=== PATIENT | male | born 1955 | race Caucasian/White ===

== ENCOUNTER 2016-11-11 14:08 | Emergency (ER) | payer MEDICARE ==
[2016-11-11] MEDS ORDERED: SODIUM CHLORIDE 0.9% 1,000 ML IV STA (14:15)
--- NOTE | 2016-11-11 14:36 | ED ---
General Adult HPI - General Chief complaint: Syncope Stated complaint: Syncope Time Seen by Provider: 11/11/16 14:10 Source: patient, RN notes reviewed Mode of arrival: EMS Limitations: no limitations - History of Present Illness Initial comments: Patient is a pleasant 61-year-old male presenting to the emergency department following a syncopal episode. Patient states he was at the [employer] he felt dizzy and fell down. No injury. Patient states he almost passed out. Patient has similar episode happened yesterday. Patient states he did not fully lose consciousness. No chest pain or shortness of breath. No abdominal pain. Patient does have a headache however states that is very mild. Patient does drink alcohol almost daily. - Related Data Home Medications Medication Instructions Recorded Confirmed Atenolol [Tenormin] 25 mg PO BID 06/29/15 08/02/15 Cholecalciferol [Vitamin D3] 1,000 unit PO DAILY 06/29/15 11/11/16 Cyclobenzaprine [Flexeril] 10 mg PO TID 06/29/15 08/02/15 FLUoxetine HCL [PROzac] 60 mg PO QAM 06/29/15 11/11/16 Gabapentin [Neurontin] 600 mg PO TID 06/29/15 08/02/15 Lisinopril [Zestril] 20 mg PO BID 06/29/15 08/02/15 Multivitamin [Men's Multi-Vitamin] 1 tab PO DAILY 06/29/15 11/11/16 Previous Rx's Medication Instructions Recorded HYDROcodone/APAP 5-325MG [[place] 1 tab PO Q6HR PRN #20 tab 07/22/15 5-325] Ondansetron HCl [Zofran] 4 mg PO Q8HR #30 tab 07/22/15 Pantoprazole [Protonix] 40 mg PO AC-BRKFST #30 tablet.dr 08/03/15 Tamsulosin [Flomax] 0.4 mg PO PC-SUPPER #30 cap.er.24h 08/03/15 Tiotropium 18 Mcg/Puff [Spiriva] 1 puff INHALATION RT-DAILY #1 08/03/15 inhaler Allergies Allergy/AdvReac Type Severity Reaction Status Date / Time No Known Allergies Allergy Verified 11/11/16 14:33 Review of Systems ROS Statement: Those systems with pertinent positive or pertinent negative responses have been documented in the HPI. ROS Other: All systems not noted in ROS Statement are negative. Constitutional: Denies: fever Eyes: Denies: eye pain ENT: Denies: ear pain Respiratory: Denies: cough Cardiovascular: Denies: chest pain Endocrine: Denies: fatigue Gastrointestinal: Denies: abdominal pain Genitourinary: Denies: dysuria Musculoskeletal: Denies: back pain Skin: Denies: rash Neurological: Reports: headache. Denies: weakness, confusion Past Medical History Past Medical History: Asthma, Chest Pain / Angina, Hyperlipidemia, Hypertension , Osteoarthritis (OA) Additional Past Medical History / Comment(s): DIVERTICULITIS."ulcer" neuropathy .chronic back pain,ddd alcoholism- had seizure when coming off alcohol. scoliosis,hemorrhoids , "i have some blocked arteries" History of Any Multi-Drug Resistant Organisms: None Reported Past Surgical History: Heart Catheterization, Orthopedic Surgery, Tonsillectomy Additional Past Surgical History / Comment(s): left shoulder ROTATOR CUFF.egd/ colonoscopy Past Anesthesia/Blood Transfusion Reactions: No Reported Reaction Past Psychological History: Anxiety, Depression Smoking Status: Current every day smoker Past Alcohol Use History: Daily Past Drug Use History: None Reported - Past Family History Mother Family Medical History: Coronary Artery Disease (CAD) Additional Family Medical History / Comment(s): CARDIAC STENTS Father Family Medical History: Cancer Additional Family Medical History / Comment(s): UNSURE WHAT KIND OF CANCER General Exam Limitations: no limitations General appearance: alert, in no apparent distress Head exam: Present: atraumatic, normocephalic Eye exam: Present: normal appearance, PERRL, EOMI, nystagmus ENT exam: Present: normal oropharynx Neck exam: Present: normal inspection. Absent: tenderness Respiratory exam: Present: normal lung sounds bilaterally Cardiovascular Exam: Present: regular rate, normal rhythm GI/Abdominal exam: Present: soft. Absent: distended, tenderness Extremities exam: Present: normal inspection Neurological exam: Present: alert, oriented X3, CN II-XII intact. Absent: motor sensory deficit Expanded Speech: Present: fluid speech Cranial nerves: EOM's Intact: Normal, Facial Sensation: Normal Sensory exam: Upper Extremity Light Touch: Normal, Lower Extremity Light Touch: Normal Motor strength exam: RUE: 5, LUE: 5, RLE: 5, LLE: 5 Eye Response: (4) open spontaneously Motor Response: (6) obeys commands Verbal Response: (5) oriented Psychiatric exam: Present: normal affect, normal mood Skin exam: Present: abrasion (Extremities) Course Vital Signs 11/11/16 11/11/16 11/11/16 14:15 14:45 15:44 Temperature 98.6 F Pulse Rate 81 75 71 Respiratory 20 20 20 Rate Blood Pressure 98/55 150/74 141/74 O2 Sat by Pulse 97 100 99 Oximetry EKG Findings - EKG Comments: EKG Findings:: Normal sinus rhythm 79. LA 146. QRS 92. QT 382. QTC 438. Normal axis. Normal QRS. Normal ST-T. Medical Decision Making - Medical Decision Making Patient reexamined and resting comfortably in bed. Patient is symptom-free. Patient updated on results. Patient requests discharge home. Patient was offered admission however refuses. Patient is agreeable to follow-up with his doctor tomorrow. Patient is alert and oriented 3 and does demonstrate steady gait. - Lab Data Result diagrams: 11/11/16 14:20 11/11/16 14:20 Lab Results 11/11/16 11/11/16 11/11/16 Range/Units 14:20 14:20 14:20 WBC 5.6 (3.8-10.6) k/uL RBC 3.39 L (4.30-5.90) m/uL Hgb 11.7 L (13.0-17.5) gm/dL Hct 35.1 L (39.0-53.0) % MCV 103.3 H (80.0-100.0) fL MCH 34.4 (25.0-35.0) pg MCHC 33.3 (31.0-37.0) g/dL RDW 13.2 (11.5-15.5) % Plt Count 356 (150-450) k/uL Neutrophils % 57 % Lymphocytes % 31 % Monocytes % 7 % Eosinophils % 2 % Basophils % 1 % Neutrophils # 3.2 (1.3-7.7) k/uL Lymphocytes # 1.7 (1.0-4.8) k/uL Monocytes # 0.4 (0-1.0) k/uL Eosinophils # 0.1 (0-0.7) k/uL Basophils # 0.0 (0-0.2) k/uL Macrocytosis Slight PT (9.0-12.0) sec INR (<1.2) APTT (22.0-30.0) sec D-Dimer (<0.60) mg/L FEU Sodium 141 (137-145) mmol/L Potassium 4.4 (3.5-5.1) mmol/L Chloride 110 H (98-107) mmol/L Carbon Dioxide 18 L (22-30) mmol/L Anion Gap 13 mmol/L BUN 9 (9-20) mg/dL Creatinine 0.80 (0.66-1.25) mg/dL Est GFR (MDRD) Af Amer >60 (>60 ml/min/1.73 sqM) Est GFR (MDRD) Non-Af >60 (>60 ml/min/1.73 sqM) Glucose 78 (74-99) mg/dL Calcium 8.5 (8.4-10.2) mg/dL Magnesium 1.6 (1.6-2.3) mg/dL Total Bilirubin 0.3 (0.2-1.3) mg/dL AST 32 (17-59) U/L ALT 31 (21-72) U/L Alkaline Phosphatase 107 (38-126) U/L Total Creatine Kinase 155 (55-170) U/L CK-MB (CK-2) 2.2 (0.0-2.4) ng/mL CK-MB (CK-2) Rel Index 1.4 Troponin I <0.012 (0.000-0.034) ng/mL Total Protein 5.6 L (6.3-8.2) g/dL Albumin 3.1 L (3.5-5.0) g/dL Urine Color Urine Appearance (Clear) Urine pH (5.0-8.0) Ur Specific [place] (1.001-1.035) Urine Protein (Negative) Urine Glucose (UA) (Negative) Urine Ketones (Negative) Urine Blood (Negative) Urine Nitrite (Negative) Urine Bilirubin (Negative) Urine Urobilinogen (<2.0) mg/dL Ur Leukocyte Esterase (Negative) Serum Alcohol 209 mg/dL 11/11/16 11/11/16 11/11/16 Range/Units 14:20 14:20 15:40 WBC (3.8-10.6) k/uL RBC (4.30-5.90) m/uL Hgb (13.0-17.5) gm/dL Hct (39.0-53.0) % MCV (80.0-100.0) fL MCH (25.0-35.0) pg MCHC (31.0-37.0) g/dL RDW (11.5-15.5) % Plt Count (150-450) k/uL Neutrophils % % Lymphocytes % % Monocytes % % Eosinophils % % Basophils % % Neutrophils # (1.3-7.7) k/uL Lymphocytes # (1.0-4.8) k/uL Monocytes # (0-1.0) k/uL Eosinophils # (0-0.7) k/uL Basophils # (0-0.2) k/uL Macrocytosis PT 11.0 (9.0-12.0) sec INR 1.1 (<1.2) APTT 24.3 (22.0-30.0) sec D-Dimer 0.80 H (<0.60) mg/L FEU Sodium (137-145) mmol/L Potassium (3.5-5.1) mmol/L Chloride (98-107) mmol/L Carbon Dioxide (22-30) mmol/L Anion Gap mmol/L BUN (9-20) mg/dL Creatinine (0.66-1.25) mg/dL Est GFR (MDRD) Af Amer (>60 ml/min/1.73 sqM) Est GFR (MDRD) Non-Af (>60 ml/min/1.73 sqM) Glucose (74-99) mg/dL Calcium (8.4-10.2) mg/dL Magnesium (1.6-2.3) mg/dL Total Bilirubin (0.2-1.3) mg/dL AST (17-59) U/L ALT (21-72) U/L Alkaline Phosphatase (38-126) U/L Total Creatine Kinase (55-170) U/L CK-MB (CK-2) (0.0-2.4) ng/mL CK-MB (CK-2) Rel Index Troponin I (0.000-0.034) ng/mL Total Protein (6.3-8.2) g/dL Albumin (3.5-5.0) g/dL Urine Color Colorless Urine Appearance Clear (Clear) Urine pH 5.0 (5.0-8.0) Ur Specific [place] 1.002 (1.001-1.035) Urine Protein Negative (Negative) Urine Glucose (UA) Negative (Negative) Urine Ketones Negative (Negative) Urine Blood Negative (Negative) Urine Nitrite Negative (Negative) Urine Bilirubin Negative (Negative) Urine Urobilinogen <2.0 (<2.0) mg/dL Ur Leukocyte Esterase Negative (Negative) Serum Alcohol mg/dL - Radiology Data Radiology results: report reviewed (CT angiogram of the chest shows no evidence of pulmonary embolism. Computed tomography scan of the brain shows no acute process.), image reviewed (Two-view chest x-ray shows no acute process.) Disposition Clinical Impression: Near syncope, Alcohol abuse Disposition: HOME SELF-CARE Condition: Stable Instructions: Near Syncope (ED) Additional Instructions: Discontinue alcohol. Please follow-up with your doctor tomorrow as agreed upon. Return for passing out, headache, weakness or confusion, chest pain or difficulty breathing, worsening symptoms or other concerns. Referrals: Jaylon Ledbetter DO [Primary Care Provider] - 1-2 days Time of Disposition: 16:15
[2016-11-11 14:40] LABS: Basophils % (A) 1 %; CH 34.4; CHCM 33.6; Eosinophils # (A) 0.1 k/uL (0-0.7); Eosinophils % (A) 2 %; HCT 35.1 % (39.0-53.0); HDW 2.56; HGB 11.7 gm/dL (13.0-17.5); Luc # (Auto) 0.16; Luc % (Auto) 3; Lymphocytes # (A) 1.7 k/uL (1.0-4.8); Lymphocytes % (A) 31 %; MCH 34.4 pg (25.0-35.0); MCHC 33.3 g/dL (31.0-37.0); MCV 103.3 fL (80.0-100.0); Macrocytosis Slight; Mean Platelet Volume 6.7; Monocytes # (A) 0.4 k/uL (0-1.0); Monocytes % (A) 7 %; Neutrophils # (A) 3.2 k/uL (1.3-7.7); Neutrophils % (A) 57 %; RBC 3.39 m/uL (4.30-5.90); RDW 13.2 % (11.5-15.5); WBC 5.6 k/uL (3.8-10.6); WBC (Perox) 5.65
--- NOTE | 2016-11-11 14:40 | XR ---
EXAMINATION TYPE: XR chest 2V DATE OF EXAM: 11/11/2016 COMPARISON: 08/02/2015 HISTORY: Syncope TECHNIQUE: Frontal and lateral views of the chest are obtained. FINDINGS: Heart and mediastinum are normal. Lungs are clear. Diaphragm is normal. There are chest le ads. Bony thorax is intact. IMPRESSION: Normal chest. No change.
[2016-11-11 14:49] LABS: INR 1.1 (<1.2); Partial Thromboplastin Time 24.3 sec (22.0-30.0)
[2016-11-11 14:52] LABS: ALT 31 U/L (21-72); AST 32 U/L (17-59); Alkaline Phosphatase 107 U/L (38-126); Anion Gap 13 mmol/L; Blood Urea Nitrogen 9 mg/dL (9-20); Calcium 8.5 mg/dL (8.4-10.2); Carbon Dioxide 18 mmol/L (22-30); Chloride 110 mmol/L (98-107); Glucose 78 mg/dL (74-99); Magnesium 1.6 mg/dL (1.6-2.3); Non-African American GFR(MDRD) >60 (>60 ml/min/1.73 sqM); Potassium 4.4 mmol/L (3.5-5.1); Sodium 141 mmol/L (137-145); Total Bilirubin 0.3 mg/dL (0.2-1.3); Total Protein 5.6 g/dL (6.3-8.2)
[2016-11-11 14:56] LABS: Alcohol 209 mg/dL
--- NOTE | 2016-11-11 14:57 | CT ---
EXAMINATION TYPE: CT brain wo con DATE OF EXAM: 11/11/2016 COMPARISON: NONE HISTORY: Syncope and Headache CT DLP: 1121 mGycm Automated exposure control for dose reduction was used. FINDINGS: There is some cerebral cortical atrophy. There is no mass effect nor midline shift. There is no sign of intracranial hemorrhage. The calvarium is intact. There is a small mucous retention cyst in the ri ght maxillary sinus. IMPRESSION: NEGATIVE CT SCAN OF THE BRAIN. MILD ATROPHY.
[2016-11-11 15:09] LABS: Creatine Kinase 155 U/L (55-170)
[2016-11-11] MEDS ORDERED: RX INFO: IV CONTRAST WAS GIVEN 1 EACH MISC MISCELLANE PRN (15:20)
[2016-11-11 15:23] LABS: Creatine Kinase MB 2.2 ng/mL (0.0-2.4); Troponin I <0.012 ng/mL (0.000-0.034)
[2016-11-11 15:54] LABS: Appearance,Urine Clear (Clear); Bilirubin,Urine Negative (Negative); Glucose,Urine (UA) Negative (Negative); Ketones,Urine Negative (Negative); Leukocyte Esterase,Urine Negative (Negative); Nitrite,Urine Negative (Negative); Protein,Urine Negative (Negative); Specific Gravity,Urine 1.002 (1.001-1.035); UA Billing (MACRO vs. MICRO) CHEM; Urobilinogen,Urine <2.0 mg/dL (<2.0)
--- NOTE | 2016-11-11 15:56 | CT ---
EXAMINATION TYPE: CT angio chest DATE OF EXAM: 11/11/2016 3:41 PM COMPARISON: 08/02/2015 HISTORY: Dizziness CT DLP: mGycm Automated exposure control for dose reduction was used. CONTRAST: Multiple axial sections were obtained from the thoracic inlet to the diaphragm with intravenous contr ast. The contrast was Omnipaque 80 mL. There are 3-D post processed images. FINDINGS: There is mild upper lobe pulmonary emphysema. There is no pleural effusion. There is mild interstitia l density at the posterior lung bases. There is no sign of a pulmonary mass. Thoracic aorta is intact . There is mild atherosclerotic calcification in the thoracic aorta. There is no evidence of aneurysm or dissection. Heart size is normal. There is no pericardial effusion. I see no filling defects in the pulmonary arteries. There are no hilar masses. There is no mediastina l adenopathy. The bony thorax is intact. IMPRESSION: NO EVIDENCE OF PULMONARY EMBOLISM. MILD EMPHYSEMA. FIBROTIC CHANGES AT THE LUNG BASES. THERE IS OVERA LL NO ADVERSE CHANGE COMPARED TO OLD EXAM. THERE IS NOTED A STABLE SMALL LIPOMA OF THE RIGHT DIAPHRAG M. There are stable tiny nodules in both lungs compared to old exams.
[2016-11-11 16:25] VITALS: BP 127/72; PULSE 74; RESP 19; TEMP 98
== END 2016-11-11 16:29 | disposition home or self-care (01) ==
LOC: EC 14:08
DX: R55 Syncope and collapse (principal); F10.10 Alcohol abuse, uncomplicated; R51 Headache; G62.9 Polyneuropathy, unspecified; I10 Essential (primary) hypertension; F32.9 Major depressive disorder, single episode, unspecified; F17.200 Nicotine dependence, unspecified, uncomplicated; Z79.899 Other long term (current) drug therapy
CPT/HCPCS: 36415; 93005; 85379; 80053; 82550; 82553; 83735; 84484; 85025; 85610; 85730; 81003; 80320; 71020; 70450; 71275; 99285; 96360; 96361; Q9967

== ENCOUNTER → 2017-01-28 | Outpatient (CLI) | payer MEDICARE ==
--- NOTE | 2017-01-28 14:52 | CT ---
EXAMINATION TYPE: CT chest w con DATE OF EXAM: 01/28/2017 COMPARISON: CTA chest November 11, 2016 and older studies. HISTORY: Pulmonary nodule, left lung CT DLP: 447 mGycm. Automated Exposure Control for Dose Reduction was Utilized. TECHNIQUE: CT scan of the thorax is performed following with IV Contrast, patient injected with 100 ml mL of Omnipaque 300. FINDINGS: LUNGS: Mild to moderate underlying emphysematous change is redemonstrated. There is persistent patchy bibasilar atelectasis and/or scarring. No suspicious greater than 5 mm parenchymal nodules or masses are identified. There is stable 3 mm nodule medial left upper lobe on axial image 31. Smaller nodule s on prior study are less well seen. Small fat-containing Bochdalek type hernia posteriorly right cary g is redemonstrated. No pleural effusion or pneumothorax is seen bilaterally. Tracheobronchial tree i s patent. MEDIASTINUM: There are no greater than 1 cm hilar or mediastinal lymph nodes. No cardiomegaly or p ericardial effusion is seen. There is dense three-vessel coronary artery calcification. There is mil d to moderate mixed plaque in the descending aorta. OTHER: There is small degree of bilateral gynecomastia. Multilevel spurring and spine is redemonstrat ed. IMPRESSION: Stable under 5 mm nodularity presumed benign. No new suspicious nodularity or adenopathy identified.
== END | disposition home or self-care (01) ==
LOC: RADCTMAIN 12:51
PROVIDERS: ATTEND Internal Medicine Critical Care Medicine
DX: R91.8 Other nonspecific abnormal finding of lung field (principal)
CPT/HCPCS: 71260; Q9967

== ENCOUNTER 2017-11-06 18:52 | Inpatient (IN) | payer OTHER, MEDICARE ==
[2017-11-06] MEDS ORDERED: SODIUM CHLORIDE 0.9% 1,000 ML IV ONE ×2 (19:21)
--- NOTE | 2017-11-06 19:27 | ED ---
General Adult HPI - General Chief complaint: Altered Mental Status Stated complaint: Confusion Time Seen by Provider: 11/06/17 18:57 Source: EMS, RN notes reviewed, old records reviewed Mode of arrival: EMS - History of Present Illness Initial comments: This is a 62-year-old male the ER for evaluation. Patient does say for evaluation regards to altered mental state. Patient's brought in by family member cc patient was acting appropriately. Patient was acting fine normal 2 days ago. The symptoms all started overnight into today. Patient's sister states she talked the patient a fall earlier this hospital they came ROM over the house patient was not acting appropriately. They called EMS and brought patient to ER. Patient himself is not complaining of anything specific maybe some cough, and some pain to some wounds on his leg - Related Data Home Medications Medication Instructions Recorded Confirmed Atenolol [Tenormin] 25 mg PO BID 06/29/15 11/06/17 Cyclobenzaprine [Flexeril] 10 mg PO TID 06/29/15 11/06/17 FLUoxetine HCL [PROzac] 60 mg PO QAM 06/29/15 11/06/17 Gabapentin [Neurontin] 900 mg PO TID 06/29/15 11/06/17 Lisinopril [Zestril] 20 mg PO BID 06/29/15 11/06/17 Multivitamin [Men's Multi-Vitamin] 1 tab PO DAILY 06/29/15 11/06/17 Acetaminophen [Tylenol Extra 500 mg PO TID 11/06/17 11/06/17 Strength] Aspirin EC [Ecotrin Low Dose] 81 mg PO DAILY 11/06/17 11/06/17 Atorvastatin [Lipitor] 80 mg PO HS 11/06/17 11/06/17 Cholecalciferol [Vitamin D3] 1,000 unit PO DAILY 11/06/17 11/06/17 Clopidogrel Bisulfate [Plavix] 75 mg PO DAILY 11/06/17 11/06/17 Ferrous Sulfate [Feosol] 325 mg PO BID 11/06/17 11/06/17 Omeprazole 20 mg PO BID 11/06/17 11/06/17 guaiFENesin SYRUP 100MG/5ML 100 mg PO QID 11/06/17 11/06/17 [Robitussin] Allergies Allergy/AdvReac Type Severity Reaction Status Date / Time No Known Allergies Allergy Verified 11/06/17 19:11 Review of Systems ROS Statement: Those systems with pertinent positive or pertinent negative responses have been documented in the HPI. ROS Other: All systems not noted in ROS Statement are negative. Past Medical History Past Medical History: Asthma, Chest Pain / Angina, Hyperlipidemia, Hypertension , Osteoarthritis (OA) Additional Past Medical History / Comment(s): DIVERTICULITIS."ulcer" neuropathy .chronic back pain,ddd alcoholism- had seizure when coming off alcohol. scoliosis,hemorrhoids , "i have some blocked arteries" History of Any Multi-Drug Resistant Organisms: None Reported Past Surgical History: Heart Catheterization, Orthopedic Surgery, Tonsillectomy Additional Past Surgical History / Comment(s): left shoulder ROTATOR CUFF.egd/ colonoscopy Past Anesthesia/Blood Transfusion Reactions: No Reported Reaction Past Psychological History: Anxiety, Depression Smoking Status: Current every day smoker Past Alcohol Use History: Daily Past Drug Use History: None Reported - Past Family History Mother Family Medical History: Coronary Artery Disease (CAD) Additional Family Medical History / Comment(s): CARDIAC STENTS Father Family Medical History: Cancer Additional Family Medical History / Comment(s): UNSURE WHAT KIND OF CANCER General Exam - General Exam Comments Initial Comments: Nonhealing wounds erythematous to both anterior shins Limitations: altered mental status General appearance: alert, in no apparent distress Head exam: Present: atraumatic, normocephalic, normal inspection Eye exam: Present: normal appearance, PERRL, EOMI. Absent: scleral icterus, conjunctival injection, periorbital swelling ENT exam: Present: normal exam, mucous membranes moist Neck exam: Present: normal inspection. Absent: tenderness, meningismus, lymphadenopathy Respiratory exam: Present: normal lung sounds bilaterally. Absent: respiratory distress, wheezes, rales, rhonchi, stridor Cardiovascular Exam: Present: normal rhythm, tachycardia, normal heart sounds. Absent: systolic murmur, diastolic murmur, rubs, gallop, clicks GI/Abdominal exam: Present: soft, normal bowel sounds. Absent: distended, tenderness, guarding, rebound, rigid Extremities exam: Present: normal inspection, full ROM, normal capillary refill. Absent: tenderness, pedal edema, joint swelling, calf tenderness Back exam: Present: normal inspection Neurological exam: Present: alert, oriented X3, CN II-XII intact Psychiatric exam: Present: normal affect, normal mood Skin exam: Present: warm, dry, intact, normal color. Absent: rash Course Vital Signs 11/06/17 11/06/17 11/06/17 18:57 20:46 21:08 Temperature 96.0 F L Pulse Rate 113 H 90 93 Respiratory 20 Rate Blood Pressure 178/93 O2 Sat by Pulse 98 Oximetry - Reevaluation(s) Reevaluation #1: 11/06/17 21:14 Medical records reviewed Reevaluation #2: 11/06/17 21:52 No significant improvement in symptoms EKG Findings - EKG Comments: EKG Findings:: EKG shows sinus tachycardia rate of 109, MS 1:30, QRS 90, QTc 492 Medical Decision Making - Medical Decision Making 52 male the ER with altered mental status, unkempt appearance, nonhealing leg wounds and ulcers, erythematous wounds to lower shins. Elevated white count, will place patient on antibiotics and admitted evaluated for further treatment - Lab Data Result diagrams: 11/06/17 19:25 11/06/17 19:25 Lab Results 11/06/17 11/06/17 11/06/17 Range/Units 19:25 19:25 19:25 WBC 15.1 H (3.8-10.6) k/uL RBC 3.45 L (4.30-5.90) m/uL Hgb 11.5 L (13.0-17.5) gm/dL Hct 34.4 L (39.0-53.0) % MCV 99.7 (80.0-100.0) fL MCH 33.4 (25.0-35.0) pg MCHC 33.5 (31.0-37.0) g/dL RDW 13.3 (11.5-15.5) % Plt Count 443 (150-450) k/uL Neutrophils % 91 % Lymphocytes % 4 % Monocytes % 3 % Eosinophils % 0 % Basophils % 0 % Neutrophils # 13.8 H (1.3-7.7) k/uL Lymphocytes # 0.7 L (1.0-4.8) k/uL Monocytes # 0.5 (0-1.0) k/uL Eosinophils # 0.1 (0-0.7) k/uL Basophils # 0.0 (0-0.2) k/uL PT (9.0-12.0) sec INR (<1.2) APTT (22.0-30.0) sec Sodium 136 L (137-145) mmol/L Potassium 3.7 (3.5-5.1) mmol/L Chloride 108 H (98-107) mmol/L Carbon Dioxide 21 L (22-30) mmol/L Anion Gap 7 mmol/L BUN 9 (9-20) mg/dL Creatinine 0.93 (0.66-1.25) mg/dL Est GFR (CKD-EPI)AfAm >90 (>60 ml/min/1.73 sqM) Est GFR (CKD-EPI)NonAf 87 (>60 ml/min/1.73 sqM) Glucose 117 H (74-99) mg/dL Calcium 9.1 (8.4-10.2) mg/dL Total Bilirubin 0.7 (0.2-1.3) mg/dL AST 38 (17-59) U/L ALT 29 (21-72) U/L Alkaline Phosphatase 102 (38-126) U/L Ammonia (<30) umol/L Total Creatine Kinase 219 H (55-170) U/L CK-MB (CK-2) 3.0 H* (0.0-2.4) ng/mL CK-MB (CK-2) Rel Index 1.4 Troponin I 0.016 (0.000-0.034) ng/mL Total Protein 6.7 (6.3-8.2) g/dL Albumin 4.2 (3.5-5.0) g/dL 11/06/17 11/06/17 Range/Units 19:25 19:50 WBC (3.8-10.6) k/uL RBC (4.30-5.90) m/uL Hgb (13.0-17.5) gm/dL Hct (39.0-53.0) % MCV (80.0-100.0) fL MCH (25.0-35.0) pg MCHC (31.0-37.0) g/dL RDW (11.5-15.5) % Plt Count (150-450) k/uL Neutrophils % % Lymphocytes % % Monocytes % % Eosinophils % % Basophils % % Neutrophils # (1.3-7.7) k/uL Lymphocytes # (1.0-4.8) k/uL Monocytes # (0-1.0) k/uL Eosinophils # (0-0.7) k/uL Basophils # (0-0.2) k/uL PT 10.0 (9.0-12.0) sec INR 1.0 (<1.2) APTT 22.7 (22.0-30.0) sec Sodium (137-145) mmol/L Potassium (3.5-5.1) mmol/L Chloride (98-107) mmol/L Carbon Dioxide (22-30) mmol/L Anion Gap mmol/L BUN (9-20) mg/dL Creatinine (0.66-1.25) mg/dL Est GFR (CKD-EPI)AfAm (>60 ml/min/1.73 sqM) Est GFR (CKD-EPI)NonAf (>60 ml/min/1.73 sqM) Glucose (74-99) mg/dL Calcium (8.4-10.2) mg/dL Total Bilirubin (0.2-1.3) mg/dL AST (17-59) U/L ALT (21-72) U/L Alkaline Phosphatase (38-126) U/L Ammonia 14 (<30) umol/L Total Creatine Kinase (55-170) U/L CK-MB (CK-2) (0.0-2.4) ng/mL CK-MB (CK-2) Rel Index Troponin I (0.000-0.034) ng/mL Total Protein (6.3-8.2) g/dL Albumin (3.5-5.0) g/dL - Radiology Data Radiology results: report reviewed (Chest x-rays negative for acute disease, CT brain negative for acute disease), image reviewed Disposition Clinical Impression: Altered mental status, Urinary retention with incomplete bladder emptying, Delirium due to general medical condition, Nonhealing nonsurgical wound Disposition: ADMITTED IP TO THIS HOSP Condition: Fair Is patient prescribed a controlled substance at d/c from ED?: No Referrals: [facility],Clinic [Primary Care Provider] - 1-2 days
[2017-11-06] MEDS ORDERED: PANTOPRAZOLE 40 MG/10 ML VIAL IVP STA (19:39)
[2017-11-06] MEDS ORDERED: LORazepam 2 MG/ML INJ IV STA (19:39)
[2017-11-06] MEDS ORDERED: ONDANSETRON 4 MG/2 ML VIAL IVP STA (19:39)
[2017-11-06] MEDS ORDERED: LABETALOL 5 MG/ML VIAL MDV IVP STA (19:39)
[2017-11-06] MEDS ORDERED: IPRATROPIUM-ALBUTEROL 3 ML NEB INHALATION STA (19:39)
[2017-11-06] MEDS ORDERED: cefTRIAXone IN SWFI 2,000 MG/20 ML SYRINGE IVP STA (19:41)
[2017-11-06 19:54] LABS: Basophils % (A) 0 %; Eosinophils # (A) 0.1 k/uL (0-0.7); Eosinophils % (A) 0 %; HCT 34.4 % (39.0-53.0); HGB 11.5 gm/dL (13.0-17.5); Lymphocytes # (A) 0.7 k/uL (1.0-4.8); Lymphocytes % (A) 4 %; MCH 33.4 pg (25.0-35.0); MCHC 33.5 g/dL (31.0-37.0); MCV 99.7 fL (80.0-100.0); Mean Platelet Volume 6.3; Monocytes # (A) 0.5 k/uL (0-1.0); Monocytes % (A) 3 %; Neutrophils # (A) 13.8 k/uL (1.3-7.7); Neutrophils % (A) 91 %; Platelet Count 443 k/uL (150-450); RBC 3.45 m/uL (4.30-5.90); RDW 13.3 % (11.5-15.5); WBC 15.1 k/uL (3.8-10.6)
[2017-11-06 19:56] LABS: Partial Thromboplastin Time 22.7 sec (22.0-30.0)
[2017-11-06 20:01] LABS: ALT 29 U/L (21-72); AST 38 U/L (17-59); Albumin 4.2 g/dL (3.5-5.0); Alkaline Phosphatase 102 U/L (38-126); Anion Gap 7 mmol/L; Blood Urea Nitrogen 9 mg/dL (9-20); Calcium 9.1 mg/dL (8.4-10.2); Carbon Dioxide 21 mmol/L (22-30); Chloride 108 mmol/L (98-107); Glucose 117 mg/dL (74-99); Potassium 3.7 mmol/L (3.5-5.1); Sodium 136 mmol/L (137-145); Total Bilirubin 0.7 mg/dL (0.2-1.3); Total Protein 6.7 g/dL (6.3-8.2)
[2017-11-06 20:13] LABS: Troponin I 0.016 ng/mL (0.000-0.034)
--- NOTE | 2017-11-06 21:45 | CT ---
EXAMINATION: CT brain wo con DATE AND TIME: 11/06/2017 9:36 PM ORDERING PROVIDER: Jian Pearl DO CLINICAL INDICATION: altered mental status TECHNIQUE: Standard departmental protocol. DLP 1138 mGy-cm. COMPARISON: 11/11/2016 DESCRIPTION: The calvarium is intact. There is no intracranial hemorrhage. There is no mass or mass e ffect. There is no definite new attenuation defect. Remainder of the intra-axial and extra-axial comp artment examination is unremarkable. The paranasal sinuses are clear, with the exception of a 1 cm mu cous retention cyst at the base of the right maxillary sinus. The middle ear cavities and mastoid sin us air cells are clear. The orbits are intact. IMPRESSION: NO ACUTE PROCESS.
--- NOTE | 2017-11-06 21:48 | XR ---
EXAMINATION: XR chest 2V DATE AND TIME: 11/06/2017 9:21 PM ORDERING PROVIDER: Jian Pearl DO CLINICAL INDICATION: altered mental status TECHNIQUE: PA and lateral COMPARISON: 11/11/2016 DESCRIPTION: The lungs are clear. The pleural spaces are negative. The cardiac silhouette is not enlarged. The mediastinal and pleural silhouettes are unremarkable. The skeletal structures are intact without focal findings. The soft tissues are unremarkable. IMPRESSION: NO ACUTE PROCESS.
[2017-11-06] MEDS ORDERED: VANCOMYCIN IV PER PHARMACY 1 EACH MISC MISCELLANE PRN (21:50)
[2017-11-06 22:05] LABS: Appearance,Urine Clear (Clear); Bilirubin,Urine Negative (Negative); Blood,Urine Negative (Negative); Color,Urine Yellow; Glucose,Urine (UA) Negative (Negative); Ketones,Urine Negative (Negative); Leukocyte Esterase,Urine Negative (Negative); Nitrite,Urine Negative (Negative); PH, Urine 5.5 (5.0-8.0); Protein,Urine Trace (Negative); Specific Gravity,Urine 1.012 (1.001-1.035); Urobilinogen,Urine <2.0 mg/dL (<2.0)
[2017-11-06 22:18] LABS: Amphetamine Screen,Urine Not Detected (NotDetected); Barbiturate Screen,Urine Not Detected (NotDetected); Benzodiazepines Screen,Urine Detected (NotDetected); Cocaine Screen,Urine Not Detected (NotDetected); Methadone Screen, Urine Not Detected (NotDetected); Opiate Screen,Urine Not Detected (NotDetected); Oxycodone Screen, Urine Not Detected (NotDetected); Phencyclidine Screen,Urine Not Detected (NotDetected); Tricyclic Antidepressant,Urine Detected (NotDetected); Urn Cannabinoid Scrn Not Detected (NotDetected)
[2017-11-06] MEDS ORDERED: VANCOMYCIN 1,250 MG in SODIUM CHLORIDE 0.9% 250 ML IVPB ONE (22:30)
[2017-11-07] MEDS ORDERED: traMADol 50 MG TAB PO PRN (00:30)
[2017-11-07] MEDS: ATENOLOL 25 MG TAB PO SCH ×3 (03:53→21:02)
[2017-11-07] MEDS: LISINOPRIL 20 MG TAB PO SCH ×3 (03:53→21:02)
[2017-11-07] MEDS: NICOTINE 14MG/24HR PATCH TRANSDERM SCH (07:59)
[2017-11-07] MEDS: ENOXAPARIN 40 MG/0.4 ML SYRINGE SQ SCH (07:59)
[2017-11-07] MEDS ORDERED: VANCOMYCIN 1,250 MG in SODIUM CHLORIDE 0.9% 250 ML IVPB SCH (10:00)
[2017-11-07 12:04] VITALS: BMI 22.9
--- NOTE | 2017-11-07 14:29 | P.CRDCN ---
History of Present Illness History of present illness: Mr. Baird is a pleasant 62-year-old male past medical history significant for coronary artery disease status post angioplasty of the proximal to mid LAD September 2015 at the [facility] in [place], hypertension, dyslipidemia, COPD, chronic nicotine dependence and history of radius heavy alcohol abuse. We have been asked to see him in consultation for symptoms of chest discomfort. He states for the previous 2 days he has felt vague chest heaviness that varies from the upper abdomen to the right and to the left precordial region. He denies radiation of the pain to the arms, back, neck or jaw. He describes mild shortness of breath and nausea at times as well. The pain is brief when it does come and seems to be associated with exertion and improved with rest. However he cannot give me a specific example of when the pain comes what he is actually doing. Per review of ED notes it appears he was brought to the hospital by his sister for altered mental status. He was noted to be roaming around his home disoriented. CT of the brain was obtained and is negative for acute intracranial process. Blood pressure on admission 178/93 was given one dose of IV labetalol and IV Ativan. He is also been started on vancomycin for left lower extremity nonhealing wounds. EKG on arrival reveals sinus tachycardia heart rate [address] or T wave abnormalities noted. Chest x-ray is negative for an acute cardiopulmonary process. Laboratory data reviewed, WBC 15.1, hemoglobin 11.5, platelets 443, sodium 136, potassium 3.7, creatinine 0.93,, and 14, cardiac enzymes negative 1. Current cardiac medications include aspirin 81 mg daily, Plavix 75 mg daily, atorvastatin 80 mg daily, lisinopril 20 mg twice a day and atenolol 25 mg twice a day. Most recent echocardiogram performed in 2016 reveals preserved left ventricular systolic function with ejection fraction 55-60%. Review of Systems At the time of my exam: CONSTITUTIONAL: Denies fever. Denies chills. EYES: Denies blurred vision. Denies vision changes. Denies eye pain. EARS, NOSE, MOUTH & THROAT: Denies headache. Denies sore throat. Denies ear pain. CARDIOVASCULAR: Denies chest pain. Denies shortness of breath. Denies orthopnea. Denies PND. Denies palpitations. RESPIRATORY: Denies cough. GASTROINTESTINAL: Denies abdominal pain. Denies diarrhea. Denies constipation. Complains of nausea nausea. Denies vomiting. MUSCULOSKELETAL: Complains of left lower extremity discomfort. INTEGUMENTARY: Denies pruitis. Denies rash. NEUROLOGIC: Denies numbness. Denies tingling. Denies weakness. PSYCHIATRIC: Denies anxiety. Denies depression. ENDOCRINE: Denies fatigue. Denies weight change. Denies polydipsia. Denies polyurina. GENITOURINARY: Denies burning, hematuria or urgency with micturation. HEMATOLOGIC: Denies history of anemia. Denies bleeding. Past Medical History Past Medical History: Asthma, Chest Pain / Angina, COPD, Hyperlipidemia, Hypertension, Osteoarthritis (OA) Additional Past Medical History / Comment(s): Diverticulitis, stomach ulcer, neuropathy, chronic back pain, DDD, alcoholism - had seizure when withdrawing from alcohol, scoliosis, hemorrhoids, blocked arteries. 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 Smoking Status: Current every day smoker Past Alcohol Use History: Daily Additional Past Alcohol Use History / Comment(s): Past heavy ETOH abuse, states he is a recovering alcoholic. Patient states he smokes 3/4 packs per day. Past Drug Use History: None Reported - Past Family History Mother Family Medical History: Coronary Artery Disease (CAD) Additional Family Medical History / Comment(s): Cardiac stent Father Family Medical History: Cancer Additional Family Medical History / Comment(s): Unsure what kind of cancer. Medications and Allergies Home Medications Medication Instructions Recorded Confirmed Type Atenolol [Tenormin] 25 mg PO BID 06/29/15 11/06/17 History Cyclobenzaprine [Flexeril] 10 mg PO TID 06/29/15 11/06/17 History FLUoxetine HCL [PROzac] 60 mg PO QAM 06/29/15 11/06/17 History Gabapentin [Neurontin] 900 mg PO TID 06/29/15 11/06/17 History Lisinopril [Zestril] 20 mg PO BID 06/29/15 11/06/17 History Multivitamin [Men's Multi-Vitamin] 1 tab PO DAILY 06/29/15 11/06/17 History Acetaminophen [Tylenol Extra 500 mg PO TID 11/06/17 11/06/17 History Strength] Aspirin EC [Ecotrin Low Dose] 81 mg PO DAILY 11/06/17 11/06/17 History Atorvastatin [Lipitor] 80 mg PO HS 11/06/17 11/06/17 History Cholecalciferol [Vitamin D3] 1,000 unit PO DAILY 11/06/17 11/06/17 History Clopidogrel Bisulfate [Plavix] 75 mg PO DAILY 11/06/17 11/06/17 History Ferrous Sulfate [Feosol] 325 mg PO BID 11/06/17 11/06/17 History Omeprazole 20 mg PO BID 11/06/17 11/06/17 History guaiFENesin SYRUP 100MG/5ML 100 mg PO QID 11/06/17 11/06/17 History [Robitussin] Allergies Allergy/AdvReac Type Severity Reaction Status Date / Time No Known Allergies Allergy Verified 11/06/17 23:07 Physical Exam Vitals: Vital Signs Temp Pulse Pulse Resp BP BP BP 11/07/17 07:00 97.1 F L 78 18 141/73 11/07/17 03:08 98 153/82 11/06/17 23:10 98.7 F 102 H 16 166/84 11/06/17 22:48 98.1 F 96 17 161/76 11/06/17 21:08 93 11/06/17 20:46 90 11/06/17 18:57 96.0 F L 113 H 20 178/93 Pulse Ox 11/07/17 07:00 95 11/07/17 03:08 11/06/17 23:10 93 L 11/06/17 22:48 95 11/06/17 21:08 11/06/17 20:46 11/06/17 18:57 98 Intake and Output 11/06/17 11/07/17 11/07/17 22:59 06:59 14:59 Intake Total 1200 240 Balance 1200 240 Intake: Amount of Fluid Infused ( 1200 ml) Oral 240 Other: Voiding Method Urinal Urinal # Voids 2 Weight 68.039 kg 66.5 kg 66.5 kg Blood pressure 141/73 heart rate 78 afebrile maintaining oxygen saturation on room air GENERAL: This is a 62-year-old occasion male in no apparent distress at the time of my examination. HEENT: Head is atraumatic, normocephalic. Pupils are equal, round. Sclerae anicteric. Conjunctivae are clear. Mucous membranes of the mouth are moist. Neck is supple. There is no jugular venous distention. No carotid bruit is heard. LUNGS: Clear to auscultation no wheezes, rales or rhonchi. No chest wall tenderness is noted on palpation or with deep breathing. HEART: Regular rate and rhythm without murmurs, rubs or gallops. S1 and S2 heard. ABDOMEN: Soft, nontender. Bowel sounds are heard. No organomegaly noted. EXTREMITIES: No evidence of peripheral edema and no calf tenderness noted. VASCULAR: Radial and dorsalis pedis pulses palpated, no evidence of clubbing. NEUROLOGIC: Patient is awake, alert and oriented x3. Results 11/06/17 19:25 11/06/17 19:25 Cardiac Enzymes 11/06/17 11/06/17 Range/Units 19:25 19:25 AST 38 (17-59) U/L CK-MB (CK-2) 3.0 H* (0.0-2.4) ng/mL Troponin I 0.016 (0.000-0.034) ng/mL Coagulation 11/06/17 Range/Units 19:25 PT 10.0 (9.0-12.0) sec APTT 22.7 (22.0-30.0) sec CBC 11/06/17 Range/Units 19:25 WBC 15.1 H (3.8-10.6) k/uL RBC 3.45 L (4.30-5.90) m/uL Hgb 11.5 L (13.0-17.5) gm/dL Hct 34.4 L (39.0-53.0) % Plt Count 443 (150-450) k/uL Comprehensive Metabolic Panel 11/06/17 Range/Units 19:25 Sodium 136 L (137-145) mmol/L Potassium 3.7 (3.5-5.1) mmol/L Chloride 108 H (98-107) mmol/L Carbon Dioxide 21 L (22-30) mmol/L BUN 9 (9-20) mg/dL Creatinine 0.93 (0.66-1.25) mg/dL Glucose 117 H (74-99) mg/dL Calcium 9.1 (8.4-10.2) mg/dL AST 38 (17-59) U/L ALT 29 (21-72) U/L Alkaline Phosphatase 102 (38-126) U/L Total Protein 6.7 (6.3-8.2) g/dL Albumin 4.2 (3.5-5.0) g/dL Current Medications Generic Name Dose Route Start Last Admin Trade Name Freq PRN Reason Stop Dose Admin Acetaminophen 500 mg 11/07/17 16:00 Tylenol Tab PO TID [facility] Albuterol/Ipratropium 3 ml 11/07/17 13:29 Duoneb 0.5 Mg-3 Mg/3 Ml Soln INHALATION RT-QID PRN Shortness Of Breath Or Wheezing Atenolol 25 mg 11/07/17 00:30 11/07/17 07:59 Tenormin PO 25 mg BID [facility] Administration Atorvastatin Calcium 80 mg 11/07/17 21:00 Lipitor PO HS [facility] Cholecalciferol 1,000 unit 11/08/17 12:00 Vitamin D3 PO DAILY@1200 [facility] Enoxaparin Sodium 40 mg 11/07/17 09:00 11/07/17 07:59 Lovenox SQ 40 mg DAILY [facility] Administration Fluoxetine HCl 60 mg 11/08/17 09:00 Prozac PO QAM [facility] Lisinopril 20 mg 11/07/17 00:30 11/07/17 07:59 Zestril PO 20 mg BID [facility] Administration Miscellaneous Information 0 each 11/08/17 09:00 Vancomycin Trough Due MISCELLANE 11/08/17 09:01 DIRECTED ONE Nicotine 1 patch 11/07/17 09:00 11/07/17 07:59 Habitrol 14mg/24hr Patch TRANSDERM 1 patch DAILY [facility] Administration Non-Formulary Medication 81 mg 11/08/17 09:00 Aspirin Ec PO DAILY [facility] Pantoprazole Sodium 20 mg 11/08/17 07:30 Protonix PO AC-BRKFST DONALD Tramadol HCl 50 mg 11/07/17 00:30 11/07/17 03:57 Ultram PO 50 mg Q6H PRN Administration Mild to Moderate Pain Intake and Output 11/06/17 11/07/17 11/07/17 22:59 06:59 14:59 Intake Total 1200 240 Balance 1200 240 Intake: Amount of Fluid Infused ( 1200 ml) Oral 240 Other: Voiding Method Urinal Urinal # Voids 2 Weight 68.039 kg 66.5 kg 66.5 kg Patient Weight 11/08/17 06:59 Weight 66.5 kg 11/06/17 19:25 11/06/17 19:25 Assessment and Plan Assessment: ASSESSMENT Chest pain, atypical. Altered mental status History of known coronary artery disease status post angioplasty of the LAD 2015 Hypertension, uncontrolled Dyslipidemia Chronic nicotine dependence PLAN Obtain 2-D echocardiogram and Doppler study to assess cardiac structure and function. Continue to obtain serial cardiac enzymes to rule out an acute ischemic event. Obtain bilateral carotid duplex. Resume aspirin 81 mg daily, atorvastatin 80 mg daily, lisinopril 20 mg BID and atenolol 25 mg BID. Will consider adding amlodipine if blood pressure remains elevated. Ongoing medical management of altered mental status. Smoking cessation discussed and recommended. Further recommendations to follow based on clinical course. Thank you kindly for this consultation. The above impression and plan of care have been discussed and directed by the signing physician. Gay Mcnair, nurse practitioner, acting as scribe for signing physician.
--- NOTE | 2017-11-07 16:11 | US ---
EXAMINATION TYPE: US carotid duplex BILAT DATE OF EXAM: 11/07/2017 COMPARISON: NONE CLINICAL HISTORY: ams. Altered mental status EXAM MEASUREMENTS: RIGHT: Peak Systolic Velocity (PSV) cm/sec ----- Right CCA: 61.6 ----- Right ICA: 72.1 ----- Right ECA: 136.8 ICA/CCA ratio: 1.2 RIGHT: End Diastole cm/sec ----- Right CCA: 15.4 ----- Right ICA: 24.1 ----- Right ECA: 12.3 LEFT: Peak Systolic Velocity (PSV) cm/sec ----- Left CCA: 68.6 ----- Left ICA: 88.7 ----- Left ECA: 108.3 ICA/CCA ratio: 1.3 LEFT: End Diastole cm/sec ----- Left CCA: 17.1 ----- Left ICA: 23.2 ----- Left ECA: 12.4 VERTEBRALS (direction of flow): Right Vertebral: Antegrade Left Vertebral: Antegrade Rhythm: Normal No significant stenosis seen Atheromatous plaquing is present within the right common carotid artery and right carotid bulb withou t stenosis. Doppler waveforms remain normal. Some mild intimal thickening is within the left common c arotid artery. Plaque is present within the carotid bulb. No abnormal velocity changes are evident. IMPRESSION: 1. No suspicious changes to suggest stenosis. Some mild plaquing is present within the common carotid arteries and carotid bulbs. Criteria for Assigning % of Stenosis / Diameter reduction (Estimation based on the indirect measurements of the internal carotid artery velocities (ICA PSV). 1. Normal (no stenosis)=ICA PSV < 125 cm/s: ratio < 2.0: ICA EDV<40 cm/s. 2. Less than 50% stenosis=ICA PSV < 125 cm/s: ratio < 2.0: ICA EDV<40 cm/s. 3. 50 to 69% stenosis=ICA PSV of 125 to 230 cm/s: ration 2.0 ? 4.0: ICA EDV 40-100 cm/s. 4. Greater than 70% stenosis to near occlusion= ICA PSV > 230 cm/s: ratio > 4.0: ICA EDV > 100 cm/s. 5. Near occlusion= ICA PSV velocities may be low or undetectable: variable ratio and ICA EDV. 6. Total occlusion=unable to detect flow.
--- NOTE | 2017-11-07 16:22 | P.HPIM ---
History of Present Illness 62-year-old and melena with the family history of Alzheimer's dementia, does have some chronic memory difficulties although alert oriented 3 was brought in via ambulance as the family members were concerned that he is quite a bit confused. Patient always forgets about his medications sometimes he takes too many of those sometimes doesn't take any medications. Patient doesn't have any fever chills or 60 within normal limits uA essentially within normal limits but patient was admitted with the diagnosis of urinary tract infection, was started on antibiotics broad-spectrum which is now discontinued. Patient was complaining of chest pain at that time patient has a chronic catheterization and stents that were placed in 2016 patient chest pain is noncardiac EKG did not show any acute ST-T wave changes troponin is negative and repeat another set of troponin family is requesting cardiology evaluation because of which I'm consulted cardiology. Patient denied any dysuria cough runny nose patient is able to provide me good history patient does have some aberrations in the left leg because of his falls apparently because of generalized weakness area patient is able to provide me good history. Patient is presently alert oriented 3 and baseline. Review of Systems REVIEW OF SYSTEMS: CONSTITUTIONAL: No fever, no malaise, no fatigue. HEENT: No recent visual problems or hearing problems. Denied any sore throat. CARDIOVASCULAR: No chest pain, orthopnea, PND, no palpitations, no syncope. PULMONARY: No shortness of breath, no cough, no hemoptysis. GASTROINTESTINAL: No diarrhea, no nausea, no vomiting, no abdominal pain. Normoactive bowel sounds. NEUROLOGICAL: No headaches, no weakness, no numbness. HEMATOLOGICAL: Denies any bleeding or petechiae. GENITOURINARY: Denies any burning micturition, frequency, or urgency. MUSCULOSKELETAL/RHEUMATOLOGICAL: Denies any joint pain, swelling, or any muscle pain. ENDOCRINE: Denies any polyuria or polydipsia. The rest of the 14-point review of systems is negative. Past Medical History Past Medical History: Asthma, Chest Pain / Angina, COPD, Hyperlipidemia, Hypertension, Osteoarthritis (OA) Additional Past Medical History / Comment(s): Diverticulitis, stomach ulcer, neuropathy, chronic back pain, DDD, alcoholism - had seizure when withdrawing from alcohol, scoliosis, hemorrhoids, blocked arteries. 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 Smoking Status: Current every day smoker Past Alcohol Use History: Daily Additional Past Alcohol Use History / Comment(s): Past heavy ETOH abuse, states he is a recovering alcoholic. Patient states he smokes 3/4 packs per day. Past Drug Use History: None Reported - Past Family History Mother Family Medical History: Coronary Artery Disease (CAD) Additional Family Medical History / Comment(s): Cardiac stent Father Family Medical History: Cancer Additional Family Medical History / Comment(s): Unsure what kind of cancer. Medications and Allergies Home Medications Medication Instructions Recorded Confirmed Type Atenolol [Tenormin] 25 mg PO BID 06/29/15 11/06/17 History Cyclobenzaprine [Flexeril] 10 mg PO TID 06/29/15 11/06/17 History FLUoxetine HCL [PROzac] 60 mg PO QAM 06/29/15 11/06/17 History Gabapentin [Neurontin] 900 mg PO TID 06/29/15 11/06/17 History Lisinopril [Zestril] 20 mg PO BID 06/29/15 11/06/17 History Multivitamin [Men's Multi-Vitamin] 1 tab PO DAILY 06/29/15 11/06/17 History Acetaminophen [Tylenol Extra 500 mg PO TID 11/06/17 11/06/17 History Strength] Aspirin EC [Ecotrin Low Dose] 81 mg PO DAILY 11/06/17 11/06/17 History Atorvastatin [Lipitor] 80 mg PO HS 11/06/17 11/06/17 History Cholecalciferol [Vitamin D3] 1,000 unit PO DAILY 11/06/17 11/06/17 History Clopidogrel Bisulfate [Plavix] 75 mg PO DAILY 11/06/17 11/06/17 History Ferrous Sulfate [Feosol] 325 mg PO BID 11/06/17 11/06/17 History Omeprazole 20 mg PO BID 11/06/17 11/06/17 History guaiFENesin SYRUP 100MG/5ML 100 mg PO QID 11/06/17 11/06/17 History [Robitussin] Allergies Allergy/AdvReac Type Severity Reaction Status Date / Time No Known Allergies Allergy Verified 11/06/17 23:07 Physical Exam Vitals: Vital Signs Temp Pulse Pulse Resp BP BP BP 11/07/17 15:24 18 11/07/17 15:00 97.1 F L 84 18 141/75 11/07/17 07:00 97.1 F L 78 18 141/73 11/07/17 03:08 98 153/82 11/06/17 23:10 98.7 F 102 H 16 166/84 11/06/17 22:48 98.1 F 96 17 161/76 11/06/17 21:08 93 11/06/17 20:46 90 11/06/17 18:57 96.0 F L 113 H 20 178/93 Pulse Ox 11/07/17 15:24 11/07/17 15:00 97 11/07/17 07:00 95 11/07/17 03:08 11/06/17 23:10 93 L 11/06/17 22:48 95 11/06/17 21:08 11/06/17 20:46 11/06/17 18:57 98 Intake and Output 11/07/17 11/07/17 11/07/17 06:59 14:59 22:59 Intake Total 1200 840 Balance 1200 840 Intake: Amount of Fluid Infused ( 1200 ml) Oral 840 Other: Voiding Method Urinal Urinal # Voids 2 2 # Bowel Movements 1 Weight 66.5 kg 66.5 kg PHYSICAL EXAMINATION: GENERAL: The patient is alert and oriented x3, not in any acute distress. Well developed, well nourished. HEENT: Pupils are round and equally reacting to light. EOMI. No scleral icterus. No conjunctival pallor. Normocephalic, atraumatic. No pharyngeal erythema. No thyromegaly. CARDIOVASCULAR: S1 and S2 present. No murmurs, rubs, or gallops. PULMONARY: Chest is clear to auscultation, no wheezing or crackles. ABDOMEN: Soft, nontender, nondistended, normoactive bowel sounds. No palpable organomegaly. MUSCULOSKELETAL: No joint swelling or deformity. EXTREMITIES: No cyanosis, clubbing, or pedal edema. NEUROLOGICAL: Gross neurological examination did not reveal any focal deficits. SKIN: No rashes. Results CBC & Chem 7: 11/06/17 19:25 11/06/17 19:25 Labs: Abnormal Lab Results - Last 24 Hours (Table) 11/06/17 11/06/17 11/06/17 Range/Units 19:25 19:25 19:25 WBC 15.1 H (3.8-10.6) k/uL RBC 3.45 L (4.30-5.90) m/uL Hgb 11.5 L (13.0-17.5) gm/dL Hct 34.4 L (39.0-53.0) % Neutrophils # 13.8 H (1.3-7.7) k/uL Lymphocytes # 0.7 L (1.0-4.8) k/uL Sodium 136 L (137-145) mmol/L Chloride 108 H (98-107) mmol/L Carbon Dioxide 21 L (22-30) mmol/L Glucose 117 H (74-99) mg/dL Total Creatine Kinase 219 H (55-170) U/L CK-MB (CK-2) 3.0 H* (0.0-2.4) ng/mL Urine Protein (Negative) U Tricyclic Antidepress (NotDetected) U Benzodiazepines Scrn (NotDetected) 11/06/17 Range/Units 21:57 WBC (3.8-10.6) k/uL RBC (4.30-5.90) m/uL Hgb (13.0-17.5) gm/dL Hct (39.0-53.0) % Neutrophils # (1.3-7.7) k/uL Lymphocytes # (1.0-4.8) k/uL Sodium (137-145) mmol/L Chloride (98-107) mmol/L Carbon Dioxide (22-30) mmol/L Glucose (74-99) mg/dL Total Creatine Kinase (55-170) U/L CK-MB (CK-2) (0.0-2.4) ng/mL Urine Protein Trace H (Negative) U Tricyclic Antidepress Detected H (NotDetected) U Benzodiazepines Scrn Detected H (NotDetected) Microbiology - Last 24 Hours (Table) 11/06/17 21:57 Urine Culture - Preliminary Urine,Catheterized Thrombosis Risk Factor Assmnt - Choose All That Apply Any of the Below Risk Factors Present?: Yes Each Factor Represents 1 point: Abnormal pulmonary function (COPD) Other Risk Factors: No Each Risk Factor Represents 2 Points: Age 61-74 years Other congenital or acquired thrombophilia - If yes, enter type in comment: No Thrombosis Risk Factor Assessment Total Risk Factor Score: 3 Thrombosis Risk Factor Assessment Level: Moderate Risk Assessment and Plan Plan: -Altered mental status: I believe patient has toxic encephalopathy from taking too much of his benzodiazepines. Benzodiazepines were discontinued Neurontin will be held as well. Patient has memory difficulties may have early stages of as and was dementia will obtain Mini-Mental Status exam. I do not believe patient has sepsis that is contributing to his confusion. Patient is at baseline now and antibiotics were discontinued. PT and OT consultation. -Chest pain: Atypical resolved, we'll consult cardiology as per family's request. -Hypertension -Hyperlipidemia -Coronary artery disease -Anxiety /depression -COPD without any acute exacerbation -Nicotine abuse: Counseling was provided. -Falls: Secondary to generalized weakness and memory difficulties. Patient will be resumed on appropriate home medications patient will need placement in at least an assisted living will also do Mini-Mental status exam.
[2017-11-07] MEDS: ACETAMINOPHEN TAB 500 MG TAB PO SCH ×2 (16:31→21:07)
[2017-11-07] MEDS ORDERED: cefTRIAXone IN SWFI 1,000 MG/10 ML SYRINGE IVP SCH (20:00)
[2017-11-07] MEDS: ATORVASTATIN 80 MG TAB PO SCH (21:08)
[2017-11-08] MEDS: ATENOLOL 25 MG TAB PO SCH ×2 (08:19→21:12)
[2017-11-08] MEDS: CHOLECALCIFEROL 1,000 UNIT TAB PO SCH (08:19)
[2017-11-08] MEDS: ASPIRIN 81 MG PO SCH (08:19)
[2017-11-08] MEDS: ACETAMINOPHEN TAB 500 MG TAB PO SCH ×3 (08:19→21:14)
[2017-11-08] MEDS: FLUoxetine HCL 20 MG CAP PO SCH (08:19)
[2017-11-08] MEDS: NICOTINE 14MG/24HR PATCH TRANSDERM SCH (08:19)
[2017-11-08] MEDS: PANTOPRAZOLE 40 MG TABLET PO SCH (08:19)
[2017-11-08] MEDS: LISINOPRIL 20 MG TAB PO SCH ×2 (08:19→21:12)
[2017-11-08] MEDS: ENOXAPARIN 40 MG/0.4 ML SYRINGE SQ SCH (08:20)
[2017-11-08] MEDS: IPRATROPIUM-ALBUTEROL 3 ML NEB INHALATION PRN ×2 (08:27→20:13)
--- NOTE | 2017-11-08 08:42 | ECHOF ---
Referral Reason:cp MEASUREMENTS -------- HEIGHT: 170.2 cm WEIGHT: 66.2 kg BP: 141/73 RVIDd: 2.8 cm (< 3.3) IVSd: 1.1 cm (0.6 - 1.1) LVIDd: 4.8 cm (3.9 - 5.3) LVPWd: 1.3 cm (0.6 - 1.1) IVSs: 1.4 cm LVIDs: 4.1 cm LVPWs: 1.5 cm LA Diam: 3.7 cm (2.7 - 3.8) LAESV Index (A-L): 37.84 ml/m Ao Diam: 3.3 cm (2.0 - 3.7) AV Cusp: 1.9 cm (1.5 - 2.6) LA Diam: 4.4 cm (2.7 - 3.8) MV EXCURSION: 20.477 mm (> 18.000) MV EF SLOPE: 100 mm/s (70 - 150) EPSS: 0.6 cm MV E Toby: 0.68 m/s MV DecT: 197 ms MV A Toby: 0.74 m/s MV E/A Ratio: 0.91 RAP: 5.00 mmHg RVSP: 31.34 mmHg FINDINGS -------- Sinus rhythm. This was a technically good study. LV size, wall thickness and systolic function are normal, with an EF greater than 55%. The left tang tricular size is normal. The right ventricle is normal in size. The left atrial size is normal. The right atrial size is normal. There is mild aortic valve sclerosis. There is no evidence of aortic regurgitation. Mild mitral annular calcification present. Mild mitral regurgitation is present. Mild tricuspid regurgitation present. There is no evidence of pulmonary hypertension. The right v entricular systolic pressure, as measured by Doppler, is 31.34mmHg. There is no pulmonic regurgitation present. The aortic root size is normal. There is no pericardial effusion. CONCLUSIONS -------- 1. LV size, wall thickness and systolic function are normal, with an EF greater than 55%. 2. The left ventricular size is normal. 3. The right ventricle is normal in size. 4. The left atrial size is normal. 5. The right atrial size is normal. 6. There is mild aortic valve sclerosis. 7. Mild mitral annular calcification present. 8. Mild mitral regurgitation is present. 9. Mild tricuspid regurgitation present. 10. There is no evidence of pulmonary hypertension. 11. The right ventricular systolic pressure, as measured by Doppler, is 31.34mmHg. 12. There is no pulmonic regurgitation present. 13. The aortic root size is normal. 14. There is no pericardial effusion. L[employer] AND WIRE P[employer]ER: Juliana Stephenson RDCS
[2017-11-08] MEDS ORDERED: CLOPIDOGREL 75 MG TAB PO SCH (09:00)
[2017-11-08] MEDS ORDERED: VANCOMYCIN TROUGH DUE 1 EACH MISC MISCELLANE ONE (09:00)
--- NOTE | 2017-11-08 12:04 | P.PN ---
Subjective Mr. Baird is seen and examined resting comfortably in bed in no acute distress. He complains of episode of tightness in his chest this morning that was relieved by using inhaler. Echocardiogram obtained yesterday reveals preserved left ventricular systolic function with ejection fraction 55%, mild MR and mild TR noted. Cardiac enzymes negative 3. Blood pressure 150/82 heart rate 76 afebrile maintaining oxygen saturation on room air. Objective - Vital Signs Vital signs: Vital Signs Temp 97.4 F L 11/08/17 07:00 Pulse 83 11/08/17 08:38 Resp 20 11/08/17 07:00 BP 150/82 11/08/17 07:00 Pulse Ox 97 11/08/17 08:25 Intake & Output 11/07/17 11/08/17 11/08/17 18:59 06:59 18:59 Intake Total 840 Output Total 1100 Balance 840 -1100 Weight 66.5 kg Intake: Oral 840 Output: Urine 1100 Other: Voiding Method Urinal Urinal Urinal # Voids 2 2 # Bowel Movements 1 - Exam GENERAL: Well-appearing, well-nourished and in no acute distress. NECK: Supple without JVD or thyromegaly. LUNGS: Breath sounds clear to auscultation bilaterally. Respiration equal and unlabored. No wheezes, rales or rhonchi. HEART: Regular rate and rhythm without murmurs, rubs or gallops. S1 and S2 heard. EXTREMITIES: Normal range of motion, no edema. No clubbing or cyanosis. Peripheral pulses intact. - Labs CBC & Chem 7: 11/06/17 19:25 11/06/17 19:25 Labs: Microbiology - Last 24 Hours (Table) 11/06/17 21:57 Urine Culture - Final Urine,Catheterized Assessment and Plan Assessment: ASSESSMENT Chest pain, atypical. Altered mental status, believed to be toxic encephalopathy secondary to benzodiazepines. History of known coronary artery disease status post angioplasty of the LAD 2016 Hypertension, uncontrolled Dyslipidemia COPD Chronic nicotine dependence PLAN An acute coronary event has been ruled out with no EKG evidence of ischemia and negative cardiac enzymes. Ongoing medical management of altered mental status. Follow-up with his primary tab cutter upon discharge. We will continue to follow as needed. Please feel free to call with further questions or concerns. The above impression and plan of care have been discussed and directed by the signing physician. Gay Mcnair, nurse practitioner, acting as scribe for signing physician.
--- NOTE | 2017-11-08 14:13 | P.DS ---
Providers Date of admission: 11/06/17 21:51 Attending physician: Edwin Arango Consults: 11/07/17 13:29 Consult Physician Routine Consulting Provider: Lul Jackson Consult Reason/Comments: Chest pain Do you want consulting provider notified?: Yes Primary care physician: [facility] Course: 62-year-old and melena with the family history of Alzheimer's dementia, does have some chronic memory difficulties although alert oriented 3 was brought in via ambulance as the family members were concerned that he is quite a bit confused. Patient always forgets about his medications sometimes he takes too many of those sometimes doesn't take any medications. Patient doesn't have any fever chills or 60 within normal limits uA essentially within normal limits but patient was admitted with the diagnosis of urinary tract infection, was started on antibiotics broad-spectrum which is now discontinued. Patient was complaining of chest pain at that time patient has a chronic catheterization and stents that were placed in 2016 patient chest pain is noncardiac EKG did not show any acute ST-T wave changes troponin is negative and repeat another set of troponin family is requesting cardiology evaluation because of which I'm consulted cardiology. Patient denied any dysuria cough runny nose patient is able to provide me good history patient does have some aberrations in the left leg because of his falls apparently because of generalized weakness area patient is able to provide me good history. Patient is presently alert oriented 3 and baseline. 11/08/2017 Patient is clinically doing well. Patient was evaluated by physical therapy patient will be discharged to a alf. Patient doesn't have any requirements for subacute intimidation placement patient was evaluated cardiology no further recommendations from them. PHYSICAL EXAMINATION: GENERAL: The patient is alert and oriented x3, not in any acute distress. Well developed, well nourished. HEENT: Pupils are round and equally reacting to light. EOMI. No scleral icterus. No conjunctival pallor. Normocephalic, atraumatic. No pharyngeal erythema. No thyromegaly. CARDIOVASCULAR: S1 and S2 present. No murmurs, rubs, or gallops. PULMONARY: Chest is clear to auscultation, no wheezing or crackles. ABDOMEN: Soft, nontender, nondistended, normoactive bowel sounds. No palpable organomegaly. MUSCULOSKELETAL: No joint swelling or deformity. EXTREMITIES: No cyanosis, clubbing, or pedal edema. NEUROLOGICAL: Gross neurological examination did not reveal any focal deficits. SKIN: No rashes. Assessment and Plan Plan: -Altered mental status: I believe patient has toxic encephalopathy from taking too much of his benzodiazepines. Benzodiazepines were discontinued no signs or symptoms of sepsis. -Chest pain: Atypical resolved, we'll consult cardiology as per family's request. -Hypertension -Hyperlipidemia -Coronary artery disease -Anxiety /depression -COPD without any acute exacerbation -Nicotine abuse: Counseling was provided. -Falls: Secondary to generalized weakness and memory difficulties. Patient Condition at Discharge: Fair Plan - Discharge Summary New Discharge Prescriptions: New traMADol HCl [Ultram] 50 mg PO Q6H PRN #12 tab PRN Reason: Mild To Moderate Pain Nicotine 14Mg/24Hr Patch [Habitrol] 1 patch TRANSDERM DAILY #14 patch Continue Atenolol [Tenormin] 25 mg PO BID FLUoxetine HCL [PROzac] 60 mg PO QAM Lisinopril [Zestril] 20 mg PO BID Multivitamin [Men's Multi-Vitamin] 1 tab PO DAILY Cholecalciferol [Vitamin D3] 1,000 unit PO DAILY Aspirin EC [Ecotrin Low Dose] 81 mg PO DAILY Acetaminophen [Tylenol Extra Strength] 500 mg PO TID guaiFENesin SYRUP 100MG/5ML [Robitussin] 100 mg PO QID Ferrous Sulfate [Feosol] 325 mg PO BID Atorvastatin [Lipitor] 80 mg PO HS Omeprazole 20 mg PO BID Changed Cyclobenzaprine [Flexeril] 5 mg PO BID #0 Gabapentin [Neurontin] 600 mg PO TID #1 Discontinued Clopidogrel Bisulfate [Plavix] 75 mg PO DAILY Discharge Medication List Atenolol [Tenormin] 25 mg PO BID 06/29/15 [History] FLUoxetine HCL [PROzac] 60 mg PO QAM 06/29/15 [History] Lisinopril [Zestril] 20 mg PO BID 06/29/15 [History] Multivitamin [Men's Multi-Vitamin] 1 tab PO DAILY 06/29/15 [History] Acetaminophen [Tylenol Extra Strength] 500 mg PO TID 11/06/17 [History] Aspirin EC [Ecotrin Low Dose] 81 mg PO DAILY 11/06/17 [History] Atorvastatin [Lipitor] 80 mg PO HS 11/06/17 [History] Cholecalciferol [Vitamin D3] 1,000 unit PO DAILY 11/06/17 [History] Ferrous Sulfate [Feosol] 325 mg PO BID 11/06/17 [History] Omeprazole 20 mg PO BID 11/06/17 [History] guaiFENesin SYRUP 100MG/5ML [Robitussin] 100 mg PO QID 11/06/17 [History] Cyclobenzaprine [Flexeril] 5 mg PO BID #0 11/08/17 [Rx] Gabapentin [Neurontin] 600 mg PO TID #1 11/08/17 [Rx] Nicotine 14Mg/24Hr Patch [Habitrol] 1 patch TRANSDERM DAILY #14 patch 11/08/17 [ Rx] traMADol HCl [Ultram] 50 mg PO Q6H PRN #12 tab 11/08/17 [Rx] Follow up Appointment(s)/Referral(s): [facility],Clinic [Primary Care Provider] - 3 Days Discharge Disposition: HOME SELF-CARE
[2017-11-08] MEDS: ATORVASTATIN 80 MG TAB PO SCH (21:12)
[2017-11-08 22:54] VITALS: RESP 16
[2017-11-09] MEDS: IPRATROPIUM-ALBUTEROL 3 ML NEB INHALATION PRN (08:43)
[2017-11-09] MEDS: NICOTINE 14MG/24HR PATCH TRANSDERM SCH (09:17)
[2017-11-09] MEDS: PANTOPRAZOLE 40 MG TABLET PO SCH (09:18)
[2017-11-09] MEDS: ASPIRIN 81 MG PO SCH (09:18)
[2017-11-09] MEDS: ENOXAPARIN 40 MG/0.4 ML SYRINGE SQ SCH (09:18)
[2017-11-09] MEDS: LISINOPRIL 20 MG TAB PO SCH ×2 (09:18→21:44)
[2017-11-09] MEDS: FLUoxetine HCL 20 MG CAP PO SCH (09:18)
[2017-11-09] MEDS: ATENOLOL 25 MG TAB PO SCH ×2 (09:18→21:44)
[2017-11-09] MEDS: CHOLECALCIFEROL 1,000 UNIT TAB PO SCH (09:19)
[2017-11-09] MEDS: ACETAMINOPHEN TAB 500 MG TAB PO SCH ×3 (09:22→21:47)
--- NOTE | 2017-11-09 13:24 | P.PN ---
Subjective 62-year-old and melena with the family history of Alzheimer's dementia, does have some chronic memory difficulties although alert oriented 3 was brought in via ambulance as the family members were concerned that he is quite a bit confused. Patient always forgets about his medications sometimes he takes too many of those sometimes doesn't take any medications. Patient doesn't have any fever chills or 60 within normal limits uA essentially within normal limits but patient was admitted with the diagnosis of urinary tract infection, was started on antibiotics broad-spectrum which is now discontinued. Patient was complaining of chest pain at that time patient has a chronic catheterization and stents that were placed in 2016 patient chest pain is noncardiac EKG did not show any acute ST-T wave changes troponin is negative and repeat another set of troponin family is requesting cardiology evaluation because of which I'm consulted cardiology. Patient denied any dysuria cough runny nose patient is able to provide me good history patient does have some aberrations in the left leg because of his falls apparently because of generalized weakness area patient is able to provide me good history. Patient is presently alert oriented 3 and baseline. 11/08/2017 Patient is clinically doing well. Patient was evaluated by physical therapy patient will be discharged to a senior living. Patient doesn't have any requirements for subacute intimidation placement patient was evaluated cardiology no further recommendations from them. 11/09/2017 Patient is ablating well will not qualify for subacute rehabilitation patient had a mini mental status exam today did well with mental status exam. Patient will be discharged home with home care, family can take him tomorrow. Constitutional: Denied any fatigue denied any fever. Cardio vascular: denied any chest pain, palpitations Gastrointestinal denied any nausea vomiting Pulmonary: Denied any shortness of breath cough Neurologic denied any new focal deficits Objective - Vital Signs Vital signs: Vital Signs Temp 97.4 F L 11/09/17 06:22 Pulse 75 11/09/17 08:53 Resp 16 11/09/17 06:22 BP 135/56 11/09/17 06:22 Pulse Ox 99 11/09/17 08:43 Intake & Output 11/08/17 11/09/17 11/09/17 18:59 06:59 18:59 Other: Voiding Method Urinal Urinal # Voids 2 3 # Bowel Movements 1 - Exam PHYSICAL EXAMINATION: GENERAL: The patient is alert and oriented x3, not in any acute distress. Well developed, well nourished. HEENT: Pupils are round and equally reacting to light. EOMI. No scleral icterus. No conjunctival pallor. Normocephalic, atraumatic. No pharyngeal erythema. No thyromegaly. CARDIOVASCULAR: S1 and S2 present. No murmurs, rubs, or gallops. PULMONARY: Chest is clear to auscultation, no wheezing or crackles. ABDOMEN: Soft, nontender, nondistended, normoactive bowel sounds. No palpable organomegaly. MUSCULOSKELETAL: No joint swelling or deformity. EXTREMITIES: No cyanosis, clubbing, or pedal edema. NEUROLOGICAL: Gross neurological examination did not reveal any focal deficits. SKIN: No rashes. - Labs CBC & Chem 7: 11/06/17 19:25 11/06/17 19:25 Labs: Microbiology - Last 24 Hours (Table) 11/06/17 21:57 Urine Culture - Final Urine,Catheterized Assessment and Plan Plan: -Altered mental status: I believe patient has toxic encephalopathy from taking too much of his benzodiazepines. Patient's encephalopathy completely resolve the patient is clinically doing well patient does not appear to have any dementia at this time did well with Mini-Mental Status exam. Patient will be discharged home with home care. -Chest pain: Atypical resolved, we'll consult cardiology as per family's request. -Hypertension -Hyperlipidemia -Coronary artery disease -Anxiety /depression -COPD without any acute exacerbation -Nicotine abuse: Counseling was provided. -Falls: Secondary to generalized weakness now walking well. Does not have any requirements for subacute rehabilitation placement.
[2017-11-09] MEDS ORDERED: PANTOPRAZOLE 40 MG TABLET PO SCH (15:21)
[2017-11-09] MEDS: ATORVASTATIN 80 MG TAB PO SCH (21:44)
[2017-11-10 06:04] VITALS: BP 161/78; TEMP 97.6
[2017-11-10] MEDS: ENOXAPARIN 40 MG/0.4 ML SYRINGE SQ SCH (07:40)
[2017-11-10] MEDS: NICOTINE 14MG/24HR PATCH TRANSDERM SCH (07:40)
[2017-11-10] MEDS: LISINOPRIL 20 MG TAB PO SCH (07:40)
[2017-11-10] MEDS: FLUoxetine HCL 20 MG CAP PO SCH (07:41)
[2017-11-10] MEDS: ATENOLOL 25 MG TAB PO SCH (07:41)
[2017-11-10] MEDS: CHOLECALCIFEROL 1,000 UNIT TAB PO SCH (07:41)
[2017-11-10] MEDS: ASPIRIN 81 MG PO SCH (07:41)
[2017-11-10] MEDS: ACETAMINOPHEN TAB 500 MG TAB PO SCH (07:45)
[2017-11-10] MEDS: IPRATROPIUM-ALBUTEROL 3 ML NEB INHALATION PRN (11:52)
[2017-11-10 12:03] VITALS: PULSE 83
--- NOTE | 2017-11-10 12:36 | P.DS ---
Providers Date of admission: 11/06/17 21:51 Attending physician: Edwin Arango Consults: 11/07/17 13:29 Consult Physician Routine Consulting Provider: Lul Jackson Consult Reason/Comments: Chest pain Do you want consulting provider notified?: Yes Primary care physician: [facility] Course: 62-year-old and melena with the family history of Alzheimer's dementia, does have some chronic memory difficulties although alert oriented 3 was brought in via ambulance as the family members were concerned that he is quite a bit confused. Patient always forgets about his medications sometimes he takes too many of those sometimes doesn't take any medications. Patient doesn't have any fever chills or 60 within normal limits uA essentially within normal limits but patient was admitted with the diagnosis of urinary tract infection, was started on antibiotics broad-spectrum which is now discontinued. Patient was complaining of chest pain at that time patient has a chronic catheterization and stents that were placed in 2016 patient chest pain is noncardiac EKG did not show any acute ST-T wave changes troponin is negative and repeat another set of troponin family is requesting cardiology evaluation because of which I'm consulted cardiology. Patient denied any dysuria cough runny nose patient is able to provide me good history patient does have some aberrations in the left leg because of his falls apparently because of generalized weakness area patient is able to provide me good history. Patient is presently alert oriented 3 and baseline. 11/08/2017 Patient is clinically doing well. Patient was evaluated by physical therapy patient will be discharged to a skilled nursing. Patient doesn't have any requirements for subacute intimidation placement patient was evaluated cardiology no further recommendations from them. 11/09/2017 Patient is ablating well will not qualify for subacute rehabilitation patient had a mini mental status exam today did well with mental status exam. Patient will be discharged home with home care, family can take him tomorrow. 11/10/2017 Patient will be discharged home with home care today PHYSICAL EXAMINATION: GENERAL: The patient is alert and oriented x3, not in any acute distress. Well developed, well nourished. HEENT: Pupils are round and equally reacting to light. EOMI. No scleral icterus. No conjunctival pallor. Normocephalic, atraumatic. No pharyngeal erythema. No thyromegaly. CARDIOVASCULAR: S1 and S2 present. No murmurs, rubs, or gallops. PULMONARY: Chest is clear to auscultation, no wheezing or crackles. ABDOMEN: Soft, nontender, nondistended, normoactive bowel sounds. No palpable organomegaly. MUSCULOSKELETAL: No joint swelling or deformity. EXTREMITIES: No cyanosis, clubbing, or pedal edema. NEUROLOGICAL: Gross neurological examination did not reveal any focal deficits. SKIN: No rashes. Assessment and Plan Plan: -Altered mental status: I believe patient has toxic encephalopathy from taking too much of his benzodiazepines. Patient's encephalopathy completely resolve the patient is clinically doing well patient does not appear to have any dementia at this time did well with Mini-Mental Status exam. Patient will be discharged home with home care. -Chest pain: Atypical resolved, cardiology evaluated the patient no further recommendations. -Hypertension -Hyperlipidemia -Coronary artery disease -Anxiety /depression -COPD without any acute exacerbation -Nicotine abuse: Counseling was provided. -Falls: Secondary to generalized weakness now walking well. Does not have any requirements for subacute rehabilitation placement. Patient Condition at Discharge: Fair Plan - Discharge Summary New Discharge Prescriptions: New traMADol HCl [Ultram] 50 mg PO Q6H PRN #12 tab PRN Reason: Mild To Moderate Pain Nicotine 14Mg/24Hr Patch [Habitrol] 1 patch TRANSDERM DAILY #14 patch Continue Atenolol [Tenormin] 25 mg PO BID FLUoxetine HCL [PROzac] 60 mg PO QAM Lisinopril [Zestril] 20 mg PO BID Multivitamin [Men's Multi-Vitamin] 1 tab PO DAILY Cholecalciferol [Vitamin D3] 1,000 unit PO DAILY Aspirin EC [Ecotrin Low Dose] 81 mg PO DAILY Acetaminophen [Tylenol Extra Strength] 500 mg PO TID guaiFENesin SYRUP 100MG/5ML [Robitussin] 100 mg PO QID Ferrous Sulfate [Feosol] 325 mg PO BID Atorvastatin [Lipitor] 80 mg PO HS Omeprazole 20 mg PO BID Changed Cyclobenzaprine [Flexeril] 5 mg PO BID #0 Gabapentin [Neurontin] 300 mg PO TID #30 cap Discontinued Gabapentin [Neurontin] 900 mg PO TID Clopidogrel Bisulfate [Plavix] 75 mg PO DAILY Discharge Medication List Atenolol [Tenormin] 25 mg PO BID 06/29/15 [History] FLUoxetine HCL [PROzac] 60 mg PO QAM 03/23/16 [History] Lisinopril [Zestril] 20 mg PO BID 06/29/15 [History] Multivitamin [Men's Multi-Vitamin] 1 tab PO DAILY 06/29/15 [History] Acetaminophen [Tylenol Extra Strength] 500 mg PO TID 11/06/17 [History] Aspirin EC [Ecotrin Low Dose] 81 mg PO DAILY 11/06/17 [History] Atorvastatin [Lipitor] 80 mg PO HS 11/06/17 [History] Cholecalciferol [Vitamin D3] 1,000 unit PO DAILY 11/06/17 [History] Ferrous Sulfate [Feosol] 325 mg PO BID 11/06/17 [History] Omeprazole 20 mg PO BID 11/06/17 [History] guaiFENesin SYRUP 100MG/5ML [Robitussin] 100 mg PO QID 11/06/17 [History] Cyclobenzaprine [Flexeril] 5 mg PO BID #0 11/08/17 [Rx] Nicotine 14Mg/24Hr Patch [Habitrol] 1 patch TRANSDERM DAILY #14 patch 11/08/17 [ Rx] traMADol HCl [Ultram] 50 mg PO Q6H PRN #12 tab 11/08/17 [Rx] Gabapentin [Neurontin] 300 mg PO TID #30 cap 11/10/17 [Rx] Follow up Appointment(s)/Referral(s): [facility],Clinic [Primary Care Provider] - 3 Days Patient Instructions/Handouts: Encephalopathy (DC) Activity/Diet/Wound Care/Special Instructions: Family refused home care. [facility] No smoking, cessation information provided. Activity as tolerated, fall precautions. Discharge Disposition: HOME WITH HOME HEALTH SERVICES
== END 2017-11-10 13:28 | disposition home health service (06) | DRG 917 ==
LOC: EC 18:52 → 4MS4W 21:51
PROVIDERS: ADMIT Hospitalist; ATTEND Hospitalist
DX: T42.4X1A Poisoning by benzodiazepines, accidental (unintentional), initial encounter (principal); G92 Toxic encephalopathy; F05 Delirium due to known physiological condition; E78.5 Hyperlipidemia, unspecified; F10.21 Alcohol dependence, in remission; F17.200 Nicotine dependence, unspecified, uncomplicated; F32.9 Major depressive disorder, single episode, unspecified; F41.9 Anxiety disorder, unspecified; I10 Essential (primary) hypertension; I25.10 Atherosclerotic heart disease of native coronary artery without angina pectoris; J44.9 Chronic obstructive pulmonary disease, unspecified; M41.9 Scoliosis, unspecified; Z79.02 Long term (current) use of antithrombotics/antiplatelets; Z79.82 Long term (current) use of aspirin; Z79.899 Other long term (current) drug therapy; Z82.0 Family history of epilepsy and other diseases of the nervous system; Z82.49 Family history of ischemic heart disease and other diseases of the circulatory system; Z87.11 Personal history of peptic ulcer disease; Z95.5 Presence of coronary angioplasty implant and graft; M19.90 Unspecified osteoarthritis, unspecified site; M54.9 Dorsalgia, unspecified; G89.29 Other chronic pain; R07.89 Other chest pain; Z71.6 Tobacco abuse counseling; S81.802A Unspecified open wound, left lower leg, initial encounter; S81.801A Unspecified open wound, right lower leg, initial encounter
CPT/HCPCS: 36415; 70450; 71046; 80053; 80202; 80306; 81003; 82140; 82550; 82553; 84484; 85025; 85610; 85730; 87086; 93005; 93306; 93880; 94640; 96365; 96375; 99285

== ENCOUNTER → 2018-03-13 | Outpatient (CLI) | payer OTHER ==
--- NOTE | 2018-03-16 22:47 | MR ---
EXAMINATION TYPE: MR lumbar spine wo con DATE OF EXAM: 03/13/2018 COMPARISON: None HISTORY: low back pain TECHNIQUE: Multiplanar, multisequence images of the lumbar spine were acquired. Lumbar vertebra have normal alignment. There is moderately severe narrowing of the disc spaces from L 3 to S1 with spurring of the endplates. There is hypertrophic facet arthropathy and ligamentum flavum thickening. There is moderate spinal stenosis at L4-5. There is mild lateral recess stenosis at L3-4 . There is no compression fracture. There is no lumbar paraspinal mass. I see no focal bone destructi on. Visualized sacroiliac joints appear intact.. IMPRESSION: Moderate multilevel spondylosis as above. No fracture. Moderate lumbar spinal stenosis at L4-5.
== END | disposition home or self-care (01) ==
LOC: RADMRIMAIN 11:45
PROVIDERS: ATTEND Physician Assistant
DX: M48.061 Spinal stenosis, lumbar region without neurogenic claudication (principal); M47.816 Spondylosis without myelopathy or radiculopathy, lumbar region
CPT/HCPCS: 72148

== ENCOUNTER → 2019-02-12 | Outpatient (CLI) | payer MEDICARE | END | disposition home or self-care (01) | LOC: CPPFTMAIN 07:06 | PROVIDERS: ATTEND Internal Medicine Critical Care Medicine | DX: J43.9 Emphysema, unspecified (principal) | CPT/HCPCS: 94060; 94726; 94729 ==

== ENCOUNTER 2019-04-01 00:29 | Inpatient (IN) | payer MEDICARE ==
[2019-04-01] MEDS ORDERED: IPRATROPIUM-ALBUTEROL 3 ML NEB INHALATION STA (01:01)
[2019-04-01] MEDS ORDERED: SODIUM CHLORIDE 0.9% 1,000 ML IV ONE (01:02)
[2019-04-01 01:44] LABS: Basophils # (A) 0.2 k/uL (0-0.2); Basophils % (A) 1 %; Eosinophils % (A) 0 %; HGB 8.9 gm/dL (13.0-17.5); Lymphocytes # (A) 0.7 k/uL (1.0-4.8); Lymphocytes % (A) 5 %; MCH 34.6 pg (25.0-35.0); MCHC 34.2 g/dL (31.0-37.0); MCV 101.2 fL (80.0-100.0); Mean Platelet Volume 7.2; Monocytes # (A) 0.5 k/uL (0-1.0); Monocytes % (A) 3 %; Neutrophils % (A) 90 %; Platelet Count 326 k/uL (150-450); RBC 2.57 m/uL (4.30-5.90); RDW 12.4 % (11.5-15.5); WBC 15.5 k/uL (3.8-10.6)
--- NOTE | 2019-04-01 01:58 | XR ---
EXAMINATION TYPE: XR chest 2V DATE OF EXAM: 04/01/2019 COMPARISON: 11/06/2017 HISTORY: Altered mental status TECHNIQUE: 2 views FINDINGS: Heart and mediastinum are normal. Lungs are clear. Diaphragm is normal. Bony thorax appears normal. IMPRESSION: Normal chest. No change.
[2019-04-01 02:02] LABS: Calcium 9.2 mg/dL (8.4-10.2); Magnesium 1.9 mg/dL (1.6-2.3); Potassium 5.8 mmol/L (3.5-5.1); Total Bilirubin 0.4 mg/dL (0.2-1.3); Total Protein 6.2 g/dL (6.3-8.2)
[2019-04-01] MEDS ORDERED: NALOXONE 0.4 MG/ML 1 ML VIAL IV PRN (02:08)
[2019-04-01] MEDS ORDERED: ALBUTEROL NEBULIZED 2.5 MG/3 ML INHALATION PRN (02:10)
--- NOTE | 2019-04-01 02:18 | ED ---
General Adult HPI - General Chief complaint: Dizziness Stated complaint: Dizziness,Hypotension Time Seen by Provider: 04/01/19 00:32 Source: patient, EMS Mode of arrival: EMS Limitations: no limitations - History of Present Illness Initial comments: Boogie is a 63-year-old gentleman with a history of severe COPD, chronic back pain who presents to the emergency department today for evaluation of generalized weakness. Patient reports that he overdid it trying to do house chores yesterday and since that time his head generalized body aches, tingling in his extremities and generalized weakness. Patient reports that this evening he was too weak to get himself up at which time EMS his family to call 911 for transport to hospital. Patient states this is happened in the past and is overexerted himself and become dehydrated. She reports she feels very lightheaded. He states he hasn't been eating or drinking well. He denies any chest pain palpitations or worsening shortness of breath from his baseline. He denies any recent fevers or chills. He denies any unilateral weakness, facial droop, trouble speaking or swallowing. - Related Data Home Medications Medication Instructions Recorded Confirmed Atenolol [Tenormin] 25 mg PO BID 06/29/15 04/01/19 FLUoxetine HCL [PROzac] 60 mg PO QAM 06/29/15 04/01/19 Lisinopril [Zestril] 20 mg PO BID 06/29/15 04/01/19 Multivitamin [Men's Multi-Vitamin] 1 tab PO DAILY 06/29/15 04/01/19 Acetaminophen [Tylenol Extra 500 mg PO TID 11/06/17 04/01/19 Strength] Aspirin EC [Ecotrin Low Dose] 81 mg PO DAILY 11/06/17 04/01/19 Cholecalciferol [Vitamin D3 (25 1,000 unit PO DAILY 11/06/17 04/01/19 Mcg = 1000 Iu)] Ferrous Sulfate [Feosol] 325 mg PO BID 11/06/17 04/01/19 Albuterol Inhaler [Ventolin Hfa 1 - 2 puff INHALATION RT-Q6H PRN 04/01/19 04/01/19 Inhaler] Budesonide-Formot 160-4.5 Mcg 2 puff INHALATION BID 04/01/19 04/01/19 [Symbicort 160-4.5 Mcg Inhaler] Clopidogrel Bisulfate [Plavix] 75 mg PO DAILY 04/01/19 04/01/19 Rosuvastatin Calcium 40 mg PO DAILY 04/01/19 04/01/19 Tiotropium 18 Mcg/Puff [Spiriva] 1 puff INHALATION DAILY 04/01/19 04/01/19 Previous Rx's Medication Instructions Recorded Cyclobenzaprine [Flexeril] 5 mg PO BID #0 11/08/17 Gabapentin [Neurontin] 300 mg PO TID #30 cap 11/10/17 Allergies Allergy/AdvReac Type Severity Reaction Status Date / Time acetaminophen [From Endocet] AdvReac Unknown Verified 04/01/19 00:40 amlodipine AdvReac Unknown Verified 04/01/19 00:40 duloxetine [From Cymbalta] AdvReac Unknown Verified 04/01/19 00:40 oxycodone [From Endocet] AdvReac Unknown Verified 04/01/19 00:40 phenytoin [From Dilantin] AdvReac Unknown Verified 04/01/19 00:40 potassium chloride AdvReac Unknown Verified 04/01/19 00:40 ranitidine AdvReac Unknown Verified 04/01/19 00:40 Review of Systems ROS Statement: Those systems with pertinent positive or pertinent negative responses have been documented in the HPI. ROS Other: All systems not noted in ROS Statement are negative. Past Medical History Past Medical History: Asthma, Chest Pain / Angina, COPD, Hyperlipidemia, Hypertension, Osteoarthritis (OA) Additional Past Medical History / Comment(s): Diverticulitis, stomach ulcer, neuropathy, chronic back pain, DDD, alcoholism - had seizure when withdrawing from alcohol, scoliosis, hemorrhoids, blocked arteries. History of Any Multi-Drug Resistant Organisms: None Reported Past Surgical History: Heart Catheterization With Stent, Orthopedic Surgery, Tonsillectomy Additional Past Surgical History / Comment(s): Left shoulder rotator cuff surgery, EGD/colonoscopy, cardiac stent (placed 09-15-15 to LAD at [facility]) Past Anesthesia/Blood Transfusion Reactions: No Reported Reaction Date of Last Stent Placement:: 09/15/15 Past Psychological History: Anxiety, Depression Smoking Status: Current every day smoker Past Alcohol Use History: Daily Past Drug Use History: None Reported - Past Family History Mother Family Medical History: Coronary Artery Disease (CAD) Additional Family Medical History / Comment(s): Cardiac stent Father Family Medical History: Cancer Additional Family Medical History / Comment(s): Unsure what kind of cancer. General Exam - General Exam Comments Initial Comments: Physical Exam GENERAL: Patient is well-developed and well-nourished. Patient is nontoxic and well-hydrated and is in no distress. Appears older than stated age HENT: Normocephalic, Atraumatic. Dry mucous membranes EYES: PERRL, EOMI PULMONARY: Wheezing in all lung [place] CARDIOVASCULAR: There is a regular rate and rhythm without any murmurs gallops or rubs. ABDOMEN: Soft and nontender with normal bowel sounds. SKIN: Skin dry. : Deferred NEUROLOGIC: Patient is alert and oriented x3. Moving all extremities spontaneously MUSCULOSKELETAL: Normal extremities with adequate strength and full range of motion. No lower extremity swelling or edema. No calf tenderness. PSYCHIATRIC: Normal psychiatric evaluation. Limitations: no limitations Course Vital Signs 04/01/19 04/01/19 04/01/19 00:33 01:25 01:31 Temperature 98.7 F Pulse Rate 81 72 76 Respiratory 18 Rate Blood Pressure 113/89 O2 Sat by Pulse 100 Oximetry 04/01/19 01:59 Temperature Pulse Rate 75 Respiratory 19 Rate Blood Pressure 120/67 O2 Sat by Pulse 97 Oximetry EKG Findings - EKG Comments: EKG Findings:: EKG was obtained due to complaint of generalized weakness, EKG was obtained at 12:35 AM, rate is 73 rhythm is sinus is normal axis there are normal intervals, [place] 128, curious 86, QTC [address] elevations or depr essions no evidence of acute ischemia or infarction. No evidence of arrhythmia. There is no hyperacute T waves or significant T-wave abnormality indicative of acute Medical Decision Making - Medical Decision Making The patient was seen and evaluated, history is obtained from patient and EMS Patient with multiple chronic illnesses, not eating or drinking well feeling lightheaded and generalized weakness, EMS arrived on scene to find the patient mildly hypotensive. IV access was obtained patient was given IV fluids blood pressure improved in route to the hospital. Patient with persistent generalized weakness. Patient appears dehydrated on exam. EKG is nonischemic no signs of arrhythmia Labs were obtained and revealed multiple significant abnormalities including leukocytosis which appears to be at baseline for the patient, worsening chronic anemia with a hemoglobin of less than 9 patient Patient also noted to be hyponatremic and hyperkalemic with an elevated BUN and acute kidney injury, additional IV fluids and maintenance fluids were ordered In the patient's multiple laboratory abnormalities decision was made to admit the patient for further IV fluid resuscitation and evaluation by nephrology. The patient's home medications were ordered. - Lab Data Result diagrams: 04/01/19 01:28 04/01/19 01:11 Lab Results 04/01/19 04/01/19 Range/Units 01:11 01:28 WBC 15.5 H (3.8-10.6) k/uL RBC 2.57 L (4.30-5.90) m/uL Hgb 8.9 L (13.0-17.5) gm/dL Hct 26.0 L (39.0-53.0) % MCV 101.2 H (80.0-100.0) fL MCH 34.6 (25.0-35.0) pg MCHC 34.2 (31.0-37.0) g/dL RDW 12.4 (11.5-15.5) % Plt Count 326 (150-450) k/uL Neutrophils % 90 % Lymphocytes % 5 % Monocytes % 3 % Eosinophils % 0 % Basophils % 1 % Neutrophils # 14.0 H (1.3-7.7) k/uL Lymphocytes # 0.7 L (1.0-4.8) k/uL Monocytes # 0.5 (0-1.0) k/uL Eosinophils # 0.0 (0-0.7) k/uL Basophils # 0.2 (0-0.2) k/uL Sodium 128 L (137-145) mmol/L Potassium 5.8 H (3.5-5.1) mmol/L Chloride 99 (98-107) mmol/L Carbon Dioxide 16 L (22-30) mmol/L Anion Gap 13 mmol/L BUN 55 H (9-20) mg/dL Creatinine 1.51 H (0.66-1.25) mg/dL Est GFR (CKD-EPI)AfAm 56 (>60 ml/min/1.73 sqM) Est GFR (CKD-EPI)NonAf 48 (>60 ml/min/1.73 sqM) Glucose 99 (74-99) mg/dL Calcium 9.2 (8.4-10.2) mg/dL Magnesium 1.9 (1.6-2.3) mg/dL Total Bilirubin 0.4 (0.2-1.3) mg/dL AST 30 (17-59) U/L ALT 27 (4-49) U/L Alkaline Phosphatase 71 (38-126) U/L Creatine Kinase 67 (55-170) U/L Total Protein 6.2 L (6.3-8.2) g/dL Albumin 4.0 (3.5-5.0) g/dL Disposition Clinical Impression: Dehydration, NAJMA (acute kidney injury), Hyponatremia, Hyperkalemia, Generalized weakness Disposition: ADMITTED IP TO THIS HOSP Condition: Stable Referrals: [facility],Clinic [Primary Care Provider] - 1-2 days
[2019-04-01] MEDS: MORPHINE SULFATE 4 MG/ML SYRINGE IV PRN ×2 (02:49→09:23)
[2019-04-01] MEDS: SODIUM CHLORIDE 0.9% 1,000 ML IV SCH ×5 (03:59→21:56)
[2019-04-01] MEDS ORDERED: IPRATROPIUM 0.5 MG/2.5 ML NEBU INHALATION SCH (08:00)
[2019-04-01] MEDS: SYMBICORT 160-4.5 MCG INHALER INHALATION SCH ×2 (08:33→19:06)
[2019-04-01] MEDS: IPRATROPIUM-ALBUTEROL 3 ML NEB INHALATION SCH ×4 (08:33→19:06)
[2019-04-01] MEDS ORDERED: LISINOPRIL 20 MG TAB PO SCH (09:00)
[2019-04-01] MEDS: GABAPENTIN 300 MG CAP PO SCH ×3 (09:19→21:53)
[2019-04-01] MEDS: ASPIRIN 81 MG PO SCH (09:19)
[2019-04-01] MEDS: CYCLOBENZAPRINE 5 MG TAB PO SCH ×2 (09:19→21:53)
[2019-04-01] MEDS: CLOPIDOGREL 75 MG TAB PO SCH (09:19)
[2019-04-01] MEDS: ATENOLOL 25 MG TAB PO SCH ×2 (09:19→21:51)
[2019-04-01] MEDS: DICLOFENAC SODIUM GEL 100 GM TUBE TOPICAL SCH ×3 (09:20→23:55)
[2019-04-01] MEDS: FLUoxetine HCL 20 MG CAP PO SCH (09:20)
[2019-04-01] MEDS: ATORVASTATIN 80 MG TAB PO SCH (09:23)
[2019-04-01 09:57] LABS: Calcium 8.3 mg/dL (8.4-10.2); Potassium 4.2 mmol/L (3.5-5.1)
--- NOTE | 2019-04-01 15:06 | CONS ---
CONSULTATION REASON FOR CONSULT: Renal failure. HISTORY OF PRESENT ILLNESS: The patient is a 63-year-old male who has an underlying history of chronic obstructive pulmonary disease. He was admitted to the hospital with complaints of generalized weakness and body aches. He noticed he was too weak to get up so the family called EMS and patient was brought in. Was noted to have a potassium of 5.8, sodium 128 and creatinine of 1.5 mg/dL. The patient denies any prior history of kidney disease. He states he fell about 2 weeks ago and has been having significant pain on his left side and the back. He has not noticed any blood in the urine. No fever or chills, nausea, vomiting, abdominal pain or diarrhea. The patient denies use of any Motrin or any other NSAIDs over the last couple of weeks. PAST MEDICAL HISTORY: Significant for hypertension, depression, COPD, hyperlipidemia, osteoarthritis, neuropathy, diverticulitis, history of EtOH abuse. PAST SURGICAL HISTORY: Cardiac catheterization, coronary stent placement, tonsillectomy, rotator cuff surgery, EGD, coronary stent placement. SOCIAL HISTORY: Patient is a current everyday smoker. No history of drug abuse. Patient did have a prior history of EtOH abuse. He continues to drink alcohol daily. REVIEW OF SYSTEMS: As per HPI. Other systems negative. MEDICATIONS: Medications at home included Tenormin, Prozac, Zestril, multivitamins, aspirin, vitamin D, iron, Plavix, calcium, Spiriva, Neurontin, Flexeril. ALLERGIES: Include ACETAMINOPHEN, AMLODIPINE, CYMBALTA, ENDOCET, DILANTIN, POTASSIUM, RANITIDINE. EXAMINATION: Patient is comfortable, awake, alert, oriented x3. Blood pressure is 114/55, heart rate 85 per minute, patient is afebrile. Examination of the heart S1, S2. Examination of the lungs, bilateral breath sounds are heard. Abdomen is soft, non-tender. 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 LABS: Sodium 131, potassium 4.2, chloride 106, CO2 is 19, BUN 48, creatinine 1.13, hemoglobin 8.9 g/dL. ASSESSMENT: 1. Acute kidney injury, prerenal, currently improved. 2. Hyperkalemia associated with acute kidney injury, now improved. Patient was on ANNALISA inhibitors at home. We will continue to hold off on that for now. Blood pressure is on the lower side. 3. History of fall about 2 weeks ago. No evidence of hematuria. 4. Hyponatremia which is hypovolemic, currently improved with normal saline. PLAN: Continue IV fluids. The patient will need workup for anemia as outpatient. Currently his calcium is not elevated. Hold off on the ANNALISA inhibitors for now and we can reintroduce the Zestril if blood pressure is elevated as outpatient, perhaps at a lower dose. MMODL / IJN: [id number] /
--- NOTE | 2019-04-01 15:33 | P.HPIM ---
History of Present Illness Patient is a pleasant 63-year-old male came in because of generalized weakness tiredness and patient felt dehydrated has been doing too much and felt the dehydrated. Patient did have acute and failure with elevated creatinine hypote nsive that doesn't have any fevers no signs or symptoms of sepsis. Patient was hydrated with IV fluids with improvement in serum creatinine serum potassium. Patient has been able azotemia patient will continued on IV fluids patient is still quite weak will obtain physical therapy activation of the consultation patient does have history of COPD although is not wheezing at this time. He is also complaining of generalized body aches. No fever at this time Review of Systems REVIEW OF SYSTEMS: CONSTITUTIONAL: As mentioned in HPI HEENT: No recent visual problems or hearing problems. Denied any sore throat. CARDIOVASCULAR: No chest pain, orthopnea, PND, no palpitations, no syncope. PULMONARY: No shortness of breath, no cough, no hemoptysis. GASTROINTESTINAL: No diarrhea, no nausea, no vomiting, no abdominal pain. NEUROLOGICAL: No headaches, no weakness, no numbness. HEMATOLOGICAL: Denies any bleeding or petechiae. GENITOURINARY: Denies any burning micturition, frequency, or urgency. MUSCULOSKELETAL/RHEUMATOLOGICAL: Denies any joint pain, swelling, or any muscle pain. ENDOCRINE: Denies any polyuria or polydipsia. The rest of the 14-point review of systems is negative. Past Medical History Past Medical History: Asthma, Chest Pain / Angina, COPD, Hyperlipidemia, Hypertension, Osteoarthritis (OA) Additional Past Medical History / Comment(s): Diverticulitis, stomach ulcer, neuropathy, chronic back pain, DDD, alcoholism - had seizure when withdrawing from alcohol, scoliosis, hemorrhoids, blocked arteries. 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 Smoking Status: Current every day smoker Past Alcohol Use History: Daily Additional Past Alcohol Use History / Comment(s): Past heavy ETOH abuse, states he is a recovering alcoholic. Patient states he smokes 3/4 packs per day. Past Drug Use History: None Reported - Past Family History Mother Family Medical History: Coronary Artery Disease (CAD) Additional Family Medical History / Comment(s): Cardiac stent Father Family Medical History: Cancer Additional Family Medical History / Comment(s): Unsure what kind of cancer. Medications and Allergies Home Medications Medication Instructions Recorded Confirmed Type Atenolol [Tenormin] 25 mg PO BID 06/29/15 04/01/19 History FLUoxetine HCL [PROzac] 60 mg PO QAM 06/29/15 04/01/19 History Lisinopril [Zestril] 20 mg PO BID 06/29/15 04/01/19 History Multivitamin [Men's Multi-Vitamin] 1 tab PO DAILY 06/29/15 04/01/19 History Acetaminophen [Tylenol Extra 500 mg PO TID 11/06/17 04/01/19 History Strength] Aspirin EC [Ecotrin Low Dose] 81 mg PO DAILY 11/06/17 04/01/19 History Cholecalciferol [Vitamin D3 (25 1,000 unit PO DAILY 11/06/17 04/01/19 History Mcg = 1000 Iu)] Ferrous Sulfate [Feosol] 325 mg PO BID 11/06/17 04/01/19 History Cyclobenzaprine [Flexeril] 5 mg PO BID #0 11/08/17 04/01/19 Rx Gabapentin [Neurontin] 300 mg PO TID #30 cap 11/10/17 04/01/19 Rx Albuterol Inhaler [Ventolin Hfa 1 - 2 puff INHALATION RT-Q6H PRN 04/01/19 04/01/19 History Inhaler] Budesonide-Formot 160-4.5 Mcg 2 puff INHALATION RT-BID 04/01/19 04/01/19 History [Symbicort 160-4.5 Mcg Inhaler] Clopidogrel Bisulfate [Plavix] 75 mg PO DAILY 04/01/19 04/01/19 History Rosuvastatin Calcium 40 mg PO DAILY 04/01/19 04/01/19 History Tiotropium 18 Mcg/Puff [Spiriva] 1 puff INHALATION RT-DAILY 04/01/19 04/01/19 History Allergies Allergy/AdvReac Type Severity Reaction Status Date / Time acetaminophen [From Endocet] AdvReac Unknown Verified 04/01/19 09:20 amlodipine AdvReac Unknown Verified 04/01/19 09:20 duloxetine [From Cymbalta] AdvReac Unknown Verified 04/01/19 09:20 oxycodone [From Endocet] AdvReac Unknown Verified 04/01/19 09:20 phenytoin [From Dilantin] AdvReac Unknown Verified 04/01/19 09:20 potassium chloride AdvReac Unknown Verified 04/01/19 09:20 ranitidine AdvReac Unknown Verified 04/01/19 09:20 Physical Exam Vitals: Vital Signs Temp Pulse Pulse Resp BP BP Pulse Ox 04/01/19 11:09 98.0 F 81 18 105/53 95 04/01/19 08:00 85 18 04/01/19 03:13 97.6 F 85 18 114/55 98 04/01/19 02:50 85 18 122/65 98 04/01/19 01:59 75 19 120/67 97 04/01/19 01:31 76 04/01/19 01:25 72 04/01/19 00:33 98.7 F 81 18 113/89 100 Intake and Output 04/01/19 04/01/19 04/01/19 06:59 14:59 22:59 Intake Total 200 800 Balance 200 800 Intake: Intake, IV Titration 200 800 Amount Sodium Chloride 0.9% 1, 200 800 000 ml @ 100 mls/hr IV . Q10H [facility] Rx#:[id number] Other: Weight 69.4 kg PHYSICAL EXAMINATION: GENERAL: The patient is alert and oriented x3, not in any acute distress. Well developed, well nourished. Does have generalized weakness HEENT: Pupils are round and equally reacting to light. EOMI. No scleral icterus. No conjunctival pallor. Normocephalic, atraumatic. No pharyngeal erythema. No thyromegaly. CARDIOVASCULAR: S1 and S2 present. No murmurs, rubs, or gallops. PULMONARY: Chest is clear to auscultation, no wheezing or crackles. ABDOMEN: Soft, nontender, nondistended, normoactive bowel sounds. No palpable organomegaly. MUSCULOSKELETAL: No joint swelling or deformity. EXTREMITIES: No cyanosis, clubbing, or pedal edema. NEUROLOGICAL: Gross neurological examination did not reveal any focal deficits. SKIN: No rashes. Results CBC & Chem 7: 04/01/19 01:28 04/01/19 09:38 Labs: Abnormal Lab Results - Last 24 Hours (Table) 04/01/19 04/01/19 04/01/19 Range/Units 01:11 01:28 09:38 WBC 15.5 H (3.8-10.6) k/uL RBC 2.57 L (4.30-5.90) m/uL Hgb 8.9 L (13.0-17.5) gm/dL Hct 26.0 L (39.0-53.0) % MCV 101.2 H (80.0-100.0) fL Neutrophils # 14.0 H (1.3-7.7) k/uL Lymphocytes # 0.7 L (1.0-4.8) k/uL Sodium 128 L 131 L (137-145) mmol/L Potassium 5.8 H (3.5-5.1) mmol/L Carbon Dioxide 16 L 19 L (22-30) mmol/L BUN 55 H 48 H (9-20) mg/dL Creatinine 1.51 H (0.66-1.25) mg/dL Glucose 121 H (74-99) mg/dL Calcium 8.3 L (8.4-10.2) mg/dL Total Protein 6.2 L (6.3-8.2) g/dL Thrombosis Risk Factor Assmnt - Choose All That Apply Other Risk Factors: Yes Each Risk Factor Represents 2 Points: Age 61-74 years Other congenital or acquired thrombophilia - If yes, enter type in comment: No Thrombosis Risk Factor Assessment Total Risk Factor Score: 2 Thrombosis Risk Factor Assessment Level: Low Risk Assessment and Plan Plan: -Acute renal failure: Prerenal azotemia from dehydration may have some viral syndrome as well. Patient today is improving with IV fluids will be continued -Hyponatremia hypovolemic hyponatremia improving with IV fluids -COPD without any acute exacerbation -Non-anion gap metabolic acidosis secondary to acute renal failure -Hyperkalemia improved with IV fluids secondary to acute renal failure -Leukocytosis reactive probably due to viral syndrome or a viral illness I'll obtain influenza testing -Generalized weakness probably due to viral illness and acute renal failure TSH will be up and as well. -Generalized deconditioning physical therapy and occupational therapy consultation will be obtained -Hypertension patient was hypotensive hold off on lisinopril but atenolol will be continued to avoid reflux tachycardia. -Hyperlipidemia -Continued nicotine use: Counseling was provided patient is having cough but unable to bring up much patient is not in COPD exacerbation at this time. -Due to prophylaxis with subcutaneous heparin
[2019-04-01] MEDS: NEOMYCIN-BACITRACIN-POLY OINT 14 GM TUBE TOPICAL SCH (18:21)
[2019-04-01] MEDS ORDERED: FAMOTIDINE 20 MG TAB PO SCH (21:00)
[2019-04-01] MEDS: HEPARIN SODIUM,PORCINE 5,000 UNIT/ML 1 ML VIAL SQ SCH (21:53)
[2019-04-02] MEDS: SYMBICORT 160-4.5 MCG INHALER INHALATION SCH (07:33)
[2019-04-02] MEDS: IPRATROPIUM-ALBUTEROL 3 ML NEB INHALATION SCH ×2 (07:33→11:10)
[2019-04-02] MEDS: GABAPENTIN 300 MG CAP PO SCH (09:09)
[2019-04-02] MEDS: ATORVASTATIN 80 MG TAB PO SCH (09:09)
[2019-04-02] MEDS: FLUoxetine HCL 20 MG CAP PO SCH (09:09)
[2019-04-02] MEDS: ASPIRIN 81 MG PO SCH (09:09)
[2019-04-02] MEDS: CLOPIDOGREL 75 MG TAB PO SCH (09:09)
[2019-04-02] MEDS: ATENOLOL 25 MG TAB PO SCH (09:09)
[2019-04-02] MEDS: DICLOFENAC SODIUM GEL 100 GM TUBE TOPICAL SCH (09:10)
[2019-04-02] MEDS: SODIUM CHLORIDE 0.9% 1,000 ML IV SCH (09:10)
[2019-04-02] MEDS: HEPARIN SODIUM,PORCINE 5,000 UNIT/ML 1 ML VIAL SQ SCH (09:11)
[2019-04-02] MEDS: NEOMYCIN-BACITRACIN-POLY OINT 14 GM TUBE TOPICAL SCH (09:11)
[2019-04-02] MEDS: CYCLOBENZAPRINE 5 MG TAB PO SCH (09:15)
[2019-04-02 09:30] LABS: African American GFR (CKD) >90 (>60 ml/min/1.73 sqM); Anion Gap 6 mmol/L; Blood Urea Nitrogen 26 mg/dL (9-20); Calcium 8.4 mg/dL (8.4-10.2); Carbon Dioxide 20 mmol/L (22-30); Chloride 109 mmol/L (98-107); Glucose 120 mg/dL (74-99); Non-African American GFR(CKD) >90 (>60 ml/min/1.73 sqM); Potassium 4.4 mmol/L (3.5-5.1); Sodium 135 mmol/L (137-145)
[2019-04-02 11:24] VITALS: BP 115/59; RESP 17; TEMP 98.4
[2019-04-02 12:05] VITALS: PULSE 87
--- NOTE | 2019-04-02 13:25 | P.DS ---
Providers Date of admission: 04/01/19 02:08 Expected date of discharge: 04/02/19 Attending physician: Edwin Arango Consults: 04/01/19 02:09 Consult Physician Routine Consulting Provider: Marisa Gifford Consult Reason/Comments: hyponatremia, NAJMA Do you want consulting provider notified?: Yes, Notify in am Primary care physician: [facility] Hospital Course: Final diagnosis -Acute renal failure: Prerenal azotemia from dehydration -Hyponatremia hypovolemic hyponatremia -COPD without any acute exacerbation -Non-anion gap metabolic acidosis secondary to acute renal failure -Hyperkalemia secondary to acute renal failure -Leukocytosis reactive probably due to viral syndrome or a viral illness -Generalized weakness probably due to viral illness and acute renal failure -Generalized deconditioning -Hypertension -Hyperlipidemia -Continued nicotine use: Counseling was provided -DVT prophylaxis Discharge disposition Patient is being discharged in a stable condition with guarded prognosis to home and will follow-up at the [facility] in [place] upon discharge. Total time taken is 35 minutes. History of present illness This is a 63-year-old male who was recently admitted for generalized weakness, fatigue, and dehydration and was being closely monitored. Patient was found to have acute renal failure with an elevated creatinine and hypotension. Patient's lisinopril will be discontinued at this time and will continue with this in the outpatient setting until follow-up with primary care provider. Discussed at length with the patient about continue to monitor blood pressure and keep a diary of blood pressure readings for primary care provider follow-up appointment. Patient verbalized understanding and agrees with this treatment plan. Patient is refusing any form of rehab or home care at this time and states that he has multiple sisters that live close by and friends within the apartment complex at keep an eye out for him also. Patient was seen by physical therapy and was independent in functions and currently not requiring ABDULKADIR or home care. Patient denies any chest pain, shortness of breath, or palpitations. Patient is afebrile. Patient denies any nausea or vomiting and has been tolerating diet. Patient would like to go home today. On exam vital signs are stable. Temp is 98.4F, pulse is 88, respirations are 16, blood pressure is 115/59, oxygen saturation is 98% on room air. Cardio S1, S2 are present. Respiratory system shows diminished breath sounds at the bases otherwise clear to auscultation. Abdomen is soft and nontender. Nervous system shows no focal deficits. Please refer to medication reconciliation sheet for a list of medications. Patient Condition at Discharge: Stable Plan - Discharge Summary New Discharge Prescriptions: New Ikxwvnzo-Dubylxudas-Virr Oint [Triple Antibiotic Ointment] 1 applic TOPICAL DAILY applic Diclofenac Sodium Gel [Voltaren Gel] 2 gm TOPICAL Q8HR tube Continue Atenolol [Tenormin] 25 mg PO BID FLUoxetine HCL [PROzac] 60 mg PO QAM Multivitamin [Men's Multi-Vitamin] 1 tab PO DAILY Cholecalciferol [Vitamin D3 (25 Mcg = 1000 Iu)] 1,000 unit PO DAILY Aspirin EC [Ecotrin Low Dose] 81 mg PO DAILY Acetaminophen [Tylenol Extra Strength] 500 mg PO TID Ferrous Sulfate [Feosol] 325 mg PO BID Cyclobenzaprine [Flexeril] 5 mg PO BID #0 Gabapentin [Neurontin] 300 mg PO TID #30 cap Tiotropium 18 Mcg/Puff [Spiriva] 1 puff INHALATION RT-DAILY Clopidogrel Bisulfate [Plavix] 75 mg PO DAILY Budesonide-Formot 160-4.5 Mcg [Symbicort 160-4.5 Mcg Inhaler] 2 puff INHALATION RT-BID Albuterol Inhaler [Ventolin Hfa Inhaler] 1 - 2 puff INHALATION RT-Q6H PRN PRN Reason: Shortness Of Breath Rosuvastatin Calcium 40 mg PO DAILY Discontinued Lisinopril [Zestril] 20 mg PO BID Discharge Medication List Atenolol [Tenormin] 25 mg PO BID 06/29/15 [History] FLUoxetine HCL [PROzac] 60 mg PO QAM 06/29/15 [History] Multivitamin [Men's Multi-Vitamin] 1 tab PO DAILY 06/29/15 [History] Acetaminophen [Tylenol Extra Strength] 500 mg PO TID 11/06/17 [History] Aspirin EC [Ecotrin Low Dose] 81 mg PO DAILY 11/06/17 [History] Cholecalciferol [Vitamin D3 (25 Mcg = 1000 Iu)] 1,000 unit PO DAILY 11/06/17 [History] Ferrous Sulfate [Feosol] 325 mg PO BID 11/06/17 [History] Cyclobenzaprine [Flexeril] 5 mg PO BID #0 11/08/17 [Rx] Gabapentin [Neurontin] 300 mg PO TID #30 cap 11/10/17 [Rx] Albuterol Inhaler [Ventolin Hfa Inhaler] 1 - 2 puff INHALATION RT-Q6H PRN 04/01/19 [History] Budesonide-Formot 160-4.5 Mcg [Symbicort 160-4.5 Mcg Inhaler] 2 puff INHALATION RT-BID 04/01/19 [History] Clopidogrel Bisulfate [Plavix] 75 mg PO DAILY 04/01/19 [History] Rosuvastatin Calcium 40 mg PO DAILY 04/01/19 [History] Tiotropium 18 Mcg/Puff [Spiriva] 1 puff INHALATION RT-DAILY 04/01/19 [History] Diclofenac Sodium Gel [Voltaren Gel] 2 gm TOPICAL Q8HR tube 04/02/19 [Rx] Ukecwvbp-Bbngsjablu-Nkec Oint [Triple Antibiotic Ointment] 1 applic TOPICAL DAILY applic 04/02/19 [Rx] Follow up Appointment(s)/Referral(s): Marisa Gifford MD [STAFF PHYSICIAN] - 1 Week (The office is closed please call and make appointment on saturday for a one week follow up.) [facility],Clinic [Primary Care Provider] - 04/15/19 9:00 am Ambulatory/Diagnostic Orders: Basic Metabolic Panel [LAB.AMB] Time Frame: 2 Days, Location: None Selected Complete Blood Count w/diff [LAB.AMB] Time Frame: 2 Days, Location: None Selected Patient Instructions/Handouts: Dehydration (DC) Activity/Diet/Wound Care/Special Instructions: Activity Limited until follow-up Follow-up with primary care provider upon discharge Continue to hold lisinopril until follow-up with primary care provider Keep a diary or log of blood pressure readings and bring with you to your primary care provider visit Encourage fluids and rest Continue current diet Repeat labs in 2-3 days Discharge Disposition: HOME SELF-CARE
--- NOTE | 2019-04-02 18:23 | PN ---
PROGRESS NOTE Patient is seen for followup for acute kidney injury. His renal function has improved significantly, with creatinine down to 0.89 today from 1.5 on initial admission. Patient is maintained on IV fluids. His ANNALISA inhibitors are on hold. PHYSICAL EXAMINATION: On examination today, blood pressure was 115/59, heart rate 88 per minute. He is afebrile. EXAMINATION OF THE HEART: S1 and S2. EXAMINATION OF LUNGS: Bilateral breath sounds are heard. ABDOMEN: Soft, non-tender. Examination of lower extremities shows no significant edema. CHEF & OWNER exam is grossly intact. LABS: Sodium 135, potassium 4.4, BUN 26, creatinine 0.89. ASSESSMENT: 1. Acute kidney injury, prerenal, currently resolved. 2. Hypertension, currently off ANNALISA inhibitors. Blood pressure remains low. Maintain patient off of the ANNALISA inhibitors for now. 3. Volume depletion, now resolved. PLAN: Patient is stable for discharge from nephrology standpoint. MMODL / IJN: [id number] /
== END 2019-04-02 14:22 | disposition home or self-care (01) | DRG 683 ==
LOC: EC 00:29 → 5NMEDONC 02:08
PROVIDERS: ADMIT Hospitalist; ATTEND Hospitalist
DX: N17.9 Acute kidney failure, unspecified (principal); E87.1 Hypo-osmolality and hyponatremia; E87.2 Acidosis; J44.9 Chronic obstructive pulmonary disease, unspecified; I10 Essential (primary) hypertension; F41.9 Anxiety disorder, unspecified; F32.9 Major depressive disorder, single episode, unspecified; F17.200 Nicotine dependence, unspecified, uncomplicated; E87.5 Hyperkalemia; F10.21 Alcohol dependence, in remission; E86.0 Dehydration; E86.1 Hypovolemia; E78.5 Hyperlipidemia, unspecified; M41.9 Scoliosis, unspecified; B34.9 Viral infection, unspecified; D72.829 Elevated white blood cell count, unspecified; D64.9 Anemia, unspecified; Z79.51 Long term (current) use of inhaled steroids; Z82.49 Family history of ischemic heart disease and other diseases of the circulatory system; Z87.11 Personal history of peptic ulcer disease; Z95.5 Presence of coronary angioplasty implant and graft; Z79.02 Long term (current) use of antithrombotics/antiplatelets; Z79.899 Other long term (current) drug therapy; Z79.82 Long term (current) use of aspirin
CPT/HCPCS: 36415; 71046; 80048; 80053; 82550; 83735; 84443; 85025; 87502; 93005; 94640; 96361; 96374; 99285

== ENCOUNTER → 2019-04-03 | Outpatient (CLI) | payer MEDICARE ==
[2019-04-03 14:16] LABS: Basophils # (A) 0.1 k/uL (0-0.2); Basophils % (A) 1 %; Eosinophils # (A) 0.2 k/uL (0-0.7); Eosinophils % (A) 2 %; HCT 24.3 % (39.0-53.0); HGB 7.5 gm/dL (13.0-17.5); Hypochromasia Slight; Lymphocytes # (A) 1.3 k/uL (1.0-4.8); Lymphocytes % (A) 13 %; MCH 33.9 pg (25.0-35.0); MCHC 30.9 g/dL (31.0-37.0); Macrocytosis Marked; Mean Platelet Volume 6.9; Monocytes # (A) 0.4 k/uL (0-1.0); Monocytes % (A) 4 %; Neutrophils # (A) 7.9 k/uL (1.3-7.7); Neutrophils % (A) 79 %; Platelet Count 353 k/uL (150-450); RBC 2.22 m/uL (4.30-5.90); RDW 12.9 % (11.5-15.5)
[2019-04-03 14:19] LABS: MCV 109.4 fL (80.0-100.0)
[2019-04-03 18:30] LABS: African American GFR (CKD) 103.5 (60.0-200.0); Anion Gap 8.4 mmol/L (4.00-12.00); BUN/Creat Ratio 16.67 Ratio (12.00-20.00); Calcium 8.9 mg/dL (8.7-10.3); Carbon Dioxide 22.6 mmol/L (21.6-31.8); Non-African American GFR(CKD) 89.3 (60.0-200.0); Potassium 4.7 mmol/L (3.5-5.5)
== END | disposition home or self-care (01) ==
LOC: LABWHC1 12:59
PROVIDERS: ATTEND Registered Nurse
DX: R79.89 Other specified abnormal findings of blood chemistry (principal); E87.1 Hypo-osmolality and hyponatremia
CPT/HCPCS: 36415; 80048; 85025

== ENCOUNTER 2019-04-06 15:07 | Emergency (ER) | payer MEDICARE, OTHER ==
[2019-04-06 15:36] VITALS: TEMP 97.8
--- NOTE | 2019-04-06 16:42 | ED ---
Recheck HPI - General Chief Complaint: Recheck/Abnormal Lab/Rx Stated Complaint: abn labs, low hemoglobin Time Seen by Provider: 04/06/19 15:49 Source: patient Mode of arrival: ambulatory Limitations: no limitations - History of Present Illness Initial Comments: 63-year-old male presenting today for chief complaint of symptoms for abnormal hemoglobin of 7.2. Patient states that his hemoglobin dropped one point in 3 days he states he struggles with chronic anemia is on ferrous sulfate--patient states that he feels normal S have been slightly fatigued. He states he went to his primary care provider for routine labs. Patient denies any rectal bleeding denies any shortness of breath chest pain palpitations nausea vomiting diarrhea patient has no other complaints and appears well upon arrival - Related Data Home Medications Medication Instructions Recorded Confirmed Atenolol [Tenormin] 25 mg PO BID 06/29/15 04/06/19 FLUoxetine HCL [PROzac] 60 mg PO QAM 06/29/15 04/06/19 Multivitamin [Men's Multi-Vitamin] 1 tab PO DAILY 06/29/15 04/06/19 Acetaminophen [Tylenol Extra 500 mg PO TID 11/06/17 04/06/19 Strength] Aspirin EC [Ecotrin Low Dose] 81 mg PO DAILY 11/06/17 04/06/19 Cholecalciferol [Vitamin D3 (25 1,000 unit PO DAILY 11/06/17 04/06/19 Mcg = 1000 Iu)] Ferrous Sulfate [Feosol] 325 mg PO BID 11/06/17 04/06/19 Albuterol Inhaler [Ventolin Hfa 1 - 2 puff INHALATION RT-Q6H PRN 04/01/19 04/06/19 Inhaler] Budesonide-Formot 160-4.5 Mcg 2 puff INHALATION RT-BID 04/01/19 04/06/19 [Symbicort 160-4.5 Mcg Inhaler] Clopidogrel Bisulfate [Plavix] 75 mg PO DAILY 04/01/19 04/06/19 Rosuvastatin Calcium 40 mg PO DAILY 04/01/19 04/06/19 Tiotropium 18 Mcg/Puff [Spiriva] 1 puff INHALATION RT-DAILY 04/01/19 04/06/19 Gabapentin [Neurontin] 600 mg PO TID 04/06/19 04/06/19 Lisinopril [Zestril] 10 mg PO DAILY 04/06/19 04/06/19 Previous Rx's Medication Instructions Recorded Cyclobenzaprine [Flexeril] 5 mg PO BID #0 11/08/17 Diclofenac Sodium Gel [Voltaren 2 gm TOPICAL Q8HR tube 04/02/19 Gel] Qjqhfeyg-Isoerwgpls-Jrkh Oint 1 applic TOPICAL DAILY applic 04/02/19 [Triple Antibiotic Ointment] Allergies Allergy/AdvReac Type Severity Reaction Status Date / Time acetaminophen [From Endocet] AdvReac Unknown Verified 04/06/19 18:41 amlodipine AdvReac Unknown Verified 04/06/19 18:41 duloxetine [From Cymbalta] AdvReac Unknown Verified 04/06/19 18:41 oxycodone [From Endocet] AdvReac Unknown Verified 04/06/19 18:41 phenytoin [From Dilantin] AdvReac Unknown Verified 04/06/19 18:41 potassium chloride AdvReac Unknown Verified 04/06/19 18:41 ranitidine AdvReac Unknown Verified 04/06/19 18:41 Review of Systems ROS Statement: Those systems with pertinent positive or pertinent negative responses have been documented in the HPI. ROS Other: All systems not noted in ROS Statement are negative. Past Medical History Past Medical History: Asthma, Chest Pain / Angina, COPD, Hyperlipidemia, Hypertension, Osteoarthritis (OA) Additional Past Medical History / Comment(s): Diverticulitis, stomach ulcer, neuropathy, chronic back pain, DDD, alcoholism - had seizure when withdrawing from alcohol, scoliosis, hemorrhoids, blocked arteries. History of Any Multi-Drug Resistant Organisms: None Reported Past Surgical History: Heart Catheterization With Stent, Orthopedic Surgery, Tonsillectomy Additional Past Surgical History / Comment(s): Left shoulder rotator cuff surgery, EGD/colonoscopy, cardiac stent (placed 09-15-15 to LAD at [facility]) Past Anesthesia/Blood Transfusion Reactions: No Reported Reaction Date of Last Stent Placement:: 09/15/15 Past Psychological History: Anxiety, Depression Smoking Status: Current every day smoker Past Alcohol Use History: Daily Past Drug Use History: None Reported - Past Family History Mother Family Medical History: Coronary Artery Disease (CAD) Additional Family Medical History / Comment(s): Cardiac stent Father Family Medical History: Cancer Additional Family Medical History / Comment(s): Unsure what kind of cancer. General Exam - General Exam Comments Initial Comments: General: The patient is awake and alert, in no distress, and does not appear acutely ill. Eye: +3 mm pupils are equal, round and reactive to light, extra-ocular movemen ts are intact. No nystagmus. There is normal conjunctiva bilaterally. No signs of icterus. Ears, nose, mouth and throat: There are moist mucous membranes and no oral les ions. Neck: The neck is supple, there is no tenderness or JVD. Cardiovascular: There is a regular rate and rhythm. No murmur, rub or gallop is appreciated. Respiratory: Lungs are clear to auscultation, respirations are non-labored, breath sounds are equal. No wheezes, stridor, rales, or rhonchi. Gastrointestinal: Soft, non-distended, non-tender abdomen without masses or organomegaly noted. There is no rebound or guarding present. Musculoskeletal: Normal ROM, no tenderness. Strength 5/5. Sensation intact. Pulses equal bilaterally 2+. Neurological: A&O x 3. CN II-XII intact grossly, There are no obvious motor or sensory deficits. Coordination appears grossly intact. Speech is normal. Skin: Skin is warm and dry and no rashes or lesions are noted. Psychiatric: Cooperative, appropriate mood & affect, normal judgment. Limitations: no limitations Course Vital Signs 04/06/19 04/06/19 04/06/19 15:34 15:54 17:16 Temperature 97.8 F Pulse Rate 77 Respiratory 18 22 16 Rate Blood Pressure 105/51 O2 Sat by Pulse 98 Oximetry 04/06/19 18:06 Temperature Pulse Rate 87 Respiratory 18 Rate Blood Pressure 113/52 O2 Sat by Pulse 93 L Oximetry Medical Decision Making - Medical Decision Making 63-year-old male presents today for chief came complaint of abnormal labs history of anemia. Baseline appears to be around 8. Patient has hemoglobin of 8.2. He has no complaints states he feels slightly fatigued at this time I feel he stable for discharge with continued supplement. Patient had mildly elevated lactic acid. This supposedly to dehydration given the increasing creatinine from 3 days prior. No abdominal pain. No point localized symptoms. Discussed case and labs with attending and we feel patient is stable for discharge after fluid bolus with repeat labs in 2 days. Patient states he is agreeable to primary care follow-up and repeat labs in 2 days. Return progress were discussed at length patient verbalized understanding was discharged appearing well. - Lab Data Result diagrams: 04/06/19 16:25 04/06/19 16:25 Lab Results 04/06/19 04/06/19 04/06/19 Range/Units 16:25 16:25 16:25 WBC 10.6 (3.8-10.6) k/uL RBC 2.44 L (4.30-5.90) m/uL Hgb 8.2 L (13.0-17.5) gm/dL Hct 25.7 L (39.0-53.0) % MCV 105.4 H (80.0-100.0) fL MCH 33.7 (25.0-35.0) pg MCHC 31.9 (31.0-37.0) g/dL RDW 14.2 (11.5-15.5) % Plt Count 436 (150-450) k/uL Neutrophils % 84 % Lymphocytes % 10 % Monocytes % 4 % Eosinophils % 1 % Basophils % 0 % Neutrophils # 9.0 H (1.3-7.7) k/uL Lymphocytes # 1.0 (1.0-4.8) k/uL Monocytes # 0.4 (0-1.0) k/uL Eosinophils # 0.1 (0-0.7) k/uL Basophils # 0.0 (0-0.2) k/uL Macrocytosis Moderate PT (9.0-12.0) sec INR (<1.2) APTT (22.0-30.0) sec Sodium 132 L (137-145) mmol/L Potassium 4.5 (3.5-5.1) mmol/L Chloride 99 (98-107) mmol/L Carbon Dioxide 23 (22-30) mmol/L Anion Gap 10 mmol/L BUN 20 (9-20) mg/dL Creatinine 1.32 H (0.66-1.25) mg/dL Est GFR (CKD-EPI)AfAm 65 (>60 ml/min/1.73 sqM) Est GFR (CKD-EPI)NonAf 57 (>60 ml/min/1.73 sqM) Glucose 130 H (74-99) mg/dL Lactic Ac Sepsis Rflx Plasma Lactic Acid Pola (0.7-2.0) mmol/L Calcium 9.4 (8.4-10.2) mg/dL Total Bilirubin 0.3 (0.2-1.3) mg/dL AST 43 (17-59) U/L ALT 34 (4-49) U/L Alkaline Phosphatase 100 (38-126) U/L Total Protein 6.5 (6.3-8.2) g/dL Albumin 4.2 (3.5-5.0) g/dL Blood Type O Positive Blood Type Confirm Blood Type Recheck No Previous Record Bld Type Recheck Status CABO Indicated Antibody Screen NEGATIVE Spec Expiration Date 04/09/2019232404/06/19 04/06/19 04/06/19 Range/Units 16:25 16:25 16:29 WBC (3.8-10.6) k/uL RBC (4.30-5.90) m/uL Hgb (13.0-17.5) gm/dL Hct (39.0-53.0) % MCV (80.0-100.0) fL MCH (25.0-35.0) pg MCHC (31.0-37.0) g/dL RDW (11.5-15.5) % Plt Count (150-450) k/uL Neutrophils % % Lymphocytes % % Monocytes % % Eosinophils % % Basophils % % Neutrophils # (1.3-7.7) k/uL Lymphocytes # (1.0-4.8) k/uL Monocytes # (0-1.0) k/uL Eosinophils # (0-0.7) k/uL Basophils # (0-0.2) k/uL Macrocytosis PT 10.4 (9.0-12.0) sec INR 1.0 (<1.2) APTT 24.7 (22.0-30.0) sec Sodium (137-145) mmol/L Potassium (3.5-5.1) mmol/L Chloride (98-107) mmol/L Carbon Dioxide (22-30) mmol/L Anion Gap mmol/L BUN (9-20) mg/dL Creatinine (0.66-1.25) mg/dL Est GFR (CKD-EPI)AfAm (>60 ml/min/1.73 sqM) Est GFR (CKD-EPI)NonAf (>60 ml/min/1.73 sqM) Glucose (74-99) mg/dL Lactic Ac Sepsis Rflx Plasma Lactic Acid Pola 2.9 H* (0.7-2.0) mmol/L Calcium (8.4-10.2) mg/dL Total Bilirubin (0.2-1.3) mg/dL AST (17-59) U/L ALT (4-49) U/L Alkaline Phosphatase (38-126) U/L Total Protein (6.3-8.2) g/dL Albumin (3.5-5.0) g/dL Blood Type Blood Type Confirm O Positive Blood Type Recheck Bld Type Recheck Status Antibody Screen Spec Expiration Date 04/06/19 Range/Units 17:04 WBC (3.8-10.6) k/uL RBC (4.30-5.90) m/uL Hgb (13.0-17.5) gm/dL Hct (39.0-53.0) % MCV (80.0-100.0) fL MCH (25.0-35.0) pg MCHC (31.0-37.0) g/dL RDW (11.5-15.5) % Plt Count (150-450) k/uL Neutrophils % % Lymphocytes % % Monocytes % % Eosinophils % % Basophils % % Neutrophils # (1.3-7.7) k/uL Lymphocytes # (1.0-4.8) k/uL Monocytes # (0-1.0) k/uL Eosinophils # (0-0.7) k/uL Basophils # (0-0.2) k/uL Macrocytosis PT (9.0-12.0) sec INR (<1.2) APTT (22.0-30.0) sec Sodium (137-145) mmol/L Potassium (3.5-5.1) mmol/L Chloride (98-107) mmol/L Carbon Dioxide (22-30) mmol/L Anion Gap mmol/L BUN (9-20) mg/dL Creatinine (0.66-1.25) mg/dL Est GFR (CKD-EPI)AfAm (>60 ml/min/1.73 sqM) Est GFR (CKD-EPI)NonAf (>60 ml/min/1.73 sqM) Glucose (74-99) mg/dL Lactic Ac Sepsis Rflx Y Plasma Lactic Acid Pola (0.7-2.0) mmol/L Calcium (8.4-10.2) mg/dL Total Bilirubin (0.2-1.3) mg/dL AST (17-59) U/L ALT (4-49) U/L Alkaline Phosphatase (38-126) U/L Total Protein (6.3-8.2) g/dL Albumin (3.5-5.0) g/dL Blood Type Blood Type Confirm Blood Type Recheck Bld Type Recheck Status Antibody Screen Spec Expiration Date Disposition Clinical Impression: Chronic anemia, Dehydration Disposition: HOME SELF-CARE Condition: Good Instructions (If sedation given, give patient instructions): Anemia (ED) Additional Instructions: Please use medication as discussed. Please follow-up with family doctor in the next 2 days-please repeat labs. Please return to emergency room if the symptoms increase or worsen or for any other concerns. Is patient prescribed a controlled substance at d/c from ED?: No Referrals: [facility],Clinic [Primary Care Provider] - 1-2 days Time of Disposition: 19:03
[2019-04-06 16:45] LABS: Basophils % (A) 0 %; Eosinophils # (A) 0.1 k/uL (0-0.7); Eosinophils % (A) 1 %; HCT 25.7 % (39.0-53.0); HGB 8.2 gm/dL (13.0-17.5); Lymphocytes % (A) 10 %; MCH 33.7 pg (25.0-35.0); MCHC 31.9 g/dL (31.0-37.0); MCV 105.4 fL (80.0-100.0); Macrocytosis Moderate; Mean Platelet Volume 7.1; Monocytes # (A) 0.4 k/uL (0-1.0); Monocytes % (A) 4 %; Neutrophils % (A) 84 %; Platelet Count 436 k/uL (150-450); RBC 2.44 m/uL (4.30-5.90); RDW 14.2 % (11.5-15.5); WBC 10.6 k/uL (3.8-10.6)
[2019-04-06 16:56] LABS: Albumin 4.2 g/dL (3.5-5.0); Calcium 9.4 mg/dL (8.4-10.2); Potassium 4.5 mmol/L (3.5-5.1); Total Bilirubin 0.3 mg/dL (0.2-1.3); Total Protein 6.5 g/dL (6.3-8.2)
[2019-04-06 17:04] LABS: Partial Thromboplastin Time 24.7 sec (22.0-30.0); Prothrombin Time 10.4 sec (9.0-12.0)
[2019-04-06] MEDS ORDERED: SODIUM CHLORIDE 0.9% 1,000 ML IV ONE (17:28)
[2019-04-06 18:07] VITALS: BP 113/52; PULSE 87; RESP 18
== END 2019-04-06 19:25 | disposition home or self-care (01) ==
LOC: EC 15:07
DX: D64.9 Anemia, unspecified (principal); E86.0 Dehydration; J44.9 Chronic obstructive pulmonary disease, unspecified; E78.5 Hyperlipidemia, unspecified; I10 Essential (primary) hypertension; M19.90 Unspecified osteoarthritis, unspecified site; R56.9 Unspecified convulsions; F41.9 Anxiety disorder, unspecified; F32.9 Major depressive disorder, single episode, unspecified; F17.200 Nicotine dependence, unspecified, uncomplicated; Z95.5 Presence of coronary angioplasty implant and graft; Z79.82 Long term (current) use of aspirin; Z79.51 Long term (current) use of inhaled steroids; Z79.02 Long term (current) use of antithrombotics/antiplatelets; Z79.899 Other long term (current) drug therapy; Z88.6 Allergy status to analgesic agent; Z88.8 Allergy status to other drugs, medicaments and biological substances; Z88.5 Allergy status to narcotic agent
CPT/HCPCS: 36415; 80053; 83605; 85025; 85610; 85730; 86850; 86900; 86901; 96360; 99284

== ENCOUNTER → 2019-07-09 | Outpatient (CLI) | payer OTHER ==
[2019-07-09 17:29] LABS: African American GFR (CKD) 90.5 (60.0-200.0); Albumin 4.5 g/dL (3.80-4.90); Albumin/Globulin Ratio 2.37 (1.60-3.17); Anion Gap 7.6 mmol/L (4.00-12.00); Calcium 9.1 mg/dL (8.7-10.3); Carbon Dioxide 21.4 mmol/L (21.6-31.8); Globulin 1.9 g/dL (1.6-3.3); Non-African American GFR(CKD) 78.1 (60.0-200.0); Potassium 5.6 mmol/L (3.5-5.5); Total Bilirubin 0.2 mg/dL (0.3-1.2); Total Protein 6.4 g/dL (6.2-8.2)
== END | disposition home or self-care (01) ==
LOC: LABWHC1 10:00
PROVIDERS: ATTEND Internal Medicine
DX: N17.9 Acute kidney failure, unspecified (principal)
CPT/HCPCS: 36415; 80053

== ENCOUNTER → 2020-11-16 | Outpatient (CLI) | payer OTHER ==
--- NOTE | 2020-11-16 09:34 | CTL ---
EXAMINATION TYPE: CT Low Dose Lung DATE OF EXAM ORDERED: 11/16/2020 HISTORY: Z87.891 Personal history of nicotine dependence Lung cancer screening CT DLP: [address] CTDI: 4.2 mGy Automated exposure control for dose reduction was used. SCREENING VISIT: 1 COMPARISON: CT chest 11/11/2016 TECHNIQUE: Low dose computed tomography scan was performed through the chest at 1 mm thick sections a nd reconstructed images in the coronal plane at [address] DIAGNOSTIC QUALITY: Satisfactory FINDINGS: LUNG NODULES: Present, detailed below: Stable soft tissue nodule right upper lobe medially, calcified measuring 4 mm, axial image 59. LUNGS: COPD: Severity: Mild Fibrosis: Severity: Mild Lymph nodes: None Other findings: SPACE: Effusion: None Calcification: None Thickening: None Pneumothorax: None LEFT PLEURAL SPACE: Effusion: None Calcification: None Thickening: None Pneumothorax: None HEART: Heart Size: Normal Coronary calcification: Large Pericardial effusion: None OTHER FINDINGS: Upper abdomen: Within normal limits Bony thorax: There is thoracic spondylosis present. Supraclavicular region: Unremarkable Other: IMPRESSION: Benign CT LUNG RAD AND CT CHEST RECOMMENDATION: Lung rad 2, follow-up chest CT 1 year S Modifier (other clinically significant findings): S, coronary artery disease
== END | disposition home or self-care (01) ==
LOC: RADCTMAIN 07:00
DX: Z12.2 Encounter for screening for malignant neoplasm of respiratory organs (principal); I25.10 Atherosclerotic heart disease of native coronary artery without angina pectoris; Z87.891 Personal history of nicotine dependence
CPT/HCPCS: 71271

== ENCOUNTER → 2020-12-15 | Outpatient (CLI) | payer OTHER ==
--- NOTE | 2020-12-16 02:49 | MR ---
EXAMINATION TYPE: MR lumbar spine wo con DATE OF EXAM: 12/15/2020 COMPARISON: 03/13/2018 HISTORY: Low back pain that radiates down right leg, 40 years. History of surgery 05-21-2018. Multiplanar multiecho imaging of the lumbar spine without contrast. Lumbar vertebra have fairly normal alignment. There is a slight dextroscoliosis. There is degenerativ e disc space narrowing throughout the lumbar spine and more severe at L4-5 and L5-S1. There is residential tech ior disc herniation from L3 to S1 into the spinal canal. There is apparent multilevel laminectomy def ect from L3 to S1. There is no significant spinal stenosis. Lumbar nerve roots appear normal. There i s severe narrowing of the no foramina bilaterally from L3 to S1. This is more severe at L4-5 on the r ight side. There is 20% anterior wedging of L1 vertebra with depression of the superior endplate. The re is decreased signal in the vertebra. This could be relatively acute fracture. There is decreased s ignal also on both sides of the L3-4 disc. This could be osteosclerosis. IMPRESSION: Multilevel spondylotic changes. Neural foraminal narrowing is more severe at L4-5 on the right side. There is a compression fracture of L1 that could be relatively acute and is a change compared to old exam. There is changes on both sides of the L3-4 disc that could relate to chronic discitis and osteosclero sis. This is a change compared to old exam. There is improvement in the spinal stenosis in the lower lumbar spine compared to old exam.
== END | disposition home or self-care (01) ==
LOC: RADMRIMAIN 10:22
PROVIDERS: ATTEND Physician Assistant
DX: M48.061 Spinal stenosis, lumbar region without neurogenic claudication (principal); M47.27 Other spondylosis with radiculopathy, lumbosacral region; M99.73 Connective tissue and disc stenosis of intervertebral foramina of lumbar region; M48.56XA Collapsed vertebra, not elsewhere classified, lumbar region, initial encounter for fracture
CPT/HCPCS: 72148

== ENCOUNTER 2021-06-09 09:34 | Emergency (ER) | payer OTHER ==
[2021-06-09 09:42] VITALS: TEMP 98.2
--- NOTE | 2021-06-09 10:13 | XR ---
EXAMINATION TYPE: XR ribs LT w pa chest xray DATE OF EXAM: 06/09/2021 COMPARISON: NONE HISTORY: Pain TECHNIQUE: Single view of the chest 4 views of the ribs are submitted. FINDINGS: The lungs are clear. No Evidence for pneumothorax. No evidence for focal contusion. Medi astinal structures are midline. Evaluation of the ribs fails to demonstrate evidence for displaced r ib fracture or secondary sign of rib fracture. IMPRESSION: Negative study
--- NOTE | 2021-06-09 10:17 | ED ---
Fall HPI - General Chief Complaint: Fall Stated Complaint: fall Time Seen by Provider: 06/09/21 09:44 Source: patient, RN notes reviewed Mode of arrival: ambulatory Limitations: no limitations - History of Present Illness Initial Comments: 66-year-old male presents emergency Department chief complaint of left rib pain states on Saturday he was going to bathroom states he got up and tripped over a step stool falling landing on it. Patient went of lateral rib pain no headache no loss conscious. Patient states his ribs are very painful her stated deep i nspiration patient has no other complaints. - Related Data Home Medications Medication Instructions Recorded Confirmed FLUoxetine HCL [PROzac] 60 mg PO QAM 06/29/15 04/06/19 Multivitamin [Men's Multi-Vitamin] 1 tab PO DAILY 06/29/15 04/06/19 atenoloL [Tenormin] 25 mg PO BID 06/29/15 04/06/19 Acetaminophen [Tylenol Extra 500 mg PO TID 11/06/17 04/06/19 Strength] Aspirin EC [Ecotrin Low Dose] 81 mg PO DAILY 11/06/17 04/06/19 Cholecalciferol [Vitamin D3 (25 1,000 unit PO DAILY 11/06/17 04/06/19 Mcg = 1000 Iu)] Ferrous Sulfate [Feosol] 325 mg PO BID 11/06/17 04/06/19 Albuterol Inhaler (Mhu) [Ventolin 1 - 2 puff INHALATION RT-Q6H PRN 04/01/19 04/06/19 Hfa Inhaler (Mhu)] Budesonide-Formot 160-4.5 Mcg 2 puff INHALATION RT-BID 04/01/19 04/06/19 [Symbicort 160-4.5 Mcg Inhaler] Clopidogrel Bisulfate [Plavix] 75 mg PO DAILY 04/01/19 04/06/19 Rosuvastatin Calcium 40 mg PO DAILY 04/01/19 04/06/19 Tiotropium 18 Mcg/Puff [Spiriva] 1 puff INHALATION RT-DAILY 04/01/19 04/06/19 Gabapentin [Neurontin] 600 mg PO TID 04/06/19 04/06/19 Lisinopril [Zestril] 10 mg PO DAILY 04/06/19 04/06/19 Previous Rx's Medication Instructions Recorded Cyclobenzaprine [Flexeril] 5 mg PO BID #0 11/08/17 Diclofenac Sodium Gel [Voltaren 2 gm TOPICAL Q8HR tube 04/02/19 Gel] Xqgjqaqn-Fohzcbpzyj-Ltkv Oint 1 applic TOPICAL DAILY applic 04/02/19 [Triple Antibiotic Ointment] Allergies Allergy/AdvReac Type Severity Reaction Status Date / Time acetaminophen [From Endocet] AdvReac Unknown Verified 04/06/19 18:41 amlodipine AdvReac Unknown Verified 04/06/19 18:41 duloxetine [From Cymbalta] AdvReac Unknown Verified 04/06/19 18:41 oxycodone [From Endocet] AdvReac Unknown Verified 04/06/19 18:41 phenytoin [From Dilantin] AdvReac Unknown Verified 04/06/19 18:41 potassium chloride AdvReac Unknown Verified 04/06/19 18:41 ranitidine AdvReac Unknown Verified 04/06/19 18:41 Review of Systems ROS Statement: Those systems with pertinent positive or pertinent negative responses have been documented in the HPI. ROS Other: All systems not noted in ROS Statement are negative. Past Medical History Past Medical History: Asthma, Chest Pain / Angina, COPD, Hyperlipidemia, Hypertension, Osteoarthritis (OA) Additional Past Medical History / Comment(s): Diverticulitis, stomach ulcer, neuropathy, chronic back pain, DDD, alcoholism - had seizure when withdrawing from alcohol, scoliosis, hemorrhoids, blocked arteries. History of Any Multi-Drug Resistant Organisms: None Reported Past Surgical History: Heart Catheterization With Stent, Orthopedic Surgery, Tonsillectomy Additional Past Surgical History / Comment(s): Left shoulder rotator cuff surgery, EGD/colonoscopy, cardiac stent (placed 09-15-[address] [facility]) Past Anesthesia/Blood Transfusion Reactions: No Reported Reaction Date of Last Stent Placement:: 09/15/15 Past Psychological History: Anxiety, Depression Smoking Status: Current every day smoker Past Alcohol Use History: Daily Past Drug Use History: None Reported - Past Family History Mother Family Medical History: Coronary Artery Disease (CAD) Additional Family Medical History / Comment(s): Cardiac stent Father Family Medical History: Cancer Additional Family Medical History / Comment(s): Unsure what kind of cancer. General Exam Limitations: no limitations General appearance: alert, in no apparent distress Head exam: Present: atraumatic, normocephalic, normal inspection Eye exam: Present: normal appearance, PERRL, EOMI. Absent: scleral icterus, conjunctival injection, periorbital swelling ENT exam: Present: normal exam, normal oropharynx, mucous membranes moist Neck exam: Present: normal inspection, full ROM. Absent: tenderness, meningismus, lymphadenopathy Respiratory exam: Present: wheezes, chest wall tenderness (Left lateral ribs). Absent: normal lung sounds bilaterally, respiratory distress, rales, rhonchi, stridor Cardiovascular Exam: Present: regular rate, normal rhythm, normal heart sounds. Absent: systolic murmur, diastolic murmur, rubs, gallop, clicks GI/Abdominal exam: Present: soft, normal bowel sounds. Absent: distended, tenderness, guarding, rebound, rigid Course Vital Signs 06/09/21 09:40 Temperature 98.2 F Pulse Rate 78 Respiratory 18 Rate Blood Pressure 148/78 O2 Sat by Pulse 98 Oximetry Medical Decision Making - Medical Decision Making 66-year-old male presented for fall rib pain x-ray does not show definite fracture, no pneumothorax. Patient will be discharged in stable condition return parameters were discussed. Disposition Clinical Impression: Fall, Contusion of rib on left side Disposition: HOME SELF-CARE Condition: Stable Instructions (If sedation given, give patient instructions): Rib Contusion (ED) Additional Instructions: Please return to the Emergency Department if symptoms worsen or any other concerns. Is patient prescribed a controlled substance at d/c from ED?: No Referrals: Jaylon Ledbetter DO [Primary Care Provider] - 1-2 days Time of Disposition: 10:19
[2021-06-09] MEDS ORDERED: ACET/COD 300 MG/30 MG STARTER PACK 6 TAB BTL PO STA (10:20)
[2021-06-09 10:42] VITALS: BP 140/65; PULSE 70; RESP 20
== END 2021-06-09 10:41 | disposition home or self-care (01) ==
LOC: EC 09:34
DX: S20.212A Contusion of left front wall of thorax, initial encounter (principal); J44.9 Chronic obstructive pulmonary disease, unspecified; E78.5 Hyperlipidemia, unspecified; I10 Essential (primary) hypertension; M19.90 Unspecified osteoarthritis, unspecified site; F41.9 Anxiety disorder, unspecified; F32.A Depression, unspecified; F17.200 Nicotine dependence, unspecified, uncomplicated; Z79.82 Long term (current) use of aspirin; Z79.02 Long term (current) use of antithrombotics/antiplatelets; Z88.1 Allergy status to other antibiotic agents; W01.0XXA Fall on same level from slipping, tripping and stumbling without subsequent striking against object, initial encounter
CPT/HCPCS: 99283

== ENCOUNTER → 2021-06-23 | Outpatient (CLI) | payer OTHER ==
--- NOTE | 2021-06-23 13:06 | MR ---
MRI CERVICAL SPINE: CLINICAL HISTORY: Abnormal reflex. Headaches with neck pain. TECHNIQUE: Multiplanar, multisequence imaging of the cervical spine is performed without IV contrast. COMPARISON: None. FINDINGS: Coronal images show dextroconvex scoliosis centered in the mid to lower cervical spine. Sag ittal images of the cervical spine show the craniocervical junction to appear within normal limits. The cervical and upper thoracic spinal cord shows focal AP diameter narrowing at C3-C4 level with sli ght increased signal sagittal image images 9 through 11 for reference. There is grade 1 retrolisthesi s C3 on C4 and C5 on C6. The vertebral body heights are normal. Moderate to severe disc space narro wing C3-C4 level with heterogeneous Modic type I endplate changes. Moderate disc space narrowing C5-C 6 level with heterogeneous Modic type II endplate changes posteriorly at C5-C6 level. Small hemangiom a inferior C2 level sagittal image 10. Axial images at C2-C3 level appear within normal limits. Axial images at C3-C4 level show spondylolisthesis with broad-based posterior disc protrusion effacin g the anterior thecal sac of the ventral surface of the spinal cord which is slightly flattened and s hows increased signal, there is uncovertebral facet spurring causing [id number] right and sever e left-sided neural foraminal narrowing. Axial images at C4-C5 levels show broad-based right paracentral disc protrusion effacing the anterola teral thecal sac and uncovertebral facet degenerative changes bilaterally causing mild right-sided ne ural foraminal narrowing. Axial images at C5-C6 levels with spondylolisthesis tiny right paracentral disc protrusion, there is effacement of the anterior thecal sac, there is moderate left-sided neural foraminal narrowing due to marginal spurring. Axial images at C6-C7 and C7-T1 levels appear within normal limits. IMPRESSION: Multilevel degenerative changes greatest at C3-C4 and C5-C6 level as detailed above. Sign ificant spinal canal stenosis with suggestion of some cord myelomalacia and/or edema at C3-C4 level n oted. Advise neurosurgical referral.
== END | disposition home or self-care (01) ==
LOC: RADMRIMAIN 11:28
DX: M47.812 Spondylosis without myelopathy or radiculopathy, cervical region (principal); M48.02 Spinal stenosis, cervical region
CPT/HCPCS: 72141

== ENCOUNTER 2021-12-28 02:29 | Inpatient (IN) | payer OTHER, MEDICARE ==
[2021-12-28] MEDS ORDERED: SODIUM CHLORIDE 0.9% 1,000 ML IV SCH (03:15)
[2021-12-28 03:30] LABS: Basophils % (A) 0 %; Eosinophils # (A) 0.1 k/uL (0-0.7); Eosinophils % (A) 1 %; HCT 23.2 % (39.0-53.0); HGB 8.1 gm/dL (13.0-17.5); Lymphocytes # (A) 0.5 k/uL (1.0-4.8); Lymphocytes % (A) 5 %; MCH 34.6 pg (25.0-35.0); MCHC 34.8 g/dL (31.0-37.0); MCV 99.2 fL (80.0-100.0); Mean Platelet Volume 8.6; Monocytes # (A) 0.5 k/uL (0-1.0); Monocytes % (A) 5 %; Neutrophils # (A) 8.6 k/uL (1.3-7.7); Neutrophils % (A) 89 %; Platelet Count 155 k/uL (150-450); RBC 2.34 m/uL (4.30-5.90); RDW 12.7 % (11.5-15.5); WBC 9.6 k/uL (3.8-10.6)
[2021-12-28 03:43] LABS: INR 0.9 (<1.2); Prothrombin Time 10.3 sec (9.0-12.0)
[2021-12-28 03:44] LABS: Partial Thromboplastin Time 27.2 sec (22.0-30.0)
[2021-12-28 03:46] LABS: ALT 27 U/L (4-49); AST 71 U/L (17-59); Albumin 3.2 g/dL (3.5-5.0); Alcohol <10 mg/dL; Alkaline Phosphatase 80 U/L (38-126); Anion Gap 17 mmol/L; Blood Urea Nitrogen 37 mg/dL (9-20); Calcium 7.9 mg/dL (8.4-10.2); Carbon Dioxide 14 mmol/L (22-30); Glucose 95 mg/dL (74-99); Potassium 5.4 mmol/L (3.5-5.1); Total Bilirubin 0.7 mg/dL (0.2-1.3); Total Protein 4.9 g/dL (6.3-8.2)
[2021-12-28 03:51] LABS: African American GFR (CKD) 76 (>60 ml/min/1.73 sqM); Non-African American GFR(CKD) 66 (>60 ml/min/1.73 sqM)
[2021-12-28] MEDS: SODIUM CHLORIDE 0.9% 500 ML 500 ML IV SCH ×3 (03:57→08:35)
--- NOTE | 2021-12-28 04:05 | XR ---
EXAMINATION TYPE: XR chest 1V portable DATE OF EXAM: 12/28/2021 COMPARISON: 06/09/2021 HISTORY: Fever TECHNIQUE: Single view FINDINGS: Heart and mediastinum are normal. Lungs are clear of infiltrate. No pleural effusion or pne umothorax. There are chest leads. There is some increased density over the left 10th and 11th ribs jarrell ggestive of old fractures. IMPRESSION: No active cardiopulmonary disease. Old left-sided rib fractures.
[2021-12-28 04:10] LABS: Chloride 71 mmol/L (98-107); Sodium 102 mmol/L (137-145)
[2021-12-28 04:32] LABS: Albumin 2.8 g/dL (3.5-5.0); Calcium 7.4 mg/dL (8.4-10.2); Potassium 5.2 mmol/L (3.5-5.1); Total Bilirubin 0.6 mg/dL (0.2-1.3); Total Protein 4.5 g/dL (6.3-8.2)
[2021-12-28] MEDS ORDERED: ACETAMINOPHEN TAB 325 MG TAB PO PRN (05:04)
[2021-12-28] MEDS ORDERED: NALOXONE 0.4 MG/ML 1 ML VIAL IV PRN (05:04)
[2021-12-28 05:56] LABS: Appearance,Urine Clear (Clear); Bacteria,Urine Rare /hpf; Bilirubin,Urine Negative (Negative); Blood,Urine Trace (Negative); Color,Urine Yellow; Glucose,Urine (UA) Negative (Negative); Ketones,Urine Negative (Negative); Leukocyte Esterase,Urine Negative (Negative); Nitrite,Urine Negative (Negative); PH, Urine 5.5 (5.0-8.0); Protein,Urine Negative (Negative); Specific Gravity,Urine 1.018 (1.001-1.035); Urobilinogen,Urine <2.0 mg/dL (<2.0); WBC,Urine <1 /hpf (0-5)
--- NOTE | 2021-12-28 06:21 | P.HPIM ---
History of Present Illness H&P Date: 12/28/21 Chief Complaint: Fatigue generalized weakness 66-year-old male with coronary artery disease status post stents, COPD not on home oxygen, recent surgery for cervical spine fusion Patient is poor historian however he does report that since he had his surgery few weeks ago he's been having some difficulties with swallowing which has limited his by mouth intake he lives alone and claims that he has axis to food however he has poor appetite in addition to dysphagia when he swallows since surgery. Which has limited his by mouth intake. Sometimes he would go full day without eating or drinking anything. Then he also admits to occasional alcohol intake however he did not quantify Patient has been experiencing progressive generalized weakness with fatigue he also reports feeling very nauseous with poor appetite and occasional vomiting he denies any chest pain or trouble breathing denies any coughing fevers or chills denies any GI bleeding. He denies any falls He does report severe COPD however he is not on home oxygen he's been using his inhalers at home however he also continues to smoke cigarettes. Patient overall is disengaged with the interview and has poor insight about his over all health Blood work in the ED was significant for severe hyponatremia Acute anemia And lactic acidosis Slightly elevated troponin Review of Systems Pertinent positives as noted in HPI. All other systems were reviewed and are negative Past Medical History Past Medical History: Asthma, Chest Pain / Angina, COPD, Hyperlipidemia, Hypertension, Osteoarthritis (OA) Additional Past Medical History / Comment(s): Diverticulitis, stomach ulcer, neuropathy, chronic back pain, DDD, alcoholism - had seizure when withdrawing from alcohol, scoliosis, hemorrhoids, blocked arteries. History of Any Multi-Drug Resistant Organisms: None Reported Past Surgical History: Heart Catheterization With Stent, Orthopedic Surgery, Tonsillectomy Additional Past Surgical History / Comment(s): Left shoulder rotator cuff surgery, EGD/colonoscopy, cardiac stent (placed 09-15-15 to LAD at [facility]) Past Anesthesia/Blood Transfusion Reactions: No Reported Reaction Date of Last Stent Placement:: 09/15/15 Past Psychological History: Anxiety, Depression Smoking Status: Current every day smoker Past Alcohol Use History: Daily Past Drug Use History: None Reported - Past Family History Mother Family Medical History: Coronary Artery Disease (CAD) Additional Family Medical History / Comment(s): Cardiac stent Father Family Medical History: Cancer Additional Family Medical History / Comment(s): Unsure what kind of cancer. Medications and Allergies Home Medications Medication Instructions Recorded Confirmed Type FLUoxetine HCL [PROzac] 60 mg PO QAM 06/29/15 04/06/19 History Multivitamin [Men's Multi-Vitamin] 1 tab PO DAILY 06/29/15 04/06/19 History atenoloL [Tenormin] 25 mg PO BID 06/29/15 04/06/19 History Acetaminophen [Tylenol Extra 500 mg PO TID 11/06/17 04/06/19 History Strength] Aspirin EC [Ecotrin Low Dose] 81 mg PO DAILY 11/06/17 04/06/19 History Cholecalciferol [Vitamin D3 (25 1,000 unit PO DAILY 11/06/17 04/06/19 History Mcg = 1000 Iu)] Ferrous Sulfate [Feosol] 325 mg PO BID 11/06/17 04/06/19 History Cyclobenzaprine [Flexeril] 5 mg PO BID #0 11/08/17 04/06/19 Rx Albuterol Inhaler [Ventolin Hfa 1 - 2 puff INHALATION RT-Q6H PRN 04/01/19 04/06/19 History Inhaler] Budesonide-Formot 160-4.5 Mcg 2 puff INHALATION RT-BID 04/01/19 04/06/19 History [Symbicort 160-4.5 Mcg Inhaler] Clopidogrel Bisulfate [Plavix] 75 mg PO DAILY 04/01/19 04/06/19 History Rosuvastatin Calcium 40 mg PO DAILY 04/01/19 04/06/19 History Tiotropium 18 Mcg/Puff [Spiriva] 1 puff INHALATION RT-DAILY 04/01/19 04/06/19 History Diclofenac Sodium Gel [Voltaren 2 gm TOPICAL Q8HR tube 04/02/19 04/06/19 Rx Gel] Xuotczzj-Uowldsgbfz-Gdht Oint 1 applic TOPICAL DAILY applic 04/02/19 04/06/19 Rx [Triple Antibiotic Ointment] Gabapentin [Neurontin] 600 mg PO TID 04/06/19 04/06/19 History lisinopriL [Zestril] 10 mg PO DAILY 04/06/19 04/06/19 History Allergies Allergy/AdvReac Type Severity Reaction Status Date / Time acetaminophen [From Endocet] AdvReac Unknown Verified 04/06/19 18:41 amlodipine AdvReac Unknown Verified 04/06/19 18:41 duloxetine [From Cymbalta] AdvReac Unknown Verified 04/06/19 18:41 oxycodone [From Endocet] AdvReac Unknown Verified 04/06/19 18:41 phenytoin [From Dilantin] AdvReac Unknown Verified 04/06/19 18:41 potassium chloride AdvReac Unknown Verified 04/06/19 18:41 ranitidine AdvReac Unknown Verified 04/06/19 18:41 Physical Exam Vitals: Vital Signs Temp Pulse Pulse Resp BP Pulse Ox 12/28/21 05:13 97.6 F 104 H 16 114/78 100 12/28/21 02:57 74 12/28/21 02:37 97.5 F L 105 H 18 107/75 100 Intake and Output 12/27/21 12/27/21 12/28/21 14:59 22:59 06:59 Other: Weight 76.204 kg Constitutional: Patient seems to be confused however easy to reorient and direct Eyes: Anicteric sclerae, moist conjunctiva, Pupils equal round reactive to light ENMT: NC/AT Oropharynx clear, no erythema, or exudates Neck: Supple, no masses, or JVD No carotid bruits No thyromegaly Lungs: Diminished breath sounds throughout with coarse rhonchi Clear to percussion Normal respiratory effort, no accessory muscle use Cardiovascular: Heart regular in rate and rhythm, No murmurs, gallops, or rubs No peripheral edema Abdominal: Soft Nontender, no guarding, rebound or rigidity Abdomen moving with respiration Normoactive bowel sounds No hepatomegaly, No splenomegaly No palpable mass No abdominal wall hernia noted Skin: Normal temperature, tone, texture, turgor No induration No subcutaneous nodules No rash, lesions No ulcers Extremities: No digital cyanosis No clubbing Pedal pulses intact and symmetrical Radial pulses intact and symmetrical No calf tenderness Psychiatric: Patient is awake seems to be confused oriented to place and person Neuro Muscles Strength 3/5 in bilateral lower extremities, 4 out of 5 in bilateral upper extremities Decrease sensation to light touch over bilateral legs Cranial nerves II-XII grossly intact Lymphatics: no palpable cervical or supraclavicular , or inguinal lymph nodes Results CBC & Chem 7: 12/28/21 03:17 12/28/21 04:15 Labs: Abnormal Lab Results - Last 24 Hours (Table) 12/28/21 12/28/21 12/28/21 Range/Units 03:17 03:17 03:17 RBC 2.34 L (4.30-5.90) m/uL Hgb 8.1 L (13.0-17.5) gm/dL Hct 23.2 L (39.0-53.0) % Neutrophils # 8.6 H (1.3-7.7) k/uL Lymphocytes # 0.5 L (1.0-4.8) k/uL Sodium 102 L* (137-145) mmol/L Potassium 5.4 H (3.5-5.1) mmol/L Chloride 71 L* (98-107) mmol/L Carbon Dioxide 14 L (22-30) mmol/L BUN 37 H (9-20) mg/dL Plasma Lactic Acid Pola 6.8 H* (0.7-2.0) mmol/L Calcium 7.9 L (8.4-10.2) mg/dL AST 71 H (17-59) U/L Troponin I (0.000-0.034) ng/mL Total Protein 4.9 L (6.3-8.2) g/dL Albumin 3.2 L (3.5-5.0) g/dL Urine Blood (Negative) Urine Bacteria (None) /hpf 12/28/21 12/28/21 12/28/21 Range/Units 03:17 04:15 05:33 RBC (4.30-5.90) m/uL Hgb (13.0-17.5) gm/dL Hct (39.0-53.0) % Neutrophils # (1.3-7.7) k/uL Lymphocytes # (1.0-4.8) k/uL Sodium 103 L* (137-145) mmol/L Potassium 5.2 H (3.5-5.1) mmol/L Chloride 74 L* (98-107) mmol/L Carbon Dioxide 16 L (22-30) mmol/L BUN 40 H (9-20) mg/dL Plasma Lactic Acid Pola (0.7-2.0) mmol/L Calcium 7.4 L (8.4-10.2) mg/dL AST 68 H (17-59) U/L Troponin I 0.051 H* (0.000-0.034) ng/mL Total Protein 4.5 L (6.3-8.2) g/dL Albumin 2.8 L (3.5-5.0) g/dL Urine Blood Trace H (Negative) Urine Bacteria Rare H (None) /hpf Assessment and Plan Assessment: Severe hyponatremia Poor by mouth intake Dehydration Lactic acidosis Elevated troponin Plan Admission to ICU Initial sodium 102, goal is 112 in 24 hours, patient will be initiated on hypertonic saline per hospital protocol which is 25 mL per hour we'll disconti nue once sodium corrects by 9-10 mEq within the first 24 hours Check serum cortisol Check TSH and free T4 Monitor sodium every 2 hours Monitor vital signs Seizure precautions Fall precautions Neurochecks Encourage by mouth intake Follow-up lactic acid level Trend troponin, patient denies chest pain or trouble breathing Patient has strong history of CAD status post stents Acute anemia Possibly some component of post surgical with recent cervical spine fusion Patient denies GI bleeding Continue to monitor hemoglobin History of COPD not on home oxygen Continue with inhalers and nebulizers as needed DVT prophylaxis mechanical Full code
--- NOTE | 2021-12-28 06:25 | ED ---
Weakness HPI - General Chief complaint: Nausea/Vomiting/Diarrhea Stated complaint: NVD Time Seen by Provider: 12/28/21 02:42 Source: EMS Mode of arrival: EMS Limitations: altered mental status (. Is mildly delirious) - History of Present Illness Initial comments: This patient is a 66-year-old man brought from his apartment to have evaluation for constellation of symptoms including generalized weakness and fatigue, nausea and vomiting, numbness and paresthesias. Patient states that he had a back surgery on between 1 and 2 months ago, he did not recall the exact date, and states that he has not been feeling well since that time. Things been getting progressively worse over the past number weeks. He states that his appetite was down and that he has not really had much to eat or drink for the past few weeks. As result of that he says he is getting weaker and weaker and he is not really able to get around the house. The patient denies having any chest pain or dyspnea. He has had nausea and vomiting but has not noted any hematemesis or co ffee-ground emesis. Patient denies focal weakness. MD Complaint: generalized weakness, lack of energy, difficulty walking - Related Data Home Medications Medication Instructions Recorded Confirmed FLUoxetine HCL [PROzac] 60 mg PO DAILY 06/29/15 12/28/21 Multivitamin [Men's Multi-Vitamin] 1 tab PO DAILY 06/29/15 12/28/21 atenoloL [Tenormin] 25 mg PO BID 06/29/15 12/28/21 Acetaminophen [Tylenol Extra 500 mg PO TID 11/06/17 12/28/21 Strength] Aspirin EC [Ecotrin Low Dose] 81 mg PO DAILY 11/06/17 12/28/21 Cholecalciferol [Vitamin D3 (25 25 mcg PO DAILY 11/06/17 12/28/21 Mcg = 1000 Iu)] Ferrous Sulfate [Feosol] 325 mg PO BID 11/06/17 12/28/21 Albuterol Inhaler [Ventolin Hfa 1 puff INHALATION RT-Q6H PRN 04/01/19 12/28/21 Inhaler] Rosuvastatin Calcium 40 mg PO HS 04/01/19 12/28/21 Cyclobenzaprine [Flexeril] 10 mg PO BID 12/28/21 12/28/21 Fluticasone Nasal [place] [Flonase 1 spr EA NOSTRIL DAILY 12/28/21 12/28/21 Nasal [place]] Fluticasone Propion/Salmeterol 1 puff INHALATION RT-BID 12/28/21 12/28/21 [Advair 250-50 Diskus] Gabapentin [Neurontin] 400 mg PO TID 12/28/21 12/28/21 Tiotropium 2.5 Mcg/Puff [Spiriva 2 puff INHALATION RT-DAILY 12/28/21 12/28/21 Respimat 2.5 Mcg] lisinopriL [Zestril] 5 mg PO BID 12/28/21 12/28/21 methocarbamoL [Robaxin-750] 750 mg PO BID 12/28/21 12/28/21 Allergies Allergy/AdvReac Type Severity Reaction Status Date / Time amlodipine AdvReac Unknown Verified 12/28/21 07:27 duloxetine [From Cymbalta] AdvReac Unknown Verified 12/28/21 07:27 oxycodone [From Endocet] AdvReac Unknown Verified 12/28/21 07:27 phenytoin [From Dilantin] AdvReac Unknown Verified 12/28/21 07:27 potassium chloride AdvReac Unknown Verified 12/28/21 07:27 ranitidine AdvReac Unknown Verified 12/28/21 07:27 Review of Systems ROS Statement: Those systems with pertinent positive or pertinent negative responses have been documented in the HPI. ROS Other: All systems not noted in ROS Statement are negative. Limitations: ROS unobtainable due to patients medical condition ( delirious) Constitutional: Reports: weakness. Denies: fever Eyes: Denies: vision change Respiratory: Denies: cough, dyspnea Cardiovascular: Denies: chest pain, palpitations, edema, syncope Gastrointestinal: Reports: nausea, vomiting. Denies: abdominal pain, diarrhea, constipation, melena, hematochezia Genitourinary: Denies: dysuria, frequency, hematuria Musculoskeletal: Reports: back pain Skin: Denies: rash Neurological: Reports: paresthesias. Denies: headache, weakness, numbness Past Medical History Past Medical History: Asthma, Chest Pain / Angina, COPD, Hyperlipidemia, Hypertension, Osteoarthritis (OA) Additional Past Medical History / Comment(s): Diverticulitis, stomach ulcer, neuropathy, chronic back pain, DDD, alcoholism - had seizure when withdrawing from alcohol, scoliosis, hemorrhoids, blocked arteries. History of Any Multi-Drug Resistant Organisms: None Reported Past Surgical History: Heart Catheterization With Stent, Orthopedic Surgery, Tonsillectomy Additional Past Surgical History / Comment(s): Left shoulder rotator cuff surgery, EGD/colonoscopy, cardiac stent (placed 09-15-15 to LAD at [facility]) Past Anesthesia/Blood Transfusion Reactions: No Reported Reaction Date of Last Stent Placement:: 09/15/15 Past Psychological History: Anxiety, Depression Smoking Status: Current every day smoker Past Alcohol Use History: Daily Past Drug Use History: None Reported - Past Family History Mother Family Medical History: Coronary Artery Disease (CAD) Additional Family Medical History / Comment(s): Cardiac stent Father Family Medical History: Cancer Additional Family Medical History / Comment(s): Unsure what kind of cancer. General Exam General appearance: alert, in no apparent distress Head exam: Present: atraumatic, normocephalic Eye exam: Present: normal appearance, PERRL. Absent: scleral icterus, conjunctival injection, nystagmus ENT exam: Present: mucous membranes dry Neck exam: Present: normal inspection, full ROM Respiratory exam: Present: wheezes (Mild expiratory wheeze). Absent: respirato ry distress, rales, rhonchi, stridor, accessory muscle use Cardiovascular Exam: Present: normal rhythm, tachycardia (Rate approximately 104 my exam), normal heart sounds. Absent: systolic murmur, diastolic murmur, rubs, gallop GI/Abdominal exam: Present: soft. Absent: distended, tenderness, guarding, rebound, rigid, mass Extremities exam: Present: normal inspection, normal capillary refill. Absent: pedal edema, calf tenderness Back exam: Present: normal inspection Neurological exam: Present: alert, CN II-XII intact. Absent: motor sensory deficit Skin exam: Present: warm, dry, intact, normal color. Absent: rash Course Vital Signs 12/28/21 12/28/21 12/28/21 02:37 02:57 05:13 Temperature 97.5 F L 97.6 F Pulse Rate 105 H 104 H Pulse Rate [ 74 Apical] Respiratory 18 16 Rate Blood Pressure 107/75 114/78 O2 Sat by Pulse 100 100 Oximetry 12/28/21 07:03 Temperature 97.6 F Pulse Rate 110 H Pulse Rate [ Apical] Respiratory 14 Rate Blood Pressure 108/50 O2 Sat by Pulse 100 Oximetry Medical Decision Making - Medical Decision Making Patient is 66-year-old man brought by ambulance for nausea, vomiting, generalized weakness and fatigue. Patient found to be markedly hyponatremic. Sodium replacement commands and patient be admitted. The case is also discussed with apprentice technician - Lab Data Result diagrams: 01/01/22 04:20 01/01/22 04:20 Lab Results 12/28/21 12/28/21 12/28/21 Range/Units 03:17 03:17 03:17 WBC 9.6 (3.8-10.6) k/uL RBC 2.34 L (4.30-5.90) m/uL Hgb 8.1 L (13.0-17.5) gm/dL Hct 23.2 L (39.0-53.0) % MCV 99.2 (80.0-100.0) fL MCH 34.6 (25.0-35.0) pg MCHC 34.8 (31.0-37.0) g/dL RDW 12.7 (11.5-15.5) % Plt Count 155 (150-450) k/uL MPV 8.6 Neutrophils % 89 % Lymphocytes % 5 % Monocytes % 5 % Eosinophils % 1 % Basophils % 0 % Neutrophils # 8.6 H (1.3-7.7) k/uL Lymphocytes # 0.5 L (1.0-4.8) k/uL Monocytes # 0.5 (0-1.0) k/uL Eosinophils # 0.1 (0-0.7) k/uL Basophils # 0.0 (0-0.2) k/uL PT 10.3 (9.0-12.0) sec INR 0.9 (<1.2) APTT 27.2 (22.0-30.0) sec Sodium 102 L* (137-145) mmol/L Potassium 5.4 H (3.5-5.1) mmol/L Chloride 71 L* (98-107) mmol/L Carbon Dioxide 14 L (22-30) mmol/L Anion Gap 17 mmol/L BUN 37 H (9-20) mg/dL Creatinine 1.15 (0.66-1.25) mg/dL Est GFR (CKD-EPI)AfAm 76 (>60 ml/min/1.73 sqM) Est GFR (CKD-EPI)NonAf 66 (>60 ml/min/1.73 sqM) Glucose 95 (74-99) mg/dL Lactic Ac Sepsis Rflx Plasma Lactic Acid Pola (0.7-2.0) mmol/L Calcium 7.9 L (8.4-10.2) mg/dL Total Bilirubin 0.7 (0.2-1.3) mg/dL AST 71 H (17-59) U/L ALT 27 (4-49) U/L Alkaline Phosphatase 80 (38-126) U/L Troponin I (0.000-0.034) ng/mL Total Protein 4.9 L (6.3-8.2) g/dL Albumin 3.2 L (3.5-5.0) g/dL Serum Alcohol <10 mg/dL Coronavirus (PCR) (Not Detectd) 12/28/21 12/28/21 12/28/21 Range/Units 03:17 03:17 03:40 WBC (3.8-10.6) k/uL RBC (4.30-5.90) m/uL Hgb (13.0-17.5) gm/dL Hct (39.0-53.0) % MCV (80.0-100.0) fL MCH (25.0-35.0) pg MCHC (31.0-37.0) g/dL RDW (11.5-15.5) % Plt Count (150-450) k/uL MPV Neutrophils % % Lymphocytes % % Monocytes % % Eosinophils % % Basophils % % Neutrophils # (1.3-7.7) k/uL Lymphocytes # (1.0-4.8) k/uL Monocytes # (0-1.0) k/uL Eosinophils # (0-0.7) k/uL Basophils # (0-0.2) k/uL PT (9.0-12.0) sec INR (<1.2) APTT (22.0-30.0) sec Sodium (137-145) mmol/L Potassium (3.5-5.1) mmol/L Chloride (98-107) mmol/L Carbon Dioxide (22-30) mmol/L Anion Gap mmol/L BUN (9-20) mg/dL Creatinine (0.66-1.25) mg/dL Est GFR (CKD-EPI)AfAm (>60 ml/min/1.73 sqM) Est GFR (CKD-EPI)NonAf (>60 ml/min/1.73 sqM) Glucose (74-99) mg/dL Lactic Ac Sepsis Rflx Plasma Lactic Acid Pola 6.8 H* (0.7-2.0) mmol/L Calcium (8.4-10.2) mg/dL Total Bilirubin (0.2-1.3) mg/dL AST (17-59) U/L ALT (4-49) U/L Alkaline Phosphatase (38-126) U/L Troponin I 0.051 H* (0.000-0.034) ng/mL Total Protein (6.3-8.2) g/dL Albumin (3.5-5.0) g/dL Serum Alcohol mg/dL Coronavirus (PCR) Not Detected (Not Detectd) 12/28/21 12/28/21 Range/Units 04:12 04:15 WBC (3.8-10.6) k/uL RBC (4.30-5.90) m/uL Hgb (13.0-17.5) gm/dL Hct (39.0-53.0) % MCV (80.0-100.0) fL MCH (25.0-35.0) pg MCHC (31.0-37.0) g/dL RDW (11.5-15.5) % Plt Count (150-450) k/uL MPV Neutrophils % % Lymphocytes % % Monocytes % % Eosinophils % % Basophils % % Neutrophils # (1.3-7.7) k/uL Lymphocytes # (1.0-4.8) k/uL Monocytes # (0-1.0) k/uL Eosinophils # (0-0.7) k/uL Basophils # (0-0.2) k/uL PT (9.0-12.0) sec INR (<1.2) APTT (22.0-30.0) sec Sodium 103 L* (137-145) mmol/L Potassium 5.2 H (3.5-5.1) mmol/L Chloride 74 L* (98-107) mmol/L Carbon Dioxide 16 L (22-30) mmol/L Anion Gap 13 mmol/L BUN 40 H (9-20) mg/dL Creatinine 1.05 (0.66-1.25) mg/dL Est GFR (CKD-EPI)AfAm 84 (>60 ml/min/1.73 sqM) Est GFR (CKD-EPI)NonAf 73 (>60 ml/min/1.73 sqM) Glucose 88 (74-99) mg/dL Lactic Ac Sepsis Rflx Y Plasma Lactic Acid Pola (0.7-2.0) mmol/L Calcium 7.4 L (8.4-10.2) mg/dL Total Bilirubin 0.6 (0.2-1.3) mg/dL AST 68 H (17-59) U/L ALT 25 (4-49) U/L Alkaline Phosphatase 68 (38-126) U/L Troponin I (0.000-0.034) ng/mL Total Protein 4.5 L (6.3-8.2) g/dL Albumin 2.8 L (3.5-5.0) g/dL Serum Alcohol mg/dL Coronavirus (PCR) (Not Detectd) Critical Care Time Critical Care Time: Yes (35 minutes) Disposition Clinical Impression: Hyponatremia, Delirium due to general medical condition Disposition: ADMITTED IP TO THIS [facility] Condition: Serious
[2021-12-28 06:46] LABS: Sodium 105 mmol/L (137-145)
[2021-12-28] MEDS: SODIUM CHLORIDE 3%(HYPERTONIC) 500 ML IV SCH ×2 (06:56→08:34)
[2021-12-28] MEDS: IPRATROPIUM 0.5 MG/2.5 ML NEBU INHALATION SCH ×4 (07:51→19:40)
[2021-12-28 07:56] LABS: Glucose,Whole Blood 104 mg/dL (70-110)
[2021-12-28] MEDS ORDERED: lisinopriL 10 MG TAB PO SCH (09:00)
[2021-12-28] MEDS ORDERED: CLOPIDOGREL 75 MG TAB PO SCH (09:00)
[2021-12-28] MEDS ORDERED: ATORVASTATIN 80 MG TAB PO SCH (09:00)
[2021-12-28] MEDS: atenoloL 25 MG TAB PO SCH (09:16)
--- NOTE | 2021-12-28 09:43 | P.CNPUL ---
History of Present Illness Consult date: 12/28/21 Chief complaint: Generalized weakness History of present illness: 66-year-old male patient brought into the hospital because of generalized weakn ess and fatigue and addition to nausea and emesis and numbness and paresthesias. The patient has undergone a surgery cervical spine approximately a month at outside hospital. The patient stated that he has not been feeling well since. He has been calm progressively more weak over the past few weeks and the patient had loss in appetite. He has not been eating much or drinking much. As a result, he became progressively more weak and he end up coming into the hospital. Denies having any focal weakness. He takes Prozac at home. He has previous history of alcohol abuse,. He also has COPD management on a combination of Symbicort and Spiriva on outpatient basis regarding takes is no peripheral blood pressure control. At the time of his emergency evaluation, the patient was afebrile hemodynamically stable pulse ox of 99% on room air oxygen. Nevertheless, electrodes was significantly abnormal with a sodium level of 103 and a chloride level of 74 with a BUN of 40 and a creatinine of 1.05. The white cell count was at 5.6 with a hemoglobin of 8.1 and a platelet count of 155. The albumin was 3.2 with a total protein of 4.5. Serum alcohol was negative. He had a positive troponins of 0.05 and 0.04 respectively 2. TSH was at 1.08 and a serum cortisol was 44. UA was negative. His COVID 19 testing was also negative. His chest x-ray showed no acute abnormalities. There is some old left-sided rib fractures. Note that despite this hyponatremia, the patient did not have any seizure activity. No altered mentation. He is appropriate and following commands and answering questions appropriately. He was brought into the intensive care unit and he was started on hypertonic saline solution and currently is on 3% saline, running at the rate of 25 mL an hour. Electrodes are being checked on a regular basis every 4 hours. Noted the initial sodium was at 102 and it came up to 106. Initial creatinine was 1.1 came down to 1.05. History of any chest pain for now. The patient states that he lives in [place]. He lives alone. 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 He is also a . It seems that he has done some medical care through the year to [place] clinic. Denies having any recent cold COVID 19 infection. He apparently has been drinking and he Is Drinking. He Was Taken around 5-6 Beers a Day and on and off He Still drinking probably 1 or 2 beers. Doesn't have much of help. His been having difficulty with mobility and ambulation. Surgical wound site over the anterior cervical area is dry clean and intact. No fever. No chills. No focal neurological deficit. He is able to answer questions appropriately although he is slow in answering questions. Review of Systems Constitutional: Reports as per HPI, Reports fatigue, Reports weight gain Eyes: denies as per HPI, denies blurred vision, denies bulging eye, denies decreased vision, denies diplopia, denies discharge, denies dry eye, denies irritation, denies itching, denies pain, denies photophobia, denies loss of peripheral vision, denies loss of vision, denies tunnel vision/blind spots Ears: deny: decreased hearing, ear discharge, earache, tinnitus Ears, nose, mouth and throat: Reports as per HPI Breasts: absent: as per HPI, gynecomastia Cardiovascular: Reports as per HPI, Reports dyspnea on exertion Respiratory: Reports as per HPI, Reports cough, Reports dyspnea, Reports snoring Gastrointestinal: Reports diarrhea Genitourinary: Reports as per HPI Musculoskeletal: Reports arm numbness/tingling, Reports leg numbness/tingling, Reports muscle weakness Musculoskeletal: absent: ankle pain, ankle stiffness, ankle swelling Integumentary: Reports as per HPI, Reports darkening of skin Neurological: Reports gait dysfunction, Reports weakness Psychiatric: Reports as per HPI Endocrine: Reports as per HPI Hematologic/Lymphatic: Reports as per HPI Allergic/Immunologic: Reports as per HPI Past Medical History Past Medical History: Coronary Artery Disease (CAD), Chest Pain / Angina, COPD, Hyperlipidemia, Hypertension, Osteoarthritis (OA) Additional Past Medical History / Comment(s): Diverticulitis, stomach ulcer, neuropathy, chronic back pain, DDD, alcoholism - had seizure when withdrawing from alcohol, scoliosis, hemorrhoids, CAD History of Any Multi-Drug Resistant Organisms: None Reported Past Surgical History: Heart Catheterization With Stent, Orthopedic Surgery, Tonsillectomy Additional Past Surgical History / Comment(s): Left shoulder rotator cuff surgery, EGD/colonoscopy, cardiac stent (placed 6-9-16 to LAD at [facility]) Past Anesthesia/Blood Transfusion Reactions: No Reported Reaction Date of Last Stent Placement:: 09/15/15 Past Psychological History: Anxiety, Depression Smoking Status: Current every day smoker Past Alcohol Use History: Daily Past Drug Use History: None Reported - Past Family History Mother Family Medical History: Coronary Artery Disease (CAD) Additional Family Medical History / Comment(s): Cardiac stent Father Family Medical History: Cancer Additional Family Medical History / Comment(s): Unsure what kind of cancer. Medications and Allergies Home Medications Medication Instructions Recorded Confirmed Type FLUoxetine HCL [PROzac] 60 mg PO DAILY 06/29/15 12/28/21 History Multivitamin [Men's Multi-Vitamin] 1 tab PO DAILY 06/29/15 12/28/21 History atenoloL [Tenormin] 25 mg PO BID 06/29/15 12/28/21 History Acetaminophen [Tylenol Extra 500 mg PO TID 11/06/17 12/28/21 History Strength] Aspirin EC [Ecotrin Low Dose] 81 mg PO DAILY 11/06/17 12/28/21 History Cholecalciferol [Vitamin D3 (25 25 mcg PO DAILY 11/06/17 12/28/21 History Mcg = 1000 Iu)] Ferrous Sulfate [Feosol] 325 mg PO BID 11/06/17 12/28/21 History Albuterol Inhaler [Ventolin Hfa 1 puff INHALATION RT-Q6H PRN 04/01/19 12/28/21 History Inhaler] Rosuvastatin Calcium 40 mg PO HS 04/01/19 12/28/21 History Cyclobenzaprine [Flexeril] 10 mg PO BID 12/28/21 12/28/21 History Fluticasone Nasal [place] [Flonase 1 spr EA NOSTRIL DAILY 12/28/21 12/28/21 History Nasal [place]] Fluticasone Propion/Salmeterol 1 puff INHALATION RT-BID 12/28/21 12/28/21 History [Advair 250-50 Diskus] Gabapentin [Neurontin] 400 mg PO TID 12/28/21 12/28/21 History Tiotropium 2.5 Mcg/Puff [Spiriva 2 puff INHALATION RT-DAILY 12/28/21 12/28/21 History Respimat 2.5 Mcg] lisinopriL [Zestril] 5 mg PO BID 12/28/21 12/28/21 History methocarbamoL [Robaxin-750] 750 mg PO BID 12/28/21 12/28/21 History Allergies Allergy/AdvReac Type Severity Reaction Status Date / Time amlodipine AdvReac Unknown Verified 12/28/21 07:27 duloxetine [From Cymbalta] AdvReac Unknown Verified 12/28/21 07:27 oxycodone [From Endocet] AdvReac Unknown Verified 12/28/21 07:27 phenytoin [From Dilantin] AdvReac Unknown Verified 12/28/21 07:27 potassium chloride AdvReac Unknown Verified 12/28/21 07:27 ranitidine AdvReac Unknown Verified 12/28/21 07:27 Physical Exam Vitals: Vital Signs Temp Pulse Pulse Resp BP Pulse Ox 12/28/21 08:30 104 H 25 H 121/57 100 12/28/21 08:05 105 H 12/28/21 08:00 97.9 F 105 H 20 136/62 99 12/28/21 07:56 105 H 12/28/21 07:55 95 12/28/21 07:41 136/62 12/28/21 07:03 97.6 F 110 H 14 108/50 100 12/28/21 05:13 97.6 F 104 H 16 114/78 100 12/28/21 02:57 74 12/28/21 02:37 97.5 F L 105 H 18 107/75 100 Intake and Output 12/27/21 12/28/21 12/28/21 22:59 06:59 14:59 Intake Total 50 Output Total 140 Balance -90 Intake: IV 50 Sodium Chloride 3%( 50 Hypertonic) 500 ml @ 25 mls/hr IV .Q20H [facility] Rx#: [id number] Output: Urine 140 Other: # Voids 1 Weight 76.204 kg Sluggish, comfortable, slow in answering questions, times doesn't give the appropriate answers. Breathing is comfortable in his condition is nontoxic and he is not having any labored breathing Head exam was generally normal. There was no scleral icterus or corneal arcus. Mucous membranes were moist. Neck was supple and without jugular venous distension, thyromegaly, or carotid bruits. Carotids were easily palpable bilaterally. There was no adenopathy. Scar of the previous cervical spine surgery over the anterior neck area on the right is dry clean and intact. Lung sounds are diminished bilaterally. No wheezes or rhonchi. Cardiac exam revealed the PMI to be normally situated and sized. The rhythm was regular and no extrasystoles were noted during several minutes of auscultation. The first and second heart sounds were normal and physiologic splitting of the second heart sound was noted. There were no murmurs, rubs, clicks, or gallops. Abdominal exam revealed normal bowel sounds. The abdomen was soft, non-tender, and without masses, organomegaly, or appreciable enlargement of the abdominal aorta. Examination of the extremities revealed easily palpable radial, femoral and pedal pulses. There was no cyanosis, clubbing or edema. Examination of the skin revealed no evidence of significant rashes, suspicious appearing nevi or other concerning lesions. The patient has scars of previous surgery over the lower spine area in the lumbar region posteriorly and the patient also has a scar over the left shoulder area that the previous shoulder surgery. Another scar over the anterior neck area at the site of the cervical spine surgery. Neurologically, the patient has generalized global weakness in all 4 extremities. His neurologic exam is nonfocal. Pupils are equal reactive to light. No seizure activity. No facial asymmetry. No Babinski or clonus at this point in time. Results - Laboratory Findings CBC and BMP: 12/28/21 03:17 12/28/21 08:09 PT/INR, D-dimer PT 10.3 sec (9.0-12.0) 12/28/21 03:17 INR 0.9 (<1.2) 12/28/21 03:17 Abnormal lab findings: Abnormal Labs 12/28/21 12/28/21 12/28/21 03:17 03:17 03:17 RBC 2.34 L Hgb 8.1 L Hct 23.2 L Neutrophils # 8.6 H Lymphocytes # 0.5 L Sodium 102 L* Potassium 5.4 H Chloride 71 L* Carbon Dioxide 14 L BUN 37 H Plasma Lactic Acid Pola 6.8 H* Calcium 7.9 L AST 71 H Troponin I Total Protein 4.9 L Albumin 3.2 L Urine Blood Urine Bacteria 12/28/21 12/28/21 12/28/21 03:17 04:15 05:33 RBC Hgb Hct Neutrophils # Lymphocytes # Sodium 103 L* Potassium 5.2 H Chloride 74 L* Carbon Dioxide 16 L BUN 40 H Plasma Lactic Acid Pola Calcium 7.4 L AST 68 H Troponin I 0.051 H* Total Protein 4.5 L Albumin 2.8 L Urine Blood Trace H Urine Bacteria Rare H 12/28/21 12/28/21 12/28/21 06:18 06:18 08:09 RBC Hgb Hct Neutrophils # Lymphocytes # Sodium 105 L* 106 L* Potassium Chloride Carbon Dioxide BUN Plasma Lactic Acid Pola 4.1 H* Calcium AST Troponin I Total Protein Albumin Urine Blood Urine Bacteria 12/28/21 08:09 RBC Hgb Hct Neutrophils # Lymphocytes # Sodium Potassium Chloride Carbon Dioxide BUN Plasma Lactic Acid Pola Calcium AST Troponin I 0.048 H* Total Protein Albumin Urine Blood Urine Bacteria - Diagnostic Findings Chest x-ray: image reviewed Assessment and Plan Plan: Hyponatremia, likely subacute/chronic due to diminished oral intake and excessive alcohol drinking and this seems to be a hypovolemic hypochloremic hyponatremia Generalized weakness secondary to hyponatremia Altered mentation secondary to hyponatremia Alcoholism/excessive beer drinking Cervical spine surgery, details are not known. Surgical op note is not available and this has been done in the [facility] and extension, [facility]. COPD management and accommodation Spiriva and Symbicort on outpatient basis Hypertension Coronary artery disease and based on the history the patient has undergone a previous coronary stenting to the LAD. He does have some limited troponin leaks yet the EKG is not showing any acute ischemic changes in the patient's preoperative any chest pain and the patient is hemodynamically stable. Intravascular volume depletion/dehydration with a component of mild acute kidney injury, improving Acute lactic acidosis, received a total of 2 L of normal saline in the emergency atelectatic acid level is down to 4.1. Currently on hypertonic saline infusion. Plan Continue hypertonic saline 3% at 25 mL an hour Monitor sodium level every 2 hours Gradual buildup was sodium level in the order of 6-8 mEq over the next 24 hours Monitor mental status Allow oral intake and provide the patient diet Watch for any signs of delirium tremens Resume some of his home medications including his beta blockers and Plavix and ANNALISA inhibitor's. Albuterol neb last 2 minutes 4 times a day around the clock as needed Records from the other hospital regarding his spine surgery and may need to be reevaluated here locally by our spine surgeon especially if there is any concern about his mobility in the future. We'll continue to follow. Keep the patient ICU for now.
[2021-12-28] MEDS: SYMBICORT 160-4.5 MCG INHALER INHALATION SCH ×2 (10:50→19:40)
--- NOTE | 2021-12-28 11:41 | P.NPCON ---
History of Present Illness - Reason for Consult hyponatremia - History of Present Illness Patient is a 66-year-old male with history of coronary artery disease, COPD, hypertension. He was admitted to the hospital with complaints of increased weakness. Patient did complain of numbness and tingling in his legs. He also was nauseated. Patient was noted to have a serum sodium of 103. He denies any previous history of hyponatremia. Patient admits to having 3-4 drinks of beer daily. Serum alcohol level was negative. Patient was started on 3% saline. Serum sodium was at 106 this morning. Next Patient denies significant diarrhea or any new medications that were started recently. Review of Systems As per HPI other systems negative Past Medical History Past Medical History: Coronary Artery Disease (CAD), Chest Pain / Angina, COPD, Hyperlipidemia, Hypertension, Osteoarthritis (OA) Additional Past Medical History / Comment(s): Diverticulitis, stomach ulcer, neuropathy, chronic back pain, DDD, alcoholism - had seizure when withdrawing from alcohol, scoliosis, hemorrhoids, CAD History of Any Multi-Drug Resistant Organisms: None Reported Past Surgical History: Heart Catheterization With Stent, Orthopedic Surgery, Tonsillectomy Additional Past Surgical History / Comment(s): Left shoulder rotator cuff surgery, EGD/colonoscopy, cardiac stent (placed 09-15-[address] [facility]) Past Anesthesia/Blood Transfusion Reactions: No Reported Reaction Date of Last Stent Placement:: 09/15/15 Past Psychological History: Anxiety, Depression Smoking Status: Current every day smoker Past Alcohol Use History: Daily Past Drug Use History: None Reported - Past Family History Mother Family Medical History: Coronary Artery Disease (CAD) Additional Family Medical History / Comment(s): Cardiac stent Father Family Medical History: Cancer Additional Family Medical History / Comment(s): Unsure what kind of cancer. Medications and Allergies Home Medications Medication Instructions Recorded Confirmed Type FLUoxetine HCL [PROzac] 60 mg PO DAILY 06/29/15 12/28/21 History Multivitamin [Men's Multi-Vitamin] 1 tab PO DAILY 06/29/15 12/28/21 History atenoloL [Tenormin] 25 mg PO BID 06/29/15 12/28/21 History Acetaminophen [Tylenol Extra 500 mg PO TID 11/06/17 12/28/21 History Strength] Aspirin EC [Ecotrin Low Dose] 81 mg PO DAILY 11/06/17 12/28/21 History Cholecalciferol [Vitamin D3 (25 25 mcg PO DAILY 11/06/17 12/28/21 History Mcg = 1000 Iu)] Ferrous Sulfate [Feosol] 325 mg PO BID 11/06/17 12/28/21 History Albuterol Inhaler [Ventolin Hfa 1 puff INHALATION RT-Q6H PRN 04/01/19 12/28/21 History Inhaler] Rosuvastatin Calcium 40 mg PO HS 04/01/19 12/28/21 History Cyclobenzaprine [Flexeril] 10 mg PO BID 12/28/21 12/28/21 History Fluticasone Nasal [place] [Flonase 1 spr EA NOSTRIL DAILY 12/28/21 12/28/21 History Nasal [place]] Fluticasone Propion/Salmeterol 1 puff INHALATION RT-BID 12/28/21 12/28/21 History [Advair 250-50 Diskus] Gabapentin [Neurontin] 400 mg PO TID 12/28/21 12/28/21 History Tiotropium 2.5 Mcg/Puff [Spiriva 2 puff INHALATION RT-DAILY 12/28/21 12/28/21 History Respimat 2.5 Mcg] lisinopriL [Zestril] 5 mg PO BID 12/28/21 12/28/21 History methocarbamoL [Robaxin-750] 750 mg PO BID 12/28/21 12/28/21 History Allergies Allergy/AdvReac Type Severity Reaction Status Date / Time amlodipine AdvReac Unknown Verified 12/28/21 07:27 duloxetine [From Cymbalta] AdvReac Unknown Verified 12/28/21 07:27 oxycodone [From Endocet] AdvReac Unknown Verified 12/28/21 07:27 phenytoin [From Dilantin] AdvReac Unknown Verified 12/28/21 07:27 potassium chloride AdvReac Unknown Verified 12/28/21 07:27 ranitidine AdvReac Unknown Verified 12/28/21 07:27 Physical Exam Vitals: Vital Signs Temp Pulse Pulse Resp BP Pulse Ox 12/28/21 11:00 80 12/28/21 10:49 80 12/28/21 10:00 95 21 95/45 94 L 12/28/21 09:30 96 19 113/49 94 L 12/28/21 09:00 104 H 23 121/92 96 12/28/21 08:30 104 H 25 H 121/57 100 12/28/21 08:05 105 H 12/28/21 08:00 97.9 F 105 H 20 136/62 99 12/28/21 07:56 105 H 12/28/21 07:55 95 12/28/21 07:41 136/62 12/28/21 07:03 97.6 F 110 H 14 108/50 100 12/28/21 05:13 97.6 F 104 H 16 114/78 100 12/28/21 02:57 74 12/28/21 02:37 97.5 F L 105 H 18 107/75 100 Intake and Output 12/27/21 12/28/21 12/28/21 22:59 06:59 14:59 Intake Total 100 Output Total 140 Balance -40 Intake: IV 100 Sodium Chloride 3%( 100 Hypertonic) 500 ml @ 25 mls/hr IV .Q20H [facility] Rx#: [id number] Output: Urine 140 Other: # Voids 1 Weight 76.204 kg Patient is comfortable awake not in any acute distress Examination of the heart S1 and S2 Examination of the lungs bilateral breath sounds are heard Abdomen is soft nontender Examination of the lower extremities shows no evidence of edema [employer] exam grossly intact Results - Lab Results Most recent lab results Calcium 7.4 mg/dL (8.4-10.2) L 12/28/21 04:15 12/28/21 03:17 12/28/21 10:03 Assessment and Plan Assessment: 1. Hyponatremia most likely associated with excessive beer intake, poor solute intake and some degree of hypovolemia. Continue with 3% saline for now as patient was symptomatic. Check random urine osmolality and random urine sodium however this may not be accurate as patient has been on 3% saline 2. Weakness and numbness most likely related to hyponatremia 3. EtOH abuse with history of 5-6 beers daily 4. History of COPD 5. Hypertension maintained on ANNALISA inhibitor's and atenolol. Blood pressure is currently on the lower side 6. Metabolic acidosis associated with lactic acidosis Plan: Continue 3% saline with close monitoring of serum sodium levels. Goal increase of about 8 mEq per day Check urine osmolality and random urine sodium Check cortisol level Hold lisinopril as blood pressure is low with systolic in the 90s and potassium was 5.2. Thank you for the consultation, we'll continue to follow the patient with you during his hospitalization.
[2021-12-28] MEDS ORDERED: DEXTROSE 50% SYRINGE 50 ML IVP ONE (14:32)
[2021-12-28 14:33] LABS: Glucose,Whole Blood 64 mg/dL (70-110)
[2021-12-28 14:46] LABS: Basophils % (A) 0 %; Eosinophils # (A) 0.1 k/uL (0-0.7); Eosinophils % (A) 1 %; Lymphocytes # (A) 0.4 k/uL (1.0-4.8); Lymphocytes % (A) 6 %; MCH 34.6 pg (25.0-35.0); MCHC 34.5 g/dL (31.0-37.0); MCV 100.1 fL (80.0-100.0); Mean Platelet Volume 8.5; Monocytes # (A) 0.4 k/uL (0-1.0); Monocytes % (A) 6 %; Neutrophils # (A) 5.4 k/uL (1.3-7.7); Neutrophils % (A) 86 %; Platelet Count 120 k/uL (150-450); RBC 1.44 m/uL (4.30-5.90); RDW 12.9 % (11.5-15.5); WBC 6.2 k/uL (3.8-10.6)
[2021-12-28 15:04] LABS: Glucose,Whole Blood 177 mg/dL (70-110)
[2021-12-28 15:07] LABS: HCT 14.4 % (39.0-53.0)
--- NOTE | 2021-12-28 15:59 | P.GSCN ---
History of Present Illness Consult date: 12/28/21 Reason for Consult: GI bleed History of present illness: 66-year-old male admitted through the emergency department for nausea vomiting and diarrhea. Emesis was not described as being coffee-ground or bloody. Patient found have significant hyponatremia. He was admitted to the ICU and started on 3% sodium. Patient heavy drinker. Has not been taking care of himself well per the family. Not eating well. Underwent recent neck surgery at outside hospital. Patient's hemoglobin 8.1 on arrival. Despite his history of heavy alcohol use his liver enzymes are only minimally elevated and his INR is normal. Patient was found today to have a large maroon-colored stool. Following that has had further rectal bleeding with diaphoresis and pale appearance. Repeat hemoglobin 5.0. Patient is on Plavix and he did receive a dose earlier this morning before the active GI bleed began. We were consulted for GI bleed. Patient is confused. Not able to provide any history at this time. Patient had an upper endoscopy in July 2015. He was found have gastritis with erosions as well as a possible healed duodenal ulcer. Review of Systems ROS unobtainable: due to mental status Past Medical History Past Medical History: Coronary Artery Disease (CAD), Chest Pain / Angina, COPD, Hyperlipidemia, Hypertension, Osteoarthritis (OA) Additional Past Medical History / Comment(s): Diverticulitis, stomach ulcer, neuropathy, chronic back pain, DDD, alcoholism - had seizure when withdrawing from alcohol, scoliosis, hemorrhoids, CAD History of Any Multi-Drug Resistant Organisms: None Reported Past Surgical History: Heart Catheterization With Stent, Orthopedic Surgery, Tonsillectomy Additional Past Surgical History / Comment(s): Left shoulder rotator cuff surgery, EGD/colonoscopy, cardiac stent (placed 09-15-15 to LAD at [facility]) Past Anesthesia/Blood Transfusion Reactions: No Reported Reaction Date of Last Stent Placement:: 09/15/15 Past Psychological History: Anxiety, Depression Smoking Status: Current every day smoker Past Alcohol Use History: Daily Past Drug Use History: None Reported - Past Family History Mother Family Medical History: Coronary Artery Disease (CAD) Additional Family Medical History / Comment(s): Cardiac stent Father Family Medical History: Cancer Additional Family Medical History / Comment(s): Unsure what kind of cancer. Medications and Allergies Home Medications Medication Instructions Recorded Confirmed Type FLUoxetine HCL [PROzac] 60 mg PO DAILY 06/29/15 12/28/21 History Multivitamin [Men's Multi-Vitamin] 1 tab PO DAILY 06/29/15 12/28/21 History atenoloL [Tenormin] 25 mg PO BID 06/29/15 12/28/21 History Acetaminophen [Tylenol Extra 500 mg PO TID 11/06/17 12/28/21 History Strength] Aspirin EC [Ecotrin Low Dose] 81 mg PO DAILY 11/06/17 12/28/21 History Cholecalciferol [Vitamin D3 (25 25 mcg PO DAILY 11/06/17 12/28/21 History Mcg = 1000 Iu)] Ferrous Sulfate [Feosol] 325 mg PO BID 11/06/17 12/28/21 History Albuterol Inhaler [Ventolin Hfa 1 puff INHALATION RT-Q6H PRN 04/01/19 12/28/21 History Inhaler] Rosuvastatin Calcium 40 mg PO HS 04/01/19 12/28/21 History Cyclobenzaprine [Flexeril] 10 mg PO BID 12/28/21 12/28/21 History Fluticasone Nasal [place] [Flonase 1 spr EA NOSTRIL DAILY 12/28/21 12/28/21 History Nasal [place]] Fluticasone Propion/Salmeterol 1 puff INHALATION RT-BID 12/28/21 12/28/21 History [Advair 250-50 Diskus] Gabapentin [Neurontin] 400 mg PO TID 12/28/21 12/28/21 History Tiotropium 2.5 Mcg/Puff [Spiriva 2 puff INHALATION RT-DAILY 12/28/21 12/28/21 History Respimat 2.5 Mcg] lisinopriL [Zestril] 5 mg PO BID 12/28/21 12/28/21 History methocarbamoL [Robaxin-750] 750 mg PO BID 12/28/21 12/28/21 History Allergies Allergy/AdvReac Type Severity Reaction Status Date / Time amlodipine AdvReac Unknown Verified 12/28/21 07:27 duloxetine [From Cymbalta] AdvReac Unknown Verified 12/28/21 07:27 oxycodone [From Endocet] AdvReac Unknown Verified 12/28/21 07:27 phenytoin [From Dilantin] AdvReac Unknown Verified 12/28/21 07:27 potassium chloride AdvReac Unknown Verified 12/28/21 07:27 ranitidine AdvReac Unknown Verified 12/28/21 07:27 Surgical - Exam Vital Signs Temp Pulse Resp BP Pulse Ox 97.5 F L 105 H 18 107/75 100 12/28/21 02:37 12/28/21 02:37 12/28/21 02:37 12/28/21 02:37 12/28/21 02:37 Physical exam: General: Patient sitting up in the ICU bed, appears pale, somewhat diaphoretic, confused HEENT: Normocephalic, sclerae nonicteric Abdomen: Nontender, nondistended Extremities: No edema Neuro: Alert Results - Labs 12/28/21 14:30 12/28/21 12:27 Abnormal Lab Results - Last 24 Hours (Table) 12/28/21 12/28/21 12/28/21 Range/Units 03:17 03:17 03:17 RBC 2.34 L (4.30-5.90) m/uL Hgb 8.1 L (13.0-17.5) gm/dL Hct 23.2 L (39.0-53.0) % MCV (80.0-100.0) fL Plt Count (150-450) k/uL Neutrophils # 8.6 H (1.3-7.7) k/uL Lymphocytes # 0.5 L (1.0-4.8) k/uL Sodium 102 L* (137-145) mmol/L Potassium 5.4 H (3.5-5.1) mmol/L Chloride 71 L* (98-107) mmol/L Carbon Dioxide 14 L (22-30) mmol/L BUN 37 H (9-20) mg/dL POC Glucose (mg/dL) (70-110) mg/dL Plasma Lactic Acid [place] 6.8 H* (0.7-2.0) mmol/L Calcium 7.9 L (8.4-10.2) mg/dL AST 71 H (17-59) U/L Troponin I (0.000-0.034) ng/mL Total Protein 4.9 L (6.3-8.2) g/dL Albumin 3.2 L (3.5-5.0) g/dL Urine Blood (Negative) Urine Bacteria (None) /hpf 12/28/21 12/28/21 12/28/21 Range/Units 03:17 04:15 05:33 RBC (4.30-5.90) m/uL Hgb (13.0-17.5) gm/dL Hct (39.0-53.0) % MCV (80.0-100.0) fL Plt Count (150-450) k/uL Neutrophils # (1.3-7.7) k/uL Lymphocytes # (1.0-4.8) k/uL Sodium 103 L* (137-145) mmol/L Potassium 5.2 H (3.5-5.1) mmol/L Chloride 74 L* (98-107) mmol/L Carbon Dioxide 16 L (22-30) mmol/L BUN 40 H (9-20) mg/dL POC Glucose (mg/dL) (70-110) mg/dL Plasma Lactic Acid [place] (0.7-2.0) mmol/L Calcium 7.4 L (8.4-10.2) mg/dL AST 68 H (17-59) U/L Troponin I 0.051 H* (0.000-0.034) ng/mL Total Protein 4.5 L (6.3-8.2) g/dL Albumin 2.8 L (3.5-5.0) g/dL Urine Blood Trace H (Negative) Urine Bacteria Rare H (None) /hpf 12/28/21 12/28/21 12/28/21 Range/Units 06:18 06:18 08:09 RBC (4.30-5.90) m/uL Hgb (13.0-17.5) gm/dL Hct (39.0-53.0) % MCV (80.0-100.0) fL Plt Count (150-450) k/uL Neutrophils # (1.3-7.7) k/uL Lymphocytes # (1.0-4.8) k/uL Sodium 105 L* 106 L* (137-145) mmol/L Potassium (3.5-5.1) mmol/L Chloride (98-107) mmol/L Carbon Dioxide (22-30) mmol/L BUN (9-20) mg/dL POC Glucose (mg/dL) (70-110) mg/dL Plasma Lactic Acid [place] 4.1 H* (0.7-2.0) mmol/L Calcium (8.4-10.2) mg/dL AST (17-59) U/L Troponin I (0.000-0.034) ng/mL Total Protein (6.3-8.2) g/dL Albumin (3.5-5.0) g/dL Urine Blood (Negative) Urine Bacteria (None) /hpf 12/28/21 12/28/21 12/28/21 Range/Units 08:09 10:03 10:03 RBC (4.30-5.90) m/uL Hgb (13.0-17.5) gm/dL Hct (39.0-53.0) % MCV (80.0-100.0) fL Plt Count (150-450) k/uL Neutrophils # (1.3-7.7) k/uL Lymphocytes # (1.0-4.8) k/uL Sodium 107 L* (137-145) mmol/L Potassium (3.5-5.1) mmol/L Chloride (98-107) mmol/L Carbon Dioxide (22-30) mmol/L BUN (9-20) mg/dL POC Glucose (mg/dL) (70-110) mg/dL Plasma Lactic Acid [place] (0.7-2.0) mmol/L Calcium (8.4-10.2) mg/dL AST (17-59) U/L Troponin I 0.048 H* 0.054 H* (0.000-0.034) ng/mL Total Protein (6.3-8.2) g/dL Albumin (3.5-5.0) g/dL Urine Blood (Negative) Urine Bacteria (None) /hpf 12/28/21 12/28/21 12/28/21 Range/Units 12:27 14:30 14:31 RBC 1.44 L (4.30-5.90) m/uL Hgb 5.0 L* D (13.0-17.5) gm/dL Hct 14.4 L* (39.0-53.0) % MCV 100.1 H (80.0-100.0) fL Plt Count 120 L (150-450) k/uL Neutrophils # (1.3-7.7) k/uL Lymphocytes # 0.4 L (1.0-4.8) k/uL Sodium 108 L* (137-145) mmol/L Potassium (3.5-5.1) mmol/L Chloride (98-107) mmol/L Carbon Dioxide (22-30) mmol/L BUN (9-20) mg/dL POC Glucose (mg/dL) 64 L (70-110) mg/dL Plasma Lactic Acid [place] (0.7-2.0) mmol/L Calcium (8.4-10.2) mg/dL AST (17-59) U/L Troponin I (0.000-0.034) ng/mL Total Protein (6.3-8.2) g/dL Albumin (3.5-5.0) g/dL Urine Blood (Negative) Urine Bacteria (None) /hpf 12/28/21 Range/Units 15:01 RBC (4.30-5.90) m/uL Hgb (13.0-17.5) gm/dL Hct (39.0-53.0) % MCV (80.0-100.0) fL Plt Count (150-450) k/uL Neutrophils # (1.3-7.7) k/uL Lymphocytes # (1.0-4.8) k/uL Sodium (137-145) mmol/L Potassium (3.5-5.1) mmol/L Chloride (98-107) mmol/L Carbon Dioxide (22-30) mmol/L BUN (9-20) mg/dL POC Glucose (mg/dL) 177 H (70-110) mg/dL Plasma Lactic Acid [place] (0.7-2.0) mmol/L Calcium (8.4-10.2) mg/dL AST (17-59) U/L Troponin I (0.000-0.034) ng/mL Total Protein (6.3-8.2) g/dL Albumin (3.5-5.0) g/dL Urine Blood (Negative) Urine Bacteria (None) /hpf Diabetes panel 12/28/21 12/28/21 12/28/21 Range/Units 03:17 04:15 06:18 Sodium 102 L* 103 L* 105 L* (137-145) mmol/L Potassium 5.4 H 5.2 H (3.5-5.1) mmol/L Chloride 71 L* 74 L* (98-107) mmol/L Carbon Dioxide 14 L 16 L (22-30) mmol/L BUN 37 H 40 H (9-20) mg/dL Creatinine 1.15 1.05 (0.66-1.25) mg/dL Glucose 95 88 (74-99) mg/dL Calcium 7.9 L 7.4 L (8.4-10.2) mg/dL AST 71 H 68 H (17-59) U/L ALT 27 25 (4-49) U/L Alkaline Phosphatase 80 68 (38-126) U/L Total Protein 4.9 L 4.5 L (6.3-8.2) g/dL Albumin 3.2 L 2.8 L (3.5-5.0) g/dL 12/28/21 12/28/21 12/28/21 Range/Units 08:09 10:03 12:27 Sodium 106 L* 107 L* 108 L* (137-145) mmol/L Potassium (3.5-5.1) mmol/L Chloride (98-107) mmol/L Carbon Dioxide (22-30) mmol/L BUN (9-20) mg/dL Creatinine (0.66-1.25) mg/dL Glucose (74-99) mg/dL Calcium (8.4-10.2) mg/dL AST (17-59) U/L ALT (4-49) U/L Alkaline Phosphatase (38-126) U/L Total Protein (6.3-8.2) g/dL Albumin (3.5-5.0) g/dL Thyroid panel 12/28/21 Range/Units 06:18 TSH 1.080 (0.465-4.680) mIU/L Calcium panel 12/28/21 12/28/21 Range/Units 03:17 04:15 Calcium 7.9 L 7.4 L (8.4-10.2) mg/dL Albumin 3.2 L 2.8 L (3.5-5.0) g/dL Pituitary panel 12/28/21 12/28/21 12/28/21 Range/Units 03:17 04:15 06:18 Sodium 102 L* 103 L* 105 L* (137-145) mmol/L Potassium 5.4 H 5.2 H (3.5-5.1) mmol/L Chloride 71 L* 74 L* (98-107) mmol/L Carbon Dioxide 14 L 16 L (22-30) mmol/L BUN 37 H 40 H (9-20) mg/dL Creatinine 1.15 1.05 (0.66-1.25) mg/dL Glucose 95 88 (74-99) mg/dL Calcium 7.9 L 7.4 L (8.4-10.2) mg/dL TSH 1.080 (0.465-4.680) mIU/L 12/28/21 12/28/21 12/28/21 Range/Units 08:09 10:03 12:27 Sodium 106 L* 107 L* 108 L* (137-145) mmol/L Potassium (3.5-5.1) mmol/L Chloride (98-107) mmol/L Carbon Dioxide (22-30) mmol/L BUN (9-20) mg/dL Creatinine (0.66-1.25) mg/dL Glucose (74-99) mg/dL Calcium (8.4-10.2) mg/dL TSH (0.465-4.680) mIU/L Adrenal panel 12/28/21 12/28/21 12/28/21 Range/Units 03:17 04:15 06:18 Sodium 102 L* 103 L* 105 L* (137-145) mmol/L Potassium 5.4 H 5.2 H (3.5-5.1) mmol/L Chloride 71 L* 74 L* (98-107) mmol/L Carbon Dioxide 14 L 16 L (22-30) mmol/L BUN 37 H 40 H (9-20) mg/dL Creatinine 1.15 1.05 (0.66-1.25) mg/dL Glucose 95 88 (74-99) mg/dL Calcium 7.9 L 7.4 L (8.4-10.2) mg/dL Total Bilirubin 0.7 0.6 (0.2-1.3) mg/dL AST 71 H 68 H (17-59) U/L ALT 27 25 (4-49) U/L Alkaline Phosphatase 80 68 (38-126) U/L Total Protein 4.9 L 4.5 L (6.3-8.2) g/dL Albumin 3.2 L 2.8 L (3.5-5.0) g/dL 12/28/21 12/28/21 12/28/21 Range/Units 08:09 10:03 12:27 Sodium 106 L* 107 L* 108 L* (137-145) mmol/L Potassium (3.5-5.1) mmol/L Chloride (98-107) mmol/L Carbon Dioxide (22-30) mmol/L BUN (9-20) mg/dL Creatinine (0.66-1.25) mg/dL Glucose (74-99) mg/dL Calcium (8.4-10.2) mg/dL Total Bilirubin (0.2-1.3) mg/dL AST (17-59) U/L ALT (4-49) U/L Alkaline Phosphatase (38-126) U/L Total Protein (6.3-8.2) g/dL Albumin (3.5-5.0) g/dL Assessment and Plan (1) GI bleed Narrative/Plan: 66-year-old male of active GI bleed. Will transfuse platelets for Plavix reversal purposes. Agree with RBC transfusion. We'll proceed with upper endoscopy to rule out upper GI source at this time. Current Visit: Yes Status: Acute Code(s): K92.2 - GASTROINTESTINAL HEMORRHAGE, UNSPECIFIED SNOMED Code(s): 17296818
[2021-12-28] MEDS ORDERED: ETOMIDATE 2 MG/ML 10 ML VIAL ONE ×2 (16:00→18:43)
[2021-12-28] MEDS ORDERED: LIDOCAINE 2% INJ 20 MG/ML (2 ML VIAL) ONE ×2 (16:00→18:43)
[2021-12-28] MEDS ORDERED: THIAMINE 100 MG/ML 2 ML VIAL IM STA (16:23)
[2021-12-28] MEDS ORDERED: LORazepam 1 MG/0.5 ML VIAL IV PRN ×3 (16:23)
--- NOTE | 2021-12-28 16:23 | XR ---
EXAMINATION TYPE: XR chest 1V portable DATE OF EXAM: 12/28/2021 4:14 PM COMPARISON: Chest radiographs from TECHNIQUE: XR chest 1V portable 12/28/2021. CLINICAL INDICATION:Male, 66 years old with history of Attempted subclavian line placement; FINDINGS: Lungs/Pleura: There is no evidence of pleural effusion, focal consolidation, or pneumothorax. Pulmonary vascularity: Unremarkable. Heart/mediastinum: Cardiomediastinal silhouette is unremarkable. Musculoskeletal: No acute osseous pathology. There is fixation hardware in the lower cervical spine. Post surgical changes to the left upper extremity with anchors identified. IMPRESSION: No evidence of pneumothorax.
--- NOTE | 2021-12-28 16:35 | P.PN ---
Subjective Progress Note Date: 12/28/21 seen and examined at bedside. I was called in the room because patient had a large BM that was concerning for an acute GI bleed. Patient appeared pale denied chest pain or shortness breath. Objective - Vital Signs Vital signs: Vital Signs Temp 97.1 F L 12/28/21 15:57 Pulse 78 12/28/21 15:57 Resp 18 12/28/21 15:57 BP 111/40 12/28/21 15:57 Pulse Ox 100 12/28/21 15:57 FiO2 Intake & Output 12/27/21 12/28/21 12/28/21 18:59 06:59 18:59 Intake Total 460 Output Total 140 Balance 320 Weight 76.204 kg 76.204 kg Intake: IV 150 Sodium Chloride 3%( 150 Hypertonic) 500 ml @ 25 mls/hr IV .Q20H [facility] Rx#: [id number] Blood Product 310 Rc As-1 Unit 310 [id number] Rc Cpda-1 Unit 0 [id number] Output: Urine 140 Other: Voiding Method Urinal Incontinent External Catheter # Voids 1 # Bowel Movements 1 - Exam General: [non toxic], [no distress], [appears at older than stated age] Derm: [warm], [dry] Head: [atraumatic], [normocephalic], [symmetric] Eyes: [EOMI], [no lid lag], [anicteric sclera] Mouth: [no lip lesion], [mucus membranes moist] Cardiovascular: [S1S2 reg], [no murmur], [positive posterior tibial pulse bilateral], Lungs: [CTA bilateral], [no rhonchi, no rales] , [no accessory muscle use] Abdominal: [soft], [ nontender to palpation], [no guarding], [no appreciable organomegaly] Ext: [no gross muscle atrophy], [no edema], [no contractures] Neuro: [ CN II-XI grossly intact], [no focal neuro deficits] Psych: [Alert], [oriented], [appropriate affect] - Labs CBC & Chem 7: 12/28/21 14:30 12/28/21 12:27 Labs: Abnormal Lab Results - Last 24 Hours (Table) 12/28/21 12/28/21 12/28/21 Range/Units 03:17 03:17 03:17 RBC 2.34 L (4.30-5.90) m/uL Hgb 8.1 L (13.0-17.5) gm/dL Hct 23.2 L (39.0-53.0) % MCV (80.0-100.0) fL Plt Count (150-450) k/uL Neutrophils # 8.6 H (1.3-7.7) k/uL Lymphocytes # 0.5 L (1.0-4.8) k/uL Sodium 102 L* (137-145) mmol/L Potassium 5.4 H (3.5-5.1) mmol/L Chloride 71 L* (98-107) mmol/L Carbon Dioxide 14 L (22-30) mmol/L BUN 37 H (9-20) mg/dL POC Glucose (mg/dL) (70-110) mg/dL Plasma Lactic Acid Pola 6.8 H* (0.7-2.0) mmol/L Calcium 7.9 L (8.4-10.2) mg/dL AST 71 H (17-59) U/L Troponin I (0.000-0.034) ng/mL Total Protein 4.9 L (6.3-8.2) g/dL Albumin 3.2 L (3.5-5.0) g/dL Urine Blood (Negative) Urine Bacteria (None) /hpf 12/28/21 12/28/21 12/28/21 Range/Units 03:17 04:15 05:33 RBC (4.30-5.90) m/uL Hgb (13.0-17.5) gm/dL Hct (39.0-53.0) % MCV (80.0-100.0) fL Plt Count (150-450) k/uL Neutrophils # (1.3-7.7) k/uL Lymphocytes # (1.0-4.8) k/uL Sodium 103 L* (137-145) mmol/L Potassium 5.2 H (3.5-5.1) mmol/L Chloride 74 L* (98-107) mmol/L Carbon Dioxide 16 L (22-30) mmol/L BUN 40 H (9-20) mg/dL POC Glucose (mg/dL) (70-110) mg/dL Plasma Lactic Acid Pola (0.7-2.0) mmol/L Calcium 7.4 L (8.4-10.2) mg/dL AST 68 H (17-59) U/L Troponin I 0.051 H* (0.000-0.034) ng/mL Total Protein 4.5 L (6.3-8.2) g/dL Albumin 2.8 L (3.5-5.0) g/dL Urine Blood Trace H (Negative) Urine Bacteria Rare H (None) /hpf 12/28/21 12/28/21 12/28/21 Range/Units 06:18 06:18 08:09 RBC (4.30-5.90) m/uL Hgb (13.0-17.5) gm/dL Hct (39.0-53.0) % MCV (80.0-100.0) fL Plt Count (150-450) k/uL Neutrophils # (1.3-7.7) k/uL Lymphocytes # (1.0-4.8) k/uL Sodium 105 L* 106 L* (137-145) mmol/L Potassium (3.5-5.1) mmol/L Chloride (98-107) mmol/L Carbon Dioxide (22-30) mmol/L BUN (9-20) mg/dL POC Glucose (mg/dL) (70-110) mg/dL Plasma Lactic Acid Pola 4.1 H* (0.7-2.0) mmol/L Calcium (8.4-10.2) mg/dL AST (17-59) U/L Troponin I (0.000-0.034) ng/mL Total Protein (6.3-8.2) g/dL Albumin (3.5-5.0) g/dL Urine Blood (Negative) Urine Bacteria (None) /hpf 12/28/21 12/28/21 12/28/21 Range/Units 08:09 10:03 10:03 RBC (4.30-5.90) m/uL Hgb (13.0-17.5) gm/dL Hct (39.0-53.0) % MCV (80.0-100.0) fL Plt Count (150-450) k/uL Neutrophils # (1.3-7.7) k/uL Lymphocytes # (1.0-4.8) k/uL Sodium 107 L* (137-145) mmol/L Potassium (3.5-5.1) mmol/L Chloride (98-107) mmol/L Carbon Dioxide (22-30) mmol/L BUN (9-20) mg/dL POC Glucose (mg/dL) (70-110) mg/dL Plasma Lactic Acid Pola (0.7-2.0) mmol/L Calcium (8.4-10.2) mg/dL AST (17-59) U/L Troponin I 0.048 H* 0.054 H* (0.000-0.034) ng/mL Total Protein (6.3-8.2) g/dL Albumin (3.5-5.0) g/dL Urine Blood (Negative) Urine Bacteria (None) /hpf 12/28/21 12/28/21 12/28/21 Range/Units 12:27 14:30 14:31 RBC 1.44 L (4.30-5.90) m/uL Hgb 5.0 L* D (13.0-17.5) gm/dL Hct 14.4 L* (39.0-53.0) % MCV 100.1 H (80.0-100.0) fL Plt Count 120 L (150-450) k/uL Neutrophils # (1.3-7.7) k/uL Lymphocytes # 0.4 L (1.0-4.8) k/uL Sodium 108 L* (137-145) mmol/L Potassium (3.5-5.1) mmol/L Chloride (98-107) mmol/L Carbon Dioxide (22-30) mmol/L BUN (9-20) mg/dL POC Glucose (mg/dL) 64 L (70-110) mg/dL Plasma Lactic Acid Pola (0.7-2.0) mmol/L Calcium (8.4-10.2) mg/dL AST (17-59) U/L Troponin I (0.000-0.034) ng/mL Total Protein (6.3-8.2) g/dL Albumin (3.5-5.0) g/dL Urine Blood (Negative) Urine Bacteria (None) /hpf 12/28/21 Range/Units 15:01 RBC (4.30-5.90) m/uL Hgb (13.0-17.5) gm/dL Hct (39.0-53.0) % MCV (80.0-100.0) fL Plt Count (150-450) k/uL Neutrophils # (1.3-7.7) k/uL Lymphocytes # (1.0-4.8) k/uL Sodium (137-145) mmol/L Potassium (3.5-5.1) mmol/L Chloride (98-107) mmol/L Carbon Dioxide (22-30) mmol/L BUN (9-20) mg/dL POC Glucose (mg/dL) 177 H (70-110) mg/dL Plasma Lactic Acid Pola (0.7-2.0) mmol/L Calcium (8.4-10.2) mg/dL AST (17-59) U/L Troponin I (0.000-0.034) ng/mL Total Protein (6.3-8.2) g/dL Albumin (3.5-5.0) g/dL Urine Blood (Negative) Urine Bacteria (None) /hpf Assessment and Plan Assessment: Acute GI bleed Consult surgery trend H & H Patient transfused platelets and packed red blood cells ICU recommendations appreciated Severe hyponatremia Likely due to Poor oral intake and beer potomania Consult nephrology Seizure precautions Fall precautions Neurochecks Elevated troponin Trend troponin, patient denies chest pain or trouble breathing Patient has strong history of CAD status post stents consult cardiology History of alcohol dependence CIWA protocol History of COPD not on home oxygen Continue with inhalers and nebulizers as needed Tobacco dependence Nicotine patch ordered DVT prophylaxis mechanical Full code Time with Patient: Greater than 30
--- NOTE | 2021-12-28 16:41 | P.PCN ---
Date of Procedure: 12/28/21 Procedure(s) Performed: Preoperative Dx: GI bleed Postoperative Dx: Bleeding duodenal ulcer, hiatal hernia Procedure: EGD Anesthesia: Sedation Endoscopist: Dr. Hilliard Specimens: None Endoscopic Procedure: The patient was on the endoscopy table in the left decubitus position. The Olympus gastroscope was inserted into the oropharynx and passed under direct visualization to the region of the third portion of the duodenum. From that point the scope was slowly withdrawn inspecting all surfaces carefully. The patient had fresh blood within the duodenum. At the junction between the first and second portion of the duodenum there was significant tortuosity and there was a visible clot present. There was no active bleeding seen. Irrigation took place but the visibility of that area of the duodenum was extremely challenging. I never was able to see the base of the ulcer or any visible vessel other than the adherent clot. Part of this clot was able to be suctioned. Following that is again no active bleeding was seen and I still could not see the base of the ulcer given the tortuosity. I was unable to cauterize or inject in that area. The pylorus was somewhat deformed likely from chronic ulcer of the duodenum. The stomach itself was free of any significant inflammatory changes. There was no significant volume of blood within the stomach. Retroflexion revealed a small sliding hiatal hernia. The esophagus appeared otherwise normal. Case was discussed with the welder manufacture following procedure. We'll continue to try to treat this conservatively with IV antiacid therapy and reversal of antiplatelet medications in the form of platelet transfusion. The case was also discussed with the patient's sister who is the patient's closest kin. We informed her that surgery may be required if further bleeding occurs. We will follow closely.
--- NOTE | 2021-12-28 16:43 | P.PCN ---
Date of Procedure: 12/28/21 Preoperative Diagnosis: Acute GI bleed Postoperative Diagnosis: Acute GI bleed Procedure(s) Performed: Insertion of a central line insertion of an arterial line catheter Operative Findings: Triple lumen catheter Indication: Hemodynamic monitoring/Intravenous access. A time-out was completed verifying correct patient, procedure, site, positioning, and implant(s) or special equipment if applicable. The patient was placed in a dependent position appropriate for central line placement based on the vein to be cannulated. The patients right groin was prepped and draped in sterile fashion. 1% Lidocaine was used to anesthetize the surrounding skin area. A triple lumen 9F Cordis catheter was introduced into the right femoral vein vein using Seldinger technique. The catheter was threaded smoothly over the guide wire and appropriate blood return was obtained. Each lumen of the catheter was evacuated of air and flushed with sterile saline. The catheter was then sutured in place to the skin and a sterile dressing applied. Perfusion to the extremity distal to the point of catheter insertion was checked and found to be adequate. The patient tolerated the procedure well and there were no complications. Arterial line catheter Indication: Hemodynamic monitoring. A time-out was completed verifying correct patient, procedure, site, positioning, and implant(s) or special equipment if applicable. Allens test was performed to ensure adequate perfusion. The patients right wrist was prepped and draped in sterile fashion. 1% Lidocaine was used to anesthetize the area. An 18G Arrow arterial line was introduced into the right radial artery. The catheter was threaded over the guide wire and the needle was removed with appropriate pulsatile blood return. Blood loss was minimal. The catheter was then sutured in place to the skin and a sterile dressing applied. Perfusion to the extremity distal to the point of catheter insertion was checked and found to be adequate. The patient tolerated the procedure well and there were no complications.
[2021-12-28 17:08] LABS: HCT 22.9 % (39.0-53.0); MCH 30.5 pg (25.0-35.0); MCHC 34.6 g/dL (31.0-37.0); Mean Platelet Volume 9.8; RDW 14.5 % (11.5-15.5); WBC 8.7 k/uL (3.8-10.6)
[2021-12-28 17:10] LABS: HGB 7.9 gm/dL (13.0-17.5)
[2021-12-28] MEDS ORDERED: NOREPINEPHRIN 4 MG-0.9% NS PMX 4 MG/250 ML ML IV ONE (17:31)
[2021-12-28 17:32] LABS: Lymphocytes # (M) 0.35 k/uL (1.0-4.8); Monocytes # (M) 0.52 k/uL (0-1.0); Neutrophils # (M) 7.83 k/uL (1.3-7.7); Neutrophils % (M) 90 %; Nucleated Red Blood Cells 0 /100 WBC (0-0); Total Cells Counted 100
[2021-12-28 17:33] LABS: Platelet Count 76 k/uL (150-450)
[2021-12-28] MEDS: NOREPINEPHRINE 4 MG in SODIUM CHLORIDE 0.9% 250 ML IV SCH (17:52)
[2021-12-28] MEDS: NICOTINE 21MG/24HR PATCH TRANSDERM SCH (17:55)
[2021-12-28] MEDS ORDERED: ROCURONIUM 10 MG/ML (5 ML VIAL) IV ONE (18:43)
[2021-12-28] MEDS ORDERED: fentaNYL (PF) 50 MCG/ML 2 ML AMP ONE (18:43)
[2021-12-28] MEDS ORDERED: MIDAZOLAM 2 MG/2 ML VIAL ONE (18:43)
[2021-12-28] MEDS ORDERED: IV FLUID CONTINUATION 1,000 ML IV ONE (18:47)
[2021-12-28] MEDS ORDERED: SODIUM CHLORIDE 0.9% 50 ML with ceFAZolin 2,000 MG IV ONE ×2 (18:47)
[2021-12-28 21:00] LABS: MCV 88.1 fL (80.0-100.0)
[2021-12-28] MEDS ORDERED: propofoL 100 ML IV ONE (21:10)
[2021-12-28 21:11] LABS: Glucose,Whole Blood 100 mg/dL (70-110)
--- NOTE | 2021-12-28 21:11 | P.OP ---
Date of Procedure: 12/28/21 Procedure(s) Performed: PREOPERATIVE DIAGNOSIS: Bleeding duodenal ulcer POSTOPERATIVE DIAGNOSIS: Same PROCEDURE: Exploratory laparotomy with oversewing of bleeding duodenal ulcer with pyloroplasty SURGEON: Arminda EBL: 50 mL ANESTHESIA: Gen. COMPLICATIONS: None OPERATIVE PROCEDURE: Patient was placed on the operating table in supine position for the patient's abdomen was prepped and draped sterilely. A vertical subumbilical incision was made using the scalpel. Dissection through the subcutaneous tissues and fascia to place using the cautery. Entrance into the perineal cavity occurred bluntly. The Bookwalter retractor was utilized. The patient large amount of blood seen throughout the intestinal tract. The patient's duodenum was adherent to the surrounding structures and had changes consistent with previous duodenitis. I suspect the patient has had this ulcer on off over the years. The duodenum was partially mobilized medially. We did not visualize any posterior perforation during our subtle mobilization. A longitudinal incision was made across the distal aspect of the stomach into the duodenal bulb. A moderate volume of blood was identified and suctioned. I was able to easily palpate the deep ulcer crater posteriorly. The base of the ulcer was approximately 8-10 mm deep to the mucosal surface there. I was able to visualize some active bleeding from the base of the ulcer. Multiple 3-0 GI silk ligating sutures were placed with no further bleeding seen at that time. There were no additional ulcerations noted. I then closed the gastroduodenal incision transversely as a pyloroplasty. An inner running layer of 3-0 Vicryl sutures were initially used. Following that an outer layer of interrupted 3-0 GI silk sutures were utilized. The area was irrigated with saline. At that time Tisseel fibrin glue was used on top of the suture line. A portion of perigastric fat was sutured over this. I then placed a drain into the abdomen from the right mid abdomen underneath the liver crossing over the top of our pyloroplasty. This was sutured to the skin using 3-0 silk sutures. The midline fascia was then closed using 2 separate double-stranded #1 PDS sutures. The skin was loosely reapproximated with timo. Sterile dressings were applied. DISPOSITION: Intubated in guarded condition to the ICU. Patient's sister was updated as to how the surgery went.
[2021-12-28] MEDS: SODIUM CHLORIDE 0.9% 1,000 ML IV SCH (21:24)
[2021-12-28 21:38] LABS: ABG Base Excess -7.2 mmol/L; ABG HCO3 19 mmol/L (21-25); ABG PCO2 37 mmHg (35-45); ABG PH 7.32 (7.35-7.45); ABG PO2 216 mmHg (83-108); ABG TCO2 20 mmol/L (19-24)
[2021-12-28 21:42] LABS: Allen Test Performed? No
[2021-12-28] MEDS: FLUCONAZOLE IN NACL,ISO-OSM 100 MG in SALINE 1 50ML.BAG IVPB SCH ×2 (21:44→23:10)
[2021-12-28 21:51] LABS: Basophils % (A) 0 %; Eosinophils % (A) 0 %; HCT 30.5 % (39.0-53.0); HGB 10.4 gm/dL (13.0-17.5); Lymphocytes # (A) 0.3 k/uL (1.0-4.8); Lymphocytes % (A) 3 %; MCH 30.9 pg (25.0-35.0); MCV 90.7 fL (80.0-100.0); Mean Platelet Volume 9.3; Monocytes # (A) 0.4 k/uL (0-1.0); Monocytes % (A) 4 %; Neutrophils # (A) 9.6 k/uL (1.3-7.7); Neutrophils % (A) 92 %; RBC 3.36 m/uL (4.30-5.90); WBC 10.5 k/uL (3.8-10.6)
[2021-12-28 21:57] LABS: Platelet Count 97 k/uL (150-450)
[2021-12-28] MEDS: PANTOPRAZOLE 40 MG/10 ML VIAL IVP SCH (22:53)
--- NOTE | 2021-12-28 23:30 | XR ---
EXAMINATION TYPE: XR chest 1V portable DATE OF EXAM: 12/28/2021 COMPARISON: Today HISTORY: Tube placement TECHNIQUE: FINDINGS: The endotracheal tube is 4.5 cm from the angus. The lungs are clear of consolidation. There is nasog astric tube in the stomach. No heart failure. There are chest leads. IMPRESSION: Endotracheal tube in fairly good position. No active cardiopulmonary disease.
[2021-12-29 00:15] LABS: Glucose,Whole Blood 106 mg/dL (70-110)
[2021-12-29] MEDS: metroNIDAZOLE-NS PMX 500 MG in SALINE 1 100ML.BAG IVPB SCH ×3 (01:00→15:11)
[2021-12-29 04:29] LABS: Basophils % (A) 0 %; Eosinophils % (A) 0 %; HCT 27.3 % (39.0-53.0); HGB 9.3 gm/dL (13.0-17.5); Lymphocytes # (A) 0.3 k/uL (1.0-4.8); Lymphocytes % (A) 3 %; MCH 30.5 pg (25.0-35.0); MCHC 34.2 g/dL (31.0-37.0); MCV 89.1 fL (80.0-100.0); Mean Platelet Volume 8.9; Monocytes # (A) 0.3 k/uL (0-1.0); Monocytes % (A) 2 %; Neutrophils # (A) 10.2 k/uL (1.3-7.7); Neutrophils % (A) 94 %; RBC 3.06 m/uL (4.30-5.90); RDW 15.7 % (11.5-15.5); WBC 10.9 k/uL (3.8-10.6)
[2021-12-29 04:36] LABS: Platelet Count 89 k/uL (150-450)
[2021-12-29 04:39] LABS: ALT 24 U/L (4-49); AST 83 U/L (17-59); African American GFR (CKD) >90 (>60 ml/min/1.73 sqM); Albumin 1.6 g/dL (3.5-5.0); Alkaline Phosphatase 47 U/L (38-126); Anion Gap 4 mmol/L; Blood Urea Nitrogen 31 mg/dL (9-20); Carbon Dioxide 17 mmol/L (22-30); Chloride 96 mmol/L (98-107); Glucose 83 mg/dL (74-99); Magnesium 1.6 mg/dL (1.6-2.3); Non-African American GFR(CKD) >90 (>60 ml/min/1.73 sqM); Phosphorus 2.4 mg/dL (2.5-4.5); Potassium 3.4 mmol/L (3.5-5.1); Total Bilirubin 0.7 mg/dL (0.2-1.3); Total Protein 2.9 g/dL (6.3-8.2)
[2021-12-29 04:46] LABS: Sodium 117 mmol/L (137-145)
[2021-12-29] MEDS: NOREPINEPHRINE 4 MG in SODIUM CHLORIDE 0.9% 250 ML IV SCH (05:02)
[2021-12-29] MEDS: SODIUM CHLORIDE 0.9% 1,000 ML IV SCH ×2 (05:02→12:46)
[2021-12-29 05:22] LABS: ABG Base Excess -6.4 mmol/L; ABG HCO3 18 mmol/L (21-25); ABG Oxygen Saturation 99.7 % (94-97); ABG PCO2 29 mmHg (35-45); ABG PH 7.41 (7.35-7.45); ABG PO2 150 mmHg (83-108); ABG TCO2 19 mmol/L (19-24)
[2021-12-29] MEDS ORDERED: Potassium Replacement Protocol 1 EACH MISC MISCELLANE PRN (05:40)
[2021-12-29] MEDS ORDERED: CALCIUM GLUCONATE IN NACL 2 GM in SALINE 1 100ML.BAG IVPB ONE (05:40)
[2021-12-29] MEDS ORDERED: Magnesium Replacement Protocol 1 EACH MISC MISCELLANE PRN (05:40)
[2021-12-29 05:53] LABS: Allen Test Performed? No
[2021-12-29] MEDS: HYDROmorphone 0.5 MG/0.5 ML SYRINGE IVP PRN ×2 (06:03→15:13)
[2021-12-29] MEDS: MAGNESIUM SULFATE-D5W PMX 1 GM in DEXTROSE/WATER 1 100ML.BAG IVPB SCH ×2 (06:03→07:33)
--- NOTE | 2021-12-29 06:49 | XR ---
EXAMINATION TYPE: XR chest 1V portable DATE OF EXAM: 12/29/2021 6:13 AM COMPARISON: Chest radiographs from 12/29/2021. TECHNIQUE: XR chest 1V portable Frontal view of the chest. CLINICAL INDICATION:Male, 66 years old with history of Tube placement; FINDINGS: Lungs/Pleura: There is no evidence of pleural effusion, focal consolidation, or pneumothorax. Pulmonary vascularity: Unremarkable. Heart/mediastinum: Cardiomediastinal silhouette is unremarkable. Musculoskeletal: No acute osseous pathology. Visualization of cervical fusion hardware. Other findings: None Lines/Tubes: Endotracheal tube with distal tip 3.2 cm above the angus Nasogastric tube with its distal tip and side-port projecting under the diaphragm. IMPRESSION: Stable support lines and tubes. No pneumothorax.
[2021-12-29] MEDS: POTASSIUM CHLORIDE 20 MEQ in WATER FOR INJECTION 1 100ML.BAG IVPB SCH ×2 (07:15→09:25)
[2021-12-29] MEDS: IPRATROPIUM 0.5 MG/2.5 ML NEBU INHALATION SCH ×4 (07:38→20:14)
[2021-12-29] MEDS: SYMBICORT 160-4.5 MCG INHALER INHALATION SCH ×2 (07:38→20:14)
--- NOTE | 2021-12-29 07:45 | P.CRDCN ---
History of Present Illness Consult date: 12/29/21 History of present illness: History of Present Illness: The patient is a 66-year-old male who presented was progressive fatigue, he was noted to have severe hyponatremia. He has a history of CAD, post stenting of the LAD done in [facility] in 2016. In the past his left ventricle systolic function was preserved. He has a prior history of COPD and chronic alcohol i ntake. He had minimal troponin elevation. He had evidence of bleeding ulcer and underwent surgical intervention yesterday because of the persistent bleeding. He is intubated this time. His low-sodium is being corrected. He has been in sinus mechanism with no evidence of malignant arrhythmia. Prior to intubation dose no documentations of chest discomfort. Apparently the patient was, progressively weak, continues to drink alcohol and has not been eating appropriately. He had no peripheral edema, no PND or orthopnea reported. There is no documentations of malignant arrhythmia. His urinary output has been good. He has a history of hypertension and hyperlipidemia. No other present history could be obtained. Yesterday he underwent exploratory laparotomy with oversewing of a bleeding duodenal ulcer with pyloroplasty. Medications: At home Zestril 5 mg twice a day, Tenormin 25 mg twice a day, Crestor 40 mg daily, aspirin once a day, iron, Prozac, Advair, Flonase, Spiriva, Ventolin Review of Systems: Could not be obtained, patient is intubated Physical Examination: 66-year-old male intubated and sedated,Blood pressure 132/60, Heart rate 70 Head: Normocephalic. Eyes: Sclerae nonicteric. Neck: Good carotid upstroke, no bruit, no jugular venous distention. Lungs: Clear to auscultation anteriorly. Heart: Regular rate and rhythm, S1-S2, no S3, no rub. No murmur. Abdomen: Soft, dressing in place, no organomegaly. Extremities: No edema, intact distal pulses. Labs: On presentation hemoglobin 8.1, sodium 102, chloride 71, BUN 37, creatinine 1.1. Plasma lactic acid 6.8. Troponin 0.05, 0.04 and 0.05. His hemoglobin went down to 5 he is up to 9.3 today and his sodium is up to 117. His potassium 3.4. His chest x-ray shows no pneumothorax or infiltrate. EKG: Sinus mechanism with nonspecific ST-T wave changes Impression: 1. Bleeding duodenal ulcer, post surgery 2. Severe hyponatremia 3. Mild troponin elevation, secondary to type II myocardial infarction, no evidence of primary ischemic event 4. History of CAD and prior stenting 5. History of hypertension 6. History of hyperlipidemia 7. Alcohol use Plan: 1. Wean norepinephrine to off, blood pressure is stable 2. Replace sodium 3. Obtain an echocardiogram with Doppler 4. Follow blood pressure and reinitiate beta nichelle 5. Depending on his progress further recommendations will be made. Thank you for this consult we will follow with you. Past Medical History Past Medical History: Coronary Artery Disease (CAD), Chest Pain / Angina, COPD, Hyperlipidemia, Hypertension, Osteoarthritis (OA) Additional Past Medical History / Comment(s): Diverticulitis, stomach ulcer, neuropathy, chronic back pain, DDD, alcoholism - had seizure when withdrawing from alcohol, scoliosis, hemorrhoids, CAD History of Any Multi-Drug Resistant Organisms: None Reported Past Surgical History: Heart Catheterization With Stent, Orthopedic Surgery, Tonsillectomy Additional Past Surgical History / Comment(s): Left shoulder rotator cuff surgery, EGD/colonoscopy, cardiac stent (placed 09-15-15 to LAD at [facility]) Past Anesthesia/Blood Transfusion Reactions: No Reported Reaction Date of Last Stent Placement:: 09/15/15 Past Psychological History: Anxiety, Depression Smoking Status: Current every day smoker Past Alcohol Use History: Daily Past Drug Use History: None Reported - Past Family History Mother Family Medical History: Coronary Artery Disease (CAD) Additional Family Medical History / Comment(s): Cardiac stent Father Family Medical History: Cancer Additional Family Medical History / Comment(s): Unsure what kind of cancer. Medications and Allergies Home Medications Medication Instructions Recorded Confirmed Type FLUoxetine HCL [PROzac] 60 mg PO DAILY 06/29/15 12/28/21 History Multivitamin [Men's Multi-Vitamin] 1 tab PO DAILY 06/29/15 12/28/21 History atenoloL [Tenormin] 25 mg PO BID 06/29/15 12/28/21 History Acetaminophen [Tylenol Extra 500 mg PO TID 11/06/17 12/28/21 History Strength] Aspirin EC [Ecotrin Low Dose] 81 mg PO DAILY 11/06/17 12/28/21 History Cholecalciferol [Vitamin D3 (25 25 mcg PO DAILY 11/06/17 12/28/21 History Mcg = 1000 Iu)] Ferrous Sulfate [Feosol] 325 mg PO BID 11/06/17 12/28/21 History Albuterol Inhaler [Ventolin Hfa 1 puff INHALATION RT-Q6H PRN 04/01/19 12/28/21 History Inhaler] Rosuvastatin Calcium 40 mg PO HS 04/01/19 12/28/21 History Cyclobenzaprine [Flexeril] 10 mg PO BID 12/28/21 12/28/21 History Fluticasone Nasal Gary [Flonase 1 spr EA NOSTRIL DAILY 12/28/21 12/28/21 History Nasal Gary] Fluticasone Propion/Salmeterol 1 puff INHALATION RT-BID 12/28/21 12/28/21 History [Advair 250-50 Diskus] Gabapentin [Neurontin] 400 mg PO TID 12/28/21 12/28/21 History Tiotropium 2.5 Mcg/Puff [Spiriva 2 puff INHALATION RT-DAILY 12/28/21 12/28/21 History Respimat 2.5 Mcg] lisinopriL [Zestril] 5 mg PO BID 12/28/21 12/28/21 History methocarbamoL [Robaxin-750] 750 mg PO BID 12/28/21 12/28/21 History Allergies Allergy/AdvReac Type Severity Reaction Status Date / Time amlodipine AdvReac Unknown Verified 12/28/21 07:27 duloxetine [From Cymbalta] AdvReac Unknown Verified 12/28/21 07:27 oxycodone [From Endocet] AdvReac Unknown Verified 12/28/21 07:27 phenytoin [From Dilantin] AdvReac Unknown Verified 12/28/21 07:27 potassium chloride AdvReac Unknown Verified 12/28/21 07:27 ranitidine AdvReac Unknown Verified 12/28/21 07:27 Physical Exam Vitals: Vital Signs Temp Pulse Resp BP BP Pulse Ox FiO2 12/29/21 05:00 75 19 132/68 100 35 12/29/21 04:30 73 16 126/70 100 35 12/29/21 04:00 98.8 F 75 19 127/66 100 35 12/29/21 03:30 71 15 148/71 100 35 12/29/21 03:27 35 12/29/21 03:00 75 20 128/66 100 35 12/29/21 02:30 71 17 128/64 100 35 12/29/21 02:00 98.6 F 71 17 136/69 100 35 12/29/21 01:30 71 17 124/68 100 35 12/29/21 01:00 70 19 124/67 100 35 12/29/21 00:30 68 17 115/65 100 35 12/29/21 00:00 98.1 F 67 20 98/57 100 35 12/28/21 23:30 71 20 117/79 99 35 12/28/21 23:27 35 12/28/21 23:00 97.9 F 71 20 133/64 100 35 12/28/21 22:30 75 21 149/70 98 35 12/28/21 22:00 78 21 150/73 100 35 12/28/21 21:42 35 12/28/21 21:30 97.5 F L 76 16 154/71 100 35 12/28/21 21:09 60 12/28/21 21:06 60 12/28/21 18:30 75 11 L 107/57 97 12/28/21 18:15 98.1 F 80 31 H 100/54 94 L 12/28/21 18:00 79 31 H 95/67 99 12/28/21 17:45 37 H 97/53 99 12/28/21 17:30 81 23 101/64 100 12/28/21 17:15 79 26 H 106/54 100 12/28/21 17:00 80 23 103/58 100 12/28/21 16:45 78 24 104/92 100 12/28/21 16:30 80 26 H 124/103 97 12/28/21 16:20 80 22 124/103 100 12/28/21 16:15 75 24 108/75 83 L 12/28/21 16:10 77 21 108/75 100 12/28/21 16:05 77 20 108/75 100 12/28/21 16:00 77 23 111/67 100 12/28/21 15:57 97.1 F L 78 18 111/40 100 12/28/21 15:55 20 111/67 100 12/28/21 15:53 96.4 F L 77 18 104/37 12/28/21 15:50 17 107/60 99 12/28/21 15:47 96.2 F L 76 14 94 L 12/28/21 15:45 77 20 98/55 100 12/28/21 15:40 79 19 98/55 100 12/28/21 15:35 81 16 98/55 93 L 12/28/21 15:33 96.3 F L 78 18 95/43 12/28/21 15:30 84 15 109/61 96 12/28/21 15:25 86 96 12/28/21 15:20 81 L 12/28/21 15:15 87 49 H 95/43 82 L 12/28/21 15:10 85 21 95/43 91 L 12/28/21 15:05 95/43 99 12/28/21 15:00 84 17 105/44 97 12/28/21 14:55 89 17 105/44 98 12/28/21 14:50 87 21 105/44 97 12/28/21 14:45 86 19 84/51 99 12/28/21 14:40 22 84/51 94 L 12/28/21 14:35 82 19 84/51 94 L 12/28/21 14:30 84 15 98/46 93 L 12/28/21 14:25 28 H 93/44 97 12/28/21 14:20 84 18 93/44 94 L 12/28/21 14:15 92 18 93/44 97 12/28/21 14:14 93/44 12/28/21 14:10 84 19 85/38 94 L 12/28/21 14:05 91 32 H 85/38 93 L 12/28/21 14:00 86 20 90/49 92 L 12/28/21 13:30 25 H 117/44 94 L 12/28/21 13:00 27 H 107/45 98 12/28/21 12:30 79 19 112/63 97 12/28/21 12:00 98.2 F 23 104/45 100 12/28/21 11:30 78 40 H 104/45 95 12/28/21 11:00 80 20 98/37 100 12/28/21 10:49 80 12/28/21 10:30 86 19 104/50 98 12/28/21 10:00 95 21 95/45 94 L 12/28/21 09:30 96 19 113/49 94 L 12/28/21 09:00 104 H 23 121/92 96 12/28/21 08:41 98 12/28/21 08:30 104 H 25 H 121/57 100 12/28/21 08:05 105 H 12/28/21 08:00 97.9 F 105 H 20 136/62 99 12/28/21 07:56 105 H 12/28/21 07:55 95 12/28/21 07:41 136/62 Intake and Output 12/28/21 12/29/21 12/29/21 22:59 06:59 14:59 Intake Total 3463.778 1448.704 336 Output Total 750 770 135 Balance 2713.778 678.704 201 Intake: IV 1883 1279 336 0.9 NaCl- 130 130 Arterial pressure bag 3 24 3 CVP pressure bag 15 3 Calcium Gluconate 100 Flagyl 100 Fluconazole in NaCl,Iso- 50 Osm 100 mg In Saline 1 50ml.bag @ 50 mls/hr IVPB Q24H [facility] Rx#:[id number] Kefzol 50 Magnesium 100 Sodium Chloride 0.9% 1, 1130 910 000 ml @ 130 mls/hr IV . Q7H42M [facility] Rx#:[id number] Intake, IV Titration 51.778 169.704 Amount Norepinephrine 4 mg In 51.778 169.704 Sodium Chloride 0.9% 250 ml @ 0.05 MCG/KG/MIN 14. 517 mls/hr IV .[id number] [facility] Rx#:[id number] Blood Product 1529 Platelet Pheresis Pas 289 Psoralen Unit [id number] Rc As-1 Unit 310 [id number] Rc As-1 Unit 310 [id number] Rc As-1 Unit 310 [id number] Rc Cpda-1 Unit 310 [id number] Output: Drainage 65 80 Abdomen 65 80 Urine 700 455 55 Oral Regurgitation 250 Estimated Blood Loss 50 Other: Voiding Method Indwelling Catheter Indwelling Catheter # Voids 1 # Bowel Movements 2 Weight 64.5 kg ABP, PAP, CO, CI - Last 8 Hours Arterial Blood Pressure 156/55 Arterial Blood Pressure 139/52 Arterial Blood Pressure 122/54 Arterial Blood Pressure 121/53 Arterial Blood Pressure 143/58 Arterial Blood Pressure 122/54 Arterial Blood Pressure 119/54 Arterial Blood Pressure 123/54 Arterial Blood Pressure 119/53 Arterial Blood Pressure 115/52 Arterial Blood Pressure 110/49 Results 12/29/21 04:15 12/29/21 04:15 Cardiac Enzymes 12/28/21 12/28/21 12/29/21 Range/Units 08:09 10:03 04:15 AST 83 H (17-59) U/L Troponin I 0.048 H* 0.054 H* (0.000-0.034) ng/mL CBC 12/28/21 12/28/21 12/28/21 Range/Units 14:30 16:56 21:35 WBC 6.2 8.7 10.5 (3.8-10.6) k/uL RBC 1.44 L 2.60 L 3.36 L (4.30-5.90) m/uL Hgb 5.0 L* D 7.9 L D 10.4 L (13.0-17.5) gm/dL Hct 14.4 L* 22.9 L 30.5 L (39.0-53.0) % Plt Count 120 L 76 L 97 L (150-450) k/uL 12/29/21 Range/Units 04:15 WBC 10.9 H (3.8-10.6) k/uL RBC 3.06 L (4.30-5.90) m/uL Hgb 9.3 L (13.0-17.5) gm/dL Hct 27.3 L (39.0-53.0) % Plt Count 89 L (150-450) k/uL Comprehensive Metabolic Panel 12/28/21 12/28/21 12/28/21 Range/Units 08:09 10:03 12:27 Sodium 106 L* 107 L* 108 L* (137-145) mmol/L Potassium (3.5-5.1) mmol/L Chloride (98-107) mmol/L Carbon Dioxide (22-30) mmol/L BUN (9-20) mg/dL Creatinine (0.66-1.25) mg/dL Glucose (74-99) mg/dL Calcium (8.4-10.2) mg/dL AST (17-59) U/L ALT (4-49) U/L Alkaline Phosphatase (38-126) U/L Total Protein (6.3-8.2) g/dL Albumin (3.5-5.0) g/dL 12/28/21 12/28/21 12/29/21 Range/Units 16:56 21:35 00:19 Sodium 110 L* 115 L* 115 L* (137-145) mmol/L Potassium (3.5-5.1) mmol/L Chloride (98-107) mmol/L Carbon Dioxide (22-30) mmol/L BUN (9-20) mg/dL Creatinine (0.66-1.25) mg/dL Glucose (74-99) mg/dL Calcium (8.4-10.2) mg/dL AST (17-59) U/L ALT (4-49) U/L Alkaline Phosphatase (38-126) U/L Total Protein (6.3-8.2) g/dL Albumin (3.5-5.0) g/dL 12/29/21 Range/Units 04:15 Sodium 117 L* (137-145) mmol/L Potassium 3.4 L (3.5-5.1) mmol/L Chloride 96 L (98-107) mmol/L Carbon Dioxide 17 L (22-30) mmol/L BUN 31 H (9-20) mg/dL Creatinine 0.65 L (0.66-1.25) mg/dL Glucose 83 (74-99) mg/dL Calcium 6.0 L* (8.4-10.2) mg/dL AST 83 H (17-59) U/L ALT 24 (4-49) U/L Alkaline Phosphatase 47 (38-126) U/L Total Protein 2.9 L (6.3-8.2) g/dL Albumin 1.6 L (3.5-5.0) g/dL Current Medications Generic Name Dose Route Start Last Admin Trade Name Freq PRN Reason Stop Dose Admin Albuterol/Ipratropium 3 ml 12/28/21 06:07 Ipratropium-Albuterol 3 Ml Neb INHALATION RT-QID PRN Shortness Of Breath Or Wheezing Budesonide/Formoterol Fumarate 2 puff 12/28/21 08:00 12/28/21 19:40 Symbicort 160-4.5 Mcg Inhaler INHALATION Not Given RT-BID [facility] Chlorhexidine Gluconate 15 ml 12/29/21 09:00 Chlorhexidine Gluconate 15 Ml Cup MUCOUS MEM BID [facility] Hydromorphone HCl 0.5 mg 12/29/21 05:40 12/29/21 06:03 Hydromorphone 0.5 Mg/0.5 Ml Syringe IVP 0.5 mg Q4HR PRN Administration Pain Norepinephrine Bitartrate 4 mg 254 mls @ 14.517 mls/hr 12/28/21 17:45 12/29/21 05:02 / Sodium Chloride IV 0.1 mcg/kg/min .[id number] [facility] 29.034 mls/hr Administration Protocol 0.05 MCG/KG/MIN Sodium Chloride 1,000 mls @ 130 mls/hr 12/28/21 21:15 12/29/21 05:02 Saline 0.9% IV 130 mls/hr .Q7H42M [facility] Administration Cefazolin Sodium 2 gm/ Sodium 50 mls @ 100 mls/hr 12/29/21 00:00 12/29/21 00:14 Chloride IVPB 100 mls/hr Q8HR [facility] Administration Protocol Metronidazole 500 mg/ IV 100 mls @ 100 mls/hr 12/28/21 22:00 12/29/21 01:00 Solution IVPB 100 mls/hr Q8H [facility] Administration Protocol Fluconazole/Sodium Chloride 50 mls @ 50 mls/hr 12/28/21 22:00 12/28/21 21:44 100 mg/ IV Solution IVPB 50 mls/hr Q24H [facility] Administration Protocol Propofol 1,000 mg/ IV Solution 100 mls @ 2.286 mls/hr 12/28/21 23:15 12/29/21 05:04 IV 20 mcg/kg/min .Q24H [facility] 9.144 mls/hr Administration Protocol 5 MCG/KG/MIN Potassium Chloride 20 meq/ IV 100 mls @ 50 mls/hr 12/29/21 05:45 Solution IVPB 12/29/21 09:44 Q2H [facility] Protocol Magnesium Sulfate/Dextrose 1 100 mls @ 100 mls/hr 12/29/21 05:45 12/29/21 06:03 gm/ IV Solution IVPB 12/29/21 07:44 100 mls/hr Q1H [facility] Administration Ipratropium [place] 0.5 mg 12/28/21 08:00 12/28/21 19:40 Ipratropium 0.5 Mg/2.5 Ml Nebu INHALATION Not Given RT-QID [facility] Lorazepam 1 mg 12/28/21 16:23 Lorazepam 1 Mg/0.5 Ml Vial IV Q2HR PRN CIWA 8 or 9 Lorazepam 1 mg 12/28/21 16:23 Lorazepam 1 Mg/0.5 Ml Vial IV Q1HR PRN CIWA 10 to 15 Lorazepam 2 mg 12/28/21 16:23 Lorazepam 1 Mg/0.5 Ml Vial IV 12/30/21 16:23 Q10M PRN CIWA 16 or higher Miscellaneous Information 1 each 12/29/21 05:40 Potassium Replacement Protocol 1 Each Mis MISCELLANE DAILY PRN Per Protocol Protocol Miscellaneous Information 1 each 12/29/21 05:40 Magnesium Replacement Protocol 1 Each Mis MISCELLANE DAILY PRN Per Protocol Protocol Naloxone HCl 0.2 mg 12/28/21 05:04 Naloxone 0.4 Mg/Ml 1 Ml Vial IV Q2M PRN Opioid Reversal Nicotine 1 patch 12/28/21 16:30 12/28/21 17:55 Nicotine 21mg/24hr Patch TRANSDERM 1 patch DAILY [facility] Administration Pantoprazole Sodium 40 mg 12/28/21 21:00 12/28/21 22:53 Pantoprazole 40 Mg/10 Ml Vial IVP 40 mg BID [facility] Administration Thiamine HCl 100 mg 12/29/21 07:30 Thiamine 100 Mg Tab PO BID-W/MEALS [facility] Intake and Output 12/28/21 12/29/21 12/29/21 22:59 06:59 14:59 Intake Total 3463.778 1448.704 336 Output Total 750 770 135 Balance 2713.778 678.704 201 Intake: IV 1883 1279 336 0.9 NaCl- 130 130 Arterial pressure bag 3 24 3 CVP pressure bag 15 3 Calcium Gluconate 100 Flagyl 100 Fluconazole in NaCl,Iso- 50 Osm 100 mg In Saline 1 50ml.bag @ 50 mls/hr IVPB Q24H [facility] Rx#:[id number] Kefzol 50 Magnesium 100 Sodium Chloride 0.9% 1, 1130 910 000 ml @ 130 mls/hr IV . Q7H42M [facility] Rx#:[id number] Intake, IV Titration 51.778 169.704 Amount Norepinephrine 4 mg In 51.778 169.704 Sodium Chloride 0.9% 250 ml @ 0.05 MCG/KG/MIN 14. 517 mls/hr IV .[id number] [facility] Rx#:[id number] Blood Product 1529 Platelet Pheresis Pas 289 Psoralen Unit [id number] Rc As-1 Unit 310 [id number] Rc As-1 Unit 310 [id number] Rc As-1 Unit 310 [id number] Rc Cpda-1 Unit 310 [id number] Output: Drainage 65 80 Abdomen 65 80 Urine 700 455 55 Oral Regurgitation 250 Estimated Blood Loss 50 Other: Voiding Method Indwelling Catheter Indwelling Catheter # Voids 1 # Bowel Movements 2 Weight 64.5 kg 12/29/21 04:15 12/29/21 04:15
[2021-12-29] MEDS: THIAMINE 100 MG TAB PO SCH ×2 (07:58→17:23)
[2021-12-29] MEDS: PANTOPRAZOLE 40 MG/10 ML VIAL IVP SCH (09:25)
[2021-12-29] MEDS: NICOTINE 21MG/24HR PATCH TRANSDERM SCH (09:25)
[2021-12-29] MEDS: CHLORHEXIDINE GLUCONATE 15 ML CUP MUCOUS MEM SCH (09:25)
--- NOTE | 2021-12-29 10:47 | P.PN ---
Subjective Progress Note Date: 12/29/21 66-year-old male patient brought into the hospital because of generalized weakness and fatigue and addition to nausea and emesis and numbness and paresthesias. The patient has undergone a surgery cervical spine approximately a month at outside hospital. The patient stated that he has not been feeling w ell since. He has been calm progressively more weak over the past few weeks and the patient had loss in appetite. He has not been eating much or drinking much. As a result, he became progressively more weak and he end up coming into the hospital. Denies having any focal weakness. He takes Prozac at home. He has previous history of alcohol abuse,. He also has COPD management on a combination of Symbicort and Spiriva on outpatient basis regarding takes is no peripheral blood pressure control. At the time of his emergency evaluation, the patient was afebrile hemodynamically stable pulse ox of 99% on room air oxygen. Nevertheless, electrodes was significantly abnormal with a sodium level of 103 and a chloride level of 74 with a BUN of 40 and a creatinine of 1.05. The white cell count was at 5.6 with a hemoglobin of 8.1 and a platelet count of 155. The albumin was 3.2 with a total protein of 4.5. Serum alcohol was negative. He had a positive troponins of 0.05 and 0.04 respectively 2. TSH was at 1.08 and a serum cortisol was 44. UA was negative. His COVID 19 testing was also negative. His chest x-ray showed no acute abnormalities. There is some old left-sided rib fractures. Note that despite this hyponatremia, the patient did not have any seizure activity. No altered mentation. He is appropriate and following commands and answering questions appropriately. He was brought into the intensive care unit and he was started on hypertonic saline solution and currently is on 3% saline, running at the rate of 25 mL an hour. Electrodes are being checked on a regular basis every 4 hours. Noted the initial sodium was at 102 and it came up to 106. Initial creatinine was 1.1 came down to 1.05. History of any chest pain for now. The patient states that he lives in [facility]. He lives alone. 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 He is also a . It seems that he has done some medical care through the year to [facility]. Denies having any recent cold COVID 19 infection. He apparently has been drinking and he Is Drinking. He Was Taken around 5-6 Beers a Day and on and off He Still drinking probably 1 or 2 beers. Doesn't have much of help. His been having difficulty with mobility and ambulation. Surgical wound site over the anterior cervical area is dry clean and intact. No fever. No chills. No focal neurological deficit. He is able to answer questions appropriately although he is slow in answering questions. On 12/29/2021, I'm seeing the patient in the intensive care unit. I was involved in the events that occurred yesterday. Noted the patient later after no went into a shock state. The patient had massive GI bleeding with maroon color stool. Immediately, he was started on packed RBC transfusion and he was also given platelets. Gen. surgery was involved in the case and the patient underwent a EGD at the bedside and the patient was found to have a bleeding duodenal ulcer. After resuscitation, the patient was taken to the operating room as the patient was having constant bleeding and he was becoming hemodynamically unstable and he was in a shock state. Based on that, he was taken to the operating room and he underwent an extensive laparotomy and he underwent oversewing of a bleeding duodenal ulcer with pyloroplasty. Estimated blood loss was around 50 mL. Following that, the patient was kept intubated and he was brought into the intensive care unit for further monitoring. Lowest hemoglobin was around 5.0. The patient received a total of 4 units of packed RBC and a unit of platelet concentrates. This morning, the patient is on normal saline at the rate of 1 30 mL an hour. Sodium level is gradually, and is currently up to 117. His BUN is at 31 with a creatinine of 0.6. Serum bicarbs at 17. The patient has a hemoglobin of 9.3 and the white second attempt 0.5 with a platelet count of 89. He remains on propofol is was sedated and was running at 20 mcg/kg per minute. He is an assist-control mode of mechanical ventilation at the rate of 12 with a tidal volume of 450 and an FiO2 of 35% with a PEEP of 5. Blood gases showed a pH of 7.41 with a pCO2 of 29 and pO2 of 150. Chest x-ray shows adequate positioning of the ET tube and the patient also has a or G-tube in place. No evidence of any bleeding through his orogastric tube. Urine output is adequate and order of 30 mL an hour. Objective - Vital Signs Vital signs: Vital Signs Temp 98 F 12/29/21 08:00 Pulse 68 12/29/21 10:30 Resp 15 12/29/21 10:30 BP 114/61 12/29/21 10:30 Pulse Ox 100 12/29/21 10:30 FiO2 35 12/29/21 10:30 Intake & Output 12/28/21 12/29/21 12/29/21 18:59 06:59 18:59 Intake Total 2545 2542.482 730.233 Output Total 800 1200 235 Balance 1745 1342.482 495.233 Weight 76.204 kg 64.5 kg Intake: IV 1925 1412 608 0.9 NaCl- 130 390 Arterial pressure bag 27 9 CVP pressure bag 15 9 Calcium Gluconate 100 Flagyl 100 Fluconazole in NaCl,Iso- 50 Osm 100 mg In Saline 1 50ml.bag @ 50 mls/hr IVPB Q24H DONAL[facility] Rx#:[id number] Kefzol 50 Magnesium 100 Sodium Chloride 0.9% 1, 1000 1040 000 ml @ 130 mls/hr IV . [id number] DONALD Rx#:[id number] Sodium Chloride 3%( 175 Hypertonic) 500 ml @ 25 mls/hr IV .Q20H DONALD Rx#: [id number] Intake, IV Titration 221.482 122.233 Amount Norepinephrine 4 mg In 221.482 122.233 Sodium Chloride 0.9% 250 ml @ 0.05 MCG/KG/MIN 14. 517 mls/hr IV .[id number] DONALD Rx#:[id number] Blood Product 620 909 Platelet Pheresis Pas 289 Psoralen Unit [id number] Rc As-1 Unit 0 310 [id number] Rc As-1 Unit 310 [id number] Rc As-1 Unit 310 [id number] Rc Cpda-1 Unit 310 [id number] Output: Drainage 65 80 Abdomen 65 80 Urine 800 835 155 Oral Regurgitation 250 Estimated Blood Loss 50 Other: Voiding Method Indwelling Catheter Indwelling Catheter Indwelling Catheter # Voids 1 # Bowel Movements 2 ABP, PAP, CO, CI - Last Documented Arterial Blood Pressure 139/48 - Exam Sedated patient is calm and comfortable think mechanical ventilator. Orogastric and orotracheal tube are both in place. Head exam was generally normal. There was no scleral icterus or corneal arcus. Mucous membranes were moist. Neck was supple and without jugular venous distension, thyromegaly, or carotid bruits. Carotids were easily palpable bilaterally. There was no adenopathy. Scar of the previous cervical spine surgery over the anterior neck area on the right is dry clean and intact. Lung sounds are diminished bilaterally. No wheezes or rhonchi. Cardiac exam revealed the PMI to be normally situated and sized. The rhythm was regular and no extrasystoles were noted during several minutes of auscultation. The first and second heart sounds were normal and physiologic splitting of the second heart sound was noted. There were no murmurs, rubs, clicks, or gallops. Abdominal examination reveals a mid abdominal incision. No direct tenderness. No rebound tenderness. No guarding. Hypoactive bowel sounds and the patient has a JEB drain in place. The surgical dressing is somewhat soaks. There is no evidence of any active bleeding. Examination of the extremities revealed easily palpable radial, femoral and pedal pulses. There was no cyanosis, clubbing or edema. Examination of the skin revealed no evidence of significant rashes, suspicious appearing nevi or other concerning lesions. The patient has scars of previous surgery over the lower spine area in the lumbar region posteriorly and the patient also has a scar over the left shoulder area that the previous shoulder surgery. Another scar over the anterior neck area at the site of the cervical s pine surgery. Neurologically, the patient has generalized global weakness in all 4 extremities. His neurologic exam is nonfocal. Pupils are equal reactive to light. No seizure activity. No facial asymmetry. No Babinski or clonus at this point in time. The patient is currently sedated with propofol. - Labs CBC & Chem 7: 12/29/21 04:15 12/29/21 04:15 Labs: Abnormal Lab Results - Last 24 Hours (Table) 12/28/21 12/28/21 12/28/21 Range/Units 10:03 10:03 12:27 WBC (3.8-10.6) k/uL RBC (4.30-5.90) m/uL Hgb (13.0-17.5) gm/dL Hct (39.0-53.0) % MCV (80.0-100.0) fL RDW (11.5-15.5) % Plt Count (150-450) k/uL Neutrophils # (1.3-7.7) k/uL Neutrophils # (Manual) (1.3-7.7) k/uL Lymphocytes # (1.0-4.8) k/uL Lymphocytes # (Manual) (1.0-4.8) k/uL ABG pH (7.35-7.45) ABG pCO2 (35-45) mmHg ABG pO2 (83-108) mmHg ABG HCO3 (21-25) mmol/L ABG O2 Saturation (94-97) % Sodium 107 L* 108 L* (137-145) mmol/L Potassium (3.5-5.1) mmol/L Chloride (98-107) mmol/L Carbon Dioxide (22-30) mmol/L BUN (9-20) mg/dL Creatinine (0.66-1.25) mg/dL POC Glucose (mg/dL) (70-110) mg/dL Calcium (8.4-10.2) mg/dL Phosphorus (2.5-4.5) mg/dL AST (17-59) U/L Troponin I 0.054 H* (0.000-0.034) ng/mL Total Protein (6.3-8.2) g/dL Albumin (3.5-5.0) g/dL Crossmatch 12/28/21 12/28/21 12/28/21 Range/Units 14:30 14:31 15:01 WBC (3.8-10.6) k/uL RBC 1.44 L (4.30-5.90) m/uL Hgb 5.0 L* D (13.0-17.5) gm/dL Hct 14.4 L* (39.0-53.0) % MCV 100.1 H (80.0-100.0) fL RDW (11.5-15.5) % Plt Count 120 L (150-450) k/uL Neutrophils # (1.3-7.7) k/uL Neutrophils # (Manual) (1.3-7.7) k/uL Lymphocytes # 0.4 L (1.0-4.8) k/uL Lymphocytes # (Manual) (1.0-4.8) k/uL ABG pH (7.35-7.45) ABG pCO2 (35-45) mmHg ABG pO2 (83-108) mmHg ABG HCO3 (21-25) mmol/L ABG O2 Saturation (94-97) % Sodium (137-145) mmol/L Potassium (3.5-5.1) mmol/L Chloride (98-107) mmol/L Carbon Dioxide (22-30) mmol/L BUN (9-20) mg/dL Creatinine (0.66-1.25) mg/dL POC Glucose (mg/dL) 64 L 177 H (70-110) mg/dL Calcium (8.4-10.2) mg/dL Phosphorus (2.5-4.5) mg/dL AST (17-59) U/L Troponin I (0.000-0.034) ng/mL Total Protein (6.3-8.2) g/dL Albumin (3.5-5.0) g/dL Crossmatch 12/28/21 12/28/21 12/28/21 Range/Units 15:15 16:56 16:56 WBC (3.8-10.6) k/uL RBC 2.60 L (4.30-5.90) m/uL Hgb 7.9 L D (13.0-17.5) gm/dL Hct 22.9 L (39.0-53.0) % MCV (80.0-100.0) fL RDW (11.5-15.5) % Plt Count 76 L (150-450) k/uL Neutrophils # (1.3-7.7) k/uL Neutrophils # (Manual) 7.83 H (1.3-7.7) k/uL Lymphocytes # (1.0-4.8) k/uL Lymphocytes # (Manual) 0.35 L (1.0-4.8) k/uL ABG pH (7.35-7.45) ABG pCO2 (35-45) mmHg ABG pO2 (83-108) mmHg ABG HCO3 (21-25) mmol/L ABG O2 Saturation (94-97) % Sodium 110 L* (137-145) mmol/L Potassium (3.5-5.1) mmol/L Chloride (98-107) mmol/L Carbon Dioxide (22-30) mmol/L BUN (9-20) mg/dL Creatinine (0.66-1.25) mg/dL POC Glucose (mg/dL) (70-110) mg/dL Calcium (8.4-10.2) mg/dL Phosphorus (2.5-4.5) mg/dL AST (17-59) U/L Troponin I (0.000-0.034) ng/mL Total Protein (6.3-8.2) g/dL Albumin (3.5-5.0) g/dL Crossmatch See Detail 12/28/21 12/28/21 12/28/21 Range/Units 21:35 21:35 21:36 WBC (3.8-10.6) k/uL RBC 3.36 L (4.30-5.90) m/uL Hgb 10.4 L (13.0-17.5) gm/dL Hct 30.5 L (39.0-53.0) % MCV (80.0-100.0) fL RDW (11.5-15.5) % Plt Count 97 L (150-450) k/uL Neutrophils # 9.6 H (1.3-7.7) k/uL Neutrophils # (Manual) (1.3-7.7) k/uL Lymphocytes # 0.3 L (1.0-4.8) k/uL Lymphocytes # (Manual) (1.0-4.8) k/uL ABG pH 7.32 L (7.35-7.45) ABG pCO2 (35-45) mmHg ABG pO2 216 H (83-108) mmHg ABG HCO3 19 L (21-25) mmol/L ABG O2 Saturation 100.0 H (94-97) % Sodium 115 L* (137-145) mmol/L Potassium (3.5-5.1) mmol/L Chloride (98-107) mmol/L Carbon Dioxide (22-30) mmol/L BUN (9-20) mg/dL Creatinine (0.66-1.25) mg/dL POC Glucose (mg/dL) (70-110) mg/dL Calcium (8.4-10.2) mg/dL Phosphorus (2.5-4.5) mg/dL AST (17-59) U/L Troponin I (0.000-0.034) ng/mL Total Protein (6.3-8.2) g/dL Albumin (3.5-5.0) g/dL Crossmatch 12/29/21 12/29/21 12/29/21 Range/Units 00:19 04:15 04:15 WBC 10.9 H (3.8-10.6) k/uL RBC 3.06 L (4.30-5.90) m/uL Hgb 9.3 L (13.0-17.5) gm/dL Hct 27.3 L (39.0-53.0) % MCV (80.0-100.0) fL RDW 15.7 H (11.5-15.5) % Plt Count 89 L (150-450) k/uL Neutrophils # 10.2 H (1.3-7.7) k/uL Neutrophils # (Manual) (1.3-7.7) k/uL Lymphocytes # 0.3 L (1.0-4.8) k/uL Lymphocytes # (Manual) (1.0-4.8) k/uL ABG pH (7.35-7.45) ABG pCO2 (35-45) mmHg ABG pO2 (83-108) mmHg ABG HCO3 (21-25) mmol/L ABG O2 Saturation (94-97) % Sodium 115 L* 117 L* (137-145) mmol/L Potassium 3.4 L (3.5-5.1) mmol/L Chloride 96 L (98-107) mmol/L Carbon Dioxide 17 L (22-30) mmol/L BUN 31 H (9-20) mg/dL Creatinine 0.65 L (0.66-1.25) mg/dL POC Glucose (mg/dL) (70-110) mg/dL Calcium 6.0 L* (8.4-10.2) mg/dL Phosphorus 2.4 L (2.5-4.5) mg/dL AST 83 H (17-59) U/L Troponin I (0.000-0.034) ng/mL Total Protein 2.9 L (6.3-8.2) g/dL Albumin 1.6 L (3.5-5.0) g/dL Crossmatch 12/29/21 Range/Units 04:53 WBC (3.8-10.6) k/uL RBC (4.30-5.90) m/uL Hgb (13.0-17.5) gm/dL Hct (39.0-53.0) % MCV (80.0-100.0) fL RDW (11.5-15.5) % Plt Count (150-450) k/uL Neutrophils # (1.3-7.7) k/uL Neutrophils # (Manual) (1.3-7.7) k/uL Lymphocytes # (1.0-4.8) k/uL Lymphocytes # (Manual) (1.0-4.8) k/uL ABG pH (7.35-7.45) ABG pCO2 29 L (35-45) mmHg ABG pO2 150 H (83-108) mmHg ABG HCO3 18 L (21-25) mmol/L ABG O2 Saturation 99.7 H (94-97) % Sodium (137-145) mmol/L Potassium (3.5-5.1) mmol/L Chloride (98-107) mmol/L Carbon Dioxide (22-30) mmol/L BUN (9-20) mg/dL Creatinine (0.66-1.25) mg/dL POC Glucose (mg/dL) (70-110) mg/dL Calcium (8.4-10.2) mg/dL Phosphorus (2.5-4.5) mg/dL AST (17-59) U/L Troponin I (0.000-0.034) ng/mL Total Protein (6.3-8.2) g/dL Albumin (3.5-5.0) g/dL Crossmatch Microbiology - Last 24 Hours (Table) 12/28/21 03:35 Blood Culture - Preliminary Blood No Growth after 24 hours 12/28/21 03:40 Blood Culture - Preliminary Blood No Growth after 24 hours Assessment and Plan Plan: Acute upper GI bleeding secondary to a duodenal ulcer. The patient had massive upper GI bleeding with hemodynamic instability and shock state and the patient was adequately resuscitated, EGD was done, bleeding was identified and following that the patient underwent expiratory laparotomy and oversewing of a duodenal ulcer and the patient is currently postop day #1. Bleeding has been controlled for now. Most recent hemoglobin is 9.3. Acute blood loss anemia with a drop in hemoglobin as low as 5.0. Received a total of 4 units of packed RBC Acute thrombocytopenia, patient was in place Plavix and the patient was given platelet transfusion Acute hypotension/shock secondary to hypovolemic state and blood loss, improved and the patient is currently on low-dose pressors Acute hypoxic respiratory failure secondary to above-mentioned events Hyponatremia, likely subacute/chronic due to diminished oral intake and excessive alcohol drinking and this seems to be a hypovolemic hypochloremic hyponatremia , sodium level is improving and the sodium level is up 117, the patient continues to be on normal saline infusion Generalized weakness secondary to hyponatremia Altered mentation secondary to hyponatremia Alcoholism/excessive beer drinking Cervical spine surgery, details are not known. Surgical op note is not availa ble and this has been done in the [facility] and extension, [facility]. COPD management and accommodation Spiriva and Symbicort on outpatient basis Hypertension Coronary artery disease and based on the history the patient has undergone a previous coronary stenting to the LAD. He does have some limited troponin leaks yet the EKG is not showing any acute ischemic changes in the patient's p reoperative any chest pain and the patient is hemodynamically stable. Intravascular volume depletion/dehydration with a component of mild acute kidney injury, improving Acute lactic acidosis, secondary to above, improved on the level is down to 1.7 Plan Continue ventilator support no ventilator changes for today Gradually build of the sodium level and the patient will be kept intubated on a mechanical ventilator. Note that the patient was encephalopathic due to his hyponatremia and I met the rate to extubate this patient yet especially with his ongoing encephalopathy and GI bleed 88 with nephrology to continue the normal saline at the same rate and monitor the electrolytes, avoid rapid correction of the sodium levels Keep the patient nothing by mouth for today May ultimately replaced or G with an NG tube as the patient is being ready for extubation Wean off pressors and discontinue and the patient is currently on low-dose norepinephrine Monitor hemoglobin IV Protonix Watch for any signs of delirium tremens as the patient is beer drinker and possibly alcoholic Continue IV cefazolin and Diflucan and Flagyl We'll continue to follow. Keep the patient ICU for now., Critically care evaluation, more than 30 minutes Time with Patient: Greater than 30
--- NOTE | 2021-12-29 11:31 | P.PN ---
Subjective Patient is seen for follow-up for hyponatremia. He has a history of EtOH abuse with history of intake off 5-6 cans of beer on a daily basis. Initial sodium was 102 mg/L and patient was maintained on 3% saline. His serum sodium had increased to about 108 mEq per liter yesterday however he he developed the significant shock from bleeding duodenal ulcer. Patient was taken to OR on 12/28/2021 and had explorative laparotomy with oversewing of leading duodenal ulcer with pyloroplasty. Currently maintained on saline at about 1 30 mL an hour as patient is hypotensive and maintained on pressors. Levo fed is currently being weaned down. Sodium is staying in about 1:15 to 1 17 mg/L currently. Objective - Vital Signs Vital signs: Vital Signs Temp 98 F 12/29/21 08:00 Pulse 66 12/29/21 11:22 Resp 15 12/29/21 10:30 BP 114/61 12/29/21 10:30 Pulse Ox 100 12/29/21 10:30 FiO2 35 12/29/21 11:18 Intake & Output 12/28/21 12/29/21 12/29/21 18:59 06:59 18:59 Intake Total 2545 2542.482 866.233 Output Total 800 1200 285 Balance 1745 1342.482 581.233 Weight 76.204 kg 64.5 kg Intake: IV 1925 1412 744 0.9 NaCl- 130 520 Arterial pressure bag 27 12 CVP pressure bag 15 12 Calcium Gluconate 100 Flagyl 100 Fluconazole in NaCl,Iso- 50 Osm 100 mg In Saline 1 50ml.bag @ 50 mls/hr IVPB Q24H [facility] Rx#:[id number] Kefzol 50 Magnesium 100 Sodium Chloride 0.9% 1, 1000 1040 000 ml @ 130 mls/hr IV . Q7H42M [facility] Rx#:[id number] Sodium Chloride 3%( 175 Hypertonic) 500 ml @ 25 mls/hr IV .Q20H [facility] Rx#: [id number] Intake, IV Titration 221.482 122.233 Amount Norepinephrine 4 mg In 221.482 122.233 Sodium Chloride 0.9% 250 ml @ 0.05 MCG/KG/MIN 14. 517 mls/hr IV .[id number] [facility] Rx#:[id number] Blood Product 620 909 Platelet Pheresis Pas 289 Psoralen Unit [id number] Rc As-1 Unit 0 310 [id number] Rc As-1 Unit 310 [id number] Rc As-1 Unit 310 [id number] Rc Cpda-1 Unit 310 [id number] Output: Drainage 65 80 Abdomen 65 80 Urine 800 835 205 Oral Regurgitation 250 Estimated Blood Loss 50 Other: Voiding Method Indwelling Catheter Indwelling Catheter Indwelling Catheter # Voids 1 # Bowel Movements 2 ABP, PAP, CO, CI - Last Documented Arterial Blood Pressure 139/48 - Exam Patient is sedated and on the vent Examination of the heart S1 and S2 Examination lungs bilateral breath sounds are heard Abdomen is soft, incision is dressed some drainage noted. 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 - Labs CBC & Chem 7: 12/29/21 04:15 12/29/21 04:15 Labs: Abnormal Lab Results - Last 24 Hours (Table) 12/28/21 12/28/21 12/28/21 Range/Units 12:27 14:30 14:31 WBC (3.8-10.6) k/uL RBC 1.44 L (4.30-5.90) m/uL Hgb 5.0 L* D (13.0-17.5) gm/dL Hct 14.4 L* (39.0-53.0) % MCV 100.1 H (80.0-100.0) fL RDW (11.5-15.5) % Plt Count 120 L (150-450) k/uL Neutrophils # (1.3-7.7) k/uL Neutrophils # (Manual) (1.3-7.7) k/uL Lymphocytes # 0.4 L (1.0-4.8) k/uL Lymphocytes # (Manual) (1.0-4.8) k/uL ABG pH (7.35-7.45) ABG pCO2 (35-45) mmHg ABG pO2 (83-108) mmHg ABG HCO3 (21-25) mmol/L ABG O2 Saturation (94-97) % Sodium 108 L* (137-145) mmol/L Potassium (3.5-5.1) mmol/L Chloride (98-107) mmol/L Carbon Dioxide (22-30) mmol/L BUN (9-20) mg/dL Creatinine (0.66-1.25) mg/dL POC Glucose (mg/dL) 64 L (70-110) mg/dL Calcium (8.4-10.2) mg/dL Phosphorus (2.5-4.5) mg/dL AST (17-59) U/L Total Protein (6.3-8.2) g/dL Albumin (3.5-5.0) g/dL Crossmatch 12/28/21 12/28/21 12/28/21 Range/Units 15:01 15:15 16:56 WBC (3.8-10.6) k/uL RBC 2.60 L (4.30-5.90) m/uL Hgb 7.9 L D (13.0-17.5) gm/dL Hct 22.9 L (39.0-53.0) % MCV (80.0-100.0) fL RDW (11.5-15.5) % Plt Count 76 L (150-450) k/uL Neutrophils # (1.3-7.7) k/uL Neutrophils # (Manual) 7.83 H (1.3-7.7) k/uL Lymphocytes # (1.0-4.8) k/uL Lymphocytes # (Manual) 0.35 L (1.0-4.8) k/uL ABG pH (7.35-7.45) ABG pCO2 (35-45) mmHg ABG pO2 (83-108) mmHg ABG HCO3 (21-25) mmol/L ABG O2 Saturation (94-97) % Sodium (137-145) mmol/L Potassium (3.5-5.1) mmol/L Chloride (98-107) mmol/L Carbon Dioxide (22-30) mmol/L BUN (9-20) mg/dL Creatinine (0.66-1.25) mg/dL POC Glucose (mg/dL) 177 H (70-110) mg/dL Calcium (8.4-10.2) mg/dL Phosphorus (2.5-4.5) mg/dL AST (17-59) U/L Total Protein (6.3-8.2) g/dL Albumin (3.5-5.0) g/dL Crossmatch See Detail 12/28/21 12/28/21 12/28/21 Range/Units 16:56 21:35 21:35 WBC (3.8-10.6) k/uL RBC 3.36 L (4.30-5.90) m/uL Hgb 10.4 L (13.0-17.5) gm/dL Hct 30.5 L (39.0-53.0) % MCV (80.0-100.0) fL RDW (11.5-15.5) % Plt Count 97 L (150-450) k/uL Neutrophils # 9.6 H (1.3-7.7) k/uL Neutrophils # (Manual) (1.3-7.7) k/uL Lymphocytes # 0.3 L (1.0-4.8) k/uL Lymphocytes # (Manual) (1.0-4.8) k/uL ABG pH (7.35-7.45) ABG pCO2 (35-45) mmHg ABG pO2 (83-108) mmHg ABG HCO3 (21-25) mmol/L ABG O2 Saturation (94-97) % Sodium 110 L* 115 L* (137-145) mmol/L Potassium (3.5-5.1) mmol/L Chloride (98-107) mmol/L Carbon Dioxide (22-30) mmol/L BUN (9-20) mg/dL Creatinine (0.66-1.25) mg/dL POC Glucose (mg/dL) (70-110) mg/dL Calcium (8.4-10.2) mg/dL Phosphorus (2.5-4.5) mg/dL AST (17-59) U/L Total Protein (6.3-8.2) g/dL Albumin (3.5-5.0) g/dL Crossmatch 12/28/21 12/29/21 12/29/21 Range/Units 21:36 00:19 04:15 WBC 10.9 H (3.8-10.6) k/uL RBC 3.06 L (4.30-5.90) m/uL Hgb 9.3 L (13.0-17.5) gm/dL Hct 27.3 L (39.0-53.0) % MCV (80.0-100.0) fL RDW 15.7 H (11.5-15.5) % Plt Count 89 L (150-450) k/uL Neutrophils # 10.2 H (1.3-7.7) k/uL Neutrophils # (Manual) (1.3-7.7) k/uL Lymphocytes # 0.3 L (1.0-4.8) k/uL Lymphocytes # (Manual) (1.0-4.8) k/uL ABG pH 7.32 L (7.35-7.45) ABG pCO2 (35-45) mmHg ABG pO2 216 H (83-108) mmHg ABG HCO3 19 L (21-25) mmol/L ABG O2 Saturation 100.0 H (94-97) % Sodium 115 L* (137-145) mmol/L Potassium (3.5-5.1) mmol/L Chloride (98-107) mmol/L Carbon Dioxide (22-30) mmol/L BUN (9-20) mg/dL Creatinine (0.66-1.25) mg/dL POC Glucose (mg/dL) (70-110) mg/dL Calcium (8.4-10.2) mg/dL Phosphorus (2.5-4.5) mg/dL AST (17-59) U/L Total Protein (6.3-8.2) g/dL Albumin (3.5-5.0) g/dL Crossmatch 12/29/21 12/29/21 Range/Units 04:15 04:53 WBC (3.8-10.6) k/uL RBC (4.30-5.90) m/uL Hgb (13.0-17.5) gm/dL Hct (39.0-53.0) % MCV (80.0-100.0) fL RDW (11.5-15.5) % Plt Count (150-450) k/uL Neutrophils # (1.3-7.7) k/uL Neutrophils # (Manual) (1.3-7.7) k/uL Lymphocytes # (1.0-4.8) k/uL Lymphocytes # (Manual) (1.0-4.8) k/uL ABG pH (7.35-7.45) ABG pCO2 29 L (35-45) mmHg ABG pO2 150 H (83-108) mmHg ABG HCO3 18 L (21-25) mmol/L ABG O2 Saturation 99.7 H (94-97) % Sodium 117 L* (137-145) mmol/L Potassium 3.4 L (3.5-5.1) mmol/L Chloride 96 L (98-107) mmol/L Carbon Dioxide 17 L (22-30) mmol/L BUN 31 H (9-20) mg/dL Creatinine 0.65 L (0.66-1.25) mg/dL POC Glucose (mg/dL) (70-110) mg/dL Calcium 6.0 L* (8.4-10.2) mg/dL Phosphorus 2.4 L (2.5-4.5) mg/dL AST 83 H (17-59) U/L Total Protein 2.9 L (6.3-8.2) g/dL Albumin 1.6 L (3.5-5.0) g/dL Crossmatch Microbiology - Last 24 Hours (Table) 12/28/21 03:35 Blood Culture - Preliminary Blood No Growth after 24 hours 12/28/21 03:40 Blood Culture - Preliminary Blood No Growth after 24 hours Assessment and Plan Assessment: 1. Hyponatremia most likely associated with excessive beer intake, poor solute intake and some degree of hypovolemia. Status post 3% saline currently maintained on normal saline due to hypovolemic shock from bleeding duodenal ulcer. 2. Weakness and numbness most likely related to hyponatremia 3. EtOH abuse with history of 5-6 beers daily 4. History of COPD 5. Hypertension maintained on ANNALISA inhibitor's and atenolol. Blood pressure is currently on the lower side 6. Metabolic acidosis associated with lactic acidosis 7. GI bleed with profusely bleeding duodenal ulcer status post explorative laparotomy and oversewing of bleeding duodenal ulcer with pyloroplasty on 12/28/2021 Plan: Continue saline for now Continue to wean off pressors Repeat sodium in 4 hours.
--- NOTE | 2021-12-29 12:06 | P.PN ---
Subjective Progress Note Date: 12/29/21 CHIEF COMPLAINT: Bleeding duodenal ulcer HISTORY OF PRESENT ILLNESS: Patient is postop day #1 exploratory laparotomy with oversewing of bleeding duodenal ulcer with pyloroplasty. Patient is in the ICU and intubated on mechanical ventilation. Patient is on small dose of Levophed. Also on propofol. Afebrile. WBC is 10.9 Hgb is down from 10.4-9.3. The lowest hemoglobin was 5.0. Patient did receive a total 4 units of RBCs and 1 unit of platelets for GI bleed. Patient seen by cardiology due to elevated troponin. They've ordered an echo. PHYSICAL EXAM: VITAL SIGNS: Reviewed. GENERAL: Well-developed in no acute distress. HEENT: No sclera icterus. Extraocular movements grossly intact. Moist buccal mucosa. Head is atraumatic, normocephalic. ABDOMEN: Soft. Nondistended. Nontender. NEUROLOGIC: Alert and oriented. Cranial nerves II through XII grossly intact. ASSESSMENT: 1. Bleeding duodenal ulcer 2. Massive upper GI bleed 3. Acute blood loss anemia due to GI bleed 4. Severe hyponatremia followed by nephrology PLAN: -Continue ICU management and supportive care -Dr. Hilliard to switch OG tube to NG tube -Continue IV Protonix -Continue IV fluids Physician Japanese Tutor note has been reviewed by physician. Signing provider agrees with the documented findings, assessment, and plan of care. I have personally seen and examined the patient, reviewed the INTERVENTIONAL TECH /PAs history, exam and MDM and agree with the assessment and plan as written. Based on total visit time, I have performed more than 50% of the visit. As above: Patient doing better today. Hemoglobin is stable. Gastric tube is bilious at this time. JEB drain is serous anus. Continue gastric tube to suction. Wean from ventilator per pulmonary. Continue antiacid therapy. We'll follow. Objective - Vital Signs Vital signs: Vital Signs Temp 98 F 12/29/21 08:00 Pulse 73 12/29/21 11:33 Resp 13 12/29/21 11:00 BP 114/60 12/29/21 11:00 Pulse Ox 100 12/29/21 11:00 FiO2 35 12/29/21 11:18 Intake & Output 12/28/21 12/29/21 12/29/21 18:59 06:59 18:59 Intake Total 2545 2542.482 1002.233 Output Total 800 1200 315 Balance 1745 1342.482 687.233 Weight 76.204 kg 64.5 kg Intake: IV 1925 1412 880 0.9 NaCl- 130 650 Arterial pressure bag 27 15 CVP pressure bag 15 15 Calcium Gluconate 100 Flagyl 100 Fluconazole in NaCl,Iso- 50 Osm 100 mg In Saline 1 50ml.bag @ 50 mls/hr IVPB Q24H [facility] Rx#:[id number] Kefzol 50 Magnesium 100 Sodium Chloride 0.9% 1, 1000 1040 000 ml @ 130 mls/hr IV . Q7H42M [facility] Rx#:[id number] Sodium Chloride 3%( 175 Hypertonic) 500 ml @ 25 mls/hr IV .Q20H [facility] Rx#: [id number] Intake, IV Titration 221.482 122.233 Amount Norepinephrine 4 mg In 221.482 122.233 Sodium Chloride 0.9% 250 ml @ 0.05 MCG/KG/MIN 14. 517 mls/hr IV .[id number] [facility] Rx#:[id number] Blood Product 620 909 Platelet Pheresis Pas 289 Psoralen Unit [id number] Rc As-1 Unit 0 310 [id number] Rc As-1 Unit 310 [id number] Rc As-1 Unit 310 [id number] Rc Cpda-1 Unit 310 [id number] Output: Drainage 65 80 Abdomen 65 80 Urine 800 835 235 Oral Regurgitation 250 Estimated Blood Loss 50 Other: Voiding Method Indwelling Catheter Indwelling Catheter Indwelling Catheter # Voids 1 # Bowel Movements 2 ABP, PAP, CO, CI - Last Documented Arterial Blood Pressure 124/48 - Labs CBC & Chem 7: 12/29/21 04:15 12/29/21 12:09 Labs: Abnormal Lab Results - Last 24 Hours (Table) 12/28/21 12/28/21 12/28/21 Range/Units 12:27 14:30 14:31 WBC (3.8-10.6) k/uL RBC 1.44 L (4.30-5.90) m/uL Hgb 5.0 L* D (13.0-17.5) gm/dL Hct 14.4 L* (39.0-53.0) % MCV 100.1 H (80.0-100.0) fL RDW (11.5-15.5) % Plt Count 120 L (150-450) k/uL Neutrophils # (1.3-7.7) k/uL Neutrophils # (Manual) (1.3-7.7) k/uL Lymphocytes # 0.4 L (1.0-4.8) k/uL Lymphocytes # (Manual) (1.0-4.8) k/uL ABG pH (7.35-7.45) ABG pCO2 (35-45) mmHg ABG pO2 (83-108) mmHg ABG HCO3 (21-25) mmol/L ABG O2 Saturation (94-97) % Sodium 108 L* (137-145) mmol/L Potassium (3.5-5.1) mmol/L Chloride (98-107) mmol/L Carbon Dioxide (22-30) mmol/L BUN (9-20) mg/dL Creatinine (0.66-1.25) mg/dL POC Glucose (mg/dL) 64 L (70-110) mg/dL Calcium (8.4-10.2) mg/dL Phosphorus (2.5-4.5) mg/dL AST (17-59) U/L Total Protein (6.3-8.2) g/dL Albumin (3.5-5.0) g/dL Crossmatch 12/28/21 12/28/21 12/28/21 Range/Units 15:01 15:15 16:56 WBC (3.8-10.6) k/uL RBC 2.60 L (4.30-5.90) m/uL Hgb 7.9 L D (13.0-17.5) gm/dL Hct 22.9 L (39.0-53.0) % MCV (80.0-100.0) fL RDW (11.5-15.5) % Plt Count 76 L (150-450) k/uL Neutrophils # (1.3-7.7) k/uL Neutrophils # (Manual) 7.83 H (1.3-7.7) k/uL Lymphocytes # (1.0-4.8) k/uL Lymphocytes # (Manual) 0.35 L (1.0-4.8) k/uL ABG pH (7.35-7.45) ABG pCO2 (35-45) mmHg ABG pO2 (83-108) mmHg ABG HCO3 (21-25) mmol/L ABG O2 Saturation (94-97) % Sodium (137-145) mmol/L Potassium (3.5-5.1) mmol/L Chloride (98-107) mmol/L Carbon Dioxide (22-30) mmol/L BUN (9-20) mg/dL Creatinine (0.66-1.25) mg/dL POC Glucose (mg/dL) 177 H (70-110) mg/dL Calcium (8.4-10.2) mg/dL Phosphorus (2.5-4.5) mg/dL AST (17-59) U/L Total Protein (6.3-8.2) g/dL Albumin (3.5-5.0) g/dL Crossmatch See Detail 12/28/21 12/28/21 12/28/21 Range/Units 16:56 21:35 21:35 WBC (3.8-10.6) k/uL RBC 3.36 L (4.30-5.90) m/uL Hgb 10.4 L (13.0-17.5) gm/dL Hct 30.5 L (39.0-53.0) % MCV (80.0-100.0) fL RDW (11.5-15.5) % Plt Count 97 L (150-450) k/uL Neutrophils # 9.6 H (1.3-7.7) k/uL Neutrophils # (Manual) (1.3-7.7) k/uL Lymphocytes # 0.3 L (1.0-4.8) k/uL Lymphocytes # (Manual) (1.0-4.8) k/uL ABG pH (7.35-7.45) ABG pCO2 (35-45) mmHg ABG pO2 (83-108) mmHg ABG HCO3 (21-25) mmol/L ABG O2 Saturation (94-97) % Sodium 110 L* 115 L* (137-145) mmol/L Potassium (3.5-5.1) mmol/L Chloride (98-107) mmol/L Carbon Dioxide (22-30) mmol/L BUN (9-20) mg/dL Creatinine (0.66-1.25) mg/dL POC Glucose (mg/dL) (70-110) mg/dL Calcium (8.4-10.2) mg/dL Phosphorus (2.5-4.5) mg/dL AST (17-59) U/L Total Protein (6.3-8.2) g/dL Albumin (3.5-5.0) g/dL Crossmatch 12/28/21 12/29/21 12/29/21 Range/Units 21:36 00:19 04:15 WBC 10.9 H (3.8-10.6) k/uL RBC 3.06 L (4.30-5.90) m/uL Hgb 9.3 L (13.0-17.5) gm/dL Hct 27.3 L (39.0-53.0) % MCV (80.0-100.0) fL RDW 15.7 H (11.5-15.5) % Plt Count 89 L (150-450) k/uL Neutrophils # 10.2 H (1.3-7.7) k/uL Neutrophils # (Manual) (1.3-7.7) k/uL Lymphocytes # 0.3 L (1.0-4.8) k/uL Lymphocytes # (Manual) (1.0-4.8) k/uL ABG pH 7.32 L (7.35-7.45) ABG pCO2 (35-45) mmHg ABG pO2 216 H (83-108) mmHg ABG HCO3 19 L (21-25) mmol/L ABG O2 Saturation 100.0 H (94-97) % Sodium 115 L* (137-145) mmol/L Potassium (3.5-5.1) mmol/L Chloride (98-107) mmol/L Carbon Dioxide (22-30) mmol/L BUN (9-20) mg/dL Creatinine (0.66-1.25) mg/dL POC Glucose (mg/dL) (70-110) mg/dL Calcium (8.4-10.2) mg/dL Phosphorus (2.5-4.5) mg/dL AST (17-59) U/L Total Protein (6.3-8.2) g/dL Albumin (3.5-5.0) g/dL Crossmatch 12/29/21 12/29/21 Range/Units 04:15 04:53 WBC (3.8-10.6) k/uL RBC (4.30-5.90) m/uL Hgb (13.0-17.5) gm/dL Hct (39.0-53.0) % MCV (80.0-100.0) fL RDW (11.5-15.5) % Plt Count (150-450) k/uL Neutrophils # (1.3-7.7) k/uL Neutrophils # (Manual) (1.3-7.7) k/uL Lymphocytes # (1.0-4.8) k/uL Lymphocytes # (Manual) (1.0-4.8) k/uL ABG pH (7.35-7.45) ABG pCO2 29 L (35-45) mmHg ABG pO2 150 H (83-108) mmHg ABG HCO3 18 L (21-25) mmol/L ABG O2 Saturation 99.7 H (94-97) % Sodium 117 L* (137-145) mmol/L Potassium 3.4 L (3.5-5.1) mmol/L Chloride 96 L (98-107) mmol/L Carbon Dioxide 17 L (22-30) mmol/L BUN 31 H (9-20) mg/dL Creatinine 0.65 L (0.66-1.25) mg/dL POC Glucose (mg/dL) (70-110) mg/dL Calcium 6.0 L* (8.4-10.2) mg/dL Phosphorus 2.4 L (2.5-4.5) mg/dL AST 83 H (17-59) U/L Total Protein 2.9 L (6.3-8.2) g/dL Albumin 1.6 L (3.5-5.0) g/dL Crossmatch Microbiology - Last 24 Hours (Table) 12/28/21 03:35 Blood Culture - Preliminary Blood No Growth after 24 hours 12/28/21 03:40 Blood Culture - Preliminary Blood No Growth after 24 hours
[2021-12-29 12:11] LABS: Glucose,Whole Blood 97 mg/dL (70-110)
[2021-12-29 12:29] LABS: Magnesium 2.2 mg/dL (1.6-2.3); Potassium 4.3 mmol/L (3.5-5.1)
[2021-12-29 12:31] LABS: Calcium 6.3 mg/dL (8.4-10.2)
--- NOTE | 2021-12-29 12:59 | CA ---
Transthoracic Echo Report Name: Boogie Baird Age: 66 Gender: M : 1955 Exam Date: 12/29/2021 10:20 Exam Location: [facility] Ht (in): 67 Wt (lb): 142 Ordering Physician: Andrei Campuzano MD ([id number]) Attending/Referring Phys: Pension Fund Manager Kaylee Reyes RDCS Procedure CPT: Indications: CAD Cardiac Hx: Technical Quality: Technically difficult study Contrast 1: Lumason Total Dose (mL): 3 Contrast 2: Total Dose (mL): MEASUREMENTS (Male / Female) Normal Values 2D ECHO LV Diastolic Diameter PLAX 4.5 cm 4.2 - 5.9 / 3.9 - 5.3 cm LV Systolic Diameter PLAX 2.6 cm IVS Diastolic Thickness 1.3 cm 0.6 - 1.0 / 0.6 - 0.9 cm LVPW Diastolic Thickness 1.3 cm 0.6 - 1.0 / 0.6 - 0.9 cm LV Relative Wall Thickness 0.6 RV Internal Dim ED PLAX 2.7 cm LA Systolic Diameter LX 3.7 cm 3.0 - 4.0 / 2.7 - 3.8 cm M-MODE Aortic Root Diameter MM 3.0 cm AV Cusp Separation MM 1.9 cm DOPPLER AV Peak Velocity 96.1 cm/s AV Peak Gradient 3.7 mmHg MV Area PHT 3.6 cm??? Mitral E Point Velocity 58.6 cm/s Mitral A Point Velocity 59.7 cm/s Mitral E to A Ratio 1.0 MV Deceleration Time 209.1 ms TR Peak Velocity 264.2 cm/s TR Peak Gradient 27.9 mmHg Right Ventricular Systolic Press 32.9 mmHg FINDINGS Left Ventricle Left ventricular ejection fraction is estimated at 55-60 %. Left ventricular cavity size normal. Mild concentric left ventricular hypertrophy. Right Ventricle Normal right ventricular size and function. Right ventricular systolic pressure within normal limits. Right Atrium Normal right atrial size. Left Atrium Normal left atrial size. Mitral Valve Structurally normal mitral valve. No mitral stenosis, regurgitation or prolapse. Aortic Valve Aortic valve not well visualized. No aortic valve stenosis or regurgitation. Tricuspid Valve Mild tricuspid regurgitation. Pulmonic Valve Pulmonic valve not well visualized. Pericardium Normal pericardium. No pericardial effusion. Aorta Normal size aortic root and proximal ascending aorta. CONCLUSIONS Normal LV systolic function Previewed by: Dr. Lul Jackson MD (Electronically Signed) Final Date: 29 December 2021 12:58
[2021-12-29] MEDS ORDERED: CALCIUM GLUCONATE IN NACL 1 GM in SALINE 1 100ML.BAG IVPB ONE (15:06)
--- NOTE | 2021-12-29 16:57 | P.PN ---
Subjective Progress Note Date: 12/29/21 Patient seen and examined at bedside patient's currently on the vent. Objective - Vital Signs Vital signs: Vital Signs Temp 97.9 F 12/29/21 12:00 Pulse 67 12/29/21 16:28 Resp 13 12/29/21 15:00 BP 113/55 12/29/21 15:00 Pulse Ox 100 12/29/21 15:00 FiO2 35 12/29/21 16:16 Intake & Output 12/28/21 12/29/21 12/29/21 18:59 06:59 18:59 Intake Total 2545 2542.482 1633.197 Output Total 800 1200 555 Balance 1745 7811.021 8769.197 Weight 76.204 kg 64.5 kg 64.5 kg Intake: IV 1925 1412 1418 0.9 NaCl- 130 1170 Arterial pressure bag 27 27 CVP pressure bag 15 21 Calcium Gluconate 100 Flagyl 100 Fluconazole in NaCl,Iso- 50 Osm 100 mg In Saline 1 50ml.bag @ 50 mls/hr IVPB Q24H [facility] Rx#:[id number] Kefzol 50 Magnesium 100 Sodium Chloride 0.9% 1, 1000 1040 000 ml @ 130 mls/hr IV . Q7H42M [facility] Rx#:[id number] Sodium Chloride 3%( 175 Hypertonic) 500 ml @ 25 mls/hr IV .Q20H [facility] Rx#: [id number] Intake, IV Titration 221.482 215.197 Amount Norepinephrine 4 mg In 221.482 122.233 Sodium Chloride 0.9% 250 ml @ 0.05 MCG/KG/MIN 14. 517 mls/hr IV .[id number] [facility] Rx#:[id number] propofoL 1,000 mg In 92.964 Empty Bag 1 bag @ 5 MCG/ KG/MIN 2.286 mls/hr IV . Q24H [facility] Rx#:[id number] Blood Product 620 909 Platelet Pheresis Pas 289 Psoralen Unit [id number] Rc As-1 Unit 0 310 [id number] Rc As-1 Unit 310 [id number] Rc As-1 Unit 310 [id number] Rc Cpda-1 Unit 310 [id number] Output: Drainage 65 80 Abdomen 65 80 Urine 800 835 475 Oral Regurgitation 250 Estimated Blood Loss 50 Other: Voiding Method Indwelling Catheter Indwelling Catheter Indwelling Catheter # Voids 1 # Bowel Movements 2 ABP, PAP, CO, CI - Last Documented Arterial Blood Pressure 129/48 - Exam General: [non toxic], [no distress], [appears at older than stated age] Derm: [warm], [dry] Head: [atraumatic], [normocephalic], [symmetric] Eyes: [EOMI], [no lid lag], [anicteric sclera] Mouth: [no lip lesion], [mucus membranes moist] Cardiovascular: [S1S2 reg], [no murmur], [positive posterior tibial pulse bilateral], Lungs: [CTA bilateral], [no rhonchi, no rales] , [no accessory muscle use] Abdominal: [soft], [ nontender to palpation], [no guarding], [no appreciable organomegaly] Ext: [no gross muscle atrophy], [no edema], [no contractures] Neuro: On vent Psych: On vent - Labs CBC & Chem 7: 12/29/21 04:15 12/29/21 12:09 Labs: Abnormal Lab Results - Last 24 Hours (Table) 12/28/21 12/28/21 12/28/21 Range/Units 15:15 16:56 16:56 WBC (3.8-10.6) k/uL RBC 2.60 L (4.30-5.90) m/uL Hgb 7.9 L D (13.0-17.5) gm/dL Hct 22.9 L (39.0-53.0) % RDW (11.5-15.5) % Plt Count 76 L (150-450) k/uL Neutrophils # (1.3-7.7) k/uL Neutrophils # (Manual) 7.83 H (1.3-7.7) k/uL Lymphocytes # (1.0-4.8) k/uL Lymphocytes # (Manual) 0.35 L (1.0-4.8) k/uL ABG pH (7.35-7.45) ABG pCO2 (35-45) mmHg ABG pO2 (83-108) mmHg ABG HCO3 (21-25) mmol/L ABG O2 Saturation (94-97) % Sodium 110 L* (137-145) mmol/L Potassium (3.5-5.1) mmol/L Chloride (98-107) mmol/L Carbon Dioxide (22-30) mmol/L BUN (9-20) mg/dL Creatinine (0.66-1.25) mg/dL Calcium (8.4-10.2) mg/dL Phosphorus (2.5-4.5) mg/dL AST (17-59) U/L Total Protein (6.3-8.2) g/dL Albumin (3.5-5.0) g/dL Crossmatch See Detail 12/28/21 12/28/21 12/28/21 Range/Units 21:35 21:35 21:36 WBC (3.8-10.6) k/uL RBC 3.36 L (4.30-5.90) m/uL Hgb 10.4 L (13.0-17.5) gm/dL Hct 30.5 L (39.0-53.0) % RDW (11.5-15.5) % Plt Count 97 L (150-450) k/uL Neutrophils # 9.6 H (1.3-7.7) k/uL Neutrophils # (Manual) (1.3-7.7) k/uL Lymphocytes # 0.3 L (1.0-4.8) k/uL Lymphocytes # (Manual) (1.0-4.8) k/uL ABG pH 7.32 L (7.35-7.45) ABG pCO2 (35-45) mmHg ABG pO2 216 H (83-108) mmHg ABG HCO3 19 L (21-25) mmol/L ABG O2 Saturation 100.0 H (94-97) % Sodium 115 L* (137-145) mmol/L Potassium (3.5-5.1) mmol/L Chloride (98-107) mmol/L Carbon Dioxide (22-30) mmol/L BUN (9-20) mg/dL Creatinine (0.66-1.25) mg/dL Calcium (8.4-10.2) mg/dL Phosphorus (2.5-4.5) mg/dL AST (17-59) U/L Total Protein (6.3-8.2) g/dL Albumin (3.5-5.0) g/dL Crossmatch 12/29/21 12/29/21 12/29/21 Range/Units 00:19 04:15 04:15 WBC 10.9 H (3.8-10.6) k/uL RBC 3.06 L (4.30-5.90) m/uL Hgb 9.3 L (13.0-17.5) gm/dL Hct 27.3 L (39.0-53.0) % RDW 15.7 H (11.5-15.5) % Plt Count 89 L (150-450) k/uL Neutrophils # 10.2 H (1.3-7.7) k/uL Neutrophils # (Manual) (1.3-7.7) k/uL Lymphocytes # 0.3 L (1.0-4.8) k/uL Lymphocytes # (Manual) (1.0-4.8) k/uL ABG pH (7.35-7.45) ABG pCO2 (35-45) mmHg ABG pO2 (83-108) mmHg ABG HCO3 (21-25) mmol/L ABG O2 Saturation (94-97) % Sodium 115 L* 117 L* (137-145) mmol/L Potassium 3.4 L (3.5-5.1) mmol/L Chloride 96 L (98-107) mmol/L Carbon Dioxide 17 L (22-30) mmol/L BUN 31 H (9-20) mg/dL Creatinine 0.65 L (0.66-1.25) mg/dL Calcium 6.0 L* (8.4-10.2) mg/dL Phosphorus 2.4 L (2.5-4.5) mg/dL AST 83 H (17-59) U/L Total Protein 2.9 L (6.3-8.2) g/dL Albumin 1.6 L (3.5-5.0) g/dL Crossmatch 12/29/21 12/29/21 12/29/21 Range/Units 04:53 12:09 12:09 WBC (3.8-10.6) k/uL RBC (4.30-5.90) m/uL Hgb (13.0-17.5) gm/dL Hct (39.0-53.0) % RDW (11.5-15.5) % Plt Count (150-450) k/uL Neutrophils # (1.3-7.7) k/uL Neutrophils # (Manual) (1.3-7.7) k/uL Lymphocytes # (1.0-4.8) k/uL Lymphocytes # (Manual) (1.0-4.8) k/uL ABG pH (7.35-7.45) ABG pCO2 29 L (35-45) mmHg ABG pO2 150 H (83-108) mmHg ABG HCO3 18 L (21-25) mmol/L ABG O2 Saturation 99.7 H (94-97) % Sodium 118 L* (137-145) mmol/L Potassium (3.5-5.1) mmol/L Chloride (98-107) mmol/L Carbon Dioxide (22-30) mmol/L BUN (9-20) mg/dL Creatinine (0.66-1.25) mg/dL Calcium 6.3 L* (8.4-10.2) mg/dL Phosphorus (2.5-4.5) mg/dL AST (17-59) U/L Total Protein (6.3-8.2) g/dL Albumin (3.5-5.0) g/dL Crossmatch Microbiology - Last 24 Hours (Table) 12/28/21 03:35 Blood Culture - Preliminary Blood No Growth after 24 hours 12/28/21 03:40 Blood Culture - Preliminary Blood No Growth after 24 hours Assessment and Plan Assessment: Acute GI bleed status post emergent surgery for duodenal ulcer repair Currently on vent management Surgery recommendations appreciated trend H & H ICU recommendations appreciated Severe hyponatremia slowly improving Likely due to Poor oral intake and beer potomania Nephrology following Seizure precautions Fall precautions Neurochecks Elevated troponin Trend troponin, patient denies chest pain or trouble breathing Patient has strong history of CAD status post stents Radiology for History of alcohol dependence CIWA protocol History of COPD not on home oxygen Continue with inhalers and nebulizers as needed Tobacco dependence Nicotine patch ordered DVT prophylaxis mechanical Full code
[2021-12-29 19:24] LABS: Calcium 6.6 mg/dL (8.4-10.2)
[2021-12-30] MEDS: FLUCONAZOLE IN NACL,ISO-OSM 100 MG in SALINE 1 50ML.BAG IVPB SCH ×2 (00:03→22:38)
[2021-12-30] MEDS: PANTOPRAZOLE 40 MG/10 ML VIAL IVP SCH ×3 (00:03→20:11)
[2021-12-30] MEDS: metroNIDAZOLE-NS PMX 500 MG in SALINE 1 100ML.BAG IVPB SCH ×4 (00:03→22:38)
[2021-12-30] MEDS: CHLORHEXIDINE GLUCONATE 15 ML CUP MUCOUS MEM SCH ×2 (00:04→09:39)
[2021-12-30] MEDS: HYDROmorphone 0.5 MG/0.5 ML SYRINGE IVP PRN ×4 (00:38→20:12)
[2021-12-30] MEDS: SODIUM CHLORIDE 0.9% 1,000 ML IV SCH ×2 (03:11→09:17)
[2021-12-30 04:42] LABS: Glucose,Whole Blood 86 mg/dL (70-110)
[2021-12-30 04:53] LABS: Anisocytosis Slight; Basophils % (A) 0 %; Eosinophils % (A) 1 %; HCT 25.3 % (39.0-53.0); HGB 8.4 gm/dL (13.0-17.5); Lymphocytes # (A) 0.4 k/uL (1.0-4.8); Lymphocytes % (A) 4 %; MCH 30.6 pg (25.0-35.0); MCHC 33.4 g/dL (31.0-37.0); MCV 91.7 fL (80.0-100.0); Mean Platelet Volume 9.4; Monocytes # (A) 0.5 k/uL (0-1.0); Monocytes % (A) 6 %; Neutrophils # (A) 8.5 k/uL (1.3-7.7); Neutrophils % (A) 89 %; RBC 2.76 m/uL (4.30-5.90); RDW 16.7 % (11.5-15.5); WBC 9.6 k/uL (3.8-10.6)
[2021-12-30 04:55] LABS: Platelet Count 94 k/uL (150-450)
[2021-12-30 05:22] LABS: Ionized Calcium 4.6 mg/dL (4.5-5.3)
[2021-12-30 05:26] LABS: ALT 25 U/L (4-49); AST 85 U/L (17-59); African American GFR (CKD) >90 (>60 ml/min/1.73 sqM); Albumin 1.6 g/dL (3.5-5.0); Alkaline Phosphatase 56 U/L (38-126); Anion Gap 4 mmol/L; Blood Urea Nitrogen 20 mg/dL (9-20); Calcium 6.7 mg/dL (8.4-10.2); Carbon Dioxide 15 mmol/L (22-30); Chloride 102 mmol/L (98-107); Glucose 72 mg/dL (74-99); Magnesium 2.1 mg/dL (1.6-2.3); Non-African American GFR(CKD) >90 (>60 ml/min/1.73 sqM); Potassium 3.6 mmol/L (3.5-5.1); Sodium 121 mmol/L (137-145); Total Bilirubin 0.1 mg/dL (0.2-1.3)
[2021-12-30 05:42] LABS: ABG HCO3 17 mmol/L (21-25); ABG Oxygen Saturation 99.8 % (94-97); ABG PCO2 31 mmHg (35-45); ABG PH 7.36 (7.35-7.45); ABG PO2 140 mmHg (83-108); ABG TCO2 18 mmol/L (19-24)
[2021-12-30] MEDS ORDERED: Potassium Replacement Protocol 1 EACH MISC MISCELLANE PRN (07:21)
[2021-12-30] MEDS: IPRATROPIUM-ALBUTEROL 3 ML NEB INHALATION PRN (07:37)
[2021-12-30] MEDS: SYMBICORT 160-4.5 MCG INHALER INHALATION SCH ×2 (07:37→19:49)
[2021-12-30] MEDS: THIAMINE 100 MG TAB PO SCH ×2 (07:37→16:32)
[2021-12-30] MEDS: IPRATROPIUM 0.5 MG/2.5 ML NEBU INHALATION SCH ×4 (07:37→19:48)
--- NOTE | 2021-12-30 07:56 | XR ---
EXAMINATION TYPE: XR chest 1V portable DATE OF EXAM: 12/30/2021 COMPARISON: NONE HISTORY: SOB, Follow Up FINDINGS: Indwelling tubes and catheters are unchanged. No change in bibasilar opacities. Stable appearance of the cardio-mediastinal structures at this time. IMPRESSION: 1. Stable portable chest. Clinical correlation and follow up until resolution is recommended.
--- NOTE | 2021-12-30 09:07 | P.PN ---
Subjective Patient is seen in follow-up for hyponatremia. Patient's sodium level was 102 on admission on 12/28/2021 at 3:17 AM. This morning it was 121. Patient is off vasopressors. Currently on normal saline at 130 mL an hour. Intubated. Patient did receive 4 units of packed red cell transfusion as well as platelet transfusion this admission. Hemoglobin this morning is 8.4. Urine output has been about 30-40 mL an hour. Vital signs are stable. General: Resting in bed. HEENT: Intubated. LUNGS: Breath sounds decreased. HEART: Rate and Rhythm are regular. ABDOMEN: Soft, no distention. EXTREMITITES: No edema. Objective - Vital Signs Vital signs: Vital Signs Temp 96.6 F L 12/30/21 07:00 Pulse 78 12/30/21 07:48 Resp 12 12/30/21 07:00 BP 129/70 12/30/21 07:00 Pulse Ox 100 12/30/21 07:00 FiO2 35 12/30/21 07:31 Intake & Output 12/29/21 12/30/21 12/30/21 18:59 06:59 18:59 Intake Total 2185.995 1963.912 136 Output Total 715 668 30 Balance 7038.564 5676.912 106 Weight 64.5 kg 67.5 kg 69.1 kg Intake: IV 1926 1832 136 0.9 NaCl- 1560 1560 130 Arterial pressure bag 36 36 3 CVP pressure bag 30 36 3 Calcium Gluconate 200 100 Fluconazole in NaCl,Iso- 50 Osm 100 mg In Saline 1 50ml.bag @ 50 mls/hr IVPB Q24H [facility] Rx#:[id number] Kefzol 50 Magnesium 100 Intake, IV Titration 259.995 131.912 Amount Norepinephrine 4 mg In 145.847 Sodium Chloride 0.9% 250 ml @ 0.05 MCG/KG/MIN 14. 517 mls/hr IV .[id number] [facility] Rx#:[id number] propofoL 1,000 mg In 114.148 131.912 Empty Bag 1 bag @ 5 MCG/ KG/MIN 2.286 mls/hr IV . Q24H [facility] Rx#:[id number] Output: Gastric Drainage 100 Drainage 140 140 Abdomen 140 140 Urine 575 428 30 Other: Voiding Method Indwelling Catheter Indwelling Catheter ABP, PAP, CO, CI - Last Documented Arterial Blood Pressure 136/47 - Labs CBC & Chem 7: 12/30/21 04:35 12/30/21 04:35 Labs: Abnormal Lab Results - Last 24 Hours (Table) 12/29/21 12/29/21 12/29/21 Range/Units 12:09 12:09 18:57 RBC (4.30-5.90) m/uL Hgb (13.0-17.5) gm/dL Hct (39.0-53.0) % RDW (11.5-15.5) % Plt Count (150-450) k/uL Neutrophils # (1.3-7.7) k/uL Lymphocytes # (1.0-4.8) k/uL ABG pCO2 (35-45) mmHg ABG pO2 (83-108) mmHg ABG HCO3 (21-25) mmol/L ABG Total CO2 (19-24) mmol/L ABG O2 Saturation (94-97) % Sodium 118 L* 120 L (137-145) mmol/L Carbon Dioxide (22-30) mmol/L Creatinine (0.66-1.25) mg/dL Glucose (74-99) mg/dL Calcium 6.3 L* 6.6 L (8.4-10.2) mg/dL Total Bilirubin (0.2-1.3) mg/dL AST (17-59) U/L Total Protein (6.3-8.2) g/dL Albumin (3.5-5.0) g/dL 12/30/21 12/30/21 12/30/21 Range/Units 04:35 04:35 05:37 RBC 2.76 L (4.30-5.90) m/uL Hgb 8.4 L (13.0-17.5) gm/dL Hct 25.3 L (39.0-53.0) % RDW 16.7 H (11.5-15.5) % Plt Count 94 L (150-450) k/uL Neutrophils # 8.5 H (1.3-7.7) k/uL Lymphocytes # 0.4 L (1.0-4.8) k/uL ABG pCO2 31 L (35-45) mmHg ABG pO2 140 H (83-108) mmHg ABG HCO3 17 L (21-25) mmol/L ABG Total CO2 18 L (19-24) mmol/L ABG O2 Saturation 99.8 H (94-97) % Sodium 121 L (137-145) mmol/L Carbon Dioxide 15 L (22-30) mmol/L Creatinine 0.59 L (0.66-1.25) mg/dL Glucose 72 L (74-99) mg/dL Calcium 6.7 L (8.4-10.2) mg/dL Total Bilirubin 0.1 L (0.2-1.3) mg/dL AST 85 H (17-59) U/L Total Protein 3.0 L (6.3-8.2) g/dL Albumin 1.6 L (3.5-5.0) g/dL Microbiology - Last 24 Hours (Table) 12/28/21 03:35 Blood Culture - Preliminary Blood No Growth after 48 hours 12/28/21 03:40 Blood Culture - Preliminary Blood No Growth after 48 hours Assessment and Plan Plan: Assessment: 1. Hypovolemic hyponatremia improved with IV hydration. Patient was maintained on normal saline due to shock state. Currently off vasopressors. Sodium level CXXI this morning. Urine osmolality 489. Cortisol 44. TSH normal. 2. Bleeding duodenal ulcer status post exploratory laparotomy with surgical repair/pyloroplasty 12/28/2021. 3. Hemorrhagic and hypovolemic shock status post IV fluids and blood transition. Improved. 4. Metabolic acidosis secondary to IV fluids. 5. History of alcohol abuse. Plan: Stop normal saline. Start D5W at 75 mL an hour. Will maintain sodium level near 120 until tomorrow morning. Replace electrolytes per protocol. Repeat phosphorus level today. 2 A of sodium bicarb IV push now. Add oral bicarb as well. Repeat sodium level at noon.
--- NOTE | 2021-12-30 09:11 | P.PN ---
Subjective Progress Note Date: 12/30/21 PROGRESS NOTE The patient is a 66 year old male who presented with severe hyponatremia and bleeding ulcer, he underwent surgical intervention, he remains intubated and sedated. He is in sinus mechanism, hemodynamically stable. He is on no vasopressors. He had an echocardiogram yesterday that showed a normal systolic function with no significant valvular disease. He has a history of CAD, post stenting of the LAD in [facility] in 2016. History of chronic alcohol intake and a history of COPD. His sodium is up to 121, his hemoglobin is 8.4. Medications: Thiamine, Flagyl,, Symbicort, cefazolin PHYSICAL EXAMINATION: Blood pressure 133/69 heart rate 60 LUNGS: [Clear to auscultation anteriorly] HEART: [Regular rate and rhythm, S1, S2. No S3. No systolic murmur] ABDOMEN: Soft, hypoactive bowel sounds, dressing in place EXTREMETIES: [No edema] LAB: PA 7.36, pCO2 31, pO2 140, hemoglobin 8.4, sodium 121, potassium 3.6. BUN 20, creatinine 0.59 IMPRESSION: 1. Status post surgery for bleeding peptic ulcer 2. Respiratory failure 3. Severe hyponatremia, improving 4. History of CAD, post stenting no evidence of acute coronary syndrome 5. History of hypertension 6. History of hyperlipidemia 7. History of COPD 8. History of chronic alcohol intake PLAN: 1. Hopefully wean and extubate today 2., Follow blood pressure and reinitiate beta nichelle 3. Start statin when he is taking by mouth 4. Follow renal functions 5. Depending on his progress further recommendations will be made Objective - Vital Signs Vital signs: Vital Signs Temp 96.6 F L 12/30/21 08:00 Pulse 62 12/30/21 09:00 Resp 17 12/30/21 09:00 BP 135/69 12/30/21 09:00 Pulse Ox 99 12/30/21 09:00 FiO2 35 12/30/21 09:00 Intake & Output 12/29/21 12/30/21 12/30/21 18:59 06:59 18:59 Intake Total 2185.995 1963.912 136 Output Total 715 668 30 Balance 8064.638 8674.912 106 Weight 64.5 kg 67.5 kg 69.1 kg Intake: IV 6 1832 136 0.9 NaCl- 1560 1560 130 Arterial pressure bag 36 36 3 CVP pressure bag 30 36 3 Calcium Gluconate 200 100 Fluconazole in NaCl,Iso- 50 Osm 100 mg In Saline 1 50ml.bag @ 50 mls/hr IVPB Q24H [facility] Rx#:[id number] Kefzol 50 Magnesium 100 Intake, IV Titration 259.995 131.912 Amount Norepinephrine 4 mg In 145.847 Sodium Chloride 0.9% 250 ml @ 0.05 MCG/KG/MIN 14. 517 mls/hr IV .[id number] [facility] Rx#:[id number] propofoL 1,000 mg In 114.148 131.912 Empty Bag 1 bag @ 5 MCG/ KG/MIN 2.286 mls/hr IV . Q24H [facility] Rx#:[id number] Output: Gastric Drainage 100 Drainage 140 140 Abdomen 140 140 Urine 575 428 30 Other: Voiding Method Indwelling Catheter Indwelling Catheter ABP, PAP, CO, CI - Last Documented Arterial Blood Pressure 133/45 - Labs CBC & Chem 7: 12/30/21 04:35 12/30/21 04:35 Labs: Abnormal Lab Results - Last 24 Hours (Table) 12/29/21 12/29/21 12/29/21 Range/Units 12:09 12:09 18:57 RBC (4.30-5.90) m/uL Hgb (13.0-17.5) gm/dL Hct (39.0-53.0) % RDW (11.5-15.5) % Plt Count (150-450) k/uL Neutrophils # (1.3-7.7) k/uL Lymphocytes # (1.0-4.8) k/uL ABG pCO2 (35-45) mmHg ABG pO2 (83-108) mmHg ABG HCO3 (21-25) mmol/L ABG Total CO2 (19-24) mmol/L ABG O2 Saturation (94-97) % Sodium 118 L* 120 L (137-145) mmol/L Carbon Dioxide (22-30) mmol/L Creatinine (0.66-1.25) mg/dL Glucose (74-99) mg/dL Calcium 6.3 L* 6.6 L (8.4-10.2) mg/dL Total Bilirubin (0.2-1.3) mg/dL AST (17-59) U/L Total Protein (6.3-8.2) g/dL Albumin (3.5-5.0) g/dL 12/30/21 12/30/21 12/30/21 Range/Units 04:35 04:35 05:37 RBC 2.76 L (4.30-5.90) m/uL Hgb 8.4 L (13.0-17.5) gm/dL Hct 25.3 L (39.0-53.0) % RDW 16.7 H (11.5-15.5) % Plt Count 94 L (150-450) k/uL Neutrophils # 8.5 H (1.3-7.7) k/uL Lymphocytes # 0.4 L (1.0-4.8) k/uL ABG pCO2 31 L (35-45) mmHg ABG pO2 140 H (83-108) mmHg ABG HCO3 17 L (21-25) mmol/L ABG Total CO2 18 L (19-24) mmol/L ABG O2 Saturation 99.8 H (94-97) % Sodium 121 L (137-145) mmol/L Carbon Dioxide 15 L (22-30) mmol/L Creatinine 0.59 L (0.66-1.25) mg/dL Glucose 72 L (74-99) mg/dL Calcium 6.7 L (8.4-10.2) mg/dL Total Bilirubin 0.1 L (0.2-1.3) mg/dL AST 85 H (17-59) U/L Total Protein 3.0 L (6.3-8.2) g/dL Albumin 1.6 L (3.5-5.0) g/dL Microbiology - Last 24 Hours (Table) 12/28/21 03:35 Blood Culture - Preliminary Blood No Growth after 48 hours 12/28/21 03:40 Blood Culture - Preliminary Blood No Growth after 48 hours
[2021-12-30] MEDS: DEXTROSE 5% IN WATER 1,000 ML IV SCH ×2 (09:15→20:00)
[2021-12-30] MEDS ORDERED: DEXTROSE 5% IN WATER 1,000 ML IV SCH (09:15)
[2021-12-30] MEDS ORDERED: SODIUM BICARB 8.4% 50 ML SYR (1 MEQ/ML) IV STA (09:15)
[2021-12-30] MEDS: NOREPINEPHRINE 4 MG in SODIUM CHLORIDE 0.9% 250 ML IV SCH (09:18)
--- NOTE | 2021-12-30 09:30 | P.PN ---
Subjective Progress Note Date: 12/30/21 66-year-old male patient brought into the hospital because of generalized weakness and fatigue and addition to nausea and emesis and numbness and paresthesias. The patient has undergone a surgery cervical spine approximately a month at outside hospital. The patient stated that he has not been feeling w ell since. He has been calm progressively more weak over the past few weeks and the patient had loss in appetite. He has not been eating much or drinking much. As a result, he became progressively more weak and he end up coming into the hospital. Denies having any focal weakness. He takes Prozac at home. He has previous history of alcohol abuse,. He also has COPD management on a combination of Symbicort and Spiriva on outpatient basis regarding takes is no peripheral blood pressure control. At the time of his emergency evaluation, the patient was afebrile hemodynamically stable pulse ox of 99% on room air oxygen. Nevertheless, electrodes was significantly abnormal with a sodium level of 103 and a chloride level of 74 with a BUN of 40 and a creatinine of 1.05. The white cell count was at 5.6 with a hemoglobin of 8.1 and a platelet count of 155. The albumin was 3.2 with a total protein of 4.5. Serum alcohol was negative. He had a positive troponins of 0.05 and 0.04 respectively 2. TSH was at 1.08 and a serum cortisol was 44. UA was negative. His COVID 19 testing was also negative. His chest x-ray showed no acute abnormalities. There is some old left-sided rib fractures. Note that despite this hyponatremia, the patient did not have any seizure activity. No altered mentation. He is appropriate and following commands and answering questions appropriately. He was brought into the intensive care unit and he was started on hypertonic saline solution and currently is on 3% saline, running at the rate of 25 mL an hour. Electrodes are being checked on a regular basis every 4 hours. Noted the initial sodium was at 102 and it came up to 106. Initial creatinine was 1.1 came down to 1.05. History of any chest pain for now. The patient states that he lives in [facility]. He lives alone. 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 He is also a . It seems that he has done some medical care through the year to [place] clinic. Denies having any recent cold COVID 19 infection. He apparently has been drinking and he Is Drinking. He Was Taken around 5-6 Beers a Day and on and off He Still drinking probably 1 or 2 beers. Doesn't have much of help. His been having difficulty with mobility and ambulation. Surgical wound site over the anterior cervical area is dry clean and intact. No fever. No chills. No focal neurological deficit. He is able to answer questions appropriately although he is slow in answering questions. On 12/29/2021, I'm seeing the patient in the intensive care unit. I was involved in the events that occurred yesterday. Noted the patient later after no went into a shock state. The patient had massive GI bleeding with maroon color stool. Immediately, he was started on packed RBC transfusion and he was also given platelets. Gen. surgery was involved in the case and the patient underwent a EGD at the bedside and the patient was found to have a bleeding duodenal ulcer. After resuscitation, the patient was taken to the operating room as the patient was having constant bleeding and he was becoming hemodynamically unstable and he was in a shock state. Based on that, he was taken to the operating room and he underwent an extensive laparotomy and he underwent oversewing of a bleeding duodenal ulcer with pyloroplasty. Estimated blood loss was around 50 mL. Following that, the patient was kept intubated and he was brought into the intensive care unit for further monitoring. Lowest hemoglobin was around 5.0. The patient received a total of 4 units of packed RBC and a unit of platelet concentrates. This morning, the patient is on normal saline at the rate of 1 30 mL an hour. Sodium level is gradually, and is currently up to 117. His BUN is at 31 with a creatinine of 0.6. Serum bicarbs at 17. The patient has a hemoglobin of 9.3 and the white second attempt 0.5 with a platelet count of 89. He remains on propofol is was sedated and was running at 20 mcg/kg per minute. He is an assist-control mode of mechanical ventilation at the rate of 12 with a tidal volume of 450 and an FiO2 of 35% with a PEEP of 5. Blood gases showed a pH of 7.41 with a pCO2 of 29 and pO2 of 150. Chest x-ray shows adequate positioning of the ET tube and the patient also has a or G-tube in place. No evidence of any bleeding through his orogastric tube. Urine output is adequate and order of 30 mL an hour. 12/30/2021, the patient remains intubated. He is on propofol at the rate of 30 mics and is particularly Per minute. The patient is also on normal saline at 75 mL an hour. He is on a mechanical ventilator at the rate of 12 with a tidal volume of 450 and FiO2 of 35% with a PEEP of 5. He has an orogastric and orotracheal tube in place. His blood gases from today shows a pH of 7.36 with a pCO2 of 30 and pO2 of 140. The chest x-ray from today shows no acute abnormalities. ET tube is in a good location. The patient also has a orogastric tube in place. Output from the OG is minimal in the order of 100 mL over the past 24 hours. Surgical wound site is dry clean and intact. No further episodes of GI bleeding. Hemoglobin is stable at 8.4. As far as his sodium level, there is concern that there is a rapid correction of the hyponatremia. Based on that, the patient was taken off the normal saline and was placed on D5 water at the rate of 75 mL an hour. His urine output is adequate for now. He is afebrile. He is hemodynamically stable and is on no pressors. The patient is currently postop day #2. The white cell count is at 9.6. Sodium level is at 121 with a potassium level of 3.6. Serum bicarbonate 15. BUN is at 20 with a creatinine of 0.5. Calcium level is at 6.7. Liver function tests are showing an AST of 85, ALT of 25, alkaline phosphatase of 56, albumin of 1.6. Objective - Vital Signs Vital signs: Vital Signs Temp 96.6 F L 12/30/21 08:00 Pulse 62 12/30/21 09:00 Resp 17 12/30/21 09:00 BP 135/69 12/30/21 09:00 Pulse Ox 99 12/30/21 09:00 FiO2 35 12/30/21 09:00 Intake & Output 12/29/21 12/30/21 12/30/21 18:59 06:59 18:59 Intake Total 2185.995 1963.912 136 Output Total 715 668 30 Balance 2436.698 5962.912 106 Weight 64.5 kg 67.5 kg 69.1 kg Intake: IV 1925 1832 136 0.9 NaCl- 1560 1560 130 Arterial pressure bag 36 36 3 CVP pressure bag 30 36 3 Calcium Gluconate 200 100 Fluconazole in NaCl,Iso- 50 Osm 100 mg In Saline 1 50ml.bag @ 50 mls/hr IVPB Q24H [facility] Rx#:[id number] Kefzol 50 Magnesium 100 Intake, IV Titration 259.995 131.912 Amount Norepinephrine 4 mg In 145.847 Sodium Chloride 0.9% 250 ml @ 0.05 MCG/KG/MIN 14. 517 mls/hr IV .[id number] [facility] Rx#:[id number] propofoL 1,000 mg In 114.148 131.912 Empty Bag 1 bag @ 5 MCG/ KG/MIN 2.286 mls/hr IV . Q24H [facility] Rx#:[id number] Output: Gastric Drainage 100 Drainage 140 140 Abdomen 140 140 Urine 575 428 30 Other: Voiding Method Indwelling Catheter Indwelling Catheter ABP, PAP, CO, CI - Last Documented Arterial Blood Pressure 133/45 - Exam Sedated patient is calm and comfortable think mechanical ventilator. Orogastric and orotracheal tube are both in place. Head exam was generally normal. There was no scleral icterus or corneal arcus. Mucous membranes were moist. Neck was supple and without jugular venous distension, thyromegaly, or carotid bruits. Carotids were easily palpable bilaterally. There was no adenopathy. Scar of the previous cervical spine surgery over the anterior neck area on the right is dry clean and intact. Lung sounds are diminished bilaterally. No wheezes or rhonchi. Cardiac exam revealed the PMI to be normally situated and sized. The rhythm was regular and no extrasystoles were noted during several minutes of auscultation. The first and second heart sounds were normal and physiologic splitting of the second heart sound was noted. There were no murmurs, rubs, clicks, or gallops. Abdominal examination reveals a mid abdominal incision. No direct tenderness. No rebound tenderness. No guarding. Hypoactive bowel sounds and the patient has a JEB drain in place. The surgical dressing is somewhat soaks. There is no evidence of any active bleeding. Examination of the extremities revealed easily palpable radial, femoral and pedal pulses. There was no cyanosis, clubbing or edema. Examination of the skin revealed no evidence of significant rashes, suspicious appearing nevi or other concerning lesions. The patient has scars of previous surgery over the lower spine area in the lumbar region posteriorly and the patient also has a scar over the left shoulder area that the previous shoulder surgery. Another scar over the anterior neck area at the site of the cervical spine surgery. Neurologically, the patient has generalized global weakness in all 4 extremities. His neurologic exam is nonfocal. Pupils are equal reactive to light. No seizure activity. No facial asymmetry. No Babinski or clonus at this point in time. The patient is currently sedated with propofol. - Labs CBC & Chem 7: 12/30/21 04:35 12/30/21 04:35 Labs: Abnormal Lab Results - Last 24 Hours (Table) 12/29/21 12/29/21 12/29/21 Range/Units 12:09 12:09 18:57 RBC (4.30-5.90) m/uL Hgb (13.0-17.5) gm/dL Hct (39.0-53.0) % RDW (11.5-15.5) % Plt Count (150-450) k/uL Neutrophils # (1.3-7.7) k/uL Lymphocytes # (1.0-4.8) k/uL ABG pCO2 (35-45) mmHg ABG pO2 (83-108) mmHg ABG HCO3 (21-25) mmol/L ABG Total CO2 (19-24) mmol/L ABG O2 Saturation (94-97) % Sodium 118 L* 120 L (137-145) mmol/L Carbon Dioxide (22-30) mmol/L Creatinine (0.66-1.25) mg/dL Glucose (74-99) mg/dL Calcium 6.3 L* 6.6 L (8.4-10.2) mg/dL Total Bilirubin (0.2-1.3) mg/dL AST (17-59) U/L Total Protein (6.3-8.2) g/dL Albumin (3.5-5.0) g/dL 12/30/21 12/30/21 12/30/21 Range/Units 04:35 04:35 05:37 RBC 2.76 L (4.30-5.90) m/uL Hgb 8.4 L (13.0-17.5) gm/dL Hct 25.3 L (39.0-53.0) % RDW 16.7 H (11.5-15.5) % Plt Count 94 L (150-450) k/uL Neutrophils # 8.5 H (1.3-7.7) k/uL Lymphocytes # 0.4 L (1.0-4.8) k/uL ABG pCO2 31 L (35-45) mmHg ABG pO2 140 H (83-108) mmHg ABG HCO3 17 L (21-25) mmol/L ABG Total CO2 18 L (19-24) mmol/L ABG O2 Saturation 99.8 H (94-97) % Sodium 121 L (137-145) mmol/L Carbon Dioxide 15 L (22-30) mmol/L Creatinine 0.59 L (0.66-1.25) mg/dL Glucose 72 L (74-99) mg/dL Calcium 6.7 L (8.4-10.2) mg/dL Total Bilirubin 0.1 L (0.2-1.3) mg/dL AST 85 H (17-59) U/L Total Protein 3.0 L (6.3-8.2) g/dL Albumin 1.6 L (3.5-5.0) g/dL Microbiology - Last 24 Hours (Table) 12/28/21 03:35 Blood Culture - Preliminary Blood No Growth after 48 hours 12/28/21 03:40 Blood Culture - Preliminary Blood No Growth after 48 hours Assessment and Plan Plan: Acute upper GI bleeding secondary to a duodenal ulcer. The patient had massive upper GI bleeding with hemodynamic instability and shock state and the patient was adequately resuscitated, EGD was done, bleeding was identified and following that the patient underwent expiratory laparotomy and oversewing of a duodenal ulcer and the patient is currently postop day #2. Bleeding has been controlled for now. Most recent hemoglobin is 8.4 Acute blood loss anemia with a drop in hemoglobin as low as 5.0. Received a total of 4 units of packed RBC, and the patient has no evidence of any acute bleeding for now and the hemoglobin is at 8.4 Acute thrombocytopenia, patient was in place Plavix and the patient was given platelet transfusion, stable count of 94,000 Acute hypotension/shock secondary to hypovolemic state and blood loss, improved and the patient is currently off norepinephrine Acute hypoxic respiratory failure secondary to above-mentioned events Hyponatremia, likely subacute/chronic due to diminished oral intake and excessive alcohol drinking and this seems to be a hypovolemic hypochloremic hyponatremia , sodium level is improving and level is 121. Patient was on normal saline switched to D5 water by nephrology. Non-anion gap metabolic acidosis, bicarb level is at 15 Generalized weakness secondary to hyponatremia Alcoholism/excessive beer drinking Cervical spine surgery, details are not known. Surgical op note is not available and this has been done in the [facility], [facility]. COPD management and accommodation Spiriva and Symbicort on outpatient basis Hypertension Coronary artery disease and based on the history the patient has undergone a previous coronary stenting to the LAD. He does have some limited troponin leaks yet the EKG is not showing any acute ischemic changes in the patient's preoperative any chest pain and the patient is hemodynamically stable. Intravascular volume depletion/dehydration with a component of mild acute kidney injury, improving Acute lactic acidosis, secondary to above, improved on the level is down to 1.7 Plan Proceed with sedation holiday Check weaning parameters Would like it final decision from the degenerative surgeon whether he needs a NG tube post extubation. If so, would like to replace OG with an NG prior to doing any weaning trials. Give the patient a total of 100 mEq of bicarb IV Gradually build of the sodium level and the patient will be kept intubated on a mechanical ventilator. Note that the patient was encephalopathic due to his Keep the patient nothing by mouth No pressors for now Hemoglobin is stable IV Protonix No signs of delirium tremens Monitor the output from the JEB drain Surgical wound site is dry clean and intact Possible extubation today Continue IV cefazolin and Diflucan and Flagyl We'll continue to follow. Keep the patient ICU for now., Critically care evaluation, more than 30 minutes
[2021-12-30] MEDS: NICOTINE 21MG/24HR PATCH TRANSDERM SCH (09:39)
[2021-12-30] MEDS: POTASSIUM CHLORIDE 10 MEQ in WATER FOR INJECTION 1 100ML.BAG IVPB SCH ×2 (09:39→10:52)
[2021-12-30] MEDS: SODIUM BICARBONATE TAB 650 MG TAB PO SCH ×2 (09:40→20:11)
--- NOTE | 2021-12-30 11:02 | P.PN ---
Subjective Progress Note Date: 12/30/21 Principal diagnosis: Bleeding duodenal ulcer Patient is doing better today. They're working on extubation. Hemoglobin 8.4 from 9.3. Oral gastric tube being switched to nasal. Patient has bilious nasogastric output overnight. JEB drain is serosanguineous. Objective - Vital Signs Vital signs: Vital Signs Temp 96.6 F L 12/30/21 08:00 Pulse 67 12/30/21 10:00 Resp 17 12/30/21 09:00 BP 116/63 12/30/21 10:00 Pulse Ox 97 12/30/21 10:00 FiO2 35 12/30/21 10:00 Intake & Output 12/29/21 12/30/21 12/30/21 18:59 06:59 18:59 Intake Total 2185.995 1963.912 528 Output Total 715 668 130 Balance 4991.009 5443.912 398 Weight 64.5 kg 67.5 kg 69.1 kg Intake: IV 1926 1832 278 0.9 NaCl- 1560 1560 260 Arterial pressure bag 36 36 9 CVP pressure bag 30 36 9 Calcium Gluconate 200 100 Fluconazole in NaCl,Iso- 50 Osm 100 mg In Saline 1 50ml.bag @ 50 mls/hr IVPB Q24H [facility] Rx#:[id number] Kefzol 50 Magnesium 100 Intake, IV Titration 259.995 131.912 250 Amount Dextrose 5% in Water 1, 150 000 ml @ 75 mls/hr IV . [id number] [facility] Rx#:[id number] Norepinephrine 4 mg In 145.847 Sodium Chloride 0.9% 250 ml @ 0.05 MCG/KG/MIN 14. 517 mls/hr IV .[id number] [facility] Rx#:[id number] propofoL 1,000 mg In 114.148 131.912 100 Empty Bag 1 bag @ 5 MCG/ KG/MIN 2.286 mls/hr IV . Q24H [facility] Rx#:[id number] Output: Gastric Drainage 100 Drainage 140 140 Abdomen 140 140 Urine 575 428 130 Other: Voiding Method Indwelling Catheter Indwelling Catheter Indwelling Catheter ABP, PAP, CO, CI - Last Documented Arterial Blood Pressure 137/50 - Exam Abdomen: Soft, nondistended, mild tenderness, dressing clean and dry, JEB serosanguineous - Labs CBC & Chem 7: 12/30/21 04:35 12/30/21 04:35 Labs: Abnormal Lab Results - Last 24 Hours (Table) 12/29/21 12/29/21 12/29/21 Range/Units 12:09 12:09 18:57 RBC (4.30-5.90) m/uL Hgb (13.0-17.5) gm/dL Hct (39.0-53.0) % RDW (11.5-15.5) % Plt Count (150-450) k/uL Neutrophils # (1.3-7.7) k/uL Lymphocytes # (1.0-4.8) k/uL ABG pCO2 (35-45) mmHg ABG pO2 (83-108) mmHg ABG HCO3 (21-25) mmol/L ABG Total CO2 (19-24) mmol/L ABG O2 Saturation (94-97) % Sodium 118 L* 120 L (137-145) mmol/L Carbon Dioxide (22-30) mmol/L Creatinine (0.66-1.25) mg/dL Glucose (74-99) mg/dL Calcium 6.3 L* 6.6 L (8.4-10.2) mg/dL Total Bilirubin (0.2-1.3) mg/dL AST (17-59) U/L Total Protein (6.3-8.2) g/dL Albumin (3.5-5.0) g/dL 12/30/21 12/30/21 12/30/21 Range/Units 04:35 04:35 05:37 RBC 2.76 L (4.30-5.90) m/uL Hgb 8.4 L (13.0-17.5) gm/dL Hct 25.3 L (39.0-53.0) % RDW 16.7 H (11.5-15.5) % Plt Count 94 L (150-450) k/uL Neutrophils # 8.5 H (1.3-7.7) k/uL Lymphocytes # 0.4 L (1.0-4.8) k/uL ABG pCO2 31 L (35-45) mmHg ABG pO2 140 H (83-108) mmHg ABG HCO3 17 L (21-25) mmol/L ABG Total CO2 18 L (19-24) mmol/L ABG O2 Saturation 99.8 H (94-97) % Sodium 121 L (137-145) mmol/L Carbon Dioxide 15 L (22-30) mmol/L Creatinine 0.59 L (0.66-1.25) mg/dL Glucose 72 L (74-99) mg/dL Calcium 6.7 L (8.4-10.2) mg/dL Total Bilirubin 0.1 L (0.2-1.3) mg/dL AST 85 H (17-59) U/L Total Protein 3.0 L (6.3-8.2) g/dL Albumin 1.6 L (3.5-5.0) g/dL Microbiology - Last 24 Hours (Table) 12/28/21 03:35 Blood Culture - Preliminary Blood No Growth after 48 hours 12/28/21 03:40 Blood Culture - Preliminary Blood No Growth after 48 hours Assessment and Plan (1) GI bleed Narrative/Plan: Patient seems to be slowly improving. Continue to monitor hemoglobin. It will take several days for the hemoglobin equilibrate after this massive blood loss. Continue antiacids. Keep nasogastric tube to low intermittent suction. Begin TPN. Current Visit: Yes Status: Acute Code(s): K92.2 - GASTROINTESTINAL HEMORRHAGE, UNSPECIFIED SNOMED Code(s): 19840652
--- NOTE | 2021-12-30 11:07 | XR ---
EXAMINATION TYPE: XR chest 1V portable DATE OF EXAM: 12/30/2021 COMPARISON: NONE HISTORY: SOB, Follow Up FINDINGS: Indwelling tubes and catheters are unchanged. NG tube is seen coursing into the stomach. Right basilar atelectasis and tiny effusions. Stable appearance of the cardio-mediastinal structures at this time. IMPRESSION: 1. Stable portable chest. Clinical correlation and follow up until resolution is recommended.
[2021-12-30 11:31] LABS: Glucose,Whole Blood 96 mg/dL (70-110)
--- NOTE | 2021-12-30 12:08 | P.PN ---
Subjective Progress Note Date: 12/30/21 Patient was seen at the side, no acute events overnight. Objective - Vital Signs Vital signs: Vital Signs Temp 96.6 F L 12/30/21 12:00 Pulse 101 H 12/30/21 12:00 Resp 17 12/30/21 12:00 BP 150/73 12/30/21 12:00 Pulse Ox 94 L 12/30/21 12:00 FiO2 5 12/30/21 11:00 Intake & Output 12/29/21 12/30/21 12/30/21 18:59 06:59 18:59 Intake Total 2185.995 1963.912 690 Output Total 715 668 195 Balance 4164.829 3018.912 495 Weight 64.5 kg 67.5 kg 69.1 kg Intake: IV 1926 1832 290 0.9 NaCl- 1560 1560 260 Arterial pressure bag 36 36 15 CVP pressure bag 30 36 15 Calcium Gluconate 200 100 Fluconazole in NaCl,Iso- 50 Osm 100 mg In Saline 1 50ml.bag @ 50 mls/hr IVPB Q24H [facility] Rx#:[id number] Kefzol 50 Magnesium 100 Intake, IV Titration 259.995 131.912 400 Amount Dextrose 5% in Water 1, 300 000 ml @ 75 mls/hr IV . [id number] [facility] Rx#:[id number] Norepinephrine 4 mg In 145.847 Sodium Chloride 0.9% 250 ml @ 0.05 MCG/KG/MIN 14. 517 mls/hr IV .[id number] [facility] Rx#:[id number] propofoL 1,000 mg In 114.148 131.912 100 Empty Bag 1 bag @ 5 MCG/ KG/MIN 2.286 mls/hr IV . Q24H [facility] Rx#:[id number] Output: Gastric Drainage 100 Drainage 140 140 Abdomen 140 140 Urine 575 428 195 Other: Voiding Method Indwelling Catheter Indwelling Catheter Indwelling Catheter ABP, PAP, CO, CI - Last Documented Arterial Blood Pressure 155/69 - Exam General: [non toxic], [no distress], [appears at older than stated age] Derm: [warm], [dry] Head: [atraumatic], [normocephalic], [symmetric] Eyes: [EOMI], [no lid lag], [anicteric sclera] Mouth: [no lip lesion], [mucus membranes moist] Cardiovascular: [S1S2 reg], [no murmur], [positive posterior tibial pulse bilateral], Lungs: [CTA bilateral], [no rhonchi, no rales] , [no accessory muscle use] Abdominal: [soft], [ nontender to palpation], [no guarding], [no appreciable organomegaly] Ext: [no gross muscle atrophy], [no edema], [no contractures] Neuro: On vent Psych: On vent - Labs CBC & Chem 7: 12/30/21 04:35 12/30/21 04:35 Labs: Abnormal Lab Results - Last 24 Hours (Table) 12/29/21 12/29/21 12/29/21 Range/Units 12:09 12:09 18:57 RBC (4.30-5.90) m/uL Hgb (13.0-17.5) gm/dL Hct (39.0-53.0) % RDW (11.5-15.5) % Plt Count (150-450) k/uL Neutrophils # (1.3-7.7) k/uL Lymphocytes # (1.0-4.8) k/uL ABG pCO2 (35-45) mmHg ABG pO2 (83-108) mmHg ABG HCO3 (21-25) mmol/L ABG Total CO2 (19-24) mmol/L ABG O2 Saturation (94-97) % Sodium 118 L* 120 L (137-145) mmol/L Carbon Dioxide (22-30) mmol/L Creatinine (0.66-1.25) mg/dL Glucose (74-99) mg/dL Calcium 6.3 L* 6.6 L (8.4-10.2) mg/dL Total Bilirubin (0.2-1.3) mg/dL AST (17-59) U/L Total Protein (6.3-8.2) g/dL Albumin (3.5-5.0) g/dL 12/30/21 12/30/21 12/30/21 Range/Units 04:35 04:35 05:37 RBC 2.76 L (4.30-5.90) m/uL Hgb 8.4 L (13.0-17.5) gm/dL Hct 25.3 L (39.0-53.0) % RDW 16.7 H (11.5-15.5) % Plt Count 94 L (150-450) k/uL Neutrophils # 8.5 H (1.3-7.7) k/uL Lymphocytes # 0.4 L (1.0-4.8) k/uL ABG pCO2 31 L (35-45) mmHg ABG pO2 140 H (83-108) mmHg ABG HCO3 17 L (21-25) mmol/L ABG Total CO2 18 L (19-24) mmol/L ABG O2 Saturation 99.8 H (94-97) % Sodium 121 L (137-145) mmol/L Carbon Dioxide 15 L (22-30) mmol/L Creatinine 0.59 L (0.66-1.25) mg/dL Glucose 72 L (74-99) mg/dL Calcium 6.7 L (8.4-10.2) mg/dL Total Bilirubin 0.1 L (0.2-1.3) mg/dL AST 85 H (17-59) U/L Total Protein 3.0 L (6.3-8.2) g/dL Albumin 1.6 L (3.5-5.0) g/dL Microbiology - Last 24 Hours (Table) 12/28/21 03:35 Blood Culture - Preliminary Blood No Growth after 48 hours 12/28/21 03:40 Blood Culture - Preliminary Blood No Growth after 48 hours Assessment and Plan Assessment: Acute GI bleed status post emergent surgery for duodenal ulcer repair Currently on vent management Surgery recommendations appreciated Trend H & H ICU recommendations appreciated Severe hyponatremia slowly improving Likely due to Poor oral intake and beer potomania Nephrology following Seizure precautions Fall precautions Neurochecks Elevated troponin Trend troponin, patient denies chest pain or trouble breathing Patient has strong history of CAD status post stents Continue to FU History of alcohol dependence CIWA protocol History of COPD not on home oxygen Continue with inhalers and nebulizers as needed Tobacco dependence Nicotine patch ordered DVT prophylaxis mechanical Full code
[2021-12-30] MEDS: CLEVIDIPINE BUTYRATE 25 MG in EMPTY BAG 1 BAG IV SCH ×2 (12:42→17:35)
[2021-12-30 14:06] LABS: Phosphorus 1.7 mg/dL (2.5-4.5); Potassium 3.4 mmol/L (3.5-5.1)
[2021-12-30] MEDS ORDERED: MVI, ADULT NO.4 WITH VIT K 10 ML, TRACE (CONC-1ML/DOSE) 1 ML in AMINO ACID 5%-D15W+LYTE... IV ONE ×3 (15:00)
[2021-12-30] MEDS ORDERED: DESMOPRESSIN ACETATE 1 MCG in SODIUM CHLORIDE 0.9% 50 ML IVPB ONE (15:30)
[2021-12-30] MEDS: POTASSIUM CHLORIDE 20 MEQ in WATER FOR INJECTION 1 100ML.BAG IVPB SCH ×2 (18:35→18:36)
[2021-12-31] LABS: Glucose,Whole Blood 161 mg/dL (70-110)
[2021-12-31 00:17] LABS: ALT 25 U/L (4-49); AST 81 U/L (17-59); African American GFR (CKD) >90 (>60 ml/min/1.73 sqM); Albumin 1.7 g/dL (3.5-5.0); Alkaline Phosphatase 62 U/L (38-126); Anion Gap 3 mmol/L; Blood Urea Nitrogen 11 mg/dL (9-20); Calcium 6.8 mg/dL (8.4-10.2); Carbon Dioxide 22 mmol/L (22-30); Chloride 97 mmol/L (98-107); Glucose 140 mg/dL (74-99); Magnesium 1.9 mg/dL (1.6-2.3); Non-African American GFR(CKD) >90 (>60 ml/min/1.73 sqM); Phosphorus 1.4 mg/dL (2.5-4.5); Potassium 3.2 mmol/L (3.5-5.1); Sodium 122 mmol/L (137-145); Total Bilirubin 0.3 mg/dL (0.2-1.3); Total Protein 3.2 g/dL (6.3-8.2)
[2021-12-31] MEDS ORDERED: Phosphorus Replacement Protoco 1 EACH MISC MISCELLANE PRN ×2 (01:21→19:30)
[2021-12-31] MEDS: POTASSIUM CHLORIDE 20 MEQ in WATER FOR INJECTION 1 100ML.BAG IVPB SCH ×2 (01:39→04:46)
[2021-12-31] MEDS: MAGNESIUM SULFATE-D5W PMX 1 GM in DEXTROSE/WATER 1 100ML.BAG IVPB SCH ×2 (02:14→04:47)
[2021-12-31] MEDS: POTASSIUM PHOSPHATE 10 MMOL in SODIUM CHLORIDE 0.9% 100 ML IV SCH ×3 (02:15→07:16)
[2021-12-31] MEDS: NOREPINEPHRINE 4 MG in SODIUM CHLORIDE 0.9% 250 ML IV SCH ×2 (02:24→16:10)
[2021-12-31] MEDS: CLEVIDIPINE BUTYRATE 25 MG in EMPTY BAG 1 BAG IV SCH (03:33)
[2021-12-31] MEDS: metroNIDAZOLE-NS PMX 500 MG in SALINE 1 100ML.BAG IVPB SCH ×3 (07:15→22:44)
[2021-12-31] MEDS: SYMBICORT 160-4.5 MCG INHALER INHALATION SCH ×2 (07:27→19:35)
[2021-12-31] MEDS: IPRATROPIUM 0.5 MG/2.5 ML NEBU INHALATION SCH ×4 (07:27→19:35)
--- NOTE | 2021-12-31 07:35 | XR ---
EXAMINATION TYPE: XR chest 1V portable DATE OF EXAM: 12/31/2021 HISTORY: Shortness of breath. COMPARISON: 12/30/2021 TECHNIQUE: Single view of the chest is submitted. FINDINGS: Endotracheal tube has been removed. NG tube is seen within the stomach. Mild Basilar infiltrates or atelectasis. The heart is stable. Hilar and mediastinal structures are within normal limits. Degenerative changes are seen of the dorsal spine. IMPRESSION: 1. Endotracheal tube has been removed. 2. Mild basilar infiltrates or atelectasis.
[2021-12-31] MEDS: THIAMINE 100 MG TAB PO SCH ×2 (07:53→16:10)
[2021-12-31] MEDS: SODIUM BICARBONATE TAB 650 MG TAB PO SCH ×2 (07:54→20:06)
[2021-12-31] MEDS: HYDROmorphone 1 MG/ML 1 ML SYRINGE IVP PRN ×4 (09:02→20:24)
[2021-12-31] MEDS: PANTOPRAZOLE 40 MG/10 ML VIAL IVP SCH ×2 (09:02→20:25)
[2021-12-31] MEDS: NICOTINE 21MG/24HR PATCH TRANSDERM SCH (09:03)
[2021-12-31 09:11] LABS: ALT 23 U/L (4-49); AST 75 U/L (17-59); African American GFR (CKD) >90 (>60 ml/min/1.73 sqM); Albumin 1.7 g/dL (3.5-5.0); Alkaline Phosphatase 63 U/L (38-126); Anion Gap 1 mmol/L; Blood Urea Nitrogen 8 mg/dL (9-20); Carbon Dioxide 24 mmol/L (22-30); Chloride 98 mmol/L (98-107); Glucose 139 mg/dL (74-99); Non-African American GFR(CKD) >90 (>60 ml/min/1.73 sqM); Potassium 3.9 mmol/L (3.5-5.1); Sodium 123 mmol/L (137-145); Total Bilirubin 0.4 mg/dL (0.2-1.3); Total Protein 3.2 g/dL (6.3-8.2)
[2021-12-31 09:13] LABS: Calcium 6.4 mg/dL (8.4-10.2)
--- NOTE | 2021-12-31 09:15 | P.PN ---
Subjective Progress Note Date: 12/31/21 Principal diagnosis: Bleeding duodenal ulcer Patient was asked admitted yesterday. Nasogastric tube remains in place and is nonbloody. JEB drain is serosanguineous. Complaining of mild abdominal pain. Morning CBC is pending. Objective - Vital Signs Vital signs: Vital Signs Temp 97.3 F L 12/31/21 04:00 Pulse 91 12/31/21 07:43 Resp 14 12/31/21 07:00 BP 156/79 12/31/21 07:00 Pulse Ox 97 12/31/21 07:00 FiO2 5 12/30/21 11:00 Intake & Output 12/30/21 12/31/21 12/31/21 18:59 06:59 18:59 Intake Total 5004.494 2981.734 133 Output Total 830 1390 80 Balance 575.233 -27.266 53 Weight 69.1 kg 70.7 kg Intake: IV 317 1166 133 0.9 NaCl- 260 Arterial pressure bag 33 36 3 CVP pressure bag 24 Flagyl 100 Fluconazole in NaCl,Iso- 50 Osm 100 mg In Saline 1 50ml.bag @ 50 mls/hr IVPB Q24H [facility] Rx#:[id number] K/Phos 150 50 Kefzol 50 Magnesium 200 Potassium 250 50 TPN 330 30 Intake, IV Titration 1088.233 196.734 Amount Clevidipine Butyrate 25 28.233 41.734 mg In Empty Bag 1 bag @ 1 MG/HR 2 mls/hr IV .Q24H [facility] Rx#:[id number] Dextrose 5% in Water 1, 900 125 000 ml @ 125 mls/hr IV . Q8H [facility] Rx#:[id number] Mvi, Adult No.4 with Vit 60 30 K 10 ml Trace (Conc-1Ml/ Dose) 1 ml In Amino Acid 5%-D15w+Lytes*E* 1,000 ml @ 30 mls/hr IV .Q24H [facility] Rx#:[id number] propofoL 1,000 mg In 100 Empty Bag 1 bag @ 5 MCG/ KG/MIN 2.286 mls/hr IV . Q24H [facility] Rx#:[id number] Output: Gastric Drainage 300 Drainage 60 80 Abdomen 60 80 Urine 770 1010 80 Other: Voiding Method Indwelling Catheter Indwelling Catheter ABP, PAP, CO, CI - Last Documented Arterial Blood Pressure 121/46 - Exam Abdomen: Soft, nondistended, incision clean, small amount of strikethrough at the bottom, minimal tenderness, JEB in place - Labs CBC & Chem 7: 12/30/21 04:35 12/31/21 08:39 Labs: Abnormal Lab Results - Last 24 Hours (Table) 12/30/21 12/30/21 12/30/21 Range/Units 13:30 18:53 23:55 Sodium 124 L 121 L 122 L (137-145) mmol/L Potassium 3.4 L 3.2 L (3.5-5.1) mmol/L Chloride 97 L (98-107) mmol/L BUN (9-20) mg/dL Creatinine 0.49 L (0.66-1.25) mg/dL Glucose 140 H (74-99) mg/dL POC Glucose (mg/dL) (70-110) mg/dL Calcium 6.8 L (8.4-10.2) mg/dL Phosphorus 1.7 L 1.4 L (2.5-4.5) mg/dL AST 81 H (17-59) U/L Total Protein 3.2 L (6.3-8.2) g/dL Albumin 1.7 L (3.5-5.0) g/dL 12/30/21 12/31/21 Range/Units 23:57 08:39 Sodium 123 L (137-145) mmol/L Potassium (3.5-5.1) mmol/L Chloride (98-107) mmol/L BUN 8 L (9-20) mg/dL Creatinine 0.43 L (0.66-1.25) mg/dL Glucose 139 H (74-99) mg/dL POC Glucose (mg/dL) 161 H (70-110) mg/dL Calcium 6.4 L* (8.4-10.2) mg/dL Phosphorus (2.5-4.5) mg/dL AST 75 H (17-59) U/L Total Protein 3.2 L (6.3-8.2) g/dL Albumin 1.7 L (3.5-5.0) g/dL Microbiology - Last 24 Hours (Table) 12/28/21 03:35 Blood Culture - Preliminary Blood No Growth after 72 hours 12/28/21 03:40 Blood Culture - Preliminary Blood No Growth after 72 hours Assessment and Plan (1) GI bleed Narrative/Plan: Patient doing better at this time. Continue nasogastric tube to suction. Continue TPN and antibiotics. Abdominal binder and IV Tylenol will be added for pain control. Current Visit: Yes Status: Acute Code(s): K92.2 - GASTROINTESTINAL HEMORRHAGE, UNSPECIFIED SNOMED Code(s): 86909937
--- NOTE | 2021-12-31 09:27 | P.PN ---
Subjective Patient is seen in follow-up for hyponatremia. Patient's sodium level was 102 on admission on 12/28/2021 at 3:17 AM. This morning sodium is 123. Patient did receive DDAVP as well as D5W for a few hours yesterday. Extubated yesterday. Vital signs are stable. General: Resting in bed. HEENT: NG tube noted. LUNGS: Breath sounds decreased. HEART: Rate and Rhythm are regular. ABDOMEN: Soft, no distention. EXTREMITITES: No edema. Objective - Vital Signs Vital signs: Vital Signs Temp 97.3 F L 12/31/21 04:00 Pulse 91 12/31/21 07:43 Resp 14 12/31/21 07:00 BP 156/79 12/31/21 07:00 Pulse Ox 97 12/31/21 07:00 FiO2 5 12/30/21 11:00 Intake & Output 12/30/21 12/31/21 12/31/21 18:59 06:59 18:59 Intake Total 5519.554 8858.734 133 Output Total 830 1390 80 Balance 575.233 -27.266 53 Weight 69.1 kg 70.7 kg Intake: IV 317 1166 133 0.9 NaCl- 260 Arterial pressure bag 33 36 3 CVP pressure bag 24 Flagyl 100 Fluconazole in NaCl,Iso- 50 Osm 100 mg In Saline 1 50ml.bag @ 50 mls/hr IVPB Q24H [facility] Rx#:[id number] K/Phos 150 50 Kefzol 50 Magnesium 200 Potassium 250 50 TPN 330 30 Intake, IV Titration 1088.233 196.734 Amount Clevidipine Butyrate 25 28.233 41.734 mg In Empty Bag 1 bag @ 1 MG/HR 2 mls/hr IV .Q24H [facility] Rx#:[id number] Dextrose 5% in Water 1, 900 125 000 ml @ 125 mls/hr IV . Q8H [facility] Rx#:[id number] Mvi, Adult No.4 with Vit 60 30 K 10 ml Trace (Conc-1Ml/ Dose) 1 ml In Amino Acid 5%-D15w+Lytes*E* 1,000 ml @ 30 mls/hr IV .Q24H [facility] Rx#:[id number] propofoL 1,000 mg In 100 Empty Bag 1 bag @ 5 MCG/ KG/MIN 2.286 mls/hr IV . Q24H [facility] Rx#:[id number] Output: Gastric Drainage 300 Drainage 60 80 Abdomen 60 80 Urine 770 1010 80 Other: Voiding Method Indwelling Catheter Indwelling Catheter ABP, PAP, CO, CI - Last Documented Arterial Blood Pressure 121/46 - Labs CBC & Chem 7: 12/30/21 04:35 12/31/21 08:39 Labs: Abnormal Lab Results - Last 24 Hours (Table) 12/30/21 12/30/21 12/30/21 Range/Units 13:30 18:53 23:55 Sodium 124 L 121 L 122 L (137-145) mmol/L Potassium 3.4 L 3.2 L (3.5-5.1) mmol/L Chloride 97 L (98-107) mmol/L BUN (9-20) mg/dL Creatinine 0.49 L (0.66-1.25) mg/dL Glucose 140 H (74-99) mg/dL POC Glucose (mg/dL) (70-110) mg/dL Calcium 6.8 L (8.4-10.2) mg/dL Phosphorus 1.7 L 1.4 L (2.5-4.5) mg/dL AST 81 H (17-59) U/L Total Protein 3.2 L (6.3-8.2) g/dL Albumin 1.7 L (3.5-5.0) g/dL 12/30/21 12/31/21 Range/Units 23:57 08:39 Sodium 123 L (137-145) mmol/L Potassium (3.5-5.1) mmol/L Chloride (98-107) mmol/L BUN 8 L (9-20) mg/dL Creatinine 0.43 L (0.66-1.25) mg/dL Glucose 139 H (74-99) mg/dL POC Glucose (mg/dL) 161 H (70-110) mg/dL Calcium 6.4 L* (8.4-10.2) mg/dL Phosphorus (2.5-4.5) mg/dL AST 75 H (17-59) U/L Total Protein 3.2 L (6.3-8.2) g/dL Albumin 1.7 L (3.5-5.0) g/dL Microbiology - Last 24 Hours (Table) 12/28/21 03:35 Blood Culture - Preliminary Blood No Growth after 72 hours 12/28/21 03:40 Blood Culture - Preliminary Blood No Growth after 72 hours Assessment and Plan Plan: Assessment: 1. Hypovolemic hyponatremia improved with IV hydration. Patient was maintained on normal saline due to shock state. Currently off vasopressors. Sodium level 123 this morning. Urine osmolality 489. Cortisol 44. TSH normal. Patient received DDAVP and D5W to slow the correction of hyponatremia. 2. Bleeding duodenal ulcer status post exploratory laparotomy with surgical repair/pyloroplasty 12/28/2021. Surgery following. 3. Hemorrhagic and hypovolemic shock status post IV fluids and blood transition. Improved. 4. Metabolic acidosis secondary to IV fluids. Improved. On oral bicarbonate. 5. History of alcohol abuse. 6. Hypophosphatemia from poor intake. 7. Hypokalemia from poor intake. 8. Hypocalcemia secondary to hypoalbuminemia. Corrected calcium near 8. Plan: Maintain TPN. Potassium and phosphorus being replaced. Continue to replace electrolytes per protocol. 1 g IV calcium gluconate. Check ionized calcium level. Repeat sodium and phosphorus level this afternoon.
--- NOTE | 2021-12-31 09:30 | P.PN ---
Subjective Progress Note Date: 12/31/21 PROGRESS NOTE The patient is a 66 year old male who presented with severe hyponatremia and bleeding ulcer, he underwent surgical intervention, he remains intubated and sedated. He is in sinus mechanism, hemodynamically stable. He is on no vasopressors. He had an echocardiogram yesterday that showed a normal systolic function with no significant valvular disease. He has a history of CAD, [facility]. History of chronic alcohol intake and a history of COPD. His sodium is up to 121, his hemoglobin is 8.4. December 31: The patient is extubated, feels better, tired. He denies any chest discomfort, dizziness or palpitations. Hemodynamically he is stable. His urine output is good. He denies any nausea or vomiting but continues to have an NG tube and nothing by mouth. There is no evidence of malignant arrhythmia. His sodium is up to 123 Medications: Thiamine, Flagyl,, Symbicort, cefazolin PHYSICAL EXAMINATION: Blood pressure 139/60, heart rate 90, extubated LUNGS: Clear to auscultation anteriorly HEART: Regular rate and rhythm, S1, S2. No S3. No systolic murmur ABDOMEN: Soft, hypoactive bowel sounds, dressing in place EXTREMETIES: No edema LAB: BUN 8, creatinine 0.43, sodium 123 IMPRESSION: 1. Status post surgery for bleeding peptic ulcer, stable 2. Respiratory failure, resolved 3. Severe hyponatremia, improving 4. History of CAD, post stenting no evidence of acute coronary syndrome 5. History of hypertension 6. History of hyperlipidemia 7. History of COPD 8. History of chronic alcohol intake PLAN: 1. Start IV beta nichelle 2. Reinitiate statin when taking by mouth 3. Increase physical activity 4. Follow sodium and hemoglobin Objective - Vital Signs Vital signs: Vital Signs Temp 97.3 F L 12/31/21 04:00 Pulse 91 12/31/21 07:43 Resp 14 12/31/21 07:00 BP 156/79 12/31/21 07:00 Pulse Ox 97 12/31/21 07:00 FiO2 5 12/30/21 11:00 Intake & Output 12/30/21 12/31/21 12/31/21 18:59 06:59 18:59 Intake Total 1823.377 7025.734 199 Output Total 830 1390 240 Balance 575.233 -27.266 -41 Weight 69.1 kg 70.7 kg Intake: IV 317 1166 199 0.9 NaCl- 260 Arterial pressure bag 33 36 9 CVP pressure bag 24 Flagyl 100 Fluconazole in NaCl,Iso- 50 Osm 100 mg In Saline 1 50ml.bag @ 50 mls/hr IVPB Q24H [facility] Rx#:[id number] K/Phos 150 50 Kefzol 50 Magnesium 200 Potassium 250 50 TPN 330 90 Intake, IV Titration 1088.233 196.734 Amount Clevidipine Butyrate 25 28.233 41.734 mg In Empty Bag 1 bag @ 1 MG/HR 2 mls/hr IV .Q24H [facility] Rx#:[id number] Dextrose 5% in Water 1, 900 125 000 ml @ 125 mls/hr IV . Q8H [facility] Rx#:[id number] Mvi, Adult No.4 with Vit 60 30 K 10 ml Trace (Conc-1Ml/ Dose) 1 ml In Amino Acid 5%-D15w+Lytes*E* 1,000 ml @ 30 mls/hr IV .Q24H [facility] Rx#:[id number] propofoL 1,000 mg In 100 Empty Bag 1 bag @ 5 MCG/ KG/MIN 2.286 mls/hr IV . Q24H [facility] Rx#:[id number] Output: Gastric Drainage 300 Drainage 60 80 Abdomen 60 80 Urine 770 1010 240 Other: Voiding Method Indwelling Catheter Indwelling Catheter ABP, PAP, CO, CI - Last Documented Arterial Blood Pressure 121/46 - Labs CBC & Chem 7: 12/30/21 04:35 12/31/21 08:39 Labs: Abnormal Lab Results - Last 24 Hours (Table) 12/30/21 12/30/21 12/30/21 Range/Units 13:30 18:53 23:55 Sodium 124 L 121 L 122 L (137-145) mmol/L Potassium 3.4 L 3.2 L (3.5-5.1) mmol/L Chloride 97 L (98-107) mmol/L BUN (9-20) mg/dL Creatinine 0.49 L (0.66-1.25) mg/dL Glucose 140 H (74-99) mg/dL POC Glucose (mg/dL) (70-110) mg/dL Calcium 6.8 L (8.4-10.2) mg/dL Phosphorus 1.7 L 1.4 L (2.5-4.5) mg/dL AST 81 H (17-59) U/L Total Protein 3.2 L (6.3-8.2) g/dL Albumin 1.7 L (3.5-5.0) g/dL 12/30/21 12/31/21 Range/Units 23:57 08:39 Sodium 123 L (137-145) mmol/L Potassium (3.5-5.1) mmol/L Chloride (98-107) mmol/L BUN 8 L (9-20) mg/dL Creatinine 0.43 L (0.66-1.25) mg/dL Glucose 139 H (74-99) mg/dL POC Glucose (mg/dL) 161 H (70-110) mg/dL Calcium 6.4 L* (8.4-10.2) mg/dL Phosphorus (2.5-4.5) mg/dL AST 75 H (17-59) U/L Total Protein 3.2 L (6.3-8.2) g/dL Albumin 1.7 L (3.5-5.0) g/dL Microbiology - Last 24 Hours (Table) 12/28/21 03:35 Blood Culture - Preliminary Blood No Growth after 72 hours 12/28/21 03:40 Blood Culture - Preliminary Blood No Growth after 72 hours
[2021-12-31] MEDS ORDERED: CALCIUM GLUCONATE IN NACL 1 GM in SALINE 1 100ML.BAG IVPB ONE (10:00)
--- NOTE | 2021-12-31 10:28 | P.PN ---
Subjective Progress Note Date: 12/31/21 66-year-old male patient brought into the hospital because of generalized weakness and fatigue and addition to nausea and emesis and numbness and paresthesias. The patient has undergone a surgery cervical spine approximately a month at outside hospital. The patient stated that he has not been feeling w ell since. He has been calm progressively more weak over the past few weeks and the patient had loss in appetite. He has not been eating much or drinking much. As a result, he became progressively more weak and he end up coming into the hospital. Denies having any focal weakness. He takes Prozac at home. He has previous history of alcohol abuse,. He also has COPD management on a combination of Symbicort and Spiriva on outpatient basis regarding takes is no peripheral blood pressure control. At the time of his emergency evaluation, the patient was afebrile hemodynamically stable pulse ox of 99% on room air oxygen. Nevertheless, electrodes was significantly abnormal with a sodium level of 103 and a chloride level of 74 with a BUN of 40 and a creatinine of 1.05. The white cell count was at 5.6 with a hemoglobin of 8.1 and a platelet count of 155. The albumin was 3.2 with a total protein of 4.5. Serum alcohol was negative. He had a positive troponins of 0.05 and 0.04 respectively 2. TSH was at 1.08 and a serum cortisol was 44. UA was negative. His COVID 19 testing was also negative. His chest x-ray showed no acute abnormalities. There is some old left-sided rib fractures. Note that despite this hyponatremia, the patient did not have any seizure activity. No altered mentation. He is appropriate and following commands and answering questions appropriately. He was brought into the intensive care unit and he was started on hypertonic saline solution and currently is on 3% saline, running at the rate of 25 mL an hour. Electrodes are being checked on a regular basis every 4 hours. Noted the initial sodium was at 102 and it came up to 106. Initial creatinine was 1.1 came down to 1.05. History of any chest pain for now. The patient states that he lives in [facility]. He lives alone. 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 He is also a . It seems that he has done some medical care through the year to [place] [facility]. Denies having any recent cold COVID 19 infection. He apparently has been drinking and he Is Drinking. He Was Taken around 5-6 Beers a Day and on and off He Still drinking probably 1 or 2 beers. Doesn't have much of help. His been having difficulty with mobility and ambulation. Surgical wound site over the anterior cervical area is dry clean and intact. No fever. No chills. No focal neurological deficit. He is able to answer questions appropriately although he is slow in answering questions. On 12/29/2021, I'm seeing the patient in the intensive care unit. I was involved in the events that occurred yesterday. Noted the patient later after no went into a shock state. The patient had massive GI bleeding with maroon color stool. Immediately, he was started on packed RBC transfusion and he was also given platelets. Gen. surgery was involved in the case and the patient underwent a EGD at the bedside and the patient was found to have a bleeding duodenal ulcer. After resuscitation, the patient was taken to the operating room as the patient was having constant bleeding and he was becoming hemodynamically unstable and he was in a shock state. Based on that, he was taken to the operating room and he underwent an extensive laparotomy and he underwent oversewing of a bleeding duodenal ulcer with pyloroplasty. Estimated blood loss was around 50 mL. Following that, the patient was kept intubated and he was brought into the intensive care unit for further monitoring. Lowest hemoglobin was around 5.0. The patient received a total of 4 units of packed RBC and a unit of platelet concentrates. This morning, the patient is on normal saline at the rate of 1 30 mL an hour. Sodium level is gradually, and is currently up to 117. His BUN is at 31 with a creatinine of 0.6. Serum bicarbs at 17. The patient has a hemoglobin of 9.3 and the white second attempt 0.5 with a platelet count of 89. He remains on propofol is was sedated and was running at 20 mcg/kg per minute. He is an assist-control mode of mechanical ventilation at the rate of 12 with a tidal volume of 450 and an FiO2 of 35% with a PEEP of 5. Blood gases showed a pH of 7.41 with a pCO2 of 29 and pO2 of 150. Chest x-ray shows adequate positioning of the ET tube and the patient also has a or G-tube in place. No evidence of any bleeding through his orogastric tube. Urine output is adequate and order of 30 mL an hour. 12/30/2021, the patient remains intubated. He is on propofol at the rate of 30 mics and is particularly Per minute. The patient is also on normal saline at 75 mL an hour. He is on a mechanical ventilator at the rate of 12 with a tidal volume of 450 and FiO2 of 35% with a PEEP of 5. He has an orogastric and orotracheal tube in place. His blood gases from today shows a pH of 7.36 with a pCO2 of 30 and pO2 of 140. The chest x-ray from today shows no acute abnormalities. ET tube is in a good location. The patient also has a orogastric tube in place. Output from the OG is minimal in the order of 100 mL over the past 24 hours. Surgical wound site is dry clean and intact. No further episodes of GI bleeding. Hemoglobin is stable at 8.4. As far as his sodium level, there is concern that there is a rapid correction of the hyponatremia. Based on that, the patient was taken off the normal saline and was placed on D5 water at the rate of 75 mL an hour. His urine output is adequate for now. He is afebrile. He is hemodynamically stable and is on no pressors. The patient is currently postop day #2. The white cell count is at 9.6. Sodium level is at 121 with a potassium level of 3.6. Serum bicarbonate 15. BUN is at 20 with a creatinine of 0.5. Calcium level is at 6.7. Liver function tests are showing an AST of 85, ALT of 25, alkaline phosphatase of 56, albumin of 1.6. 12/31/2021, the patient is extubated and currently is on oxygen at 3 L. He was extubated yesterday without any major difficulties. The orogastric tube was also replaced with an NG tube. Output is in order of 300 mL overnight on the NG tube. The patient is awake and alert and following simple commands. His resting comfortably in bed. He is hemodynamically stable. He is on no pressors. His cardiac rhythm is sinus. He was started on TPN for nutritional support. Meanwhile, his IV fluids in the form of KVO and the D5 water has been discontinued. Sodium level is up to 123. Potassium level is at 3.9 and the BUN is at 8 with a creatinine of 0.4. The patient remains on broad-spectrum antibiotics regarding this duodenal perforation and is currently on a combination of, Diflucan and Flagyl. No other significant events overnight. His resting comfortably in bed. He is postop day #3. No evidence of any ongoing GI bleeding for now and hemoglobin is stable and hemoglobin today is still pending. Yesterday's hemoglobin was at 8.4. Surgical wound site is dry clean and intact. The patient has a JEB drain which is showing serous drainage in the order of 80 mL over the past 12 hours. Objective - Vital Signs Vital signs: Vital Signs Temp 97.5 F L 12/31/21 08:00 Pulse 84 12/31/21 10:00 Resp 12 12/31/21 10:00 BP 137/66 12/31/21 10:00 Pulse Ox 99 12/31/21 10:00 FiO2 5 12/30/21 11:00 Intake & Output 12/30/21 12/31/21 12/31/21 18:59 06:59 18:59 Intake Total 2391.374 3718.734 232 Output Total 830 1390 330 Balance 575.233 -27.266 -98 Weight 69.1 kg 70.7 kg Intake: IV 317 1166 232 0.9 NaCl- 260 Arterial pressure bag 33 36 12 CVP pressure bag 24 Flagyl 100 Fluconazole in NaCl,Iso- 50 Osm 100 mg In Saline 1 50ml.bag @ 50 mls/hr IVPB Q24H [facility] Rx#:[id number] K/Phos 150 50 Kefzol 50 Magnesium 200 Potassium 250 50 TPN 330 120 Intake, IV Titration 1088.233 196.734 Amount Clevidipine Butyrate 25 28.233 41.734 mg In Empty Bag 1 bag @ 1 MG/HR 2 mls/hr IV .Q24H [facility] Rx#:[id number] Dextrose 5% in Water 1, 900 125 000 ml @ 125 mls/hr IV . Q8H [facility] Rx#:[id number] Mvi, Adult No.4 with Vit 60 30 K 10 ml Trace (Conc-1Ml/ Dose) 1 ml In Amino Acid 5%-D15w+Lytes*E* 1,000 ml @ 30 mls/hr IV .Q24H [facility] Rx#:[id number] propofoL 1,000 mg In 100 Empty Bag 1 bag @ 5 MCG/ KG/MIN 2.286 mls/hr IV . Q24H [facility] Rx#:[id number] Output: Gastric Drainage 300 Drainage 60 80 60 Abdomen 60 80 60 Urine 770 1010 270 Other: Voiding Method Indwelling Catheter Indwelling Catheter Indwelling Catheter ABP, PAP, CO, CI - Last Documented Arterial Blood Pressure 122/50 - Exam Sedated patient is calm and comfortable , extubated currently on 2 L about 2 by nasal cannula. The patient has an NG tube in place. Head exam was generally normal. There was no scleral icterus or corneal arcus. Mucous membranes were moist. Neck was supple and without jugular venous distension, thyromegaly, or carotid bruits. Carotids were easily palpable bilaterally. There was no adenopathy. Scar of the previous cervical spine surgery over the anterior neck area on the right is dry clean and intact. Lung sounds are diminished bilaterally. No wheezes or rhonchi. Cardiac exam revealed the PMI to be normally situated and sized. The rhythm was regular and no extrasystoles were noted during several minutes of auscultation. The first and second heart sounds were normal and physiologic splitting of the second heart sound was noted. There were no murmurs, rubs, clicks, or gallops. Abdominal examination reveals a mid abdominal incision. No direct tenderness. No rebound tenderness. No guarding. Hypoactive bowel sounds and the patient has a JEB drain in place. The surgical dressing is somewhat soaks. There is no evidence of any active bleeding. Examination of the extremities revealed easily palpable radial, femoral and pe madalyn pulses. There was no cyanosis, clubbing or edema. Examination of the skin revealed no evidence of significant rashes, suspicious appearing nevi or other concerning lesions. The patient has scars of previous surgery over the lower spine area in the lumbar region posteriorly and the patient also has a scar over the left shoulder area that the previous shoulder surgery. Another scar over the anterior neck area at the site of the cervical spine surgery. Neurologically, the patient has generalized global weakness in all 4 extremities. His neurologic exam is nonfocal. Pupils are equal reactive to light. No seizure activity. No facial asymmetry. No Babinski or clonus at this point in time. . The patient is awake and alert. - Labs CBC & Chem 7: 12/30/21 04:35 12/31/21 08:39 Labs: Abnormal Lab Results - Last 24 Hours (Table) 12/30/21 12/30/21 12/30/21 Range/Units 13:30 18:53 23:55 Sodium 124 L 121 L 122 L (137-145) mmol/L Potassium 3.4 L 3.2 L (3.5-5.1) mmol/L Chloride 97 L (98-107) mmol/L BUN (9-20) mg/dL Creatinine 0.49 L (0.66-1.25) mg/dL Glucose 140 H (74-99) mg/dL POC Glucose (mg/dL) (70-110) mg/dL Calcium 6.8 L (8.4-10.2) mg/dL Phosphorus 1.7 L 1.4 L (2.5-4.5) mg/dL AST 81 H (17-59) U/L Total Protein 3.2 L (6.3-8.2) g/dL Albumin 1.7 L (3.5-5.0) g/dL 12/30/21 12/31/21 Range/Units 23:57 08:39 Sodium 123 L (137-145) mmol/L Potassium (3.5-5.1) mmol/L Chloride (98-107) mmol/L BUN 8 L (9-20) mg/dL Creatinine 0.43 L (0.66-1.25) mg/dL Glucose 139 H (74-99) mg/dL POC Glucose (mg/dL) 161 H (70-110) mg/dL Calcium 6.4 L* (8.4-10.2) mg/dL Phosphorus (2.5-4.5) mg/dL AST 75 H (17-59) U/L Total Protein 3.2 L (6.3-8.2) g/dL Albumin 1.7 L (3.5-5.0) g/dL Microbiology - Last 24 Hours (Table) 12/28/21 03:35 Blood Culture - Preliminary Blood No Growth after 72 hours 12/28/21 03:40 Blood Culture - Preliminary Blood No Growth after 72 hours Assessment and Plan Plan: Acute upper GI bleeding secondary to a duodenal ulcer. The patient had massive upper GI bleeding with hemodynamic instability and shock state and the patient was adequately resuscitated, EGD was done, bleeding was identified and following that the patient underwent expiratory laparotomy and oversewing of a duodenal ulcer and the patient is currently postop day #3. Bleeding has been controlled for now. Most recent hemoglobin is 8.4 and this was from yesterday in the [facility] hemoglobin is still pending. The patient remains on a combination of Tapazole, Flagyl and Diflucan. Acute blood loss anemia with a drop in hemoglobin as low as 5.0. Received a total of 4 units of packed RBC, and the patient has no evidence of any acute bleeding for now and the hemoglobin is at 8.4, follow-up hemoglobin from today is pending. As mentioned, during this current hospitalization, the patient received a total of 4 units of packed RBC. Acute thrombocytopenia, patient was in place Plavix and the patient was given platelet transfusion, stable count of 94,000 Acute hypotension/shock secondary to hypovolemic state and blood loss, improved and the patient is currently off norepinephrine Acute hypoxic respiratory failure secondary to above-mentioned events, extubated currently on 2 L of O2 nasal cannula Hyponatremia, likely subacute/chronic due to diminished oral intake and excessive alcohol drinking and this seems to be a hypovolemic hypochloremic hyponatremia , sodium level is improving and level is 123 Non-anion gap metabolic acidosis, recovered bicarb level is at 25 Generalized weakness secondary to hyponatremia Alcoholism/excessive beer drinking Cervical spine surgery, details are not known. Surgical op note is not available and this has been done in the hospital and extension, [facility]. COPD management and accommodation Spiriva and Symbicort on outpatient basis Hypertension Coronary artery disease and based on the history the patient has undergone a previous coronary stenting to the LAD. He does have some limited troponin leaks yet the EKG is not showing any acute ischemic changes in the patient's preoperative any chest pain and the patient is hemodynamically stable. Intravascular volume depletion/dehydration with a component of mild acute kidney injury, improving Acute lactic acidosis, secondary to above, improved on the level is down to 1.7 Plan Proceed with a PICC line insertion tomorrow remove the triple-lumen catheter that was done under emergent basis as the patient was a shock and was inserted in his groin. Patient is extubated Give the patient a incentive spirometer Continue same antibiotic coverage Obtain a follow-up hemoglobin Patient has a NG tube in place Hemoglobin is stable IV Protonix No signs of delirium tremens Monitor the output from the JEB drain Surgical wound site is dry clean and intact Extubated yesterday Continue IV cefazolin and Diflucan and Flagyl IV fluids to KVO monitor the sodium level was essentially improving Continue TPN for nutritional support Start The patient on Lovenox for DVT prophylaxis We'll continue to follow. Keep the patient ICU for now., Critically care evaluation, more than 30 minutes Time with Patient: Greater than 30
[2021-12-31 10:41] LABS: Anisocytosis Slight; HCT 24.7 % (39.0-53.0); HGB 8.5 gm/dL (13.0-17.5); MCH 31.2 pg (25.0-35.0); MCHC 34.4 g/dL (31.0-37.0); MCV 90.5 fL (80.0-100.0); Platelet Count 139 k/uL (150-450); RBC 2.73 m/uL (4.30-5.90); RDW 16.3 % (11.5-15.5); WBC 11.1 k/uL (3.8-10.6)
[2021-12-31] MEDS: ACETAMINOPHEN IV (For NPO) 1,000 MG in EMPTY BAG 1 BAG IVPB SCH ×2 (11:58→18:50)
[2021-12-31] MEDS ORDERED: FAT EMULSION 20% 500 ML IV SCH (12:00)
--- NOTE | 2021-12-31 13:06 | P.PN ---
Subjective Progress Note Date: 12/31/21 The patient was seen at bedside status post extubation Objective - Vital Signs Vital signs: Vital Signs Temp 97.5 F L 12/31/21 08:00 Pulse 96 12/31/21 12:00 Resp 31 H 12/31/21 12:00 BP 138/80 12/31/21 12:00 Pulse Ox 98 12/31/21 12:00 FiO2 5 12/30/21 11:00 Intake & Output 12/30/21 12/31/21 12/31/21 18:59 06:59 18:59 Intake Total 4629.437 8833.734 314.867 Output Total 830 1390 515 Balance 575.233 -27.266 -200.133 Weight 69.1 kg 70.7 kg Intake: IV 317 1166 298 0.9 NaCl- 260 Arterial pressure bag 33 36 18 CVP pressure bag 24 Flagyl 100 Fluconazole in NaCl,Iso- 50 Osm 100 mg In Saline 1 50ml.bag @ 50 mls/hr IVPB Q24H [facility] Rx#:[id number] K/Phos 150 50 Kefzol 50 Magnesium 200 Potassium 250 50 TPN 330 180 Intake, IV Titration 1088.233 196.734 16.867 Amount Clevidipine Butyrate 25 28.233 41.734 16.867 mg In Empty Bag 1 bag @ 1 MG/HR 2 mls/hr IV .Q24H [facility] Rx#:[id number] Dextrose 5% in Water 1, 900 125 000 ml @ 125 mls/hr IV . Q8H [facility] Rx#:[id number] Mvi, Adult No.4 with Vit 60 30 K 10 ml Trace (Conc-1Ml/ Dose) 1 ml In Amino Acid 5%-D15w+Lytes*E* 1,000 ml @ 30 mls/hr IV .Q24H [facility] Rx#:[id number] propofoL 1,000 mg In 100 Empty Bag 1 bag @ 5 MCG/ KG/MIN 2.286 mls/hr IV . Q24H [facility] Rx#:[id number] Output: Gastric Drainage 300 Drainage 60 80 120 Abdomen 60 80 120 Urine 770 1010 395 Other: Voiding Method Indwelling Catheter Indwelling Catheter Indwelling Catheter ABP, PAP, CO, CI - Last Documented Arterial Blood Pressure 138/56 - Exam General: [non toxic], [no distress], [appears at older than stated age] Derm: [warm], [dry] Head: [atraumatic], [normocephalic], [symmetric] Eyes: [EOMI], [no lid lag], [anicteric sclera] Mouth: [no lip lesion], [mucus membranes moist] Cardiovascular: [S1S2 reg], [no murmur], [positive posterior tibial pulse bilateral], Lungs: [CTA bilateral], [no rhonchi, no rales] , [no accessory muscle use] Abdominal: [soft], [ nontender to palpation], [no guarding], [no appreciable organomegaly] Ext: [no gross muscle atrophy], [no edema], [no contractures] Neuro: Alert and oriented moving his 4 extremities Psych: Cooperative appropriate mood and judgment - Labs CBC & Chem 7: 12/31/21 10:30 12/31/21 08:39 Labs: Abnormal Lab Results - Last 24 Hours (Table) 12/30/21 12/30/21 12/30/21 Range/Units 13:30 18:53 23:55 WBC (3.8-10.6) k/uL RBC (4.30-5.90) m/uL Hgb (13.0-17.5) gm/dL Hct (39.0-53.0) % RDW (11.5-15.5) % Plt Count (150-450) k/uL Sodium 124 L 121 L 122 L (137-145) mmol/L Potassium 3.4 L 3.2 L (3.5-5.1) mmol/L Chloride 97 L (98-107) mmol/L BUN (9-20) mg/dL Creatinine 0.49 L (0.66-1.25) mg/dL Glucose 140 H (74-99) mg/dL POC Glucose (mg/dL) (70-110) mg/dL Calcium 6.8 L (8.4-10.2) mg/dL Phosphorus 1.7 L 1.4 L (2.5-4.5) mg/dL AST 81 H (17-59) U/L Total Protein 3.2 L (6.3-8.2) g/dL Albumin 1.7 L (3.5-5.0) g/dL 12/30/21 12/31/21 12/31/21 Range/Units 23:57 08:39 10:30 WBC 11.1 H (3.8-10.6) k/uL RBC 2.73 L (4.30-5.90) m/uL Hgb 8.5 L (13.0-17.5) gm/dL Hct 24.7 L (39.0-53.0) % RDW 16.3 H (11.5-15.5) % Plt Count 139 L (150-450) k/uL Sodium 123 L (137-145) mmol/L Potassium (3.5-5.1) mmol/L Chloride (98-107) mmol/L BUN 8 L (9-20) mg/dL Creatinine 0.43 L (0.66-1.25) mg/dL Glucose 139 H (74-99) mg/dL POC Glucose (mg/dL) 161 H (70-110) mg/dL Calcium 6.4 L* (8.4-10.2) mg/dL Phosphorus (2.5-4.5) mg/dL AST 75 H (17-59) U/L Total Protein 3.2 L (6.3-8.2) g/dL Albumin 1.7 L (3.5-5.0) g/dL Microbiology - Last 24 Hours (Table) 12/28/21 03:35 Blood Culture - Preliminary Blood No Growth after 72 hours 12/28/21 03:40 Blood Culture - Preliminary Blood No Growth after 72 hours Assessment and Plan Assessment: Acute GI bleed status post emergent surgery for duodenal ulcer repair Status post extubation Surgery recommendations appreciated Trend H & H ICU recommendations appreciated Severe hyponatremia slowly improving Likely due to Poor oral intake and beer potomania Nephrology following Seizure precautions Fall precautions Neurochecks Elevated troponin Trend troponin, patient denies chest pain or trouble breathing Patient has strong history of CAD status post stents Continue to FU History of alcohol dependence CIWA protocol History of COPD not on home oxygen Continue with inhalers and nebulizers as needed Tobacco dependence Nicotine patch ordered DVT prophylaxis mechanical Full code
[2021-12-31] MEDS ORDERED: 1: MVI, ADULT NO.4 WITH VIT K 10 ML, TRACE (CONC-1ML/DOSE) 1 ML in AMINO ACID 5%-D15W+LY IV SCH ×3 (15:00)
[2021-12-31 16:34] LABS: Phosphorus 2.1 mg/dL (2.5-4.5)
[2021-12-31] MEDS ORDERED: POTASSIUM PHOSPHATE 10 MMOL in SODIUM CHLORIDE 0.9% 100 ML IV ONE (20:00)
[2021-12-31] MEDS: METOPROLOL TARTRATE 5 MG/5 ML VIAL IVP SCH (20:25)
[2021-12-31] MEDS: FLUCONAZOLE IN NACL,ISO-OSM 100 MG in SALINE 1 50ML.BAG IVPB SCH (22:44)
[2022-01-01] MEDS: ACETAMINOPHEN IV (For NPO) 1,000 MG in EMPTY BAG 1 BAG IVPB SCH ×5 (00:46→23:15)
[2022-01-01 04:38] LABS: Anisocytosis Slight; Basophils % (A) 0 %; Eosinophils # (A) 0.1 k/uL (0-0.7); Eosinophils % (A) 1 %; HCT 23.5 % (39.0-53.0); HGB 8.1 gm/dL (13.0-17.5); Lymphocytes # (A) 0.3 k/uL (1.0-4.8); Lymphocytes % (A) 3 %; MCH 31.5 pg (25.0-35.0); MCHC 34.5 g/dL (31.0-37.0); MCV 91.3 fL (80.0-100.0); Mean Platelet Volume 8.4; Monocytes # (A) 0.8 k/uL (0-1.0); Monocytes % (A) 7 %; Neutrophils # (A) 10.3 k/uL (1.3-7.7); Neutrophils % (A) 89 %; Platelet Count 156 k/uL (150-450); RBC 2.57 m/uL (4.30-5.90); RDW 16.5 % (11.5-15.5); WBC 11.6 k/uL (3.8-10.6)
[2022-01-01 04:48] LABS: ALT 22 U/L (4-49); AST 70 U/L (17-59); African American GFR (CKD) >90 (>60 ml/min/1.73 sqM); Albumin 1.7 g/dL (3.5-5.0); Alkaline Phosphatase 63 U/L (38-126); Anion Gap 4 mmol/L; Blood Urea Nitrogen 7 mg/dL (9-20); Calcium 6.9 mg/dL (8.4-10.2); Carbon Dioxide 25 mmol/L (22-30); Chloride 96 mmol/L (98-107); Glucose 81 mg/dL (74-99); Magnesium 1.9 mg/dL (1.6-2.3); Non-African American GFR(CKD) >90 (>60 ml/min/1.73 sqM); Phosphorus 2.5 mg/dL (2.5-4.5); Potassium 3.4 mmol/L (3.5-5.1); Sodium 125 mmol/L (137-145); Total Bilirubin 0.2 mg/dL (0.2-1.3); Total Protein 3.1 g/dL (6.3-8.2)
[2022-01-01] MEDS: POTASSIUM CHLORIDE 20 MEQ in WATER FOR INJECTION 1 100ML.BAG IVPB SCH ×2 (05:46→09:13)
[2022-01-01] MEDS: MAGNESIUM SULFATE-D5W PMX 1 GM in DEXTROSE/WATER 1 100ML.BAG IVPB SCH ×2 (05:47→06:37)
[2022-01-01] MEDS: metroNIDAZOLE-NS PMX 500 MG in SALINE 1 100ML.BAG IVPB SCH ×3 (06:37→21:51)
--- NOTE | 2022-01-01 08:09 | XR ---
EXAMINATION TYPE: XR chest 1V portable DATE OF EXAM: 01/01/2022 Comparison: 12/31/2021 Clinical History: 66-year-old male Tube placement Findings: NG tube satisfactory. Heart normal size. There appears to be a surgical drain extending to below the left hemidiaphragm. There is a small layering left pleural effusion which appears increased from prio r. Focal airspace opacity of the right midlung has also increased. Mild interstitial prominence. Impression: 1. NG tube satisfactory. Surgical drain left hemidiaphragm. 2. Small to moderate, partially layering left pleural effusion appears increased from prior exam. Inc reasing left basilar opacity and right mid lung airspace disease. Correlate to exclude pneumonia or d eveloping CHF.
[2022-01-01] MEDS: IPRATROPIUM 0.5 MG/2.5 ML NEBU INHALATION SCH ×4 (08:19→19:45)
[2022-01-01] MEDS: SYMBICORT 160-4.5 MCG INHALER INHALATION SCH ×2 (08:20→19:46)
[2022-01-01] MEDS ORDERED: 1: MVI, ADULT NO.4 WITH VIT K 10 ML, TRACE (CONC-1ML/DOSE) 1 ML, SODIUM CHLORIDE 4MEQ/ML IV SCH ×7 (08:30)
[2022-01-01] MEDS ORDERED: FUROSEMIDE 10 MG/ML 2 ML VIAL IV ONE (09:06)
[2022-01-01] MEDS: THIAMINE 100 MG TAB PO SCH ×2 (09:07→17:46)
--- NOTE | 2022-01-01 09:07 | P.PN ---
Subjective Patient is seen in follow-up for hyponatremia. Patient's sodium level was 102 on admission on 12/28/2021 at 3:17 AM. This morning sodium is 125. Awake and alert. Hemodynamically stable. Vital signs are stable. General: Resting in bed. HEENT: NG tube noted. LUNGS: Breath sounds decreased. HEART: Rate and Rhythm are regular. ABDOMEN: Soft, no distention. EXTREMITITES: No edema. Objective - Vital Signs Vital signs: Vital Signs Temp 97.7 F 01/01/22 04:00 Pulse 88 01/01/22 08:30 Resp 11 L 01/01/22 07:00 BP 129/72 01/01/22 07:00 Pulse Ox 98 01/01/22 07:00 FiO2 50 12/31/21 18:00 Intake & Output 12/31/21 01/01/22 01/01/22 18:59 06:59 18:59 Intake Total 979.968 8507 165 Output Total 840 1425 100 Balance -196.133 -131 65 Weight 71.9 kg Intake: IV 627 1294 165 Arterial pressure bag 33 36 3 Calcium Gluconate 100 Flagyl 50 Fluconazole in NaCl,Iso- 100 Osm 100 mg In Saline 1 50ml.bag @ 50 mls/hr IVPB Q24H [facility] Rx#:[id number] K/Phos 50 100 Kefzol 50 Magnesium 100 100 Ofirmev (acetaminophen) 200 Potassium 50 100 TPN 394 558 62 Intake, IV Titration 16.867 Amount Clevidipine Butyrate 25 16.867 mg In Empty Bag 1 bag @ 1 MG/HR 2 mls/hr IV .Q24H [facility] Rx#:[id number] Output: Gastric Drainage 450 Drainage 120 220 Abdomen 120 220 Urine 720 755 100 Other: Voiding Method Indwelling Catheter Indwelling Catheter ABP, PAP, CO, CI - Last Documented Arterial Blood Pressure 148/62 - Labs CBC & Chem 7: 01/01/22 04:20 01/01/22 04:20 Labs: Abnormal Lab Results - Last 24 Hours (Table) 12/31/21 12/31/21 12/31/21 Range/Units 08:39 10:30 16:15 WBC 11.1 H (3.8-10.6) k/uL RBC 2.73 L (4.30-5.90) m/uL Hgb 8.5 L (13.0-17.5) gm/dL Hct 24.7 L (39.0-53.0) % RDW 16.3 H (11.5-15.5) % Plt Count 139 L (150-450) k/uL Neutrophils # (1.3-7.7) k/uL Lymphocytes # (1.0-4.8) k/uL Sodium 123 L 124 L (137-145) mmol/L Potassium (3.5-5.1) mmol/L Chloride (98-107) mmol/L BUN 8 L (9-20) mg/dL Creatinine 0.43 L (0.66-1.25) mg/dL Glucose 139 H (74-99) mg/dL Calcium 6.4 L* (8.4-10.2) mg/dL Phosphorus 2.1 L (2.5-4.5) mg/dL AST 75 H (17-59) U/L Total Protein 3.2 L (6.3-8.2) g/dL Albumin 1.7 L (3.5-5.0) g/dL 01/01/22 01/01/22 Range/Units 04:20 04:20 WBC 11.6 H (3.8-10.6) k/uL RBC 2.57 L (4.30-5.90) m/uL Hgb 8.1 L (13.0-17.5) gm/dL Hct 23.5 L (39.0-53.0) % RDW 16.5 H (11.5-15.5) % Plt Count (150-450) k/uL Neutrophils # 10.3 H (1.3-7.7) k/uL Lymphocytes # 0.3 L (1.0-4.8) k/uL Sodium 125 L (137-145) mmol/L Potassium 3.4 L (3.5-5.1) mmol/L Chloride 96 L (98-107) mmol/L BUN 7 L (9-20) mg/dL Creatinine 0.41 L (0.66-1.25) mg/dL Glucose (74-99) mg/dL Calcium 6.9 L (8.4-10.2) mg/dL Phosphorus (2.5-4.5) mg/dL AST 70 H (17-59) U/L Total Protein 3.1 L (6.3-8.2) g/dL Albumin 1.7 L (3.5-5.0) g/dL Microbiology - Last 24 Hours (Table) 12/28/21 03:35 Blood Culture - Preliminary Blood No Growth after 96 hours 12/28/21 03:40 Blood Culture - Preliminary Blood No Growth after 96 hours Assessment and Plan Plan: Assessment: 1. Hypovolemic hyponatremia improved with IV hydration. Currently off vasopressors. Sodium level 125 this morning. Urine osmolality 489. Cortisol 44. TSH normal. Patient did receive DDAVP and D5W to slow the correction of hyponatremia. 2. Bleeding duodenal ulcer status post exploratory laparotomy with surgical repair/pyloroplasty 12/28/2021. Surgery following. 3. Hemorrhagic and hypovolemic shock status post IV fluids and blood tr ansition. 4. Metabolic acidosis secondary to IV fluids. Improved. 5. History of alcohol abuse. 6. Hypophosphatemia from poor intake. Replaced. Better. 7. Hypokalemia from poor intake. Being replaced. 8. Hypocalcemia secondary to hypoalbuminemia. Corrected calcium normal. Ionized calcium normal. Plan: Maintain TPN. Remains off IV fluids. Potassium being replaced. Continue to replace electrolytes per protocol. Lasix 20 mg Iv once today as effusions noted on x-ray.
[2022-01-01] MEDS: PANTOPRAZOLE 40 MG/10 ML VIAL IVP SCH ×2 (09:14→20:10)
[2022-01-01] MEDS: NICOTINE 21MG/24HR PATCH TRANSDERM SCH (09:14)
[2022-01-01] MEDS: METOPROLOL TARTRATE 5 MG/5 ML VIAL IVP SCH ×2 (09:14→20:10)
[2022-01-01] MEDS: ENOXAPARIN 40 MG/0.4 ML SYRINGE SQ SCH (09:14)
--- NOTE | 2022-01-01 09:43 | P.PN ---
Subjective PROGRESS NOTE The patient is a 66 year old male who presented with severe hyponatremia and bleeding ulcer, he underwent surgical intervention, he remains intubated and sedated. He is in sinus mechanism, hemodynamically stable. He is on no vasopre ssors. He had an echocardiogram yesterday that showed a normal systolic function with no significant valvular disease. He has a history of CAD, post stenting of the LAD in [facility] in 2016. History of chronic alcohol intake and a history of COPD. His sodium is up to 121, his hemoglobin is 8.4. December 31: The patient is extubated, feels better, tired. He denies any chest discomfort, dizziness or palpitations. Hemodynamically he is stable. His urine output is good. He denies any nausea or vomiting but continues to have an NG tube and nothing by mouth. There is no evidence of malignant arrhythmia. His sodium is up to 123 01/01 Patient seen and examined. Patient admits to atypical chest pain worse when he coughs. No significant shortness breath. He is receiving IV metoprolol secondary to being nothing by mouth. Blood pressure stable. NG tube in place. PHYSICAL EXAMINATION: Vitals reviewed LUNGS: Clear to auscultation anteriorly HEART: Regular rate and rhythm, S1, S2. No S3. No systolic murmur ABDOMEN: Soft, hypoactive bowel sounds, dressing in place EXTREMETIES: No edema IMPRESSION: 1. Status post surgery for bleeding peptic ulcer, stable 2. Respiratory failure, resolved 3. Severe hyponatremia, improving 4. History of CAD, post stenting no evidence of acute coronary syndrome 5. History of hypertension 6. History of hyperlipidemia 7. History of COPD 8. History of chronic alcohol intake 9. Atypical chest pain worse with cough does not appear cardiac 10. Elevated troponins, related to anemia PLAN: Continue IV beta nichelle while NPO. Patient having atypical chest pain which does not appear cardiac in nature. Troponins minimally elevated however preserved EF on echocardiogram. Continue with supportive care. Hold antiplatelets given recent GI bleed and reinitiated as an outpatient. When patient is no longer nothing by mouth, reinitiated home atenolol. No further recommendations from a cardiology standpoint. Please call with any questions. Objective - Vital Signs Vital signs: Vital Signs Temp 97.8 F 01/01/22 08:00 Pulse 72 01/01/22 09:00 Resp 64 H 01/01/22 09:00 BP 129/72 01/01/22 07:00 Pulse Ox 99 01/01/22 09:00 FiO2 50 12/31/21 18:00 Intake & Output 12/31/21 01/01/22 01/01/22 18:59 06:59 18:59 Intake Total 768.445 3920 321 Output Total 840 1425 295 Balance -196.133 -131 26 Weight 71.9 kg Intake: IV 627 1294 321 Arterial pressure bag 33 36 9 Calcium Gluconate 100 Flagyl 50 Fluconazole in NaCl,Iso- 100 Osm 100 mg In Saline 1 50ml.bag @ 50 mls/hr IVPB Q24H [facility] Rx#:[id number] K/Phos 50 100 Kefzol 50 50 Magnesium 100 100 Ofirmev (acetaminophen) 200 Potassium 50 100 100 TPN 394 558 62 Intake, IV Titration 16.867 Amount Clevidipine Butyrate 25 16.867 mg In Empty Bag 1 bag @ 1 MG/HR 2 mls/hr IV .Q24H [facility] Rx#:[id number] Output: Gastric Drainage 450 Drainage 120 220 20 Abdomen 120 220 20 Urine 720 755 275 Other: Voiding Method Indwelling Catheter Indwelling Catheter ABP, PAP, CO, CI - Last Documented Arterial Blood Pressure 131/62 - Labs CBC & Chem 7: 01/01/22 04:20 01/01/22 04:20 Labs: Abnormal Lab Results - Last 24 Hours (Table) 12/31/21 12/31/21 01/01/22 Range/Units 10:30 16:15 04:20 WBC 11.1 H (3.8-10.6) k/uL RBC 2.73 L (4.30-5.90) m/uL Hgb 8.5 L (13.0-17.5) gm/dL Hct 24.7 L (39.0-53.0) % RDW 16.3 H (11.5-15.5) % Plt Count 139 L (150-450) k/uL Neutrophils # (1.3-7.7) k/uL Lymphocytes # (1.0-4.8) k/uL Sodium 124 L 125 L (137-145) mmol/L Potassium 3.4 L (3.5-5.1) mmol/L Chloride 96 L (98-107) mmol/L BUN 7 L (9-20) mg/dL Creatinine 0.41 L (0.66-1.25) mg/dL Calcium 6.9 L (8.4-10.2) mg/dL Phosphorus 2.1 L (2.5-4.5) mg/dL AST 70 H (17-59) U/L Total Protein 3.1 L (6.3-8.2) g/dL Albumin 1.7 L (3.5-5.0) g/dL 01/01/22 Range/Units 04:20 WBC 11.6 H (3.8-10.6) k/uL RBC 2.57 L (4.30-5.90) m/uL Hgb 8.1 L (13.0-17.5) gm/dL Hct 23.5 L (39.0-53.0) % RDW 16.5 H (11.5-15.5) % Plt Count (150-450) k/uL Neutrophils # 10.3 H (1.3-7.7) k/uL Lymphocytes # 0.3 L (1.0-4.8) k/uL Sodium (137-145) mmol/L Potassium (3.5-5.1) mmol/L Chloride (98-107) mmol/L BUN (9-20) mg/dL Creatinine (0.66-1.25) mg/dL Calcium (8.4-10.2) mg/dL Phosphorus (2.5-4.5) mg/dL AST (17-59) U/L Total Protein (6.3-8.2) g/dL Albumin (3.5-5.0) g/dL Microbiology - Last 24 Hours (Table) 12/28/21 03:35 Blood Culture - Preliminary Blood No Growth after 96 hours 12/28/21 03:40 Blood Culture - Preliminary Blood No Growth after 96 hours
[2022-01-01] MEDS: NOREPINEPHRINE 4 MG in SODIUM CHLORIDE 0.9% 250 ML IV SCH (10:26)
--- NOTE | 2022-01-01 10:32 | P.PN ---
Subjective Progress Note Date: 01/01/22 CHIEF COMPLAINT: Bleeding duodenal ulcer HISTORY OF PRESENT ILLNESS: Patient is postop day #4exploratory laparotomy with oversewing of bleeding duodenal ulcer with pyloroplasty. Patient was extubated over the weekend on 12/30/2021. Patient has NG tube in place with clearish bile output. He reports that his abdominal pain is controlled. Denies any nausea. No flatus or bowel movement yet. He is requesting food. He is currently on TPN for nutrition support. JEB drain with serosanguineous output. Hemoglobin stable at 8.1. Afebrile. WBC 11.6 platelets 156 sodium is 125 potassium is 3.4 creatinine 0.41 albumin 1.7. Nephrology did order a dose of IV Lasix today PHYSICAL EXAM: VITAL SIGNS: Reviewed. GENERAL: Well-developed in no acute distress. HEENT: No sclera icterus. Extraocular movements grossly intact. Moist buccal mucosa. Head is atraumatic, normocephalic. ABDOMEN: Soft. Nondistended. Nontender. Incision site clean dry and intact. JEB trach in place. Abdominal binder NEUROLOGIC: Alert and oriented. Cranial nerves II through XII grossly intact. ASSESSMENT: 1. Bleeding duodenal ulcer 2. Massive upper GI bleed 3. Acute blood loss anemia due to GI bleed 4. Severe hyponatremia followed by nephrology 5. Hypokalemia PLAN: -Continue ICU management and supportive care -Resume IV Tylenol for pain -Continue TPN for nutrition support -Continue antibiotics -Continue IV Protonix -Potassium being replaced -DVT prophylaxis Lovenox Physician [employer] note has been reviewed by physician. Signing provider agrees with the documented findings, assessment, and plan of care. I have personally seen and examined the patient, reviewed the DIMENSIONAL INTEGRATION ENGINEER /PAs history, exam and MDM and agree with the assessment and plan as written. Based on total visit time, I have performed more than 50% of the visit. As above: Patient doing well today. Mild discomfort. Says it is about the same as yesterday. JEB drain remained serosanguineous and the nasogastric tube remains bilious. Keep nasogastric tube to suction. Continue TPN and antibiotics. Objective - Vital Signs Vital signs: Vital Signs Temp 97.8 F 01/01/22 08:00 Pulse 70 01/01/22 10:00 Resp 11 L 01/01/22 10:00 BP 133/77 01/01/22 10:00 Pulse Ox 100 01/01/22 10:00 FiO2 50 12/31/21 18:00 Intake & Output 12/31/21 01/01/22 01/01/22 18:59 06:59 18:59 Intake Total 330.105 9610 321 Output Total 840 1425 295 Balance -196.133 -131 26 Weight 71.9 kg Intake: IV 627 1294 321 Arterial pressure bag 33 36 9 Calcium Gluconate 100 Flagyl 50 Fluconazole in NaCl,Iso- 100 Osm 100 mg In Saline 1 50ml.bag @ 50 mls/hr IVPB Q24H [facility] Rx#:[id number] K/Phos 50 100 Kefzol 50 50 Magnesium 100 100 Ofirmev (acetaminophen) 200 Potassium 50 100 100 TPN 394 558 62 Intake, IV Titration 16.867 Amount Clevidipine Butyrate 25 16.867 mg In Empty Bag 1 bag @ 1 MG/HR 2 mls/hr IV .Q24H [facility] Rx#:[id number] Output: Gastric Drainage 450 Drainage 120 220 20 Abdomen 120 220 20 Urine 720 755 275 Other: Voiding Method Indwelling Catheter Indwelling Catheter Indwelling Catheter ABP, PAP, CO, CI - Last Documented Arterial Blood Pressure 144/63 - Labs CBC & Chem 7: 01/01/22 04:20 01/01/22 04:20 Labs: Abnormal Lab Results - Last 24 Hours (Table) 12/31/21 12/31/21 01/01/22 Range/Units 10:30 16:15 04:20 WBC 11.1 H (3.8-10.6) k/uL RBC 2.73 L (4.30-5.90) m/uL Hgb 8.5 L (13.0-17.5) gm/dL Hct 24.7 L (39.0-53.0) % RDW 16.3 H (11.5-15.5) % Plt Count 139 L (150-450) k/uL Neutrophils # (1.3-7.7) k/uL Lymphocytes # (1.0-4.8) k/uL Sodium 124 L 125 L (137-145) mmol/L Potassium 3.4 L (3.5-5.1) mmol/L Chloride 96 L (98-107) mmol/L BUN 7 L (9-20) mg/dL Creatinine 0.41 L (0.66-1.25) mg/dL Calcium 6.9 L (8.4-10.2) mg/dL Phosphorus 2.1 L (2.5-4.5) mg/dL AST 70 H (17-59) U/L Total Protein 3.1 L (6.3-8.2) g/dL Albumin 1.7 L (3.5-5.0) g/dL 01/01/22 Range/Units 04:20 WBC 11.6 H (3.8-10.6) k/uL RBC 2.57 L (4.30-5.90) m/uL Hgb 8.1 L (13.0-17.5) gm/dL Hct 23.5 L (39.0-53.0) % RDW 16.5 H (11.5-15.5) % Plt Count (150-450) k/uL Neutrophils # 10.3 H (1.3-7.7) k/uL Lymphocytes # 0.3 L (1.0-4.8) k/uL Sodium (137-145) mmol/L Potassium (3.5-5.1) mmol/L Chloride (98-107) mmol/L BUN (9-20) mg/dL Creatinine (0.66-1.25) mg/dL Calcium (8.4-10.2) mg/dL Phosphorus (2.5-4.5) mg/dL AST (17-59) U/L Total Protein (6.3-8.2) g/dL Albumin (3.5-5.0) g/dL Microbiology - Last 24 Hours (Table) 12/28/21 03:35 Blood Culture - Preliminary Blood No Growth after 96 hours 12/28/21 03:40 Blood Culture - Preliminary Blood No Growth after 96 hours
[2022-01-01] MEDS: HYDROmorphone 1 MG/ML 1 ML SYRINGE IVP PRN (10:34)
--- NOTE | 2022-01-01 11:12 | P.PN ---
Subjective Progress Note Date: 01/01/22 Principal diagnosis: Acute upper GI bleeding secondary to duodenal ulcer 66-year-old male patient brought into the hospital because of generalized weakness and fatigue and addition to nausea and emesis and numbness and paresthesias. The patient has undergone a surgery cervical spine approximately a month at outside hospital. The patient stated that he has not been feeling well since. He has been calm progressively more weak over the past few weeks and the patient had loss in appetite. He has not been eating much or drinking much. As a result, he became progressively more weak and he end up coming into the hospital. Denies having any focal weakness. He takes Prozac at home. He has previous history of alcohol abuse,. He also has COPD management on a combination of Symbicort and Spiriva on outpatient basis regarding takes is no peripheral blood pressure control. At the time of his emergency evaluation, the patient was afebrile hemodynamically stable pulse ox of 99% on room air oxygen. Nevertheless, electrodes was significantly abnormal with a sodium level of 103 and a chloride level of 74 with a BUN of 40 and a creatinine of 1.05. The white cell count was at 5.6 with a hemoglobin of 8.1 and a platelet count of 155. The albumin was 3.2 with a total protein of 4.5. Serum alcohol was negative. He had a positive troponins of 0.05 and 0.04 respectively 2. TSH was at 1.08 and a serum cortisol was 44. UA was negative. His COVID 19 testing was also negative. His chest x-ray showed no acute abnormalities. There is some old left-sided rib fractures. Note that despite this hyponatremia, the patient did not have any seizure activity. No altered mentation. He is appropriate and following commands and answering questions appropriately. He was brought into the intensive care unit and he was started on hypertonic saline solution and currently is on 3% saline, running at the rate of 25 mL an hour. Electrodes are being checked on a regular basis every 4 hours. Noted the initial sodium was at 102 and it came up to 106. Initial creatinine was 1.1 came down to 1.05. History of any chest pain for now. The patient states that he lives in [facility]. He lives alone. 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 He is also a . It seems that he has done some medical care through the year to [facility]. Denies having any recent cold COVID 19 infection. He apparently has been drinking and he Is Drinking. He Was Taken around 5-6 Beers a Day and on and off He Still drinking probably 1 or 2 beers. Doesn't have much of help. His been having difficulty with mobility and ambulation. Surgical wound site over the anterior cervical area is dry clean and intact. No fever. No chills. No focal neurological deficit. He is able to answer questions appropriately although he is slow in answering questions. 12/31/2021, the patient is extubated and currently is on oxygen at 3 L. He was extubated yesterday without any major difficulties. The orogastric tube was also replaced with an NG tube. Output is in order of 300 mL overnight on the NG tube. The patient is awake and alert and following simple commands. His resting comfortably in bed. He is hemodynamically stable. He is on no pressors. His cardiac rhythm is sinus. He was started on TPN for nutritional support. Meanwhile, his IV fluids in the form of KVO and the D5 water has been discontinued. Sodium level is up to 123. Potassium level is at 3.9 and the BUN is at 8 with a creatinine of 0.4. The patient remains on broad-spectrum antibiotics regarding this duodenal perforation and is currently on a combination of, Diflucan and Flagyl. No other significant events overnight. His resting comfortably in bed. He is postop day #3. No evidence of any ongoing GI bleeding for now and hemoglobin is stable and hemoglobin today is still pending. Yesterday's hemoglobin was at 8.4. Surgical wound site is dry clean and intact. The patient has a JEB drain which is showing serous drainage in the order of 80 mL over the past 12 hours. Reevaluated today on 01/01/2022, patient remains in the ICU, seems to be doing relatively well, he is hemodynamically stable, nasogastric tube remains in place, remains nothing by mouth.. He is on 3 L nasal cannula, not in any distress, patient is on TPN, IV fluid at KVO, he is hemodynamically stable with a blood pressure of 134/66. WBC count is 11.6 hemoglobin is 8.1 sodium is improving up to 125 otherwise his renal profile is normal and electrolytes are normal Objective - Vital Signs Vital signs: Vital Signs Temp 97.8 F 01/01/22 08:00 Pulse 70 01/01/22 10:00 Resp 11 L 01/01/22 10:00 BP 133/77 01/01/22 10:00 Pulse Ox 100 01/01/22 10:00 FiO2 50 12/31/21 18:00 Intake & Output 12/31/21 01/01/22 01/01/22 18:59 06:59 18:59 Intake Total 166.670 8349 324 Output Total 840 1425 495 Balance -196.133 -131 -171 Weight 71.9 kg Intake: IV 627 1294 324 Arterial pressure bag 33 36 12 Calcium Gluconate 100 Flagyl 50 Fluconazole in NaCl,Iso- 100 Osm 100 mg In Saline 1 50ml.bag @ 50 mls/hr IVPB Q24H [facility] Rx#:[id number] K/Phos 50 100 Kefzol 50 50 Magnesium 100 100 Ofirmev (acetaminophen) 200 Potassium 50 100 100 TPN 394 558 62 Intake, IV Titration 16.867 Amount Clevidipine Butyrate 25 16.867 mg In Empty Bag 1 bag @ 1 MG/HR 2 mls/hr IV .Q24H [facility] Rx#:[id number] Output: Gastric Drainage 450 Drainage 120 220 20 Abdomen 120 220 20 Urine 720 755 475 Other: Voiding Method Indwelling Catheter Indwelling Catheter Indwelling Catheter ABP, PAP, CO, CI - Last Documented Arterial Blood Pressure 144/63 - Exam Physical Exam: Revealed a 66-year-old white male in no distress Head: Atraumatic, normocephalic. Nasogastric tube seems to be intact HEENT:[Neck is supple.] [No neck masses.] [No thyromegaly.] [No JVD.] Chest: [Clear throughout, no crackles, no rhonchi, no wheezes.] Cardiac Exam: [Normal S1 and S2, no S3 gallop, no murmur.] Abdomen: Soft. Nondistended. Nontender. Incision site clean dry and intact. JEB trach in place. Abdominal binder Extremities: [No clubbing, no edema, no cyanosis.] Neurological Exam: Generalized weakness in all 4 extremities otherwise unremarkable. Psychiatric: Normal mood, affect and normal mental status examination. - Labs CBC & Chem 7: 01/01/22 04:20 01/01/22 04:20 Labs: Abnormal Lab Results - Last 24 Hours (Table) 12/31/21 01/01/22 01/01/22 Range/Units 16:15 04:20 04:20 WBC 11.6 H (3.8-10.6) k/uL RBC 2.57 L (4.30-5.90) m/uL Hgb 8.1 L (13.0-17.5) gm/dL Hct 23.5 L (39.0-53.0) % RDW 16.5 H (11.5-15.5) % Neutrophils # 10.3 H (1.3-7.7) k/uL Lymphocytes # 0.3 L (1.0-4.8) k/uL Sodium 124 L 125 L (137-145) mmol/L Potassium 3.4 L (3.5-5.1) mmol/L Chloride 96 L (98-107) mmol/L BUN 7 L (9-20) mg/dL Creatinine 0.41 L (0.66-1.25) mg/dL Calcium 6.9 L (8.4-10.2) mg/dL Phosphorus 2.1 L (2.5-4.5) mg/dL AST 70 H (17-59) U/L Total Protein 3.1 L (6.3-8.2) g/dL Albumin 1.7 L (3.5-5.0) g/dL Microbiology - Last 24 Hours (Table) 12/28/21 03:35 Blood Culture - Preliminary Blood No Growth after 96 hours 12/28/21 03:40 Blood Culture - Preliminary Blood No Growth after 96 hours Assessment and Plan Assessment: Impression: Massive Upper GI bleeding secondary to duodenal ulcer Status post exploratory laparotomy and oversewing of bleeding duodenal ulcer with pyloroplasty postoperative day #4 Acute blood loss anemia Acute hyponatremia and hypokalemia being addressed by nephrology Recommendation: Continue to monitor in the ICU for the next 24 hours Continue antibiotics Continue IV Protonix Continue TPN Continue DVT prophylaxis and GI prophylaxis We will continue to follow and possibly transfer out of the ICU within the next 24 hours Time with Patient: Less than 30
[2022-01-01] MEDS: CLEVIDIPINE BUTYRATE 25 MG in EMPTY BAG 1 BAG IV SCH (13:15)
[2022-01-01] MEDS: FAT EMULSION 20% 500 ML IV SCH (13:20)
[2022-01-01] MEDS ORDERED: LIDOCAINE 1% INJ 10MG/ML (30 ML VIAL-PF) SQ ONE (14:45)
--- NOTE | 2022-01-01 15:11 | XR ---
EXAMINATION TYPE: XR chest 1V confirm line [facility] DATE OF EXAM: 01/01/2022 COMPARISON: Earlier today HISTORY: 66-year-old male PICC line placement. TECHNIQUE: Single frontal view of the chest is obtained. FINDINGS: Partially visualized ACDF hardware. Distal aspect of the enteric pain. Surgical drain noted at the le ft base. Hazy density left lower lung. Patchy airspace opacity right lung. Nodular density right base , likely nipple shadow mild diffuse interstitial prominence persists. Left PICC tip likely at the upp er SVC level. IMPRESSION: 1. Left PICC tip in the region of the upper SVC. 2. Continued partially layering left pleural effusion. Interstitial prominence is similar. Focal airs pace disease right mid lung is similar.
--- NOTE | 2022-01-01 15:48 | P.PN ---
Subjective Patient seen and examined at bedside. was at bedside. Patient denied chest pain shortness of breath that exam. Patient is resting in bed comfortably Objective - Vital Signs Vital signs: Vital Signs Temp 98 F 01/01/22 12:00 Pulse 96 01/01/22 15:00 Resp 15 01/01/22 15:00 BP 135/78 01/01/22 15:00 Pulse Ox 90 L 01/01/22 15:00 FiO2 50 12/31/21 18:00 Intake & Output 12/31/21 01/01/22 01/01/22 18:59 06:59 18:59 Intake Total 469.567 6706 339 Output Total 840 1425 1635 Balance -196.133 -131 -1296 Weight 71.9 kg 71.9 kg Intake: IV 627 1294 339 Arterial pressure bag 33 36 27 Calcium Gluconate 100 Flagyl 50 Fluconazole in NaCl,Iso- 100 Osm 100 mg In Saline 1 50ml.bag @ 50 mls/hr IVPB Q24H [facility] Rx#:[id number] K/Phos 50 100 Kefzol 50 50 Magnesium 100 100 Ofirmev (acetaminophen) 200 Potassium 50 100 100 TPN 394 558 62 Intake, IV Titration 16.867 Amount Clevidipine Butyrate 25 16.867 mg In Empty Bag 1 bag @ 1 MG/HR 2 mls/hr IV .Q24H [facility] Rx#:[id number] Output: Gastric Drainage 450 200 Drainage 120 220 60 Abdomen 120 220 60 Urine 267 151 3172 Other: Voiding Method Indwelling Catheter Indwelling Catheter Indwelling Catheter ABP, PAP, CO, CI - Last Documented Arterial Blood Pressure 145/65 - Exam General: [non toxic], [no distress], [appears at stated age] Derm: [warm], [dry] Head: [atraumatic], [normocephalic], [symmetric] Eyes: [EOMI], [no lid lag], [anicteric sclera] Mouth: [no lip lesion], [mucus membranes moist] Cardiovascular: [S1S2 reg], [no murmur], [positive posterior tibial pulse bilateral], Lungs: [CTA bilateral], [no rhonchi, no rales] , [no accessory muscle use] Abdominal: [soft], [ nontender to palpation], [no guarding], [no appreciable organomegaly] Ext: [no gross muscle atrophy], [no edema], [no contractures] Neuro: [ CN II-XI grossly intact], [no focal neuro deficits] Psych: [Alert], [oriented], [appropriate affect] - Labs CBC & Chem 7: 01/01/22 04:20 01/01/22 04:20 Labs: Abnormal Lab Results - Last 24 Hours (Table) 12/30/21 12/31/21 01/01/22 Range/Units 04:35 16:15 04:20 WBC (3.8-10.6) k/uL RBC (4.30-5.90) m/uL Hgb (13.0-17.5) gm/dL Hct (39.0-53.0) % RDW (11.5-15.5) % Neutrophils # (1.3-7.7) k/uL Lymphocytes # (1.0-4.8) k/uL Sodium 124 L 125 L (137-145) mmol/L Potassium 3.4 L (3.5-5.1) mmol/L Chloride 96 L (98-107) mmol/L BUN 7 L (9-20) mg/dL Creatinine 0.41 L (0.66-1.25) mg/dL Calcium 6.9 L (8.4-10.2) mg/dL Phosphorus 2.1 L (2.5-4.5) mg/dL AST 70 H (17-59) U/L Total Protein 3.1 L (6.3-8.2) g/dL Albumin 1.7 L (3.5-5.0) g/dL RBC Folate 1,085 H (280 - 791) ng/mL 01/01/22 Range/Units 04:20 WBC 11.6 H (3.8-10.6) k/uL RBC 2.57 L (4.30-5.90) m/uL Hgb 8.1 L (13.0-17.5) gm/dL Hct 23.5 L (39.0-53.0) % RDW 16.5 H (11.5-15.5) % Neutrophils # 10.3 H (1.3-7.7) k/uL Lymphocytes # 0.3 L (1.0-4.8) k/uL Sodium (137-145) mmol/L Potassium (3.5-5.1) mmol/L Chloride (98-107) mmol/L BUN (9-20) mg/dL Creatinine (0.66-1.25) mg/dL Calcium (8.4-10.2) mg/dL Phosphorus (2.5-4.5) mg/dL AST (17-59) U/L Total Protein (6.3-8.2) g/dL Albumin (3.5-5.0) g/dL RBC Folate (280 - 791) ng/mL Microbiology - Last 24 Hours (Table) 12/28/21 03:35 Blood Culture - Preliminary Blood No Growth after 96 hours 12/28/21 03:40 Blood Culture - Preliminary Blood No Growth after 96 hours Assessment and Plan Assessment: Acute GI bleed status post emergent surgery for duodenal ulcer repair Status post extubation Surgery recommendations appreciated Trend H & H ICU recommendations appreciated Severe hyponatremia slowly improving Likely due to Poor oral intake and beer potomania Nephrology following Seizure precautions Fall precautions Neurochecks Elevated troponin Trend troponin, patient denies chest pain or trouble breathing Patient has strong history of CAD status post stents Continue to FU History of alcohol dependence CIWA protocol History of COPD not on home oxygen Continue with inhalers and nebulizers as needed Tobacco dependence Nicotine patch ordered DVT prophylaxis mechanical Full code
--- NOTE | 2022-01-01 16:13 | IR ---
PICC LINE PLACEMENT: HISTORY: TPN therapy PROCEDURE: Ultrasound guidance of PICC line placement. PITCHING COACH: Dr. Sal. COMPLICATIONS: None ANESTHESIA: 1. 1% Lidocaine locally. FINDINGS/TECHNIQUE: The procedure was explained to the patient. The risks, complications, benefits and alternatives were discussed and any questions were answered. Informed consent was obtained. The patient was placed supine on the fluoroscopic table and prepped and draped in the usual sterile fash ion. Utilizing a 21 gauge needle and sonographic guidance, access in the left basilic vein was achi eved and there is placement of a 0.018 guidewire. The vein is patent. A 5-F. sheath was placed over the guidewire. The guidewire and dilator were removed and a 5-F. Double lumen PICC line was placed through the sheath with the chest x-ray confirming the tip at the level of the SVC. The sheath was r emoved, the catheter was flushed and sutured into position. The patient was stable throughout the pr ocedure and remained stable upon discharge from the Department of Radiology. The vein puncture was patent under ultrasound. A cornelius scale image was obtained to document patency of the vein punctured. All elements of the maximal barrier technique were utilized. IMPRESSION: 1. Successful PICC line placement under ultrasound performed bedside within the ICU.
[2022-01-01] MEDS: HYDROmorphone 0.5 MG/0.5 ML SYRINGE IVP PRN (20:10)
[2022-01-01] MEDS: FLUCONAZOLE IN NACL,ISO-OSM 100 MG in SALINE 1 50ML.BAG IVPB SCH (21:51)
[2022-01-01] MEDS: 1: MVI, ADULT NO.4 WITH VIT K 10 ML, TRACE (CONC-1ML/DOSE) 1 ML, SODIUM CHLORIDE 4MEQ/ML IV SCH ×14 (21:52→21:57)
[2022-01-02] MEDS: NOREPINEPHRINE 4 MG in SODIUM CHLORIDE 0.9% 250 ML IV SCH ×2 (02:52→20:34)
[2022-01-02 04:26] LABS: Anisocytosis Slight; Basophils % (A) 0 %; Eosinophils # (A) 0.1 k/uL (0-0.7); Eosinophils % (A) 1 %; HGB 7.3 gm/dL (13.0-17.5); Lymphocytes # (A) 0.4 k/uL (1.0-4.8); Lymphocytes % (A) 4 %; MCH 30.3 pg (25.0-35.0); MCHC 33.2 g/dL (31.0-37.0); MCV 91.1 fL (80.0-100.0); Mean Platelet Volume 8.8; Monocytes # (A) 0.4 k/uL (0-1.0); Monocytes % (A) 4 %; Neutrophils # (A) 8.3 k/uL (1.3-7.7); Neutrophils % (A) 90 %; Platelet Count 171 k/uL (150-450); RBC 2.42 m/uL (4.30-5.90); RDW 16.9 % (11.5-15.5); WBC 9.2 k/uL (3.8-10.6)
[2022-01-02 04:34] LABS: ALT 17 U/L (4-49); AST 48 U/L (17-59); African American GFR (CKD) >90 (>60 ml/min/1.73 sqM); Albumin 1.6 g/dL (3.5-5.0); Alkaline Phosphatase 57 U/L (38-126); Anion Gap 3 mmol/L; Blood Urea Nitrogen 12 mg/dL (9-20); Calcium 6.8 mg/dL (8.4-10.2); Carbon Dioxide 29 mmol/L (22-30); Chloride 93 mmol/L (98-107); Glucose 140 mg/dL (74-99); Magnesium 2.1 mg/dL (1.6-2.3); Non-African American GFR(CKD) >90 (>60 ml/min/1.73 sqM); Phosphorus 2.5 mg/dL (2.5-4.5); Potassium 3.6 mmol/L (3.5-5.1); Sodium 125 mmol/L (137-145); Total Bilirubin 0.2 mg/dL (0.2-1.3)
[2022-01-02] MEDS: POTASSIUM CHLORIDE 20 MEQ in WATER FOR INJECTION 1 100ML.BAG IVPB SCH ×2 (04:59→07:05)
[2022-01-02] MEDS: metroNIDAZOLE-NS PMX 500 MG in SALINE 1 100ML.BAG IVPB SCH ×3 (05:02→22:56)
[2022-01-02] MEDS: ACETAMINOPHEN IV (For NPO) 1,000 MG in EMPTY BAG 1 BAG IVPB SCH ×4 (05:02→23:57)
[2022-01-02] MEDS: THIAMINE 100 MG TAB PO SCH ×2 (06:33→17:05)
[2022-01-02] MEDS: 1: MVI, ADULT NO.4 WITH VIT K 10 ML, TRACE (CONC-1ML/DOSE) 1 ML, SODIUM CHLORIDE 4MEQ/ML IV SCH ×14 (08:33→19:50)
[2022-01-02] MEDS: NICOTINE 21MG/24HR PATCH TRANSDERM SCH (08:33)
[2022-01-02] MEDS: METOPROLOL TARTRATE 5 MG/5 ML VIAL IVP SCH ×2 (08:33→20:38)
[2022-01-02] MEDS: PANTOPRAZOLE 40 MG/10 ML VIAL IVP SCH ×2 (08:33→20:38)
[2022-01-02] MEDS: ENOXAPARIN 40 MG/0.4 ML SYRINGE SQ SCH (08:34)
[2022-01-02] MEDS: SYMBICORT 160-4.5 MCG INHALER INHALATION SCH ×2 (08:41→19:31)
[2022-01-02] MEDS: IPRATROPIUM 0.5 MG/2.5 ML NEBU INHALATION SCH ×4 (08:41→19:31)
[2022-01-02] MEDS ORDERED: FUROSEMIDE 10 MG/ML 4 ML VIAL IV STA (09:06)
--- NOTE | 2022-01-02 09:10 | P.PN ---
Subjective Patient is seen in follow-up for hyponatremia. Sodium level stable at 125. Await. Denies chest pain or shortness of breath. Potassium replaced. Receiving TPN. Nothing by mouth. Vital signs are stable. General: Resting in bed. HEENT: On nasal cannula. LUNGS: Breath sounds decreased. HEART: Rate and Rhythm are regular. ABDOMEN: Soft, no distention. EXTREMITITES: Trace edema. Objective - Vital Signs Vital signs: Vital Signs Temp 98.4 F 01/02/22 04:00 Pulse 98 01/02/22 07:00 Resp 15 01/02/22 07:00 BP 149/61 01/01/22 17:00 Pulse Ox 97 01/02/22 07:00 FiO2 50 12/31/21 18:00 Intake & Output 01/01/22 01/02/22 01/02/22 18:59 06:59 18:59 Intake Total 498 1629 1017.917 Output Total 1900 1211 125 Balance -1402 418 892.917 Weight 71.9 kg 71.3 kg Intake: IV 498 1629 3 Arterial pressure bag 36 39 3 Flagyl 100 100 Kefzol 100 50 Magnesium 100 Ofirmev (acetaminophen) 200 Potassium 100 100 TPN 62 1140 Intake, IV Titration 1014.917 Amount Mvi, Adult No.4 with Vit 1014.917 K 10 ml Trace (Conc-1Ml/ Dose) 1 ml Sodium Chloride 4Meq/ml Vial 20 meq Potassium Chloride 20 meq Potassium Phosphate 6 mmol Magnesium Sulfate gm 1 gm In Amino Acid 5%- D15w+Lytes*E* 1,000 ml @ 95 mls/hr IV .BY DURATION [facility] Rx#:[id number] Output: Gastric Drainage 200 250 Drainage 100 105 Abdomen 100 105 Urine 1600 855 125 Stool 1 Other: Voiding Method Indwelling Catheter Indwelling Catheter # Bowel Movements 1 ABP, PAP, CO, CI - Last Documented Arterial Blood Pressure 143/60 - Labs CBC & Chem 7: 01/02/22 04:14 01/02/22 04:14 Labs: Abnormal Lab Results - Last 24 Hours (Table) 12/30/21 01/02/22 01/02/22 Range/Units 04:35 04:14 04:14 RBC 2.42 L (4.30-5.90) m/uL Hgb 7.3 L (13.0-17.5) gm/dL Hct 22.0 L (39.0-53.0) % RDW 16.9 H (11.5-15.5) % Neutrophils # 8.3 H (1.3-7.7) k/uL Lymphocytes # 0.4 L (1.0-4.8) k/uL Sodium 125 L (137-145) mmol/L Chloride 93 L (98-107) mmol/L Creatinine 0.44 L (0.66-1.25) mg/dL Glucose 140 H (74-99) mg/dL Calcium 6.8 L (8.4-10.2) mg/dL Total Protein 3.0 L (6.3-8.2) g/dL Albumin 1.6 L (3.5-5.0) g/dL RBC Folate 1,085 H (280 - 791) ng/mL Microbiology - Last 24 Hours (Table) 12/28/21 03:40 Blood Culture - Preliminary Blood No Growth after 120 hours 12/28/21 03:35 Blood Culture - Preliminary Blood No Growth after 120 hours Assessment and Plan Plan: Assessment: 1. Hypovolemic hyponatremia improved with IV hydration. Currently off vasopressors. Sodium level 125 this morning. Urine osmolality 489. Cortisol 44. TSH normal. Patient did receive DDAVP and D5W to slow the correction of hyponatremia. Now slightly hypervolemic. 2. Bleeding duodenal ulcer status post exploratory laparotomy with surgical repair/pyloroplasty 12/28/2021. Surgery following. 3. Hemorrhagic and hypovolemic shock status post IV fluids and blood transfusion. Hemoglobin 7.3 today. Per nurse, did have blood in bowel movement this morning. 4. Metabolic acidosis secondary to IV fluids. Improved. 5. History of alcohol abuse. 6. Hypophosphatemia from poor intake. Replaced. Better. 7. Hypokalemia from poor intake. Being replaced. 8. Hypocalcemia secondary to hypoalbuminemia. Corrected calcium normal. Ionized calcium normal. 9. Volume overload. Plan: Maintain TPN. Remains off IV fluids. Lasix 40 mg IV once today. Will give Samsca tomorrow if no improvement in sodium level. Potassium being replaced. Continue to replace electrolytes per protocol. Lasix 20 mg Iv once today as effusions noted on x-ray. Monitor hemoglobin and transfuse as needed. 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
--- NOTE | 2022-01-02 12:19 | P.PN ---
Subjective Progress Note Date: 01/02/22 Principal diagnosis: Acute GI bleed Hospital Course: 66-year-old male with history of CAD status post stents, COPD, recent cervical spine fusion presented with generalized weakness and fatigue. He was admitted for severe hyponatremia, likely hypovolemic, acute anemia, lactic acidosis, and elevated troponin. Patient found to have acute GI bleed requiring emergent surgery for duodenal ulcer. Currently on TPN. His severe hyponatremia improved with IV fluids. Subjective: Patient seen and examined at bedside. No acute events overnight. He continues to have some abdominal pain around the incision site. He denies any chest pain, shortness of breath. The nursing, continues to have bloody bowel movements, surgery is aware. Overnight he had 100 mL of NG output. Pertinent positives and negatives as discussed above, a complete review of systems was performed and all other systems are negative. Vitals Signs Reviewed. General: nontoxic, no distress, appears at stated age Derm: warm, dry Head: atraumatic, normocephalic, symmetric Eyes: EOMI, no lid lag, anicteric sclera Mouth: no lip lesion, mucus membranes moist, NG tube in place Cardiovascular: S1S2 reg, systolic murmur Lungs: CTA bilateral, no rhonchi, no rales , no accessory muscle use Abdominal: soft, tender to palpation throughout, abdominal dressing in place, no guarding, no appreciable organomegaly Ext: no gross muscle atrophy, no edema, no contractures Neuro: CN II-XI grossly intact, no focal neuro deficits Psych: Alert, oriented, appropriate affect Assessment and Plan: Acute GI bleed status post emergent surgery for duodenal ulcer repair -Hemoglobin stable -Pain control -Currently on TPN Severe hyponatremia, likely hypovolemic -Nephrology following -slowly improving -May be slightly hypervolemic, given IV Lasix per nephrology -Seizure precautions -Neurochecks -All precautions Elevated troponin History of CAD -No active chest pain History of alcohol dependence -CIWA protocol History of COPD no home oxygen -Home inhalers Tobacco dependence -Nicotine patch DVT ppx: SCD Code status: Full code Anticipated discharge place: Home versus rehab Anticipated discharge time: 2+ days Objective - Vital Signs Vital signs: Vital Signs Temp 98 F 01/02/22 08:00 Pulse 98 01/02/22 10:00 Resp 17 01/02/22 10:00 BP 149/61 01/01/22 17:00 Pulse Ox 96 01/02/22 10:00 FiO2 50 12/31/21 18:00 Intake & Output 01/01/22 01/02/22 01/02/22 18:59 06:59 18:59 Intake Total 498 1629 1023.917 Output Total 1900 1211 475 Balance -1402 418 548.917 Weight 71.9 kg 71.3 kg Intake: IV 498 1629 9 Arterial pressure bag 36 39 9 Flagyl 100 100 Kefzol 100 50 Magnesium 100 Ofirmev (acetaminophen) 200 Potassium 100 100 TPN 62 1140 Intake, IV Titration 1014.917 Amount Mvi, Adult No.4 with Vit 1014.917 K 10 ml Trace (Conc-1Ml/ Dose) 1 ml Sodium Chloride 4Meq/ml Vial 20 meq Potassium Chloride 20 meq Potassium Phosphate 6 mmol Magnesium Sulfate gm 1 gm In Amino Acid 5%- D15w+Lytes*E* 1,000 ml @ 95 mls/hr IV .BY DURATION [facility] Rx#:[id number] Output: Gastric Drainage 200 250 Drainage 100 105 50 Abdomen 100 105 50 Urine 1600 855 425 Stool 1 Other: Voiding Method Indwelling Catheter Indwelling Catheter Indwelling Catheter # Bowel Movements 1 ABP, PAP, CO, CI - Last Documented Arterial Blood Pressure 168/74 - Labs CBC & Chem 7: 01/02/22 04:14 01/02/22 04:14 Labs: Abnormal Lab Results - Last 24 Hours (Table) 12/30/21 01/02/22 01/02/22 Range/Units 04:35 04:14 04:14 RBC 2.42 L (4.30-5.90) m/uL Hgb 7.3 L (13.0-17.5) gm/dL Hct 22.0 L (39.0-53.0) % RDW 16.9 H (11.5-15.5) % Neutrophils # 8.3 H (1.3-7.7) k/uL Lymphocytes # 0.4 L (1.0-4.8) k/uL Sodium 125 L (137-145) mmol/L Chloride 93 L (98-107) mmol/L Creatinine 0.44 L (0.66-1.25) mg/dL Glucose 140 H (74-99) mg/dL Calcium 6.8 L (8.4-10.2) mg/dL Total Protein 3.0 L (6.3-8.2) g/dL Albumin 1.6 L (3.5-5.0) g/dL RBC Folate 1,085 H (280 - 791) ng/mL Microbiology - Last 24 Hours (Table) 12/28/21 03:40 Blood Culture - Preliminary Blood No Growth after 120 hours 12/28/21 03:35 Blood Culture - Preliminary Blood No Growth after 120 hours
[2022-01-02] MEDS: CLEVIDIPINE BUTYRATE 25 MG in EMPTY BAG 1 BAG IV SCH (12:25)
--- NOTE | 2022-01-02 12:45 | P.PN ---
Subjective Progress Note Date: 01/02/22 CHIEF COMPLAINT: Bleeding duodenal ulcer HISTORY OF PRESENT ILLNESS: Patient is postop day #5 status post exploratory laparotomy with oversewing of bleeding duodenal ulcer with pyloroplasty. Patient remains in the ICU. He had 4 large black bowel movements this morning. The last 3 of the bowel movements were less than hour apart. Patient denies any new abdominal pain. Denies any nausea. He reports that his pain is controlled. Patient had 100 mL bilious output through NG tube. Patient is having serosanguineous drainage around the JEB drain site. Afebrile. Mild tachycardia. WBC 11.6 down to 9.2 hemoglobin 8.1 down to 7.3 sodium 125 potassium 3.6 creatinine of 0.44 magnesium 2.1 albumin 1.6 PHYSICAL EXAM: VITAL SIGNS: Reviewed. GENERAL: Well-developed in no acute distress. HEENT: No sclera icterus. Extraocular movements grossly intact. Moist buccal mucosa. Head is atraumatic, normocephalic. ABDOMEN: Soft. Nondistended. Nontender. Incision site clean dry and intact. JEB drain with serosanguineous output. there is serosanguineous drainage around JEB drain insertion site NEUROLOGIC: Alert and oriented. Cranial nerves II through XII grossly intact. ASSESSMENT: 1. Bleeding duodenal ulcer 2. Massive upper GI bleed 3. Acute blood loss anemia due to GI bleed 4. Severe hyponatremia followed by nephrology 5. Hypokalemia 6. Severe protein calorie malnutrition PLAN: -Continue ICU management and supportive care -Likely the black stools are old blood. We'll continue to monitor. -Continue to monitor hemoglobin -Repeat CBC at noon and in AM -Continue IV Tylenol for pain -Continue TPN for nutrition support -Continue antibiotics -Continue IV Protonix -DVT prophylaxis Lovenox Physician Geothermal Installer note has been reviewed by physician. Signing provider agrees with the documented findings, assessment, and plan of care. Patient says his pain is about the same as it was yesterday. Hemoglobin noted to be 7.3 today. He did have some black stool earlier today. Nasogastric tube however remains bilious in color. JEB drain is serosanguineous. Abdominal examination with mild tenderness. Continue nasogastric tube to suction to monitor for bleeding today. The patient is doing well tomorrow we'll plan nasogastric tube removal and initiation of sips of liquids. Continue antiacids, antibiotics, and TPN. Objective - Vital Signs Vital signs: Vital Signs Temp 98 F 01/02/22 08:00 Pulse 98 01/02/22 10:00 Resp 17 01/02/22 10:00 BP 149/61 01/01/22 17:00 Pulse Ox 96 01/02/22 10:00 FiO2 50 12/31/21 18:00 Intake & Output 01/01/22 01/02/22 01/02/22 18:59 06:59 18:59 Intake Total 498 1629 1023.917 Output Total 1900 1211 475 Balance -1402 418 548.917 Weight 71.9 kg 71.3 kg Intake: IV 498 1629 9 Arterial pressure bag 36 39 9 Flagyl 100 100 Kefzol 100 50 Magnesium 100 Ofirmev (acetaminophen) 200 Potassium 100 100 TPN 62 1140 Intake, IV Titration 1014.917 Amount Mvi, Adult No.4 with Vit 1014.917 K 10 ml Trace (Conc-1Ml/ Dose) 1 ml Sodium Chloride 4Meq/ml Vial 20 meq Potassium Chloride 20 meq Potassium Phosphate 6 mmol Magnesium Sulfate gm 1 gm In Amino Acid 5%- D15w+Lytes*E* 1,000 ml @ 95 mls/hr IV .BY DURATION [facility] Rx#:[id number] Output: Gastric Drainage 200 250 Drainage 100 105 50 Abdomen 100 105 50 Urine 1600 855 425 Stool 1 Other: Voiding Method Indwelling Catheter Indwelling Catheter Indwelling Catheter # Bowel Movements 1 ABP, PAP, CO, CI - Last Documented Arterial Blood Pressure 168/74 - Labs CBC & Chem 7: 01/02/22 04:14 01/02/22 04:14 Labs: Abnormal Lab Results - Last 24 Hours (Table) 12/30/21 01/02/22 01/02/22 Range/Units 04:35 04:14 04:14 RBC 2.42 L (4.30-5.90) m/uL Hgb 7.3 L (13.0-17.5) gm/dL Hct 22.0 L (39.0-53.0) % RDW 16.9 H (11.5-15.5) % Neutrophils # 8.3 H (1.3-7.7) k/uL Lymphocytes # 0.4 L (1.0-4.8) k/uL Sodium 125 L (137-145) mmol/L Chloride 93 L (98-107) mmol/L Creatinine 0.44 L (0.66-1.25) mg/dL Glucose 140 H (74-99) mg/dL Calcium 6.8 L (8.4-10.2) mg/dL Total Protein 3.0 L (6.3-8.2) g/dL Albumin 1.6 L (3.5-5.0) g/dL RBC Folate 1,085 H (280 - 791) ng/mL Microbiology - Last 24 Hours (Table) 12/28/21 03:40 Blood Culture - Preliminary Blood No Growth after 120 hours 12/28/21 03:35 Blood Culture - Preliminary Blood No Growth after 120 hours
[2022-01-02 13:19] LABS: Anisocytosis Slight; HCT 25.5 % (39.0-53.0); HGB 8.5 gm/dL (13.0-17.5); MCH 30.7 pg (25.0-35.0); MCHC 33.3 g/dL (31.0-37.0); Mean Platelet Volume 8.9; Platelet Count 209 k/uL (150-450); RBC 2.77 m/uL (4.30-5.90); RDW 16.7 % (11.5-15.5); WBC 10.5 k/uL (3.8-10.6)
--- NOTE | 2022-01-02 13:51 | P.PN ---
Subjective Progress Note Date: 01/02/22 Principal diagnosis: Acute upper GI bleeding secondary to duodenal ulcer 66-year-old male patient brought into the hospital because of generalized weakness and fatigue and addition to nausea and emesis and numbness and paresthesias. The patient has undergone a surgery cervical spine approximately a month at outside hospital. The patient stated that he has not been feeling well since. He has been calm progressively more weak over the past few weeks and the patient had loss in appetite. He has not been eating much or drinking much. As a result, he became progressively more weak and he end up coming into the hospital. Denies having any focal weakness. He takes Prozac at home. He has previous history of alcohol abuse,. He also has COPD management on a combination of Symbicort and Spiriva on outpatient basis regarding takes is no peripheral blood pressure control. At the time of his emergency evaluation, the patient was afebrile hemodynamically stable pulse ox of 99% on room air oxygen. Nevertheless, electrodes was significantly abnormal with a sodium level of 103 and a chloride level of 74 with a BUN of 40 and a creatinine of 1.05. The white cell count was at 5.6 with a hemoglobin of 8.1 and a platelet count of 155. The albumin was 3.2 with a total protein of 4.5. Serum alcohol was negative. He had a positive troponins of 0.05 and 0.04 respectively 2. TSH was at 1.08 and a serum cortisol was 44. UA was negative. His COVID 19 testing was also negative. His chest x-ray showed no acute abnormalities. There is some old left-sided rib fractures. Note that despite this hyponatremia, the patient did not have any seizure activity. No altered mentation. He is appropriate and following commands and answering questions appropriately. He was brought into the intensive care unit and he was started on hypertonic saline solution and currently is on 3% saline, running at the rate of 25 mL an hour. Electrodes are being checked on a regular basis every 4 hours. Noted the initial sodium was at 102 and it came up to 106. Initial creatinine was 1.1 came down to 1.05. History of any chest pain for now. The patient states that he lives in [place]. He lives alone. 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 He is also a . It seems that he has done some medical care through the year to [facility]. Denies having any recent cold COVID 19 infection. He apparently has been drinking and he Is Drinking. He Was Taken around 5-6 Beers a Day and on and off He Still drinking probably 1 or 2 beers. Doesn't have much of help. His been having difficulty with mobility and ambulation. Surgical wound site over the anterior cervical area is dry clean and intact. No fever. No chills. No focal neurological deficit. He is able to answer questions appropriately although he is slow in answering questions. 12/31/2021, the patient is extubated and currently is on oxygen at 3 L. He was extubated yesterday without any major difficulties. The orogastric tube was also replaced with an NG tube. Output is in order of 300 mL overnight on the NG tube. The patient is awake and alert and following simple commands. His resting comfortably in bed. He is hemodynamically stable. He is on no pressors. His cardiac rhythm is sinus. He was started on TPN for nutritional support. Meanwhile, his IV fluids in the form of KVO and the D5 water has been discontinued. Sodium level is up to 123. Potassium level is at 3.9 and the BUN is at 8 with a creatinine of 0.4. The patient remains on broad-spectrum antibiotics regarding this duodenal perforation and is currently on a combination of, Diflucan and Flagyl. No other significant events overnight. His resting comfortably in bed. He is postop day #3. No evidence of any ongoing GI bleeding for now and hemoglobin is stable and hemoglobin today is still pending. Yesterday's hemoglobin was at 8.4. Surgical wound site is dry clean and intact. The patient has a JEB drain which is showing serous drainage in the order of 80 mL over the past 12 hours. Reevaluated today on 01/01/2022, patient remains in the ICU, seems to be doing relatively well, he is hemodynamically stable, nasogastric tube remains in place, remains nothing by mouth.. He is on 3 L nasal cannula, not in any distress, patient is on TPN, IV fluid at KVO, he is hemodynamically stable with a blood pressure of 134/66. WBC count is 11.6 hemoglobin is 8.1 sodium is improving up to 125 otherwise his renal profile is normal and electrolytes are normal Reevaluated today on 01/02/2022, patient remains in the ICU, continues to have nasogastric tube in place, patient is on 2 L nasal cannula, does not seem to be in any distress. Patient is receiving TPN via PICC line, he is on antibiotics in the form of. And Intermittently Has Been Receiving IV Lopressor for His Sinus Tachycardia. Hemoglobin Today Is 8.5, No Evidence of Active Bleeding, Patient Does Have Liquid the Black Stools Were Noted Today. Patient received a total of 4 units of packed RBCs and monitor platelets since admission Objective - Vital Signs Vital signs: Vital Signs Temp 98.5 F 01/02/22 12:00 Pulse 90 01/02/22 13:00 Resp 16 01/02/22 13:00 BP 149/61 01/01/22 17:00 Pulse Ox 98 01/02/22 13:00 FiO2 50 12/31/21 18:00 Intake & Output 01/01/22 01/02/22 01/02/22 18:59 06:59 18:59 Intake Total 498 1629 1029.917 Output Total 1900 1211 2125 Balance -1402 418 -1095.083 Weight 71.9 kg 71.3 kg Intake: IV 498 1629 15 Arterial pressure bag 36 39 15 Flagyl 100 100 Kefzol 100 50 Magnesium 100 Ofirmev (acetaminophen) 200 Potassium 100 100 TPN 62 1140 Intake, IV Titration 1014.917 Amount Mvi, Adult No.4 with Vit 1014.917 K 10 ml Trace (Conc-1Ml/ Dose) 1 ml Sodium Chloride 4Meq/ml Vial 20 meq Potassium Chloride 20 meq Potassium Phosphate 6 mmol Magnesium Sulfate gm 1 gm In Amino Acid 5%- D15w+Lytes*E* 1,000 ml @ 95 mls/hr IV .BY DURATION [facility] Rx#:[id number] Output: Gastric Drainage 200 250 Drainage 100 105 50 Abdomen 100 105 50 Urine 0959 699 1328 Stool 1 Other: Voiding Method Indwelling Catheter Indwelling Catheter Indwelling Catheter # Bowel Movements 1 ABP, PAP, CO, CI - Last Documented Arterial Blood Pressure 143/58 - Exam Physical Exam: Revealed a 66-year-old white male in no distress on 2 L nasal cannula Head: Atraumatic, normocephalic. Nasogastric tube seems to be intact HEENT:[Neck is supple.] [No neck masses.] [No thyromegaly.] [No JVD.] Chest: [Clear throughout, no crackles, no rhonchi, no wheezes.] Cardiac Exam: Tachycardic. [Normal S1 and S2, no S3 gallop, no murmur.] Abdomen: Soft. Nondistended. Nontender. Incision site clean dry and intact. JEB trach in place. Abdominal binder Extremities: [No clubbing, no edema, no cyanosis.] Neurological Exam: Generalized weakness in all 4 extremities otherwise unremarkable. Psychiatric: Normal mood, affect and normal mental status examination. - Labs CBC & Chem 7: 01/02/22 12:55 01/02/22 04:14 Labs: Abnormal Lab Results - Last 24 Hours (Table) 12/30/21 01/02/22 01/02/22 Range/Units 04:35 04:14 04:14 RBC 2.42 L (4.30-5.90) m/uL Hgb 7.3 L (13.0-17.5) gm/dL Hct 22.0 L (39.0-53.0) % RDW 16.9 H (11.5-15.5) % Neutrophils # 8.3 H (1.3-7.7) k/uL Lymphocytes # 0.4 L (1.0-4.8) k/uL Sodium 125 L (137-145) mmol/L Chloride 93 L (98-107) mmol/L Creatinine 0.44 L (0.66-1.25) mg/dL Glucose 140 H (74-99) mg/dL Calcium 6.8 L (8.4-10.2) mg/dL Total Protein 3.0 L (6.3-8.2) g/dL Albumin 1.6 L (3.5-5.0) g/dL RBC Folate 1,085 H (280 - 791) ng/mL 01/02/22 Range/Units 12:55 RBC 2.77 L (4.30-5.90) m/uL Hgb 8.5 L (13.0-17.5) gm/dL Hct 25.5 L (39.0-53.0) % RDW 16.7 H (11.5-15.5) % Neutrophils # (1.3-7.7) k/uL Lymphocytes # (1.0-4.8) k/uL Sodium (137-145) mmol/L Chloride (98-107) mmol/L Creatinine (0.66-1.25) mg/dL Glucose (74-99) mg/dL Calcium (8.4-10.2) mg/dL Total Protein (6.3-8.2) g/dL Albumin (3.5-5.0) g/dL RBC Folate (280 - 791) ng/mL Microbiology - Last 24 Hours (Table) 12/28/21 03:40 Blood Culture - Preliminary Blood No Growth after 120 hours 12/28/21 03:35 Blood Culture - Preliminary Blood No Growth after 120 hours Assessment and Plan Assessment: Impression: Massive Upper GI bleeding secondary to duodenal ulcer Status post exploratory laparotomy and oversewing of bleeding duodenal ulcer with pyloroplasty postoperative day #5 Acute blood loss anemia Acute hyponatremia and hypokalemia being addressed by nephrology Recommendation: Continue to monitor in the ICU Continue to monitor CBC on a daily basis. Continue antibiotics Continue IV Protonix Continue TPN Continue DVT prophylaxis and GI prophylaxis Will follow. Time with Patient: Less than 30
[2022-01-02] MEDS: HYDROmorphone 0.5 MG/0.5 ML SYRINGE IVP PRN (20:39)
--- NOTE | 2022-01-02 21:02 | XR ---
EXAMINATION TYPE: XR chest 1V portable DATE OF EXAM: 01/02/2022 COMPARISON: Yesterday HISTORY: Tube placement TECHNIQUE: Single view FINDINGS: There is oral gastric tube and the tip is overlying the gastroesophageal junction. There is coarse interstitial infiltrate in the lungs. No heart failure seen. There is a left subclavian jose alfredo ter tip in the superior vena cava. IMPRESSION: Gastric tube is in the distal esophagus or at the gastroesophageal junction. Bilateral pu lmonary predominantly interstitial infiltrates are improved slightly compared to yesterday. There is right pleural effusion increased compared to yesterday.
[2022-01-02] MEDS: FLUCONAZOLE IN NACL,ISO-OSM 100 MG in SALINE 1 50ML.BAG IVPB SCH (21:13)
[2022-01-03] MEDS: THIAMINE 100 MG TAB PO SCH ×2 (01:06→18:00)
[2022-01-03] MEDS: ACETAMINOPHEN IV (For NPO) 1,000 MG in EMPTY BAG 1 BAG IVPB SCH ×3 (05:44→17:59)
[2022-01-03] MEDS: metroNIDAZOLE-NS PMX 500 MG in SALINE 1 100ML.BAG IVPB SCH ×3 (05:45→21:54)
[2022-01-03] MEDS: 1: MVI, ADULT NO.4 WITH VIT K 10 ML, TRACE (CONC-1ML/DOSE) 1 ML, SODIUM CHLORIDE 4MEQ/ML IV SCH ×21 (06:19→16:35)
[2022-01-03 06:57] LABS: ALT 13 U/L (4-49); AST 42 U/L (17-59); African American GFR (CKD) >90 (>60 ml/min/1.73 sqM); Albumin 1.7 g/dL (3.5-5.0); Alkaline Phosphatase 68 U/L (38-126); Anion Gap 3 mmol/L; Blood Urea Nitrogen 15 mg/dL (9-20); Calcium 7.1 mg/dL (8.4-10.2); Carbon Dioxide 27 mmol/L (22-30); Chloride 96 mmol/L (98-107); Glucose 122 mg/dL (74-99); Magnesium 2.1 mg/dL (1.6-2.3); Non-African American GFR(CKD) >90 (>60 ml/min/1.73 sqM); Phosphorus 2.9 mg/dL (2.5-4.5); Potassium 4.1 mmol/L (3.5-5.1); Sodium 126 mmol/L (137-145); Total Bilirubin 0.2 mg/dL (0.2-1.3); Total Protein 3.3 g/dL (6.3-8.2)
[2022-01-03] MEDS: SYMBICORT 160-4.5 MCG INHALER INHALATION SCH ×2 (07:34→19:55)
[2022-01-03] MEDS: IPRATROPIUM 0.5 MG/2.5 ML NEBU INHALATION SCH ×4 (07:35→19:55)
[2022-01-03] MEDS: NICOTINE 21MG/24HR PATCH TRANSDERM SCH (08:18)
[2022-01-03] MEDS: ENOXAPARIN 40 MG/0.4 ML SYRINGE SQ SCH (08:25)
[2022-01-03] MEDS: PANTOPRAZOLE 40 MG/10 ML VIAL IVP SCH ×2 (08:26→20:27)
[2022-01-03] MEDS: METOPROLOL TARTRATE 5 MG/5 ML VIAL IVP SCH ×2 (08:27→20:27)
[2022-01-03 08:35] LABS: Anisocytosis Slight; HCT 24.3 % (39.0-53.0); MCH 31.7 pg (25.0-35.0); MCHC 32.9 g/dL (31.0-37.0); MCV 96.1 fL (80.0-100.0); Macrocytosis Slight; Mean Platelet Volume 9.2; Platelet Count 189 k/uL (150-450); RBC 2.53 m/uL (4.30-5.90); RDW 16.9 % (11.5-15.5); WBC 9.1 k/uL (3.8-10.6)
[2022-01-03] MEDS ORDERED: FUROSEMIDE 10 MG/ML 2 ML VIAL IV STA (09:28)
--- NOTE | 2022-01-03 09:29 | P.PN ---
Subjective Patient is seen in follow-up for hyponatremia. Sodium level 126 today. Awake. Blood pressure stable. Denies chest pain or shortness of breath. Potassium replaced and is improved. ceiving TPN. Nothing by mouth. Vital signs are stable. General: Resting in bed. HEENT: On nasal cannula. LUNGS: Breath sounds decreased. HEART: Rate and Rhythm are regular. ABDOMEN: Soft, no distention. EXTREMITITES: Trace edema. Objective - Vital Signs Vital signs: Vital Signs Temp 98.7 F 01/03/22 08:00 Pulse 100 01/03/22 08:35 Resp 17 01/03/22 08:35 BP 149/61 01/01/22 17:00 Pulse Ox 94 L 01/03/22 08:35 FiO2 50 12/31/21 18:00 Intake & Output 01/02/22 01/03/22 01/03/22 18:59 06:59 18:59 Intake Total 9637.168 4281 246 Output Total 2775 1246 285 Balance -7390.049 6862 -39 Weight 70.3 kg Intake: IV 33 1381 246 Arterial pressure bag 33 36 6 Flagyl 100 Fluconazole in NaCl,Iso- 50 Osm 100 mg In Saline 1 50ml.bag @ 50 mls/hr IVPB Q24H [facility] Rx#:[id number] Kefzol 50 Ofirmev (acetaminophen) 100 TPN 1045 190 ceFAZolin 2 gm In Sodium 50 Chloride 0.9% 50 ml @ 100 mls/hr IVPB Q8HR [facility] Rx# :[id number] Intake, IV Titration 7711.017 9269 Amount Mvi, Adult No.4 with Vit 7502.425 1616 K 10 ml Trace (Conc-1Ml/ Dose) 1 ml Sodium Chloride 4Meq/ml Vial 20 meq Potassium Chloride 20 meq Potassium Phosphate 6 mmol Magnesium Sulfate gm 1 gm In Amino Acid 5%- D15w+Lytes*E* 1,000 ml @ 95 mls/hr IV .BY DURATION [facility] Rx#:[id number] Output: Gastric Drainage 200 100 50 Drainage 50 85 Abdomen 50 85 Urine 2525 1060 235 Stool 1 Other: Voiding Method Indwelling Catheter Indwelling Catheter # Bowel Movements 1 1 ABP, PAP, CO, CI - Last Documented Arterial Blood Pressure 125/53 - Labs CBC & Chem 7: 01/03/22 06:57 01/03/22 06:00 Labs: Abnormal Lab Results - Last 24 Hours (Table) 01/02/22 01/03/22 01/03/22 Range/Units 12:55 06:00 06:57 RBC 2.77 L 2.53 L (4.30-5.90) m/uL Hgb 8.5 L 8.0 L (13.0-17.5) gm/dL Hct 25.5 L 24.3 L (39.0-53.0) % RDW 16.7 H 16.9 H (11.5-15.5) % Sodium 126 L (137-145) mmol/L Chloride 96 L (98-107) mmol/L Creatinine 0.44 L (0.66-1.25) mg/dL Glucose 122 H (74-99) mg/dL Calcium 7.1 L (8.4-10.2) mg/dL Total Protein 3.3 L (6.3-8.2) g/dL Albumin 1.7 L (3.5-5.0) g/dL Microbiology - Last 24 Hours (Table) 12/28/21 03:35 Blood Culture - Final Blood No Growth after 144 hours 12/28/21 03:40 Blood Culture - Final Blood No Growth after 144 hours Assessment and Plan Plan: Assessment: 1. Hypovolemic hyponatremia improved with IV hydration. Currently off v asopressors. Sodium level 126 this morning. Urine osmolality 489. Cortisol 44. TSH normal. Patient did receive DDAVP and D5W to slow the correction of hyponatremia. Now slightly hypervolemic. 2. Bleeding duodenal ulcer status post exploratory laparotomy with surgical repair/pyloroplasty 12/28/2021. Surgery following. 3. Hemorrhagic and hypovolemic shock status post IV fluids and blood martin sfusion. Hemoglobin 7.3 today. Per nurse, did have blood in bowel movement this morning. 4. Metabolic acidosis secondary to IV fluids. Improved. 5. History of alcohol abuse. 6. Hypophosphatemia from poor intake. Replaced. Better. 7. Hypokalemia from poor intake. Replaced. Better. 8. Hypocalcemia secondary to hypoalbuminemia. Corrected calcium normal. Ionized calcium normal. 9. Volume overload. Status post Lasix last couple of days. Plan: Maintain TPN. Lasix 20 mg IV once today. Samsca 7.5 mg once today. Repeat sodium level this evening. Continue to replace electrolytes per protocol.
[2022-01-03] MEDS ORDERED: TOLVAPTAN 15 MG 1/2 TABLET PO ONE (10:00)
--- NOTE | 2022-01-03 10:03 | P.PN ---
Subjective Progress Note Date: 01/03/22 CHIEF COMPLAINT: Bleeding duodenal ulcer HISTORY OF PRESENT ILLNESS: Patient is postop day #6 status post exploratory laparotomy with oversewing of bleeding duodenal ulcer with pyloroplasty. Patient remains in the ICU. Patient did have one small black, maroon bowel movement this morning. NG tube 200 mL bilious output throughout the night. JEB drain 85 mL serous fluid throughout the night. Patient reports that his pain is controlled. Denies any nausea. Patient is on TPN for nutrition support. A febrile. WBC is 9.1 Hgb remaining stable at 8.0 plt 189 sodium 126 potassium 4.1 and creatinine 0.44 albumin 1.7 Nephrology has ordered a dose of IV Lasix and Samsca PHYSICAL EXAM: VITAL SIGNS: Reviewed. GENERAL: Well-developed in no acute distress. HEENT: No sclera icterus. Extraocular movements grossly intact. Moist buccal mucosa. Head is atraumatic, normocephalic. ABDOMEN: Soft. Nondistended. Nontender. Incisional dressing clean dry and intact. JEB drain with serous output. There is serous fluid leaking around the JEB drain NEUROLOGIC: Alert and oriented. Cranial nerves II through XII grossly intact. ASSESSMENT: 1. Bleeding duodenal ulcer 2. Massive upper GI bleed 3. Acute blood loss anemia due to GI bleed 4. Severe hyponatremia followed by nephrology 5. Hypokalemia 6. Severe protein calorie malnutrition PLAN: -Further recommendations regarding NG tube per Dr. Hilliard -Continue ICU management and supportive care -Continue to monitor hemoglobin -Continue IV Tylenol and Dilauid for pain -Continue TPN for nutrition support -Continue antibiotics -Continue IV Protonix -DVT prophylaxis Lovenox Physician T[employer] Changer note has been reviewed by physician. Signing provider agrees with the documented findings, assessment, and plan of care. Objective - Vital Signs Vital signs: Vital Signs Temp 98.7 F 01/03/22 08:00 Pulse 100 01/03/22 08:35 Resp 17 01/03/22 08:35 BP 149/61 01/01/22 17:00 Pulse Ox 94 L 01/03/22 08:35 FiO2 50 12/31/21 18:00 Intake & Output 01/02/22 01/03/22 01/03/22 18:59 06:59 18:59 Intake Total 9683.830 7319 246 Output Total 2775 1246 285 Balance -2678.367 4965 -39 Weight 70.3 kg Intake: IV 33 1381 246 Arterial pressure bag 33 36 6 Flagyl 100 Fluconazole in NaCl,Iso- 50 Osm 100 mg In Saline 1 50ml.bag @ 50 mls/hr IVPB Q24H [facility] Rx#:[id number] Kefzol 50 Ofirmev (acetaminophen) 100 TPN 1045 190 ceFAZolin 2 gm In Sodium 50 Chloride 0.9% 50 ml @ 100 mls/hr IVPB Q8HR [facility] Rx# :[id number] Intake, IV Titration 4103.178 3568 Amount Mvi, Adult No.4 with Vit 6285.968 4246 K 10 ml Trace (Conc-1Ml/ Dose) 1 ml Sodium Chloride 4Meq/ml Vial 20 meq Potassium Chloride 20 meq Potassium Phosphate 6 mmol Magnesium Sulfate gm 1 gm In Amino Acid 5%- D15w+Lytes*E* 1,000 ml @ 95 mls/hr IV .BY DURATION [facility] Rx#:[id number] Output: Gastric Drainage 200 100 50 Drainage 50 85 Abdomen 50 85 Urine 2525 1060 235 Stool 1 Other: Voiding Method Indwelling Catheter Indwelling Catheter # Bowel Movements 1 1 ABP, PAP, CO, CI - Last Documented Arterial Blood Pressure 125/53 - Labs CBC & Chem 7: 01/03/22 06:57 01/03/22 06:00 Labs: Abnormal Lab Results - Last 24 Hours (Table) 01/02/22 01/03/22 01/03/22 Range/Units 12:55 06:00 06:57 RBC 2.77 L 2.53 L (4.30-5.90) m/uL Hgb 8.5 L 8.0 L (13.0-17.5) gm/dL Hct 25.5 L 24.3 L (39.0-53.0) % RDW 16.7 H 16.9 H (11.5-15.5) % Sodium 126 L (137-145) mmol/L Chloride 96 L (98-107) mmol/L Creatinine 0.44 L (0.66-1.25) mg/dL Glucose 122 H (74-99) mg/dL Calcium 7.1 L (8.4-10.2) mg/dL Total Protein 3.3 L (6.3-8.2) g/dL Albumin 1.7 L (3.5-5.0) g/dL Microbiology - Last 24 Hours (Table) 12/28/21 03:35 Blood Culture - Final Blood No Growth after 144 hours 12/28/21 03:40 Blood Culture - Final Blood No Growth after 144 hours
--- NOTE | 2022-01-03 11:11 | P.PN ---
Subjective Progress Note Date: 01/03/22 Principal diagnosis: Acute GI bleed Hospital Course: 66-year-old male with history of CAD status post stents, COPD, recent cervical spine fusion presented with generalized weakness and fatigue. He was admitted for severe hyponatremia, likely hypovolemic, acute anemia, lactic acidosis, and elevated troponin. Patient found to have acute GI bleed requiring emergent s urgery for duodenal ulcer. Currently on TPN. His severe hyponatremia improved with IV fluids. Subjective: Patient seen and examined at bedside. No acute events overnight. He continues to have some abdominal pain around the incision site. He denies any chest pain, shortness of breath. No further black stools. Overnight he had 50-100 mL of NG output. Pertinent positives and negatives as discussed above, a complete review of systems was performed and all other systems are negative. Vitals Signs Reviewed. General: nontoxic, no distress, appears at stated age Derm: warm, dry Head: atraumatic, normocephalic, symmetric Eyes: EOMI, no lid lag, anicteric sclera Mouth: no lip lesion, mucus membranes moist, NG tube in place Cardiovascular: S1S2 reg, systolic murmur Lungs: CTA bilateral, no rhonchi, no rales , no accessory muscle use Abdominal: soft, slight tender to palpation throughout, abdominal dressing in place, drain with minimal serous fluid, no guarding, no appreciable organomegaly Ext: no gross muscle atrophy, no edema, no contractures Neuro: CN II-XI grossly intact, no focal neuro deficits Psych: Alert, oriented, appropriate affect Assessment and Plan: Acute GI bleed status post emergent surgery for duodenal ulcer repair on 12/28 -Hemoglobin stable -Pain control -Currently on TPN -NPO -NG output going down Severe hyponatremia, likely hypovolemic -Nephrology following -slowly improving -May be slightly hypervolemic, given IV Lasix per nephrology -also given tolvaptan x1 -Seizure precautions -Neurochecks -All precautions Elevated troponin History of CAD -No active chest pain History of alcohol dependence -CIWA protocol History of COPD no home oxygen -Home inhalers Tobacco dependence -Nicotine patch DVT ppx: SCD Code status: Full code Anticipated discharge place: Home versus rehab Anticipated discharge time: 2+ days Objective - Vital Signs Vital signs: Vital Signs Temp 97.8 F 01/03/22 09:00 Pulse 112 H 01/03/22 10:58 Resp 16 01/03/22 09:00 BP 149/61 01/01/22 17:00 Pulse Ox 94 L 01/03/22 09:00 FiO2 50 12/31/21 18:00 Intake & Output 01/02/22 01/03/22 01/03/22 18:59 06:59 18:59 Intake Total 8010.708 8178 442 Output Total 2775 1246 435 Balance -8165.091 5720 7 Weight 70.3 kg Intake: IV 33 1381 442 Arterial pressure bag 33 36 12 Flagyl 100 Fluconazole in NaCl,Iso- 50 Osm 100 mg In Saline 1 50ml.bag @ 50 mls/hr IVPB Q24H [facility] Rx#:[id number] Kefzol 50 Ofirmev (acetaminophen) 100 TPN 1045 380 ceFAZolin 2 gm In Sodium 50 Chloride 0.9% 50 ml @ 100 mls/hr IVPB Q8HR [facility] Rx# :[id number] Intake, IV Titration 0490.438 2267 Amount Mvi, Adult No.4 with Vit 0089.777 8452 K 10 ml Trace (Conc-1Ml/ Dose) 1 ml Sodium Chloride 4Meq/ml Vial 20 meq Potassium Chloride 20 meq Potassium Phosphate 6 mmol Magnesium Sulfate gm 1 gm In Amino Acid 5%- D15w+Lytes*E* 1,000 ml @ 95 mls/hr IV .BY DURATION [facility] Rx#:[id number] Output: Gastric Drainage 200 100 50 Drainage 50 85 Abdomen 50 85 Urine 2525 1060 385 Stool 1 Other: Voiding Method Indwelling Catheter Indwelling Catheter Indwelling Catheter # Bowel Movements 1 1 ABP, PAP, CO, CI - Last Documented Arterial Blood Pressure 125/53 - Labs CBC & Chem 7: 01/03/22 06:57 01/03/22 06:00 Labs: Abnormal Lab Results - Last 24 Hours (Table) 01/02/22 01/03/22 01/03/22 Range/Units 12:55 06:00 06:57 RBC 2.77 L 2.53 L (4.30-5.90) m/uL Hgb 8.5 L 8.0 L (13.0-17.5) gm/dL Hct 25.5 L 24.3 L (39.0-53.0) % RDW 16.7 H 16.9 H (11.5-15.5) % Sodium 126 L (137-145) mmol/L Chloride 96 L (98-107) mmol/L Creatinine 0.44 L (0.66-1.25) mg/dL Glucose 122 H (74-99) mg/dL Calcium 7.1 L (8.4-10.2) mg/dL Total Protein 3.3 L (6.3-8.2) g/dL Albumin 1.7 L (3.5-5.0) g/dL Microbiology - Last 24 Hours (Table) 12/28/21 03:35 Blood Culture - Final Blood No Growth after 144 hours 12/28/21 03:40 Blood Culture - Final Blood No Growth after 144 hours
--- NOTE | 2022-01-03 11:13 | CDI ---
Documentation Clarification Form Date: 01/03/2022 10:49:42 AM From: Angelique Smith CCS, CCDS Admit Date: 12/28/2021 05:05:00 AM Patient Name: Boogie Biard Visit Number: [id number] Discharge Date: ATTENTION: The Clinical Documentation Specialists (CDI) and [facility] Coding Staff appreciate your assistance in clarifying documentation. Please respond to the clarification below the line at the bottom and electronically sign. The CDI & [facility] Coding staff will review the response and follow-up if needed. Please note: Queries are made part of the Legal Health Record. If you have any questions, please contact the author of this message via ITS. Dr. Eagle Hilliard: Severe Protein Calorie Malnutrition is documented in the 01/02 Surgery Progress Note which may lack sufficient clinical evidence/support in the medical record. Additional clarification is requested. History/Risk Factors per the 12/28 H/P: CAD w/stents, COPD, Asthma, Cervical Spinal fusion month ago, Hyperlipidemia, Osteoarthritis, Diverticulitis, Stomach Ulcer, Neuropathy, Chronic Back Pain, DDD, Alcoholism, previous Seizure during withdrawal from alcohol, Scoliosis, Hemorrhoids, current Smoker. Clinical Indicators: Presented to the ED on 12/28 with weakness, nausea, vomiting, diarrhea, mildly delirious, lack of energy, difficulty walking, mild expiratory wheeze, no respiratory distress, tachycardia. Found to be hyponatremic. Admit with Hyponatremia, Delirium due to general medical condition. 12/28 VS: T 97.5, P 105, R 18, BP 107/75, PO 100 RA 12/28 LAB: Hgb 8.2, Hct 23.2, Neutrophils 8.6, Lymphocytes 0.5; Na 102, K 5.4, Chl 71, CO2 14, BUN 37, Lactic Acid 6.8, Calcium 7.9, AST 71, Troponin 0.051, Total protein 4.9, Albumin 3.2. Serum Alcohol <10. 12/28 Procedures: EGD, Central Line, Arterial Line, Emergent Exploratory Laparotomy with Oversewing of Bleeding Duodenal Ulcer with Pyloroplasty. 12/29 Nutrition Assessment: Admitted for severe hyponatremia, COPD, acute anemia (unsure of weight loss). In ICU, intubated/sedated (status post surgery as above) Nutrition Intake: Poor, NPO, PPI, Vit B1, Propofol, Hyperkalemia Weight: 64.5 kg, Height 5 ft 7 in, BMI: 22.2 (normal). Nutrition Diagnosis: Energy balance: Inadequate energy intake. Treatment 12/28: Procedures as above. Remains in ICU, extubated on 12/30, on TPN via PICC line, Seizure precautions, DNR 01/02, IV Tylenol 100 mls @ 400 mls/hr q6H, po Samsca 7.5 mg x1, IV Lasix 20 mg x1, IV Na Chl/Kcl/K Phosphate/Mag Sulfate. Please clarify if Severe Protein Calorie Malnutrition is a valid diagnosis? [ ] Yes, Severe Protein Calorie Malnutrition is present as evidence by (additional clinical support) and specify if Present on Admission: yes or no: [ ] No, Severe Protein Calorie Malnutrition is ruled out [ ] Moderate Protein Calorie Malnutrition, please specify if Present on Admission, yes or no: YES___ [ ] Mild Protein Calorie Malnutrition, please specify if Present on Admission: yes or no: [ ] Other (please specify diagnosis) [ ] Unable to determine (Template Last Revised: June 2020) MTDD
[2022-01-03] MEDS: CLEVIDIPINE BUTYRATE 25 MG in EMPTY BAG 1 BAG IV SCH (13:23)
[2022-01-03] MEDS: NOREPINEPHRINE 4 MG in SODIUM CHLORIDE 0.9% 250 ML IV SCH (13:24)
--- NOTE | 2022-01-03 14:22 | P.PN ---
Subjective Progress Note Date: 01/03/22 Principal diagnosis: Acute upper GI bleeding secondary to duodenal ulcer 66-year-old male patient brought into the hospital because of generalized weakness and fatigue and addition to nausea and emesis and numbness and paresthesias. The patient has undergone a surgery cervical spine approximately a month at outside hospital. The patient stated that he has not been feeling well since. He has been calm progressively more weak over the past few weeks and the patient had loss in appetite. He has not been eating much or drinking much. As a result, he became progressively more weak and he end up coming into the hospital. Denies having any focal weakness. He takes Prozac at home. He has previous history of alcohol abuse,. He also has COPD management on a combination of Symbicort and Spiriva on outpatient basis regarding takes is no peripheral blood pressure control. At the time of his emergency evaluation, the patient was afebrile hemodynamically stable pulse ox of 99% on room air oxygen. Nevertheless, electrodes was significantly abnormal with a sodium level of 103 and a chloride level of 74 with a BUN of 40 and a creatinine of 1.05. The white cell count was at 5.6 with a hemoglobin of 8.1 and a platelet count of 155. The albumin was 3.2 with a total protein of 4.5. Serum alcohol was negative. He had a positive troponins of 0.05 and 0.04 respectively 2. TSH was at 1.08 and a serum cortisol was 44. UA was negative. His COVID 19 testing was also negative. His chest x-ray showed no acute abnormalities. There is some old left-sided rib fractures. Note that despite this hyponatremia, the patient did not have any seizure activity. No altered mentation. He is appropriate and following commands and answering questions appropriately. He was brought into the intensive care unit and he was started on hypertonic saline solution and currently is on 3% saline, running at the rate of 25 mL an hour. Electrodes are being checked on a regular basis every 4 hours. Noted the initial sodium was at 102 and it came up to 106. Initial creatinine was 1.1 came down to 1.05. History of any chest pain for now. The patient states that he lives in [facility]. He lives alone. 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 He is also a . It seems that he has done some medical care through the year to [facility]. Denies having any recent cold COVID 19 infection. He apparently has been drinking and he Is Drinking. He Was Taken around 5-6 Beers a Day and on and off He Still drinking probably 1 or 2 beers. Doesn't have much of help. His been having difficulty with mobility and ambulation. Surgical wound site over the anterior cervical area is dry clean and intact. No fever. No chills. No focal neurological deficit. He is able to answer questions appropriately although he is slow in answering questions. 12/31/2021, the patient is extubated and currently is on oxygen at 3 L. He was extubated yesterday without any major difficulties. The orogastric tube was also replaced with an NG tube. Output is in order of 300 mL overnight on the NG tube. The patient is awake and alert and following simple commands. His resting comfortably in bed. He is hemodynamically stable. He is on no pressors. His cardiac rhythm is sinus. He was started on TPN for nutritional support. Meanwhile, his IV fluids in the form of KVO and the D5 water has been discontinued. Sodium level is up to 123. Potassium level is at 3.9 and the BUN is at 8 with a creatinine of 0.4. The patient remains on broad-spectrum antibiotics regarding this duodenal perforation and is currently on a combination of, Diflucan and Flagyl. No other significant events overnight. His resting comfortably in bed. He is postop day #3. No evidence of any ongoing GI bleeding for now and hemoglobin is stable and hemoglobin today is still pending. Yesterday's hemoglobin was at 8.4. Surgical wound site is dry clean and intact. The patient has a JEB drain which is showing serous drainage in the order of 80 mL over the past 12 hours. Reevaluated today on 01/01/2022, patient remains in the ICU, seems to be doing relatively well, he is hemodynamically stable, nasogastric tube remains in place, remains nothing by mouth.. He is on 3 L nasal cannula, not in any distress, patient is on TPN, IV fluid at KVO, he is hemodynamically stable with a blood pressure of 134/66. WBC count is 11.6 hemoglobin is 8.1 sodium is improving up to 125 otherwise his renal profile is normal and electrolytes are normal Reevaluated today on 01/02/2022, patient remains in the ICU, continues to have nasogastric tube in place, patient is on 2 L nasal cannula, does not seem to be in any distress. Patient is receiving TPN via PICC line, he is on antibiotics in the form of. And Intermittently Has Been Receiving IV Lopressor for His Sinus Tachycardia. Hemoglobin Today Is 8.5, No Evidence of Active Bleeding, Patient Does Have Liquid the Black Stools Were Noted Today. Patient received a total of 4 units of packed RBCs and monitor platelets since admission Reevaluated today on , remains in the ICU,patient is on 1 L nasal cannula, he is not in any distress, nasogastric tube remains in place. Hemoglobin today is 8, blood pressure is stable, he is on cefazolin and Flagyl and Diflucan. And I plan to transfer the patient today to [facility]. Objective - Vital Signs Vital signs: Vital Signs Temp 97.8 F 01/03/22 09:00 Pulse 102 H 01/03/22 12:00 Resp 18 01/03/22 12:00 BP 151/75 01/03/22 12:00 Pulse Ox 93 L 01/03/22 12:00 FiO2 50 12/31/21 18:00 Intake & Output 01/02/22 01/03/22 01/03/22 18:59 06:59 18:59 Intake Total 1783.456 4202 735 Output Total 2775 1246 1135 Balance -1145.339 3953 -400 Weight 70.3 kg Intake: IV 33 1381 635 Arterial pressure bag 33 36 15 Flagyl 100 Fluconazole in NaCl,Iso- 50 Osm 100 mg In Saline 1 50ml.bag @ 50 mls/hr IVPB Q24H [facility] Rx#:[id number] Kefzol 50 Ofirmev (acetaminophen) 100 TPN 1045 570 ceFAZolin 2 gm In Sodium 50 Chloride 0.9% 50 ml @ 100 mls/hr IVPB Q8HR [facility] Rx# :[id number] Intake, IV Titration 4901.011 8746 100 Amount ACETAMINOPHEN IV (For NPO 100 ) 1,000 mg In Empty Bag 1 bag @ 400 mls/hr IVPB Q6HR [facility] Rx#:[id number] Mvi, Adult No.4 with Vit 4215.148 7363 K 10 ml Trace (Conc-1Ml/ Dose) 1 ml Sodium Chloride 4Meq/ml Vial 20 meq Potassium Chloride 20 meq Potassium Phosphate 6 mmol Magnesium Sulfate gm 1 gm In Amino Acid 5%- D15w+Lytes*E* 1,000 ml @ 95 mls/hr IV .BY DURATION [facility] Rx#:[id number] Output: Gastric Drainage 200 100 50 Drainage 50 85 Abdomen 50 85 Urine 2525 1060 1085 Stool 1 Other: Voiding Method Indwelling Catheter Indwelling Catheter Indwelling Catheter # Bowel Movements 1 1 ABP, PAP, CO, CI - Last Documented Arterial Blood Pressure 119/115 - Exam Physical Exam: Revealed a 66-year-old white male in no distress on 1 L nasal cannula Head: Atraumatic, normocephalic. Nasogastric tube seems to be intact HEENT:[Neck is supple.] [No neck masses.] [No thyromegaly.] [No JVD.] Chest: [Clear throughout, no crackles, no rhonchi, no wheezes.] Cardiac Exam: Tachycardic. [Normal S1 and S2, no S3 gallop, no murmur.] Abdomen: Soft. Nondistended. Nontender. Incision site clean dry and intact. JEB trach in place. Abdominal binder Extremities: [No clubbing, no edema, no cyanosis.] Neurological Exam: Generalized weakness in all 4 extremities otherwise unremarkable. Psychiatric: Normal mood, affect and normal mental status examination. - Labs CBC & Chem 7: 01/03/22 06:57 01/03/22 06:00 Labs: Abnormal Lab Results - Last 24 Hours (Table) 01/03/22 01/03/22 Range/Units 06:00 06:57 RBC 2.53 L (4.30-5.90) m/uL Hgb 8.0 L (13.0-17.5) gm/dL Hct 24.3 L (39.0-53.0) % RDW 16.9 H (11.5-15.5) % Sodium 126 L (137-145) mmol/L Chloride 96 L (98-107) mmol/L Creatinine 0.44 L (0.66-1.25) mg/dL Glucose 122 H (74-99) mg/dL Calcium 7.1 L (8.4-10.2) mg/dL Total Protein 3.3 L (6.3-8.2) g/dL Albumin 1.7 L (3.5-5.0) g/dL Microbiology - Last 24 Hours (Table) 12/28/21 03:35 Blood Culture - Final Blood No Growth after 144 hours 12/28/21 03:40 Blood Culture - Final Blood No Growth after 144 hours Assessment and Plan Assessment: Impression: Massive Upper GI bleeding secondary to duodenal ulcer Status post exploratory laparotomy and oversewing of bleeding duodenal ulcer with pyloroplasty postoperative day #6 Acute blood loss anemia Acute hyponatremia and hypokalemia being addressed by nephrology Recommendation: transfer to a monitor bed on selective. Continue to monitor CBC on a daily basis. Continue antibiotics Continue IV Protonix Continue TPN Continue DVT prophylaxis and GI prophylaxis Will follow. Time with Patient: Less than 30
[2022-01-03] MEDS: FLUCONAZOLE IN NACL,ISO-OSM 100 MG in SALINE 1 50ML.BAG IVPB SCH (22:55)
[2022-01-03 23:55] LABS: Glucose,Whole Blood 127 mg/dL (70-110)
[2022-01-04] MEDS: ACETAMINOPHEN IV (For NPO) 1,000 MG in EMPTY BAG 1 BAG IVPB SCH ×2 (00:23→06:02)
[2022-01-04] MEDS: 1: MVI, ADULT NO.4 WITH VIT K 10 ML, TRACE (CONC-1ML/DOSE) 1 ML, SODIUM CHLORIDE 4MEQ/ML IV SCH ×14 (03:32→13:38)
[2022-01-04 06:07] LABS: ALT 12 U/L (4-49); AST 39 U/L (17-59); African American GFR (CKD) >90 (>60 ml/min/1.73 sqM); Albumin 1.9 g/dL (3.5-5.0); Alkaline Phosphatase 87 U/L (38-126); Anion Gap 5 mmol/L; Blood Urea Nitrogen 13 mg/dL (9-20); Carbon Dioxide 29 mmol/L (22-30); Chloride 97 mmol/L (98-107); Glucose 129 mg/dL (74-99); Magnesium 2.1 mg/dL (1.6-2.3); Non-African American GFR(CKD) >90 (>60 ml/min/1.73 sqM); Phosphorus 3.1 mg/dL (2.5-4.5); Potassium 3.8 mmol/L (3.5-5.1); Sodium 131 mmol/L (137-145); Total Bilirubin 0.2 mg/dL (0.2-1.3); Total Protein 3.7 g/dL (6.3-8.2)
[2022-01-04 06:18] LABS: Glucose,Whole Blood 133 mg/dL (70-110)
[2022-01-04] MEDS: metroNIDAZOLE-NS PMX 500 MG in SALINE 1 100ML.BAG IVPB SCH ×3 (06:26→21:38)
[2022-01-04] MEDS: NOREPINEPHRINE 4 MG in SODIUM CHLORIDE 0.9% 250 ML IV SCH (06:30)
[2022-01-04] MEDS: THIAMINE 100 MG TAB PO SCH ×2 (07:38→16:52)
[2022-01-04 07:47] VITALS: BMI 24.2
[2022-01-04] MEDS: SYMBICORT 160-4.5 MCG INHALER INHALATION SCH ×2 (08:05→19:58)
[2022-01-04] MEDS: IPRATROPIUM 0.5 MG/2.5 ML NEBU INHALATION SCH ×4 (08:05→19:58)
[2022-01-04 08:24] LABS: Anisocytosis Slight; HCT 25.1 % (39.0-53.0); HGB 8.1 gm/dL (13.0-17.5); MCH 30.6 pg (25.0-35.0); MCHC 32.1 g/dL (31.0-37.0); MCV 95.4 fL (80.0-100.0); Mean Platelet Volume 9.4; Platelet Count 264 k/uL (150-450); RBC 2.63 m/uL (4.30-5.90); RDW 16.4 % (11.5-15.5); WBC 9.2 k/uL (3.8-10.6)
[2022-01-04] MEDS: ENOXAPARIN 40 MG/0.4 ML SYRINGE SQ SCH (08:29)
[2022-01-04] MEDS: NICOTINE 21MG/24HR PATCH TRANSDERM SCH (08:29)
[2022-01-04] MEDS: METOPROLOL TARTRATE 5 MG/5 ML VIAL IVP SCH ×2 (08:29→20:16)
[2022-01-04] MEDS: PANTOPRAZOLE 40 MG/10 ML VIAL IVP SCH ×2 (08:29→20:16)
[2022-01-04] MEDS ORDERED: FUROSEMIDE 10 MG/ML 4 ML VIAL IV STA (08:40)
[2022-01-04] MEDS ORDERED: hydrALAZINE HCL 20 MG/ML 1 ML VIAL IVP PRN (08:40)
--- NOTE | 2022-01-04 09:49 | P.PN ---
Subjective Patient is seen in follow-up for hyponatremia. Sodium level 131 today. Awake. Blood pressure stable. Denies chest pain or shortness of breath. Receiving TPN. Nothing by mouth. Vital signs are stable. General: Resting in bed. HEENT: On nasal cannula. LUNGS: Breath sounds decreased. HEART: Rate and Rhythm are regular. ABDOMEN: Soft, no distention. EXTREMITITES: Trace edema. Objective - Vital Signs Vital signs: Vital Signs Temp 98.9 F 01/04/22 04:00 Pulse 96 01/04/22 08:22 Resp 13 01/04/22 04:00 BP 149/83 01/04/22 04:00 Pulse Ox 96 01/04/22 04:00 FiO2 50 12/31/21 18:00 Intake & Output 01/03/22 01/04/22 01/04/22 18:59 06:59 18:59 Intake Total 1550 1545 95 Output Total 1570 1355 0 Balance -20 190 95 Weight 70.1 kg 70.1 kg Intake: IV 1350 1545 95 ACETAMINOPHEN IV (For NPO 200 ) 1,000 mg In Empty Bag 1 bag @ 400 mls/hr IVPB Q6HR [facility] Rx#:[id number] Arterial pressure bag 15 Fluconazole in NaCl,Iso- 50 Osm 100 mg In Saline 1 50ml.bag @ 50 mls/hr IVPB Q24H [facility] Rx#:[id number] TPN 1235 1045 95 ceFAZolin 2 gm In Sodium 100 50 Chloride 0.9% 50 ml @ 100 mls/hr IVPB Q8HR [facility] Rx# :[id number] metroNIDAZOLE-NS PMX 500 200 mg In Saline 1 100ml.bag @ 100 mls/hr IVPB Q8H [facility] Rx#:[id number] Intake, IV Titration 200 Amount ACETAMINOPHEN IV (For NPO 200 ) 1,000 mg In Empty Bag 1 bag @ 400 mls/hr IVPB Q6HR [facility] Rx#:[id number] Output: Gastric Drainage 50 Drainage 50 140 Abdomen 50 140 Urine 1470 1215 0 Other: Voiding Method Indwelling Catheter Urinal # Bowel Movements 1 ABP, PAP, CO, CI - Last Documented Arterial Blood Pressure 119/115 - Labs CBC & Chem 7: 01/04/22 05:26 01/04/22 05:26 Labs: Abnormal Lab Results - Last 24 Hours (Table) 01/03/22 01/03/22 01/04/22 Range/Units 17:21 23:54 05:26 RBC (4.30-5.90) m/uL Hgb (13.0-17.5) gm/dL Hct (39.0-53.0) % RDW (11.5-15.5) % Sodium 128 L 131 L (137-145) mmol/L Chloride 97 L (98-107) mmol/L Creatinine 0.41 L (0.66-1.25) mg/dL Glucose 129 H (74-99) mg/dL POC Glucose (mg/dL) 127 H (70-110) mg/dL Calcium 7.0 L (8.4-10.2) mg/dL Total Protein 3.7 L (6.3-8.2) g/dL Albumin 1.9 L (3.5-5.0) g/dL 01/04/22 01/04/22 Range/Units 05:26 06:17 RBC 2.63 L (4.30-5.90) m/uL Hgb 8.1 L (13.0-17.5) gm/dL Hct 25.1 L (39.0-53.0) % RDW 16.4 H (11.5-15.5) % Sodium (137-145) mmol/L Chloride (98-107) mmol/L Creatinine (0.66-1.25) mg/dL Glucose (74-99) mg/dL POC Glucose (mg/dL) 133 H (70-110) mg/dL Calcium (8.4-10.2) mg/dL Total Protein (6.3-8.2) g/dL Albumin (3.5-5.0) g/dL Microbiology - Last 24 Hours (Table) 12/28/21 03:35 Blood Culture - Final Blood No Growth after 144 hours 12/28/21 03:40 Blood Culture - Final Blood No Growth after 144 hours Assessment and Plan Plan: Assessment: 1. Hypovolemic hyponatremia improved with IV hydration. Currently off vasopressors. Sodium level 131 this morning. Urine osmolality 489. Cortisol 44. TSH normal. Hypervolemic. 2. Bleeding duodenal ulcer status post exploratory laparotomy with surgical repair/pyloroplasty 12/28/2021. Surgery following. 3. Hemorrhagic and hypovolemic shock status post IV fluids and blood transfusion. Hemoglobin 8.1 today. Per nurse, did have blood in bowel movement this morning. 4. Metabolic acidosis secondary to IV fluids. Improved. 5. History of alcohol abuse. 6. Hypophosphatemia from poor intake. Replaced. Better. 7. Hypokalemia from poor intake. Replaced. 8. Hypocalcemia secondary to hypoalbuminemia. Corrected calcium normal. Ionized calcium normal. 9. Volume overload. Has been receiving IV Lasix last few days. Plan: Maintain TPN. Lasix 40 mg IV once today. Status post and feculent 12/26/2021. Continue to replace electrolytes per protocol.
[2022-01-04] MEDS: SODIUM BICARBONATE TAB 650 MG TAB PO SCH (10:18)
--- NOTE | 2022-01-04 10:35 | P.PN ---
Subjective Progress Note Date: 01/04/22 Principal diagnosis: Acute GI bleed Hospital Course: 66-year-old male with history of CAD status post stents, COPD, recent cervical spine fusion presented with generalized weakness and fatigue. He was admitted for severe hyponatremia, likely hypovolemic, acute anemia, lactic acidosis, and elevated troponin. Patient found to have acute GI bleed requiring emergent s urgery for duodenal ulcer. Currently on TPN. His severe hyponatremia improved with IV fluids. Subjective: Patient seen and examined at bedside. No acute events overnight. He has minimal abdominal pain around the incision site. He denies any chest pain, shortness of breath. Per nurse, patient had a black/green stool. NG tube was discontinued yesterday. Patient pulled out his own Devine catheter yesterday. He is experiencing some blood-tinged urine. Pertinent positives and negatives as discussed above, a complete review of systems was performed and all other systems are negative. Vitals Signs Reviewed. General: nontoxic, no distress, appears at stated age Derm: warm, dry Head: atraumatic, normocephalic, symmetric Eyes: EOMI, no lid lag, anicteric sclera Mouth: no lip lesion, mucus membranes moist Cardiovascular: S1S2 reg, systolic murmur Lungs: CTA bilateral, no rhonchi, no rales , no accessory muscle use Abdominal: soft, slight tender to palpation throughout, abdominal dressing in place, drain with minimal serous fluid, no guarding, no appreciable organomegaly - slight blood at urethral meatus Ext: no gross muscle atrophy, no edema, no contractures Neuro: CN II-XI grossly intact, no focal neuro deficits Psych: Alert, oriented, appropriate affect Assessment and Plan: Acute GI bleed status post emergent surgery for duodenal ulcer repair on 12/28 -Hemoglobin stable -Pain control -Currently on TPN -Remains nothing by mouth, further diet recommendations per surgery Severe hyponatremia, likely hypovolemic -Nephrology following -slowly improving -May be slightly hypervolemic, given IV Lasix per nephrology -also given tolvaptan x1 yesterday -Seizure precautions -Neurochecks -All precautions Elevated troponin History of CAD -No active chest pain History of alcohol dependence -CIWA protocol History of COPD no home oxygen -Home inhalers Tobacco dependence -Nicotine patch DVT ppx: SCD Code status: Full code Anticipated discharge place: Home versus rehab Anticipated discharge time: 2+ days Objective - Vital Signs Vital signs: Vital Signs Temp 98.3 F 01/04/22 08:00 Pulse 89 01/04/22 10:00 Resp 18 01/04/22 10:00 BP 154/75 01/04/22 10:00 Pulse Ox 96 01/04/22 10:00 FiO2 50 12/31/21 18:00 Intake & Output 01/03/22 01/04/22 01/04/22 18:59 06:59 18:59 Intake Total 1550 1545 430 Output Total 1570 1355 950 Balance -20 190 -520 Weight 70.1 kg 70.1 kg Intake: IV 1350 1545 145 ACETAMINOPHEN IV (For NPO 200 ) 1,000 mg In Empty Bag 1 bag @ 400 mls/hr IVPB Q6HR [facility] Rx#:[id number] Arterial pressure bag 15 Fluconazole in NaCl,Iso- 50 Osm 100 mg In Saline 1 50ml.bag @ 50 mls/hr IVPB Q24H [facility] Rx#:[id number] TPN 1235 1045 95 ceFAZolin 2 gm In Sodium 100 50 50 Chloride 0.9% 50 ml @ 100 mls/hr IVPB Q8HR [facility] Rx# :[id number] metroNIDAZOLE-NS PMX 500 200 mg In Saline 1 100ml.bag @ 100 mls/hr IVPB Q8H [facility] Rx#:[id number] Intake, IV Titration 200 Amount ACETAMINOPHEN IV (For NPO 200 ) 1,000 mg In Empty Bag 1 bag @ 400 mls/hr IVPB Q6HR [facility] Rx#:[id number] TPN/PPN 285 TPN 285 Output: Gastric Drainage 50 Drainage 50 140 Abdomen 50 140 Urine 1470 1215 950 Other: Voiding Method Indwelling Catheter Urinal # Voids 1 # Bowel Movements 1 ABP, PAP, CO, CI - Last Documented Arterial Blood Pressure 119/115 - Labs CBC & Chem 7: 01/04/22 05:26 01/04/22 05:26 Labs: Abnormal Lab Results - Last 24 Hours (Table) 01/03/22 01/03/22 01/04/22 Range/Units 17:21 23:54 05:26 RBC (4.30-5.90) m/uL Hgb (13.0-17.5) gm/dL Hct (39.0-53.0) % RDW (11.5-15.5) % Sodium 128 L 131 L (137-145) mmol/L Chloride 97 L (98-107) mmol/L Creatinine 0.41 L (0.66-1.25) mg/dL Glucose 129 H (74-99) mg/dL POC Glucose (mg/dL) 127 H (70-110) mg/dL Calcium 7.0 L (8.4-10.2) mg/dL Total Protein 3.7 L (6.3-8.2) g/dL Albumin 1.9 L (3.5-5.0) g/dL 01/04/22 01/04/22 Range/Units 05:26 06:17 RBC 2.63 L (4.30-5.90) m/uL Hgb 8.1 L (13.0-17.5) gm/dL Hct 25.1 L (39.0-53.0) % RDW 16.4 H (11.5-15.5) % Sodium (137-145) mmol/L Chloride (98-107) mmol/L Creatinine (0.66-1.25) mg/dL Glucose (74-99) mg/dL POC Glucose (mg/dL) 133 H (70-110) mg/dL Calcium (8.4-10.2) mg/dL Total Protein (6.3-8.2) g/dL Albumin (3.5-5.0) g/dL
--- NOTE | 2022-01-04 10:54 | P.PN ---
Subjective Progress Note Date: 01/04/22 CHIEF COMPLAINT: Bleeding duodenal ulcer HISTORY OF PRESENT ILLNESS: Patient is postop day #7 status post exploratory laparotomy with oversewing of bleeding duodenal ulcer with pyloroplasty. Patient remains in the ICU but is cardiac overflow. Patient has had 2 blackish green smears of bowel movements. He did have some nausea. NG tube was removed yesterday. Afebrile. WBC is 9.2 hemoglobin stable at 8.1 platelets 264 sodium is up from 128-131 potassium is 3.8 creatinine 0.41 albumin 1.9 PHYSICAL EXAM: VITAL SIGNS: Reviewed. GENERAL: Well-developed in no acute distress. HEENT: No sclera icterus. Extraocular movements grossly intact. Moist buccal mucosa. Head is atraumatic, normocephalic. ABDOMEN: Soft. Nondistended. Nontender. Incisional dressing clean dry and intact. JEB drain with 140ml serous output. There is serous fluid leaking around the JEB drain NEUROLOGIC: Alert and oriented. Cranial nerves II through XII grossly intact. ASSESSMENT: 1. Bleeding duodenal ulcer 2. Massive upper GI bleed 3. Acute blood loss anemia due to GI bleed 4. Severe hyponatremia followed by nephrology 5. Hypokalemia resolved 6. Severe protein calorie malnutrition PLAN: -Keep patient strict nothing by mouth -Continue to monitor hemoglobin -Continue pain med PRN -Continue TPN for nutrition support -Continue antibiotics -Continue IV Protonix -DVT prophylaxis Lovenox Physician Presser All Around note has been reviewed by physician. Signing provider agrees with the documented findings, assessment, and plan of care. I have personally seen and examined the patient, reviewed the STORY TELLER /PAs history, exam and MDM and agree with the assessment and plan as written. Based on total visit time, I have performed more than 50% of the visit. As above: Patient doing well today. Pain is improved. Nausea this morning but that has resolved. He is hungry and wants solid foods. No rectal bleeding. Hemoglobin is stable. Continue antiacids. Begin clear liquid diet. Objective - Vital Signs Vital signs: Vital Signs Temp 98.3 F 01/04/22 08:00 Pulse 89 01/04/22 10:00 Resp 18 01/04/22 10:00 BP 154/75 01/04/22 10:00 Pulse Ox 96 01/04/22 10:00 FiO2 50 12/31/21 18:00 Intake & Output 01/03/22 01/04/22 01/04/22 18:59 06:59 18:59 Intake Total 1550 1545 430 Output Total 1570 1355 950 Balance -20 190 -520 Weight 70.1 kg 70.1 kg Intake: IV 1350 1545 145 ACETAMINOPHEN IV (For NPO 200 ) 1,000 mg In Empty Bag 1 bag @ 400 mls/hr IVPB Q6HR [facility] Rx#:[id number] Arterial pressure bag 15 Fluconazole in NaCl,Iso- 50 Osm 100 mg In Saline 1 50ml.bag @ 50 mls/hr IVPB Q24H [facility] Rx#:[id number] TPN 1235 1045 95 ceFAZolin 2 gm In Sodium 100 50 50 Chloride 0.9% 50 ml @ 100 mls/hr IVPB Q8HR [facility] Rx# :[id number] metroNIDAZOLE-NS PMX 500 200 mg In Saline 1 100ml.bag @ 100 mls/hr IVPB Q8H [facility] Rx#:[id number] Intake, IV Titration 200 Amount ACETAMINOPHEN IV (For NPO 200 ) 1,000 mg In Empty Bag 1 bag @ 400 mls/hr IVPB Q6HR [facility] Rx#:[id number] TPN/PPN 285 TPN 285 Output: Gastric Drainage 50 Drainage 50 140 Abdomen 50 140 Urine 1470 1215 950 Other: Voiding Method Indwelling Catheter Urinal # Voids 1 # Bowel Movements 1 ABP, PAP, CO, CI - Last Documented Arterial Blood Pressure 119/115 - Labs CBC & Chem 7: 01/04/22 05:26 01/04/22 05:26 Labs: Abnormal Lab Results - Last 24 Hours (Table) 01/03/22 01/03/22 01/04/22 Range/Units 17:21 23:54 05:26 RBC (4.30-5.90) m/uL Hgb (13.0-17.5) gm/dL Hct (39.0-53.0) % RDW (11.5-15.5) % Sodium 128 L 131 L (137-145) mmol/L Chloride 97 L (98-107) mmol/L Creatinine 0.41 L (0.66-1.25) mg/dL Glucose 129 H (74-99) mg/dL POC Glucose (mg/dL) 127 H (70-110) mg/dL Calcium 7.0 L (8.4-10.2) mg/dL Total Protein 3.7 L (6.3-8.2) g/dL Albumin 1.9 L (3.5-5.0) g/dL 01/04/22 01/04/22 Range/Units 05:26 06:17 RBC 2.63 L (4.30-5.90) m/uL Hgb 8.1 L (13.0-17.5) gm/dL Hct 25.1 L (39.0-53.0) % RDW 16.4 H (11.5-15.5) % Sodium (137-145) mmol/L Chloride (98-107) mmol/L Creatinine (0.66-1.25) mg/dL Glucose (74-99) mg/dL POC Glucose (mg/dL) 133 H (70-110) mg/dL Calcium (8.4-10.2) mg/dL Total Protein (6.3-8.2) g/dL Albumin (3.5-5.0) g/dL
[2022-01-04 11:53] LABS: Glucose,Whole Blood 132 mg/dL (70-110)
[2022-01-04] MEDS: CLEVIDIPINE BUTYRATE 25 MG in EMPTY BAG 1 BAG IV SCH (12:20)
--- NOTE | 2022-01-04 12:39 | P.PN ---
Subjective Progress Note Date: 01/04/22 Principal diagnosis: Acute upper GI bleeding secondary to duodenal ulcer 66-year-old male patient brought into the hospital because of generalized weakness and fatigue and addition to nausea and emesis and numbness and paresthesias. The patient has undergone a surgery cervical spine approximately a month at outside hospital. The patient stated that he has not been feeling well since. He has been calm progressively more weak over the past few weeks and the patient had loss in appetite. He has not been eating much or drinking much. As a result, he became progressively more weak and he end up coming into the hospital. Denies having any focal weakness. He takes Prozac at home. He has previous history of alcohol abuse,. He also has COPD management on a combination of Symbicort and Spiriva on outpatient basis regarding takes is no peripheral blood pressure control. At the time of his emergency evaluation, the patient was afebrile hemodynamically stable pulse ox of 99% on room air oxygen. Nevertheless, electrodes was significantly abnormal with a sodium level of 103 and a chloride level of 74 with a BUN of 40 and a creatinine of 1.05. The white cell count was at 5.6 with a hemoglobin of 8.1 and a platelet count of 155. The albumin was 3.2 with a total protein of 4.5. Serum alcohol was negative. He had a positive troponins of 0.05 and 0.04 respectively 2. TSH was at 1.08 and a serum cortisol was 44. UA was negative. His COVID 19 testing was also negative. His chest x-ray showed no acute abnormalities. There is some old left-sided rib fractures. Note that despite this hyponatremia, the patient did not have any seizure activity. No altered mentation. He is appropriate and following commands and answering questions appropriately. He was brought into the intensive care unit and he was started on hypertonic saline solution and currently is on 3% saline, running at the rate of 25 mL an hour. Electrodes are being checked on a regular basis every 4 hours. Noted the initial sodium was at 102 and it came up to 106. Initial creatinine was 1.1 came down to 1.05. History of any chest pain for now. The patient states that he lives in [facility]. He lives alone. 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 He is also a . It seems that he has done some medical care through the year to [facility]. Denies having any recent cold COVID 19 infection. He apparently has been drinking and he Is Drinking. He Was Taken around 5-6 Beers a Day and on and off He Still drinking probably 1 or 2 beers. Doesn't have much of help. His been having difficulty with mobility and ambulation. Surgical wound site over the anterior cervical area is dry clean and intact. No fever. No chills. No focal neurological deficit. He is able to answer questions appropriately although he is slow in answering questions. 12/31/2021, the patient is extubated and currently is on oxygen at 3 L. He was extubated yesterday without any major difficulties. The orogastric tube was also replaced with an NG tube. Output is in order of 300 mL overnight on the NG tube. The patient is awake and alert and following simple commands. His resting comfortably in bed. He is hemodynamically stable. He is on no pressors. His cardiac rhythm is sinus. He was started on TPN for nutritional support. Meanwhile, his IV fluids in the form of KVO and the D5 water has been discontinued. Sodium level is up to 123. Potassium level is at 3.9 and the BUN is at 8 with a creatinine of 0.4. The patient remains on broad-spectrum antibiotics regarding this duodenal perforation and is currently on a combination of, Diflucan and Flagyl. No other significant events overnight. His resting comfortably in bed. He is postop day #3. No evidence of any ongoing GI bleeding for now and hemoglobin is stable and hemoglobin today is still pending. Yesterday's hemoglobin was at 8.4. Surgical wound site is dry clean and intact. The patient has a JEB drain which is showing serous drainage in the order of 80 mL over the past 12 hours. Reevaluated today on 01/01/2022, patient remains in the ICU, seems to be doing relatively well, he is hemodynamically stable, nasogastric tube remains in place, remains nothing by mouth.. He is on 3 L nasal cannula, not in any distress, patient is on TPN, IV fluid at KVO, he is hemodynamically stable with a blood pressure of 134/66. WBC count is 11.6 hemoglobin is 8.1 sodium is improving up to 125 otherwise his renal profile is normal and electrolytes are normal Reevaluated today on 01/02/2022, patient remains in the ICU, continues to have nasogastric tube in place, patient is on 2 L nasal cannula, does not seem to be in any distress. Patient is receiving TPN via PICC line, he is on antibiotics in the form of. And Intermittently Has Been Receiving IV Lopressor for His Sinus Tachycardia. Hemoglobin Today Is 8.5, No Evidence of Active Bleeding, Patient Does Have Liquid the Black Stools Were Noted Today. Patient received a total of 4 units of packed RBCs and monitor platelets since admission Reevaluated today on , remains in the ICU,patient is on 1 L nasal cannula, he is not in any distress, nasogastric tube remains in place. Hemoglobin today is 8, blood pressure is stable, he is on cefazolin and Flagyl and Diflucan. And I plan to transfer the patient today to [facility]. Patient was reevaluated today on 01/04/2022, patient is doing great, asymptomatic, he pulled out his nasogastric tube and he pulled out his Devine catheter. Patient is on 1 L nasal cannula, he is not in any distress, seems to be a bit confused. Otherwise the patient is doing great. Plan to transfer the patient out of the ICU once a bed is available. Hemoglobin is holding at 8.1 WBC count is 9.2 electrolytes are normal renal profile is normal Objective - Vital Signs Vital signs: Vital Signs Temp 98.3 F 01/04/22 08:00 Pulse 94 01/04/22 11:24 Resp 18 01/04/22 10:00 BP 154/75 01/04/22 10:00 Pulse Ox 96 01/04/22 10:00 FiO2 50 12/31/21 18:00 Intake & Output 01/03/22 01/04/22 01/04/22 18:59 06:59 18:59 Intake Total 1550 1545 430 Output Total 1570 1355 950 Balance -20 190 -520 Weight 70.1 kg 70.1 kg Intake: IV 1350 1545 145 ACETAMINOPHEN IV (For NPO 200 ) 1,000 mg In Empty Bag 1 bag @ 400 mls/hr IVPB Q6HR [facility] Rx#:[id number] Arterial pressure bag 15 Fluconazole in NaCl,Iso- 50 Osm 100 mg In Saline 1 50ml.bag @ 50 mls/hr IVPB Q24H [facility]ALD Rx#:[id number] TPN 1235 1045 95 ceFAZolin 2 gm In Sodium 100 50 50 Chloride 0.9% 50 ml @ 100 mls/hr IVPB Q8HR [facility]ALD Rx# :[id number] metroNIDAZOLE-NS PMX 500 200 mg In Saline 1 100ml.bag @ 100 mls/hr IVPB Q8H DONALD Rx#:[id number] Intake, IV Titration 200 Amount ACETAMINOPHEN IV (For NPO 200 ) 1,000 mg In Empty Bag 1 bag @ 400 mls/hr IVPB Q6HR DONALD Rx#:[id number] TPN/PPN 285 TPN 285 Output: Gastric Drainage 50 Drainage 50 140 Abdomen 50 140 Urine 1470 1215 950 Other: Voiding Method Indwelling Catheter Urinal Urinal # Voids 1 # Bowel Movements 1 ABP, PAP, CO, CI - Last Documented Arterial Blood Pressure 119/115 - Exam Physical Exam: Revealed a 66-year-old white male in no distress on 1 L nasal cannula Head: Atraumatic, normocephalic. Nasogastric tube seems to be intact HEENT:[Neck is supple.] [No neck masses.] [No thyromegaly.] [No JVD.] Chest: [Clear throughout, no crackles, no rhonchi, no wheezes.] Cardiac Exam: Tachycardic. [Normal S1 and S2, no S3 gallop, no murmur.] Abdomen: Soft. Nondistended. Nontender. Incision site clean dry and intact. JEB trach in place. Abdominal binder Extremities: [No clubbing, no edema, no cyanosis.] Neurological Exam: Generalized weakness in all 4 extremities , patient is slightly confused Psychiatric: Normal mood, affect and normal slightly confused otherwise unremarkable. - Labs CBC & Chem 7: 01/04/22 05:26 01/04/22 05:26 Labs: Abnormal Lab Results - Last 24 Hours (Table) 01/03/22 01/03/22 01/04/22 Range/Units 17:21 23:54 05:26 RBC (4.30-5.90) m/uL Hgb (13.0-17.5) gm/dL Hct (39.0-53.0) % RDW (11.5-15.5) % Sodium 128 L 131 L (137-145) mmol/L Chloride 97 L (98-107) mmol/L Creatinine 0.41 L (0.66-1.25) mg/dL Glucose 129 H (74-99) mg/dL POC Glucose (mg/dL) 127 H (70-110) mg/dL Calcium 7.0 L (8.4-10.2) mg/dL Total Protein 3.7 L (6.3-8.2) g/dL Albumin 1.9 L (3.5-5.0) g/dL 01/04/22 01/04/22 01/04/22 Range/Units 05:26 06:17 11:51 RBC 2.63 L (4.30-5.90) m/uL Hgb 8.1 L (13.0-17.5) gm/dL Hct 25.1 L (39.0-53.0) % RDW 16.4 H (11.5-15.5) % Sodium (137-145) mmol/L Chloride (98-107) mmol/L Creatinine (0.66-1.25) mg/dL Glucose (74-99) mg/dL POC Glucose (mg/dL) 133 H 132 H (70-110) mg/dL Calcium (8.4-10.2) mg/dL Total Protein (6.3-8.2) g/dL Albumin (3.5-5.0) g/dL Assessment and Plan Assessment: Impression: Massive Upper GI bleeding secondary to duodenal ulcer Status post exploratory laparotomy and oversewing of bleeding duodenal ulcer with pyloroplasty postoperative day #7 Acute blood loss anemia Acute hyponatremia and hypokalemia being addressed by nephrology Recommendation: transfer to a monitor bed on selective. Continue antibiotics Continue IV Protonix Continue TPN Continue DVT prophylaxis and GI prophylaxis Will follow as needed Time with Patient: Less than 30
[2022-01-04] MEDS ORDERED: METOPROLOL TARTRATE 5 MG/5 ML VIAL IVP STA (16:29)
[2022-01-04 17:55] LABS: Glucose,Whole Blood 188 mg/dL (70-110)
[2022-01-04] MEDS: atenoloL 25 MG TAB PO SCH (19:54)
[2022-01-04] MEDS: FLUCONAZOLE IN NACL,ISO-OSM 100 MG in SALINE 1 50ML.BAG IVPB SCH (20:29)
[2022-01-04 23:48] LABS: Glucose,Whole Blood 151 mg/dL (70-110)
[2022-01-05] MEDS: 1: MVI, ADULT NO.4 WITH VIT K 10 ML, TRACE (CONC-1ML/DOSE) 1 ML, SODIUM CHLORIDE 4MEQ/ML IV SCH ×14 (03:22→17:46)
[2022-01-05] MEDS: NOREPINEPHRINE 4 MG in SODIUM CHLORIDE 0.9% 250 ML IV SCH (04:22)
[2022-01-05] MEDS: metroNIDAZOLE-NS PMX 500 MG in SALINE 1 100ML.BAG IVPB SCH ×3 (05:46→22:45)
[2022-01-05 06:02] LABS: Glucose,Whole Blood 122 mg/dL (70-110)
[2022-01-05] MEDS: THIAMINE 100 MG TAB PO SCH ×2 (06:27→17:45)
[2022-01-05] MEDS: IPRATROPIUM 0.5 MG/2.5 ML NEBU INHALATION SCH ×4 (08:05→20:31)
[2022-01-05] MEDS: SYMBICORT 160-4.5 MCG INHALER INHALATION SCH ×2 (08:06→20:31)
[2022-01-05] MEDS ORDERED: ALBUTEROL NEBULIZED 2.5 MG/3 ML INHALATION PRN (09:26)
[2022-01-05] MEDS: NICOTINE 21MG/24HR PATCH TRANSDERM SCH (09:28)
[2022-01-05] MEDS: METOPROLOL TARTRATE 5 MG/5 ML VIAL IVP SCH ×2 (09:29→21:28)
[2022-01-05] MEDS: HYDROmorphone 1 MG/ML 1 ML SYRINGE IVP PRN (09:30)
[2022-01-05] MEDS: ENOXAPARIN 40 MG/0.4 ML SYRINGE SQ SCH (09:30)
[2022-01-05] MEDS: PANTOPRAZOLE 40 MG/10 ML VIAL IVP SCH ×2 (09:31→21:28)
[2022-01-05 09:35] LABS: Basophils # (A) 0.1 k/uL (0-0.2); Basophils % (A) 1 %; Eosinophils # (A) 0.1 k/uL (0-0.7); Eosinophils % (A) 1 %; HCT 27.8 % (39.0-53.0); HGB 8.5 gm/dL (13.0-17.5); Hypochromasia Moderate; Lymphocytes # (A) 0.4 k/uL (1.0-4.8); Lymphocytes % (A) 4 %; MCH 30.2 pg (25.0-35.0); MCHC 30.6 g/dL (31.0-37.0); MCV 98.7 fL (80.0-100.0); Macrocytosis Slight; Mean Platelet Volume 9.1; Monocytes # (A) 0.4 k/uL (0-1.0); Monocytes % (A) 5 %; Neutrophils # (A) 7.7 k/uL (1.3-7.7); Neutrophils % (A) 88 %; Platelet Count 272 k/uL (150-450); RBC 2.82 m/uL (4.30-5.90); RDW 15.7 % (11.5-15.5); WBC 8.7 k/uL (3.8-10.6)
[2022-01-05 10:05] LABS: ALT 17 U/L (4-49); AST 45 U/L (17-59); African American GFR (CKD) >90 (>60 ml/min/1.73 sqM); Albumin 2.2 g/dL (3.5-5.0); Alkaline Phosphatase 103 U/L (38-126); Anion Gap 6 mmol/L; Blood Urea Nitrogen 14 mg/dL (9-20); Calcium 7.1 mg/dL (8.4-10.2); Carbon Dioxide 27 mmol/L (22-30); Chloride 97 mmol/L (98-107); Glucose 110 mg/dL (74-99); Magnesium 2.1 mg/dL (1.6-2.3); Non-African American GFR(CKD) >90 (>60 ml/min/1.73 sqM); Phosphorus 3.2 mg/dL (2.5-4.5); Sodium 130 mmol/L (137-145); Total Bilirubin 0.3 mg/dL (0.2-1.3)
--- NOTE | 2022-01-05 10:19 | P.PN ---
Subjective Patient is seen in follow-up for hyponatremia. Sodium level 130 today. Awake. Denies chest pain or shortness of breath. Receiving TPN. Now on clear liquid diet. Vital signs are stable. General: Resting in bed. HEENT: On nasal cannula. LUNGS: Breath sounds decreased. HEART: Rate and Rhythm are regular. ABDOMEN: Soft, no distention. EXTREMITITES: Trace edema. Objective - Vital Signs Vital signs: Vital Signs Temp 98.6 F 01/05/22 08:00 Pulse 107 H 01/05/22 08:00 Resp 18 01/05/22 08:00 BP 179/87 01/05/22 08:00 Pulse Ox 95 01/05/22 08:06 FiO2 50 12/31/21 18:00 Intake & Output 01/04/22 01/05/22 01/05/22 18:59 06:59 18:59 Intake Total 1942 Output Total 2560 491 125 Balance -618 -491 -125 Intake: IV 245 TPN 95 ceFAZolin 2 gm In Sodium 50 Chloride 0.9% 50 ml @ 100 mls/hr IVPB Q8HR DONALD Rx# :[id number] metroNIDAZOLE-NS PMX 500 100 mg In Saline 1 100ml.bag @ 100 mls/hr IVPB Q8H DONALD Rx#:[id number] Intake, IV Titration 1032 Amount Mvi, Adult No.4 with Vit 1032 K 10 ml Trace (Conc-1Ml/ Dose) 1 ml Sodium Chloride 4Meq/ml Vial 28 meq Potassium Chloride 20 meq Potassium Phosphate 6 mmol Magnesium Sulfate gm 1 gm In Amino Acid 5%- D15w+Lytes*E* 1,000 ml @ 95 mls/hr IV .BY DURATION DONALD Rx#:[id number] TPN/PPN 665 TPN 665 Output: Drainage 35 40 Abdomen 35 40 Urine 2525 450 125 Urine/Stool Mix 1 Other: Voiding Method Urinal Urinal External Catheter # Voids 3 1 # Bowel Movements 1 ABP, PAP, CO, CI - Last Documented Arterial Blood Pressure 119/115 - Labs CBC & Chem 7: 01/05/22 09:22 01/05/22 08:29 Labs: Abnormal Lab Results - Last 24 Hours (Table) 01/04/22 01/04/22 01/04/22 Range/Units 11:51 17:54 23:47 RBC (4.30-5.90) m/uL Hgb (13.0-17.5) gm/dL Hct (39.0-53.0) % MCHC (31.0-37.0) g/dL RDW (11.5-15.5) % Lymphocytes # (1.0-4.8) k/uL Sodium (137-145) mmol/L Chloride (98-107) mmol/L Creatinine (0.66-1.25) mg/dL Glucose (74-99) mg/dL POC Glucose (mg/dL) 132 H 188 H 151 H (70-110) mg/dL Calcium (8.4-10.2) mg/dL Total Protein (6.3-8.2) g/dL Albumin (3.5-5.0) g/dL 01/05/22 01/05/22 01/05/22 Range/Units 06:01 08:29 09:22 RBC 2.82 L (4.30-5.90) m/uL Hgb 8.5 L (13.0-17.5) gm/dL Hct 27.8 L (39.0-53.0) % MCHC 30.6 L (31.0-37.0) g/dL RDW 15.7 H (11.5-15.5) % Lymphocytes # 0.4 L (1.0-4.8) k/uL Sodium 130 L (137-145) mmol/L Chloride 97 L (98-107) mmol/L Creatinine 0.46 L (0.66-1.25) mg/dL Glucose 110 H (74-99) mg/dL POC Glucose (mg/dL) 122 H (70-110) mg/dL Calcium 7.1 L (8.4-10.2) mg/dL Total Protein 4.0 L (6.3-8.2) g/dL Albumin 2.2 L (3.5-5.0) g/dL Assessment and Plan Plan: Assessment: 1. Hypovolemic hyponatremia improved with IV hydration. Currently off vasopre ssors. Sodium level 130 this morning. Urine osmolality 489. Cortisol 44. TSH normal. Hypervolemic. 2. Bleeding duodenal ulcer status post exploratory laparotomy with surgical repair/pyloroplasty 12/28/2021. Surgery following. 3. Hemorrhagic and hypovolemic shock status post IV fluids and blood transfusion. Hemoglobin 8.5 today. Per nurse, did have blood in bowel movement this morning. 4. Metabolic acidosis secondary to IV fluids. Improved. 5. History of alcohol abuse. 6. Hypophosphatemia from poor intake. Replaced. Better. 7. Hypokalemia from poor intake. Replaced. Better. 8. Hypocalcemia secondary to hypoalbuminemia. Corrected calcium normal. Ionized calcium normal. 9. Volume overload. Has been receiving IV Lasix last few days. 10. Benign hypertension. Plan: Maintain TPN. Add oral Lasix 20 mg once daily. Repeat Samsca 7.5 mg once today. Continue to replace electrolytes per protocol. Lisinopril added by primary team. Hold for systolic blood pressure less than 120. Also has when necessary IV hydralazine noted. Check iron studies.
[2022-01-05] MEDS ORDERED: TOLVAPTAN 15 MG 1/2 TABLET PO ONE (11:00)
[2022-01-05] MEDS: IPRATROPIUM-ALBUTEROL 3 ML NEB INHALATION PRN (11:18)
--- NOTE | 2022-01-05 11:26 | P.PN ---
Subjective Progress Note Date: 01/05/22 CHIEF COMPLAINT: Bleeding duodenal ulcer HISTORY OF PRESENT ILLNESS: Patient is postop day #8 status post exploratory laparotomy with oversewing of bleeding duodenal ulcer with pyloroplasty. Patient is currently on the cardiac floor.. He is tolerating clear liquids. He did have a brown bowel movement and is having flatus. Denies any nausea vomiting. Denies any abdominal pain. Patient did have a temp of 100 last night. He has been mildly tachycardic. WBC is 8.7 and Hgb 8.5 platelets 272 sodium is 1:30 potassium is 4 creatinine 0.46. JEB drain with 40 mL serous drainage this morning. Nephrology to give patient another dose of IV Lasix. Cardiology to give an extra dose of Lopressor yesterday PHYSICAL EXAM: VITAL SIGNS: Reviewed. GENERAL: Well-developed in no acute distress. HEENT: No sclera icterus. Extraocular movements grossly intact. Moist buccal mucosa. Head is atraumatic, normocephalic. ABDOMEN: Soft. Nondistended. Nontender. Incisional dressing clean dry and intact. JEB drain with serous output. NEUROLOGIC: Alert and oriented. Cranial nerves II through XII grossly intact. ASSESSMENT: 1. Bleeding duodenal ulcer 2. Massive upper GI bleed 3. Acute blood loss anemia due to GI bleed 4. Severe hyponatremia followed by nephrology 5. Hypokalemia resolved 6. Severe protein calorie malnutrition PLAN: -Continue clear liquid diet with no carbonated beverages -Continue TPN for nutrition support -Continue antibiotics -Continue IV Protonix -DVT prophylaxis Lovenox Physician Estimator Project Manager note has been reviewed by physician. Signing provider agrees with the documented findings, assessment, and plan of care. I have personally seen and examined the patient, reviewed the GEM CUTTER /PAs history, exam and MDM and agree with the assessment and plan as written. Based on total visit time, I have performed more than 50% of the visit. As above: Patient doing well today. Pain is controlled. No bloody stools. Hemoglobin stable. Will advance to full liquid diet tomorrow. Keep on full liquids for the weekend. Possible discharge early next week. Objective - Vital Signs Vital signs: Vital Signs Temp 98.6 F 01/05/22 08:00 Pulse 107 H 01/05/22 11:19 Resp 18 01/05/22 11:19 BP 179/87 01/05/22 08:00 Pulse Ox 95 01/05/22 08:06 FiO2 50 12/31/21 18:00 Intake & Output 01/04/22 01/05/22 01/05/22 18:59 06:59 18:59 Intake Total 1942 Output Total 2560 491 125 Balance -618 -491 -125 Intake: IV 245 TPN 95 ceFAZolin 2 gm In Sodium 50 Chloride 0.9% 50 ml @ 100 mls/hr IVPB Q8HR [facility] Rx# :[id number] metroNIDAZOLE-NS PMX 500 100 mg In Saline 1 100ml.bag @ 100 mls/hr IVPB Q8H [facility] Rx#:[id number] Intake, IV Titration 1032 Amount Mvi, Adult No.4 with Vit 1032 K 10 ml Trace (Conc-1Ml/ Dose) 1 ml Sodium Chloride 4Meq/ml Vial 28 meq Potassium Chloride 20 meq Potassium Phosphate 6 mmol Magnesium Sulfate gm 1 gm In Amino Acid 5%- D15w+Lytes*E* 1,000 ml @ 95 mls/hr IV .BY DURATION DONALD Rx#:[id number] TPN/PPN 665 TPN 665 Output: Drainage 35 40 Abdomen 35 40 Urine 2525 450 125 Urine/Stool Mix 1 Other: Voiding Method Urinal Urinal External Catheter # Voids 3 1 # Bowel Movements 1 ABP, PAP, CO, CI - Last Documented Arterial Blood Pressure 119/115 - Labs CBC & Chem 7: 01/05/22 09:22 01/05/22 08:29 Labs: Abnormal Lab Results - Last 24 Hours (Table) 01/04/22 01/04/22 01/04/22 Range/Units 11:51 17:54 23:47 RBC (4.30-5.90) m/uL Hgb (13.0-17.5) gm/dL Hct (39.0-53.0) % MCHC (31.0-37.0) g/dL RDW (11.5-15.5) % Lymphocytes # (1.0-4.8) k/uL Sodium (137-145) mmol/L Chloride (98-107) mmol/L Creatinine (0.66-1.25) mg/dL Glucose (74-99) mg/dL POC Glucose (mg/dL) 132 H 188 H 151 H (70-110) mg/dL Calcium (8.4-10.2) mg/dL Total Protein (6.3-8.2) g/dL Albumin (3.5-5.0) g/dL 01/05/22 01/05/22 01/05/22 Range/Units 06:01 08:29 09:22 RBC 2.82 L (4.30-5.90) m/uL Hgb 8.5 L (13.0-17.5) gm/dL Hct 27.8 L (39.0-53.0) % MCHC 30.6 L (31.0-37.0) g/dL RDW 15.7 H (11.5-15.5) % Lymphocytes # 0.4 L (1.0-4.8) k/uL Sodium 130 L (137-145) mmol/L Chloride 97 L (98-107) mmol/L Creatinine 0.46 L (0.66-1.25) mg/dL Glucose 110 H (74-99) mg/dL POC Glucose (mg/dL) 122 H (70-110) mg/dL Calcium 7.1 L (8.4-10.2) mg/dL Total Protein 4.0 L (6.3-8.2) g/dL Albumin 2.2 L (3.5-5.0) g/dL
--- NOTE | 2022-01-05 11:38 | P.PN ---
Subjective Progress Note Date: 01/05/22 Principal diagnosis: Acute GI bleed Hospital Course: 66-year-old male with history of CAD status post stents, COPD, recent cervical spine fusion presented with generalized weakness and fatigue. He was admitted for severe hyponatremia, likely hypovolemic, acute anemia, lactic acidosis, and elevated troponin. Patient found to have acute GI bleed requiring emergent surgery for duodenal ulcer. Currently on TPN, slowly advancing diet. His severe hyponatremia improved with IV fluids. Subjective: Patient seen and examined at bedside. No acute events overnight. He has minimal abdominal pain around the incision site. He denies any chest pain, shortness of breath. Patient started to take small amounts of liquids. Pertinent positives and negatives as discussed above, a complete review of systems was performed and all other systems are negative. Vitals Signs Reviewed. General: nontoxic, no distress, appears at stated age Derm: warm, dry Head: atraumatic, normocephalic, symmetric Eyes: EOMI, no lid lag, anicteric sclera Mouth: no lip lesion, mucus membranes moist Cardiovascular: S1S2 reg, systolic murmur Lungs: CTA bilateral, no rhonchi, no rales , no accessory muscle use Abdominal: soft, slight tender to palpation throughout, abdominal dressing in place, drain with minimal serous fluid, no guarding Ext: no gross muscle atrophy, no edema, no contractures Neuro: CN II-XI grossly intact, no focal neuro deficits Psych: Alert, oriented, appropriate affect Assessment and Plan: Acute GI bleed status post emergent surgery for duodenal ulcer repair on 12/28 -Hemoglobin stable -Pain control -Currently on TPN -Slowly advancing diet, on clear liquids Severe hyponatremia, likely hypovolemic - resolving -Nephrology following -Now on oral Lasix -another dose of tolvaptan -Seizure precautions -Neurochecks -All precautions Elevated troponin History of CAD -No active chest pain Hypertension -Started on home medications Depression -Started on home medications History of alcohol dependence -CIWA protocol History of COPD no home oxygen -Home inhalers Tobacco dependence -Nicotine patch DVT ppx: SCD Code status: Full code Anticipated discharge place: Home versus rehab Anticipated discharge time: 2+ days Objective - Vital Signs Vital signs: Vital Signs Temp 98.6 F 01/05/22 08:00 Pulse 110 H 01/05/22 11:28 Resp 18 01/05/22 11:28 BP 179/87 01/05/22 08:00 Pulse Ox 95 01/05/22 08:06 FiO2 50 12/31/21 18:00 Intake & Output 01/04/22 01/05/22 01/05/22 18:59 06:59 18:59 Intake Total 1942 Output Total 2560 491 125 Balance -618 -491 -125 Intake: IV 245 TPN 95 ceFAZolin 2 gm In Sodium 50 Chloride 0.9% 50 ml @ 100 mls/hr IVPB Q8HR [facility] Rx# :[id number] metroNIDAZOLE-NS PMX 500 100 mg In Saline 1 100ml.bag @ 100 mls/hr IVPB Q8H [facility]D Rx#:[id number] Intake, IV Titration 1032 Amount Mvi, Adult No.4 with Vit 1032 K 10 ml Trace (Conc-1Ml/ Dose) 1 ml Sodium Chloride 4Meq/ml Vial 28 meq Potassium Chloride 20 meq Potassium Phosphate 6 mmol Magnesium Sulfate gm 1 gm In Amino Acid 5%- D15w+Lytes*E* 1,000 ml @ 95 mls/hr IV .BY DURATION DONALD Rx#:[id number] TPN/PPN 665 TPN 665 Output: Drainage 35 40 Abdomen 35 40 Urine 2525 450 125 Urine/Stool Mix 1 Other: Voiding Method Urinal Urinal External Catheter # Voids 3 1 # Bowel Movements 1 ABP, PAP, CO, CI - Last Documented Arterial Blood Pressure 119/115 - Labs CBC & Chem 7: 01/05/22 09:22 01/05/22 08:29 Labs: Abnormal Lab Results - Last 24 Hours (Table) 01/04/22 01/04/22 01/04/22 Range/Units 11:51 17:54 23:47 RBC (4.30-5.90) m/uL Hgb (13.0-17.5) gm/dL Hct (39.0-53.0) % MCHC (31.0-37.0) g/dL RDW (11.5-15.5) % Lymphocytes # (1.0-4.8) k/uL Sodium (137-145) mmol/L Chloride (98-107) mmol/L Creatinine (0.66-1.25) mg/dL Glucose (74-99) mg/dL POC Glucose (mg/dL) 132 H 188 H 151 H (70-110) mg/dL Calcium (8.4-10.2) mg/dL Total Protein (6.3-8.2) g/dL Albumin (3.5-5.0) g/dL 01/05/22 01/05/22 01/05/22 Range/Units 06:01 08:29 09:22 RBC 2.82 L (4.30-5.90) m/uL Hgb 8.5 L (13.0-17.5) gm/dL Hct 27.8 L (39.0-53.0) % MCHC 30.6 L (31.0-37.0) g/dL RDW 15.7 H (11.5-15.5) % Lymphocytes # 0.4 L (1.0-4.8) k/uL Sodium 130 L (137-145) mmol/L Chloride 97 L (98-107) mmol/L Creatinine 0.46 L (0.66-1.25) mg/dL Glucose 110 H (74-99) mg/dL POC Glucose (mg/dL) 122 H (70-110) mg/dL Calcium 7.1 L (8.4-10.2) mg/dL Total Protein 4.0 L (6.3-8.2) g/dL Albumin 2.2 L (3.5-5.0) g/dL
[2022-01-05 12:11] LABS: Glucose,Whole Blood 133 mg/dL (70-110)
[2022-01-05] MEDS: FUROSEMIDE 20 MG TAB PO SCH (13:22)
[2022-01-05] MEDS: CLEVIDIPINE BUTYRATE 25 MG in EMPTY BAG 1 BAG IV SCH (13:43)
[2022-01-05] MEDS: GABAPENTIN 400 MG CAP PO SCH ×2 (17:45→21:38)
[2022-01-05 17:59] LABS: % Iron Saturation 5.94 (15.00-50.00)
[2022-01-05 18:53] LABS: Glucose,Whole Blood 288 mg/dL (70-110)
[2022-01-05] MEDS ORDERED: DEXTROSE 50% SYRINGE 50 ML IVP PRN ×2 (18:58)
[2022-01-05] MEDS ORDERED: NON FORMULARY DRUG (Fluticasone Propion/Salmeterol [Advair 250-50 Diskus] 1 EACH Each) INHALATION SCH (20:00)
[2022-01-05 20:43] LABS: Glucose,Whole Blood 177 mg/dL (70-110)
[2022-01-05] MEDS: lisinopriL 5 MG TAB PO SCH (21:28)
[2022-01-05] MEDS: FLUCONAZOLE IN NACL,ISO-OSM 100 MG in SALINE 1 50ML.BAG IVPB SCH (21:29)
[2022-01-05 23:52] LABS: Glucose,Whole Blood 150 mg/dL (70-110)
[2022-01-06] MEDS: INSULIN ASPART (NovoLOG) 100 UNIT/ML VIAL SQ SCH ×4 (03:51→18:19)
[2022-01-06] MEDS: 1: MVI, ADULT NO.4 WITH VIT K 10 ML, TRACE (CONC-1ML/DOSE) 1 ML, SODIUM CHLORIDE 4MEQ/ML IV SCH ×21 (05:51→17:26)
[2022-01-06 05:58] LABS: Glucose,Whole Blood 127 mg/dL (70-110)
[2022-01-06] MEDS: metroNIDAZOLE-NS PMX 500 MG in SALINE 1 100ML.BAG IVPB SCH ×3 (06:08→21:57)
[2022-01-06] MEDS: THIAMINE 100 MG TAB PO SCH ×2 (06:08→17:32)
[2022-01-06 07:38] LABS: HCT 24.3 % (39.0-53.0); HGB 7.7 gm/dL (13.0-17.5); Hypochromasia Moderate; MCHC 31.7 g/dL (31.0-37.0); MCV 97.8 fL (80.0-100.0); Macrocytosis Slight; Mean Platelet Volume 8.5; Platelet Count 281 k/uL (150-450); RBC 2.49 m/uL (4.30-5.90); RDW 15.7 % (11.5-15.5)
[2022-01-06] MEDS ORDERED: NON FORMULARY DRUG (Tiotropium 2.5 Mcg/Puff 10 PUFF Each) INHALATION SCH (08:00)
[2022-01-06 08:04] LABS: ALT 31 U/L (4-49); AST 95 U/L (17-59); African American GFR (CKD) >90 (>60 ml/min/1.73 sqM); Albumin 2.1 g/dL (3.5-5.0); Alkaline Phosphatase 116 U/L (38-126); Anion Gap 5 mmol/L; Blood Urea Nitrogen 14 mg/dL (9-20); Calcium 7.2 mg/dL (8.4-10.2); Carbon Dioxide 27 mmol/L (22-30); Chloride 100 mmol/L (98-107); Glucose 127 mg/dL (74-99); Magnesium 2.1 mg/dL (1.6-2.3); Non-African American GFR(CKD) >90 (>60 ml/min/1.73 sqM); Phosphorus 3.1 mg/dL (2.5-4.5); Potassium 4.2 mmol/L (3.5-5.1); Sodium 132 mmol/L (137-145); Total Bilirubin 0.3 mg/dL (0.2-1.3); Total Protein 3.9 g/dL (6.3-8.2)
[2022-01-06] MEDS: SYMBICORT 160-4.5 MCG INHALER INHALATION SCH ×2 (08:33→19:59)
[2022-01-06] MEDS: IPRATROPIUM 0.5 MG/2.5 ML NEBU INHALATION SCH ×4 (08:33→19:59)
[2022-01-06] MEDS: NICOTINE 21MG/24HR PATCH TRANSDERM SCH (09:57)
[2022-01-06] MEDS: PANTOPRAZOLE 40 MG/10 ML VIAL IVP SCH ×2 (09:58→21:57)
[2022-01-06] MEDS: ENOXAPARIN 40 MG/0.4 ML SYRINGE SQ SCH (10:00)
[2022-01-06] MEDS: METOPROLOL TARTRATE 5 MG/5 ML VIAL IVP SCH ×2 (10:00→21:57)
[2022-01-06] MEDS: lisinopriL 5 MG TAB PO SCH ×2 (10:03→21:57)
[2022-01-06] MEDS: MULTIVITAMINS, THERA 1 EACH TAB PO SCH (10:03)
[2022-01-06] MEDS: FLUoxetine HCL 20 MG CAP PO SCH (10:03)
[2022-01-06] MEDS: FUROSEMIDE 20 MG TAB PO SCH (10:04)
[2022-01-06] MEDS: GABAPENTIN 400 MG CAP PO SCH ×2 (10:04→15:33)
[2022-01-06] MEDS: CHOLECALCIFEROL 25 MCG (1000 IU) TABLET PO SCH (10:04)
--- NOTE | 2022-01-06 10:58 | P.PN ---
Subjective Progress Note Date: 01/06/22 Principal diagnosis: Acute GI bleed Hospital Course: 66-year-old male with history of CAD status post stents, COPD, recent cervical spine fusion presented with generalized weakness and fatigue. He was admitted for severe hyponatremia, likely hypovolemic, acute anemia, lactic acidosis, and elevated troponin. Patient found to have acute GI bleed requiring emergent s urgery for duodenal ulcer. Currently on TPN, slowly advancing diet. Nephrology following. Hyponatremia improving. Subjective: Patient seen and examined at bedside. No acute events overnight. He has minimal abdominal pain around the incision site. He denies any chest pain, shortness of breath. Patient is tolerating liquid. He has not gotten out of bed but claims that is his next step. Pertinent positives and negatives as discussed above, a complete review of systems was performed and all other systems are negative. Vitals Signs Reviewed. General: nontoxic, no distress, appears at stated age Derm: warm, dry Head: atraumatic, normocephalic, symmetric Eyes: EOMI, no lid lag, anicteric sclera Mouth: no lip lesion, mucus membranes moist Cardiovascular: S1S2 reg, systolic murmur Lungs: CTA bilateral, no rhonchi, no rales , no accessory muscle use Abdominal: soft, slight tender to palpation throughout, abdominal dressing in place, drain with minimal serous fluid, no guarding Ext: no gross muscle atrophy, no edema, no contractures Neuro: CN II-XI grossly intact, no focal neuro deficits Psych: Alert, oriented, appropriate affect Assessment and Plan: Acute GI bleed status post emergent surgery for duodenal ulcer repair on 12/28 -Hemoglobin stable -Pain control -Currently on TPN -Slowly advancing diet, on full liquids Severe hyponatremia, likely hypovolemic - resolving -Nephrology following -Now on oral Lasix -Seizure precautions -Neurochecks -All precautions Elevated troponin History of CAD -No active chest pain Hypertension -Lisinopril -Hydralazine when necessary Depression -Started on home medications History of alcohol dependence History of COPD no home oxygen -Home inhalers Tobacco dependence -Nicotine patch DVT ppx: SCD Code status: Full code Anticipated discharge place: Home versus rehab Anticipated discharge time: 2+ days Objective - Vital Signs Vital signs: Vital Signs Temp 99.2 F 01/06/22 04:00 Pulse 108 H 01/06/22 08:47 Resp 18 01/06/22 04:00 BP 146/74 01/06/22 04:00 Pulse Ox 94 L 01/06/22 04:00 FiO2 50 12/31/21 18:00 Intake & Output 01/05/22 01/06/22 01/06/22 18:59 06:59 18:59 Intake Total 1350 118 Output Total 815 690 Balance 535 -690 118 Weight 70.1 kg Intake: IV 200 ceFAZolin 2 gm In Sodium 100 Chloride 0.9% 50 ml @ 100 mls/hr IVPB Q8HR [facility] Rx# :[id number] metroNIDAZOLE-NS PMX 500 100 mg In Saline 1 100ml.bag @ 100 mls/hr IVPB Q8H [facility] Rx#:[id number] Intake, IV Titration 1032 Amount Mvi, Adult No.4 with Vit 1032 K 10 ml Trace (Conc-1Ml/ Dose) 1 ml Sodium Chloride 4Meq/ml Vial 28 meq Potassium Chloride 20 meq Potassium Phosphate 6 mmol Magnesium Sulfate gm 1 gm In Amino Acid 5%- D15w+Lytes*E* 1,000 ml @ 95 mls/hr IV .BY DURATION [facility] Rx#:[id number] Oral 118 118 Output: Drainage 40 40 Abdomen 40 40 Urine 775 650 Other: Voiding Method External Catheter External Catheter # Voids 1 # Bowel Movements 1 ABP, PAP, CO, CI - Last Documented Arterial Blood Pressure 119/115 - Labs CBC & Chem 7: 01/06/22 07:13 01/06/22 07:13 Labs: Abnormal Lab Results - Last 24 Hours (Table) 01/05/22 01/05/22 01/05/22 Range/Units 08:29 12:10 18:51 RBC (4.30-5.90) m/uL Hgb (13.0-17.5) gm/dL Hct (39.0-53.0) % RDW (11.5-15.5) % Sodium (137-145) mmol/L Creatinine (0.66-1.25) mg/dL Glucose (74-99) mg/dL POC Glucose (mg/dL) 133 H 288 H (70-110) mg/dL Calcium (8.4-10.2) mg/dL Iron 11 L (65-175) ug/dL TIBC 183 L (228-460) ug/dL % Saturation 5.94 L (15.00-50.00) Transferrin 131.0 L (204.0-354.0) mg/dL Ferritin 516.0 H (22.0-322.0) ng/mL AST (17-59) U/L Total Protein (6.3-8.2) g/dL Albumin (3.5-5.0) g/dL 01/05/22 01/05/22 01/06/22 Range/Units 20:42 23:50 05:57 RBC (4.30-5.90) m/uL Hgb (13.0-17.5) gm/dL Hct (39.0-53.0) % RDW (11.5-15.5) % Sodium (137-145) mmol/L Creatinine (0.66-1.25) mg/dL Glucose (74-99) mg/dL POC Glucose (mg/dL) 177 H 150 H 127 H (70-110) mg/dL Calcium (8.4-10.2) mg/dL Iron (65-175) ug/dL TIBC (228-460) ug/dL % Saturation (15.00-50.00) Transferrin (204.0-354.0) mg/dL Ferritin (22.0-322.0) ng/mL AST (17-59) U/L Total Protein (6.3-8.2) g/dL Albumin (3.5-5.0) g/dL 01/06/22 01/06/22 Range/Units 07:13 07:13 RBC 2.49 L (4.30-5.90) m/uL Hgb 7.7 L (13.0-17.5) gm/dL Hct 24.3 L (39.0-53.0) % RDW 15.7 H (11.5-15.5) % Sodium 132 L (137-145) mmol/L Creatinine 0.47 L (0.66-1.25) mg/dL Glucose 127 H (74-99) mg/dL POC Glucose (mg/dL) (70-110) mg/dL Calcium 7.2 L (8.4-10.2) mg/dL Iron (65-175) ug/dL TIBC (228-460) ug/dL % Saturation (15.00-50.00) Transferrin (204.0-354.0) mg/dL Ferritin (22.0-322.0) ng/mL AST 95 H (17-59) U/L Total Protein 3.9 L (6.3-8.2) g/dL Albumin 2.1 L (3.5-5.0) g/dL
--- NOTE | 2022-01-06 11:24 | P.PN ---
Subjective Patient is seen for follow-up for hyponatremia. He has a history of EtOH abuse with history of intake off 5-6 cans of beer on a daily basis. Initial sodium was 102 mg/L and patient was maintained on 3% saline. His serum sodium had increased to about 108 mEq per liter yesterday however he he developed the significant shock from bleeding duodenal ulcer. Patient was taken to OR on 12/28/2021 and had explorative laparotomy with oversewing of leading duodenal ulcer with pyloroplasty. Patient is currently out of the ICU. He has been doing well over the last week. Sodium is at 132 today. Status post Samsca 7.5 mg yesterday. Objective - Vital Signs Vital signs: Vital Signs Temp 97.2 F L 01/06/22 08:20 Pulse 108 H 01/06/22 08:47 Resp 16 01/06/22 08:20 BP 166/86 01/06/22 08:20 Pulse Ox 90 L 01/06/22 08:20 FiO2 50 12/31/21 18:00 Intake & Output 01/05/22 01/06/22 01/06/22 18:59 06:59 18:59 Intake Total 1350 118 Output Total 815 690 1 Balance 535 -690 117 Weight 70.1 kg Intake: IV 200 ceFAZolin 2 gm In Sodium 100 Chloride 0.9% 50 ml @ 100 mls/hr IVPB Q8HR [facility] Rx# :[id number] metroNIDAZOLE-NS PMX 500 100 mg In Saline 1 100ml.bag @ 100 mls/hr IVPB Q8H [facility] Rx#:[id number] Intake, IV Titration 1032 Amount Mvi, Adult No.4 with Vit 1032 K 10 ml Trace (Conc-1Ml/ Dose) 1 ml Sodium Chloride 4Meq/ml Vial 28 meq Potassium Chloride 20 meq Potassium Phosphate 6 mmol Magnesium Sulfate gm 1 gm In Amino Acid 5%- D15w+Lytes*E* 1,000 ml @ 95 mls/hr IV .BY DURATION [facility] Rx#:[id number] Oral 118 118 Output: Drainage 40 40 Abdomen 40 40 Urine 775 650 Stool 1 Other: Voiding Method External Catheter External Catheter External Catheter # Voids 1 # Bowel Movements 1 ABP, PAP, CO, CI - Last Documented Arterial Blood Pressure 119/115 - Exam Patient is awake, comfortable No acute distress Examination of the heart S1 and S2 Examination lungs bilateral breath sounds are heard Abdomen is soft, incision is dressed some drainage noted. Examination of lower extremity shows no edema [employer] exam grossly intact - Labs CBC & Chem 7: 01/06/22 07:13 01/06/22 07:13 Labs: Abnormal Lab Results - Last 24 Hours (Table) 01/05/22 01/05/22 01/05/22 Range/Units 08:29 12:10 18:51 RBC (4.30-5.90) m/uL Hgb (13.0-17.5) gm/dL Hct (39.0-53.0) % RDW (11.5-15.5) % Sodium (137-145) mmol/L Creatinine (0.66-1.25) mg/dL Glucose (74-99) mg/dL POC Glucose (mg/dL) 133 H 288 H (70-110) mg/dL Calcium (8.4-10.2) mg/dL Iron 11 L (65-175) ug/dL TIBC 183 L (228-460) ug/dL % Saturation 5.94 L (15.00-50.00) Transferrin 131.0 L (204.0-354.0) mg/dL Ferritin 516.0 H (22.0-322.0) ng/mL AST (17-59) U/L Total Protein (6.3-8.2) g/dL Albumin (3.5-5.0) g/dL 01/05/22 01/05/22 01/06/22 Range/Units 20:42 23:50 05:57 RBC (4.30-5.90) m/uL Hgb (13.0-17.5) gm/dL Hct (39.0-53.0) % RDW (11.5-15.5) % Sodium (137-145) mmol/L Creatinine (0.66-1.25) mg/dL Glucose (74-99) mg/dL POC Glucose (mg/dL) 177 H 150 H 127 H (70-110) mg/dL Calcium (8.4-10.2) mg/dL Iron (65-175) ug/dL TIBC (228-460) ug/dL % Saturation (15.00-50.00) Transferrin (204.0-354.0) mg/dL Ferritin (22.0-322.0) ng/mL AST (17-59) U/L Total Protein (6.3-8.2) g/dL Albumin (3.5-5.0) g/dL 01/06/22 01/06/22 Range/Units 07:13 07:13 RBC 2.49 L (4.30-5.90) m/uL Hgb 7.7 L (13.0-17.5) gm/dL Hct 24.3 L (39.0-53.0) % RDW 15.7 H (11.5-15.5) % Sodium 132 L (137-145) mmol/L Creatinine 0.47 L (0.66-1.25) mg/dL Glucose 127 H (74-99) mg/dL POC Glucose (mg/dL) (70-110) mg/dL Calcium 7.2 L (8.4-10.2) mg/dL Iron (65-175) ug/dL TIBC (228-460) ug/dL % Saturation (15.00-50.00) Transferrin (204.0-354.0) mg/dL Ferritin (22.0-322.0) ng/mL AST 95 H (17-59) U/L Total Protein 3.9 L (6.3-8.2) g/dL Albumin 2.1 L (3.5-5.0) g/dL Assessment and Plan Assessment: 1. Hyponatremia most likely associated with excessive beer intake, poor solute intake and some degree of hypovolemia. Status post 3% saline initially. Status post post-Samsca. Sodium improved to 132 today. 2. Weakness and numbness most likely related to hyponatremia 3. EtOH abuse with history of 5-6 beers daily 4. History of COPD 5. Hypertension maintained on ANNALISA inhibitor's and atenolol. Blood pressure is currently on the lower side 6. Metabolic acidosis associated with lactic acidosis 7. GI bleed with profusely bleeding duodenal ulcer status post explorative laparotomy and oversewing of bleeding duodenal ulcer with pyloroplasty on 12/28/2021 Plan: Continue with oral Lasix Repeat sodium in a.m.
[2022-01-06 12:12] LABS: Glucose,Whole Blood 148 mg/dL (70-110)
[2022-01-06] MEDS: FLUTICASONE 50MCG/SPRAY NASAL 16GM EA NOSTRIL SCH (13:16)
--- NOTE | 2022-01-06 15:55 | P.PN ---
Subjective Progress Note Date: 01/06/22 CHIEF COMPLAINT: Perforated duodenal ulcer HISTORY OF PRESENT ILLNESS: The patient is a 66-year-old male status post repair of perforated duodenal ulcer. Resting comfortably. No new complaints. ROS: No reports of nausea and vomiting. No fevers or chills. No new chest pain. PHYSICAL EXAM: VITAL SIGNS: Reviewed CONSTITUTIONAL: Well developed and in no acute distress. EYES: Conjuctivae without sclera icterus. Extraocular movements grossly intact. HEAD, EARS, NOSE, THROAT: Moist buccal mucosa. Head is atraumatic, normocephalic. Hears conversational speech. No nasal drainage. RESPIRATORY: Non-labored respirations and equal bilateral excursions. CARDIOVASCULAR: Palpable 2+ radial pulses. ABDOMEN: Incision and intact. JEB present. MUSCULOSKELETAL: No gross deformity of the lower extremities noted. No clubbing. No cyanosis. SKIN: Good skin turgor. Well perfused. NEUROLOGIC: Cranial nerves II through XII grossly intact. No focal or lateralizing signs. PSYCH: Appropriate affect. Alert and oriented to person, place and time. CLINICAL LABS: Reviewed. Hemoglobin down to 8.5-7.7. ASSESSMENT: 1. Perforated duodenal ulcer PLAN: 1. Continue JEB drain 2. Continue antiacid 3. Continue full liquid diet Objective - Vital Signs Vital signs: Vital Signs Temp 98.3 F 01/06/22 11:40 Pulse 103 H 01/06/22 15:45 Resp 18 01/06/22 11:40 BP 156/74 01/06/22 11:40 Pulse Ox 94 L 01/06/22 11:40 FiO2 50 12/31/21 18:00 Intake & Output 01/05/22 01/06/22 01/06/22 18:59 06:59 18:59 Intake Total 1350 298 Output Total 440 696 1396 Balance 115 -936 -6261 Weight 70.1 kg Intake: IV 200 ceFAZolin 2 gm In Sodium 100 Chloride 0.9% 50 ml @ 100 mls/hr IVPB Q8HR [facility] Rx# :[id number] metroNIDAZOLE-NS PMX 500 100 mg In Saline 1 100ml.bag @ 100 mls/hr IVPB Q8H [facility] Rx#:[id number] Intake, IV Titration 1032 Amount Mvi, Adult No.4 with Vit 1032 K 10 ml Trace (Conc-1Ml/ Dose) 1 ml Sodium Chloride 4Meq/ml Vial 28 meq Potassium Chloride 20 meq Potassium Phosphate 6 mmol Magnesium Sulfate gm 1 gm In Amino Acid 5%- D15w+Lytes*E* 1,000 ml @ 95 mls/hr IV .BY DURATION [facility] Rx#:[id number] Oral 118 298 Output: Drainage 40 40 40 Abdomen 40 40 40 Urine 282 232 5471 Stool 1 Other: Voiding Method External Catheter External Catheter External Catheter # Voids 1 # Bowel Movements 1 ABP, PAP, CO, CI - Last Documented Arterial Blood Pressure 119/115 - Labs CBC & Chem 7: 01/06/22 07:13 01/06/22 07:13 Labs: Abnormal Lab Results - Last 24 Hours (Table) 01/05/22 01/05/22 01/05/22 Range/Units 08:29 18:51 20:42 RBC (4.30-5.90) m/uL Hgb (13.0-17.5) gm/dL Hct (39.0-53.0) % RDW (11.5-15.5) % Sodium (137-145) mmol/L Creatinine (0.66-1.25) mg/dL Glucose (74-99) mg/dL POC Glucose (mg/dL) 288 H 177 H (70-110) mg/dL Calcium (8.4-10.2) mg/dL Iron 11 L (65-175) ug/dL TIBC 183 L (228-460) ug/dL % Saturation 5.94 L (15.00-50.00) Transferrin 131.0 L (204.0-354.0) mg/dL Ferritin 516.0 H (22.0-322.0) ng/mL AST (17-59) U/L Total Protein (6.3-8.2) g/dL Albumin (3.5-5.0) g/dL 01/05/22 01/06/22 01/06/22 Range/Units 23:50 05:57 07:13 RBC (4.30-5.90) m/uL Hgb (13.0-17.5) gm/dL Hct (39.0-53.0) % RDW (11.5-15.5) % Sodium 132 L (137-145) mmol/L Creatinine 0.47 L (0.66-1.25) mg/dL Glucose 127 H (74-99) mg/dL POC Glucose (mg/dL) 150 H 127 H (70-110) mg/dL Calcium 7.2 L (8.4-10.2) mg/dL Iron (65-175) ug/dL TIBC (228-460) ug/dL % Saturation (15.00-50.00) Transferrin (204.0-354.0) mg/dL Ferritin (22.0-322.0) ng/mL AST 95 H (17-59) U/L Total Protein 3.9 L (6.3-8.2) g/dL Albumin 2.1 L (3.5-5.0) g/dL 01/06/22 01/06/22 Range/Units 07:13 12:11 RBC 2.49 L (4.30-5.90) m/uL Hgb 7.7 L (13.0-17.5) gm/dL Hct 24.3 L (39.0-53.0) % RDW 15.7 H (11.5-15.5) % Sodium (137-145) mmol/L Creatinine (0.66-1.25) mg/dL Glucose (74-99) mg/dL POC Glucose (mg/dL) 148 H (70-110) mg/dL Calcium (8.4-10.2) mg/dL Iron (65-175) ug/dL TIBC (228-460) ug/dL % Saturation (15.00-50.00) Transferrin (204.0-354.0) mg/dL Ferritin (22.0-322.0) ng/mL AST (17-59) U/L Total Protein (6.3-8.2) g/dL Albumin (3.5-5.0) g/dL
[2022-01-06 18:04] LABS: Glucose,Whole Blood 160 mg/dL (70-110)
[2022-01-06] MEDS: FLUCONAZOLE IN NACL,ISO-OSM 100 MG in SALINE 1 50ML.BAG IVPB SCH (21:57)
[2022-01-06 23:43] LABS: Glucose,Whole Blood 155 mg/dL (70-110)
[2022-01-07] MEDS: INSULIN ASPART (NovoLOG) 100 UNIT/ML VIAL SQ SCH ×4 (01:15→18:43)
[2022-01-07] MEDS: GABAPENTIN 400 MG CAP PO SCH ×4 (03:09→23:23)
[2022-01-07 05:49] LABS: Glucose,Whole Blood 131 mg/dL (70-110)
[2022-01-07] MEDS: THIAMINE 100 MG TAB PO SCH ×2 (06:14→17:55)
[2022-01-07] MEDS: metroNIDAZOLE-NS PMX 500 MG in SALINE 1 100ML.BAG IVPB SCH ×3 (06:14→20:27)
[2022-01-07 06:43] LABS: ALT 46 U/L (4-49); AST 104 U/L (17-59); African American GFR (CKD) >90 (>60 ml/min/1.73 sqM); Albumin 2.2 g/dL (3.5-5.0); Alkaline Phosphatase 125 U/L (38-126); Anion Gap 6 mmol/L; Blood Urea Nitrogen 15 mg/dL (9-20); Calcium 7.2 mg/dL (8.4-10.2); Carbon Dioxide 26 mmol/L (22-30); Chloride 100 mmol/L (98-107); Glucose 123 mg/dL (74-99); Magnesium 2.1 mg/dL (1.6-2.3); Non-African American GFR(CKD) >90 (>60 ml/min/1.73 sqM); Phosphorus 3.4 mg/dL (2.5-4.5); Potassium 4.3 mmol/L (3.5-5.1); Sodium 132 mmol/L (137-145); Total Bilirubin 0.3 mg/dL (0.2-1.3)
[2022-01-07] MEDS: IPRATROPIUM 0.5 MG/2.5 ML NEBU INHALATION SCH ×4 (08:34→19:51)
[2022-01-07] MEDS: SYMBICORT 160-4.5 MCG INHALER INHALATION SCH ×2 (08:34→19:51)
[2022-01-07] MEDS: 1: MVI, ADULT NO.4 WITH VIT K 10 ML, TRACE (CONC-1ML/DOSE) 1 ML, SODIUM CHLORIDE 4MEQ/ML IV SCH ×28 (09:08→20:44)
[2022-01-07] MEDS: CHOLECALCIFEROL 25 MCG (1000 IU) TABLET PO SCH (09:37)
[2022-01-07] MEDS: lisinopriL 5 MG TAB PO SCH ×2 (09:37→20:26)
[2022-01-07] MEDS: FUROSEMIDE 20 MG TAB PO SCH (09:37)
[2022-01-07] MEDS: FLUoxetine HCL 20 MG CAP PO SCH (09:37)
[2022-01-07] MEDS: MULTIVITAMINS, THERA 1 EACH TAB PO SCH (09:37)
[2022-01-07] MEDS: ENOXAPARIN 40 MG/0.4 ML SYRINGE SQ SCH (09:37)
[2022-01-07] MEDS: NICOTINE 21MG/24HR PATCH TRANSDERM SCH (09:37)
[2022-01-07] MEDS: METOPROLOL TARTRATE 5 MG/5 ML VIAL IVP SCH ×2 (09:38→20:26)
[2022-01-07] MEDS: PANTOPRAZOLE 40 MG/10 ML VIAL IVP SCH ×2 (09:38→20:26)
[2022-01-07] MEDS: FLUTICASONE 50MCG/SPRAY NASAL 16GM EA NOSTRIL SCH (09:43)
--- NOTE | 2022-01-07 11:10 | P.PN ---
Subjective Progress Note Date: 01/07/22 Principal diagnosis: Acute GI bleed Hospital Course: 66-year-old male with history of CAD status post stents, COPD, recent cervical spine fusion presented with generalized weakness and fatigue. He was admitted for severe hyponatremia, likely hypovolemic, acute anemia, lactic acidosis, and elevated troponin. Patient found to have acute GI bleed requiring emergent s urgery for duodenal ulcer. Currently on TPN, slowly advancing diet. Nephrology following. Hyponatremia improving. Subjective: Patient seen and examined at bedside. No acute events overnight. He denies any abdominal pain. He denies any chest pain, shortness of breath. Patient is tolerating liquid and solids. He has not gotten out of bed as he wants to take things slow. Pertinent positives and negatives as discussed above, a complete review of systems was performed and all other systems are negative. Vitals Signs Reviewed. General: nontoxic, no distress, appears at stated age Derm: warm, dry Head: atraumatic, normocephalic, symmetric Eyes: EOMI, no lid lag, anicteric sclera Mouth: no lip lesion, mucus membranes moist Cardiovascular: S1S2 reg, systolic murmur Lungs: CTA bilateral, no rhonchi, no rales , no accessory muscle use Abdominal: soft, slight tender to palpation throughout, abdominal dressing in place, drain with minimal serous fluid, no guarding Ext: no gross muscle atrophy, no edema, no contractures Neuro: CN II-XI grossly intact, no focal neuro deficits Psych: Alert, oriented, appropriate affect Assessment and Plan: Acute GI bleed status post emergent surgery for duodenal ulcer repair on 12/28 -On cefazolin and Flagyl -Hemoglobin stable -Pain control -Currently on TPN -Slowly advancing diet, on full liquids Severe hyponatremia, likely hypovolemic - resolving -Nephrology following -Now on oral Lasix -Seizure precautions -Neurochecks -All precautions Elevated troponin History of CAD -No active chest pain Hypertension -Lisinopril -Hydralazine when necessary Depression -Started on home medications History of alcohol dependence History of COPD no home oxygen -Home inhalers Tobacco dependence -Nicotine patch DVT ppx: SCD Code status: Full code Anticipated discharge place: Home versus rehab Anticipated discharge time: 2+ days Objective - Vital Signs Vital signs: Vital Signs Temp 98.0 F 01/06/22 15:20 Pulse 108 H 01/07/22 08:49 Resp 19 01/07/22 04:00 BP 142/72 01/07/22 04:00 Pulse Ox 95 01/07/22 04:00 FiO2 50 12/31/21 18:00 Intake & Output 01/06/22 01/07/22 01/07/22 18:59 06:59 18:59 Intake Total 298 Output Total 2041 1700 Balance -1744 -1700 Intake: Oral 298 Output: Drainage 40 Abdomen 40 Urine 2000 1700 Stool 2 Other: Voiding Method External Catheter External Catheter # Bowel Movements 1 1 ABP, PAP, CO, CI - Last Documented Arterial Blood Pressure 119/115 - Labs CBC & Chem 7: 01/06/22 07:13 01/07/22 05:44 Labs: Abnormal Lab Results - Last 24 Hours (Table) 01/06/22 01/06/22 01/06/22 Range/Units 12:11 18:03 23:42 Sodium (137-145) mmol/L Creatinine (0.66-1.25) mg/dL Glucose (74-99) mg/dL POC Glucose (mg/dL) 148 H 160 H 155 H (70-110) mg/dL Calcium (8.4-10.2) mg/dL AST (17-59) U/L Total Protein (6.3-8.2) g/dL Albumin (3.5-5.0) g/dL 01/07/22 01/07/22 Range/Units 05:44 05:47 Sodium 132 L (137-145) mmol/L Creatinine 0.49 L (0.66-1.25) mg/dL Glucose 123 H (74-99) mg/dL POC Glucose (mg/dL) 131 H (70-110) mg/dL Calcium 7.2 L (8.4-10.2) mg/dL AST 104 H (17-59) U/L Total Protein 4.0 L (6.3-8.2) g/dL Albumin 2.2 L (3.5-5.0) g/dL
[2022-01-07 12:24] LABS: Glucose,Whole Blood 184 mg/dL (70-110)
--- NOTE | 2022-01-07 13:41 | P.PN ---
Subjective Progress Note Date: 01/07/22 CHIEF COMPLAINT: Perforated duodenal ulcer HISTORY OF PRESENT ILLNESS: The patient is a 66-year-old male status post repair of perforated duodenal ulcer. He is tolerating full liquid diet. She reports abdominal pain is stable 6 out of 10. ROS: No reports of nausea and vomiting. No fevers or chills. No new chest pain. PHYSICAL EXAM: VITAL SIGNS: Reviewed CONSTITUTIONAL: Well developed and in no acute distress. EYES: Conjuctivae without sclera icterus. Extraocular movements grossly intact. HEAD, EARS, NOSE, THROAT: Moist buccal mucosa. Head is atraumatic, normocephalic. Hears conversational speech. No nasal drainage. RESPIRATORY: Non-labored respirations and equal bilateral excursions. CARDIOVASCULAR: Palpable 2+ radial pulses. ABDOMEN: Incisions intact. No peritonitis. MUSCULOSKELETAL: No gross deformity of the lower extremities noted. No clubbing. No cyanosis. SKIN: Good skin turgor. Well perfused. NEUROLOGIC: Cranial nerves II through XII grossly intact. No focal or lateralizing signs. PSYCH: Appropriate affect. Alert and oriented to person, place and time. CLINICAL LABS: Reviewed. Sodium 132 today. Hemoglobin 7.7 yesterday. ASSESSMENT: 1. Perforated duodenal ulcer 2. Anemia PLAN: 1. Recommend repeat CBC and ordered for anemia and hemoglobin 7.7. 2. May benefit from iron transfusion if needed. 3. Diet maintained full liquid diet Objective - Vital Signs Vital signs: Vital Signs Temp 98.0 F 01/06/22 15:20 Pulse 100 01/07/22 11:47 Resp 19 01/07/22 04:00 BP 142/72 01/07/22 04:00 Pulse Ox 95 01/07/22 04:00 FiO2 50 12/31/21 18:00 Intake & Output 01/06/22 01/07/22 01/07/22 18:59 06:59 18:59 Intake Total 298 Output Total 2041 1700 Balance -1744 -1700 Intake: Oral 298 Output: Drainage 40 Abdomen 40 Urine 2000 1700 Stool 2 Other: Voiding Method External Catheter External Catheter # Bowel Movements 1 1 ABP, PAP, CO, CI - Last Documented Arterial Blood Pressure 119/115 - Labs CBC & Chem 7: 01/06/22 07:13 01/07/22 05:44 Labs: Abnormal Lab Results - Last 24 Hours (Table) 01/06/22 01/06/22 01/07/22 Range/Units 18:03 23:42 05:44 Sodium 132 L (137-145) mmol/L Creatinine 0.49 L (0.66-1.25) mg/dL Glucose 123 H (74-99) mg/dL POC Glucose (mg/dL) 160 H 155 H (70-110) mg/dL Calcium 7.2 L (8.4-10.2) mg/dL AST 104 H (17-59) U/L Total Protein 4.0 L (6.3-8.2) g/dL Albumin 2.2 L (3.5-5.0) g/dL 01/07/22 01/07/22 Range/Units 05:47 11:56 Sodium (137-145) mmol/L Creatinine (0.66-1.25) mg/dL Glucose (74-99) mg/dL POC Glucose (mg/dL) 131 H 184 H (70-110) mg/dL Calcium (8.4-10.2) mg/dL AST (17-59) U/L Total Protein (6.3-8.2) g/dL Albumin (3.5-5.0) g/dL
[2022-01-07 18:35] LABS: Glucose,Whole Blood 150 mg/dL (70-110)
[2022-01-07] MEDS: FLUCONAZOLE IN NACL,ISO-OSM 100 MG in SALINE 1 50ML.BAG IVPB SCH (20:27)
[2022-01-07 23:50] LABS: Glucose,Whole Blood 155 mg/dL (70-110)
[2022-01-08] MEDS: INSULIN ASPART (NovoLOG) 100 UNIT/ML VIAL SQ SCH ×4 (00:10→18:31)
[2022-01-08] MEDS: metroNIDAZOLE-NS PMX 500 MG in SALINE 1 100ML.BAG IVPB SCH ×3 (04:47→22:40)
[2022-01-08] MEDS: THIAMINE 100 MG TAB PO SCH ×2 (04:48→16:27)
[2022-01-08 06:00] LABS: Glucose,Whole Blood 137 mg/dL (70-110)
[2022-01-08 07:00] LABS: Basophils # (A) 0.1 k/uL (0-0.2); Basophils % (A) 1 %; Eosinophils # (A) 0.2 k/uL (0-0.7); Eosinophils % (A) 2 %; HCT 25.5 % (39.0-53.0); HGB 8.2 gm/dL (13.0-17.5); Hypochromasia Moderate; Lymphocytes # (A) 0.5 k/uL (1.0-4.8); Lymphocytes % (A) 6 %; MCH 31.4 pg (25.0-35.0); MCV 98.1 fL (80.0-100.0); Macrocytosis Slight; Mean Platelet Volume 8.4; Monocytes # (A) 0.4 k/uL (0-1.0); Monocytes % (A) 5 %; Neutrophils # (A) 7.1 k/uL (1.3-7.7); Neutrophils % (A) 85 %; Platelet Count 359 k/uL (150-450); RDW 15.5 % (11.5-15.5); WBC 8.4 k/uL (3.8-10.6)
[2022-01-08 07:30] LABS: ALT 68 U/L (4-49); AST 106 U/L (17-59); African American GFR (CKD) >90 (>60 ml/min/1.73 sqM); Albumin 2.2 g/dL (3.5-5.0); Alkaline Phosphatase 120 U/L (38-126); Anion Gap 4 mmol/L; Blood Urea Nitrogen 16 mg/dL (9-20); Calcium 7.2 mg/dL (8.4-10.2); Carbon Dioxide 27 mmol/L (22-30); Chloride 100 mmol/L (98-107); Glucose 124 mg/dL (74-99); Non-African American GFR(CKD) >90 (>60 ml/min/1.73 sqM); Phosphorus 3.2 mg/dL (2.5-4.5); Potassium 4.4 mmol/L (3.5-5.1); Sodium 131 mmol/L (137-145); Total Bilirubin 0.3 mg/dL (0.2-1.3)
[2022-01-08] MEDS: FLUoxetine HCL 20 MG CAP PO SCH (08:27)
[2022-01-08] MEDS: CHOLECALCIFEROL 25 MCG (1000 IU) TABLET PO SCH (08:27)
[2022-01-08] MEDS: IPRATROPIUM 0.5 MG/2.5 ML NEBU INHALATION SCH ×4 (08:27→20:48)
[2022-01-08] MEDS: lisinopriL 5 MG TAB PO SCH ×2 (08:27→20:06)
[2022-01-08] MEDS: FLUTICASONE 50MCG/SPRAY NASAL 16GM EA NOSTRIL SCH (08:27)
[2022-01-08] MEDS: FUROSEMIDE 20 MG TAB PO SCH (08:27)
[2022-01-08] MEDS: METOPROLOL TARTRATE 5 MG/5 ML VIAL IVP SCH ×2 (08:27→20:06)
[2022-01-08] MEDS: PANTOPRAZOLE 40 MG/10 ML VIAL IVP SCH ×2 (08:27→20:06)
[2022-01-08] MEDS: MULTIVITAMINS, THERA 1 EACH TAB PO SCH (08:27)
[2022-01-08] MEDS: SYMBICORT 160-4.5 MCG INHALER INHALATION SCH ×2 (08:27→20:48)
[2022-01-08] MEDS: ENOXAPARIN 40 MG/0.4 ML SYRINGE SQ SCH (08:27)
[2022-01-08] MEDS: 1: MVI, ADULT NO.4 WITH VIT K 10 ML, TRACE (CONC-1ML/DOSE) 1 ML, SODIUM CHLORIDE 4MEQ/ML IV SCH ×7 (08:29)
[2022-01-08] MEDS: NICOTINE 21MG/24HR PATCH TRANSDERM SCH (08:42)
[2022-01-08] MEDS: GABAPENTIN 400 MG CAP PO SCH ×3 (08:45→22:41)
--- NOTE | 2022-01-08 09:32 | P.PN ---
Subjective Progress Note Date: 01/08/22 Principal diagnosis: Acute GI bleed Hospital Course: 66-year-old male with history of CAD status post stents, COPD, recent cervical spine fusion presented with generalized weakness and fatigue. He was admitted for severe hyponatremia, likely hypovolemic, acute anemia, lactic acidosis, and elevated troponin. Patient found to have acute GI bleed requiring emergent s urgery for duodenal ulcer. Currently on TPN, slowly advancing diet. Nephrology following. Hyponatremia improving. Subjective: Patient seen and examined at bedside. No acute events overnight. He denies any abdominal pain. He denies any chest pain, shortness of breath. Patient is tolerating full liquids. He has not gotten out of bed but willing to try it today with PT. Pertinent positives and negatives as discussed above, a complete review of systems was performed and all other systems are negative. Vitals Signs Reviewed. General: nontoxic, no distress, appears at stated age Derm: warm, dry Head: atraumatic, normocephalic, symmetric Eyes: EOMI, no lid lag, anicteric sclera Mouth: no lip lesion, mucus membranes moist Cardiovascular: S1S2 reg, systolic murmur Lungs: CTA bilateral, no rhonchi, no rales , no accessory muscle use Abdominal: soft, slight tender to palpation throughout, abdominal dressing in place, drain with minimal serous fluid, no guarding Ext: no gross muscle atrophy, no edema, no contractures Neuro: CN II-XI grossly intact, no focal neuro deficits Psych: Alert, oriented, appropriate affect Assessment and Plan: Acute GI bleed status post emergent surgery for duodenal ulcer repair on 12/28 -On cefazolin and Flagyl -Hemoglobin stable -Pain control -Currently on TPN -Slowly advancing diet, on full liquids Severe hyponatremia, likely hypovolemic - resolving -Nephrology following -Now on oral Lasix -Seizure precautions -Neurochecks -All precautions Elevated troponin History of CAD -No active chest pain Hypertension -Lisinopril -Hydralazine when necessary Depression -Started on home medications History of alcohol dependence History of COPD no home oxygen -Home inhalers Tobacco dependence -Nicotine patch DVT ppx: SCD Code status: Full code Anticipated discharge place: Home versus rehab Anticipated discharge time: 2+ days Objective - Vital Signs Vital signs: Vital Signs Temp 97.7 F 01/08/22 08:00 Pulse 104 H 01/08/22 08:36 Resp 18 01/08/22 08:00 BP 175/68 01/08/22 08:00 Pulse Ox 98 01/08/22 08:30 FiO2 50 12/31/21 18:00 Intake & Output 01/07/22 01/08/22 01/08/22 18:59 06:59 18:59 Intake Total 655 Output Total 1252 1950 Balance -597 -1950 Intake: Oral 655 Output: Drainage 50 Abdomen 50 Urine 1200 1950 Stool 2 Other: Voiding Method External Catheter External Catheter # Bowel Movements 2 1 ABP, PAP, CO, CI - Last Documented Arterial Blood Pressure 119/115 - Labs CBC & Chem 7: 01/08/22 06:36 01/08/22 06:36 Labs: Abnormal Lab Results - Last 24 Hours (Table) 01/07/22 01/07/22 01/07/22 Range/Units 11:56 18:33 23:45 RBC (4.30-5.90) m/uL Hgb (13.0-17.5) gm/dL Hct (39.0-53.0) % Lymphocytes # (1.0-4.8) k/uL Sodium (137-145) mmol/L Creatinine (0.66-1.25) mg/dL Glucose (74-99) mg/dL POC Glucose (mg/dL) 184 H 150 H 155 H (70-110) mg/dL Calcium (8.4-10.2) mg/dL AST (17-59) U/L ALT (4-49) U/L Total Protein (6.3-8.2) g/dL Albumin (3.5-5.0) g/dL 01/08/22 01/08/22 01/08/22 Range/Units 05:56 06:36 06:36 RBC 2.60 L (4.30-5.90) m/uL Hgb 8.2 L (13.0-17.5) gm/dL Hct 25.5 L (39.0-53.0) % Lymphocytes # 0.5 L (1.0-4.8) k/uL Sodium 131 L (137-145) mmol/L Creatinine 0.45 L (0.66-1.25) mg/dL Glucose 124 H (74-99) mg/dL POC Glucose (mg/dL) 137 H (70-110) mg/dL Calcium 7.2 L (8.4-10.2) mg/dL AST 106 H (17-59) U/L ALT 68 H (4-49) U/L Total Protein 4.0 L (6.3-8.2) g/dL Albumin 2.2 L (3.5-5.0) g/dL
--- NOTE | 2022-01-08 11:01 | P.PN ---
Subjective Patient is seen for follow-up for hyponatremia. He has a history of EtOH abuse with history of intake off 5-6 cans of beer on a daily basis. Initial sodium was 102 mg/L and patient was maintained on 3% saline. His serum sodium had increased to about 108 mEq per liter yesterday however he he developed the significant shock from bleeding duodenal ulcer. Patient was taken to OR on 12/28/2021 and had explorative laparotomy with oversewing of leading duodenal ulcer with pyloroplasty. Patient is currently out of the ICU. He has been doing well over the last week. Sodium is at 131 today. Status post Samsca 7.5 mg Objective - Vital Signs Vital signs: Vital Signs Temp 97.7 F 01/08/22 08:00 Pulse 104 H 01/08/22 08:36 Resp 18 01/08/22 08:00 BP 175/68 01/08/22 08:00 Pulse Ox 98 01/08/22 08:30 FiO2 50 12/31/21 18:00 Intake & Output 01/07/22 01/08/22 01/08/22 18:59 06:59 18:59 Intake Total 655 Output Total 1252 1950 Balance -597 -1950 Intake: Oral 655 Output: Drainage 50 Abdomen 50 Urine 1200 1950 Stool 2 Other: Voiding Method External Catheter External Catheter External Catheter # Bowel Movements 2 1 ABP, PAP, CO, CI - Last Documented Arterial Blood Pressure 119/115 - Exam Patient is awake, comfortable No acute distress Examination of the heart S1 and S2 Examination lungs bilateral breath sounds are heard Abdomen is soft, incision is dressed some drainage noted. 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 - Labs CBC & Chem 7: 01/08/22 06:36 01/08/22 06:36 Labs: Abnormal Lab Results - Last 24 Hours (Table) 01/07/22 01/07/22 01/07/22 Range/Units 11:56 18:33 23:45 RBC (4.30-5.90) m/uL Hgb (13.0-17.5) gm/dL Hct (39.0-53.0) % Lymphocytes # (1.0-4.8) k/uL Sodium (137-145) mmol/L Creatinine (0.66-1.25) mg/dL Glucose (74-99) mg/dL POC Glucose (mg/dL) 184 H 150 H 155 H (70-110) mg/dL Calcium (8.4-10.2) mg/dL AST (17-59) U/L ALT (4-49) U/L Total Protein (6.3-8.2) g/dL Albumin (3.5-5.0) g/dL 01/08/22 01/08/22 01/08/22 Range/Units 05:56 06:36 06:36 RBC 2.60 L (4.30-5.90) m/uL Hgb 8.2 L (13.0-17.5) gm/dL Hct 25.5 L (39.0-53.0) % Lymphocytes # 0.5 L (1.0-4.8) k/uL Sodium 131 L (137-145) mmol/L Creatinine 0.45 L (0.66-1.25) mg/dL Glucose 124 H (74-99) mg/dL POC Glucose (mg/dL) 137 H (70-110) mg/dL Calcium 7.2 L (8.4-10.2) mg/dL AST 106 H (17-59) U/L ALT 68 H (4-49) U/L Total Protein 4.0 L (6.3-8.2) g/dL Albumin 2.2 L (3.5-5.0) g/dL Assessment and Plan Assessment: 1. Hyponatremia most likely associated with excessive beer intake, poor solute intake and some degree of hypovolemia. Status post 3% saline initially. Status post post-Samsca. Sodium improved to 131 - 132 today. 2. Weakness and numbness most likely related to hyponatremia 3. EtOH abuse with history of 5-6 beers daily 4. History of COPD 5. Hypertension maintained on ANNALISA inhibitor's and atenolol. Blood pressure is currently on the lower side 6. Metabolic acidosis associated with lactic acidosis 7. GI bleed with profusely bleeding duodenal ulcer status post explorative laparotomy and oversewing of bleeding duodenal ulcer with pyloroplasty on 12/28/2021 Plan: Continue with oral Lasix Repeat sodium in a.m.
[2022-01-08] MEDS: IPRATROPIUM-ALBUTEROL 3 ML NEB INHALATION PRN ×2 (11:44→11:46)
[2022-01-08 12:00] LABS: Glucose,Whole Blood 163 mg/dL (70-110)
--- NOTE | 2022-01-08 12:20 | P.PN ---
Subjective Progress Note Date: 01/08/22 CHIEF COMPLAINT: Bleeding duodenal ulcer HISTORY OF PRESENT ILLNESS: Patient is status post exploratory laparotomy with oversewing of bleeding duodenal ulcer with pyloroplasty on 12/28/21. Patient is currently on the cardiac floor. Patient is tolerating small amount of liquids. Patient reports that he didn't eat this morning because he did have upset stomach. However as the morning when on symptoms improved. He denies any vomiting. He reports having a bowel movement. Denies any blood in his stools. He is on TPN. Afebrile. Mildly tachycardic. WBC is 8.4 hemoglobin is up from 7.7-8.2 platelets 359 sodium 131 potassium 4.4 creatinine 0.45 JEB drain 50ml serous output. PHYSICAL EXAM: VITAL SIGNS: Reviewed. GENERAL: Well-developed in no acute distress. HEENT: No sclera icterus. Extraocular movements grossly intact. Moist buccal mucosa. Head is atraumatic, normocephalic. ABDOMEN: Soft. Nondistended. Nontender. Incision site clean dry and intact with some mild bruising. JEB drain with serous output. NEUROLOGIC: Alert and oriented. Cranial nerves II through XII grossly intact. ASSESSMENT: 1. Bleeding duodenal ulcer 2. Massive upper GI bleed 3. Acute blood loss anemia due to GI bleed 4. Severe hyponatremia followed by nephrology 5. Hypokalemia resolved 6. Severe protein calorie malnutrition PLAN: -Continue Full liquid diet with no carbonated beverages -Continue TPN for nutrition support -Continue antibiotics -Continue IV Protonix -Encouraged patient to increase activity level and work with physical therapy -[facility] Phys[facility] Roll Panner note has been reviewed by physician. Signing provider agrees with the documented findings, assessment, and plan of care. I have personally seen and examined the patient, reviewed the DYED YARN OPERATOR /PAs history, exam and MDM and agree with the assessment and plan as written. Based on total visit time, I have performed more than 50% of the visit. As above: Patient doing well. We'll advance to dysphagia diet. Discontinue TPN after these bags are finished. Continue antiacid therapy. Wean off of antibiotics. Objective - Vital Signs Vital signs: Vital Signs Temp 97.7 F 01/08/22 08:00 Pulse 104 H 01/08/22 11:53 Resp 18 01/08/22 08:00 BP 175/68 01/08/22 08:00 Pulse Ox 98 01/08/22 08:30 FiO2 50 12/31/21 18:00 Intake & Output 01/07/22 01/08/22 01/08/22 18:59 06:59 18:59 Intake Total 655 Output Total 1252 1950 Balance -597 -1950 Weight 70.1 kg Intake: Oral 655 Output: Drainage 50 Abdomen 50 Urine 1200 1950 Stool 2 Other: Voiding Method External Catheter External Catheter External Catheter # Bowel Movements 2 1 ABP, PAP, CO, CI - Last Documented Arterial Blood Pressure 119/115 - Labs CBC & Chem 7: 01/08/22 06:36 01/08/22 06:36 Labs: Abnormal Lab Results - Last 24 Hours (Table) 01/07/22 01/07/22 01/07/22 Range/Units 11:56 18:33 23:45 RBC (4.30-5.90) m/uL Hgb (13.0-17.5) gm/dL Hct (39.0-53.0) % Lymphocytes # (1.0-4.8) k/uL Sodium (137-145) mmol/L Creatinine (0.66-1.25) mg/dL Glucose (74-99) mg/dL POC Glucose (mg/dL) 184 H 150 H 155 H (70-110) mg/dL Calcium (8.4-10.2) mg/dL AST (17-59) U/L ALT (4-49) U/L Total Protein (6.3-8.2) g/dL Albumin (3.5-5.0) g/dL 01/08/22 01/08/22 01/08/22 Range/Units 05:56 06:36 06:36 RBC 2.60 L (4.30-5.90) m/uL Hgb 8.2 L (13.0-17.5) gm/dL Hct 25.5 L (39.0-53.0) % Lymphocytes # 0.5 L (1.0-4.8) k/uL Sodium 131 L (137-145) mmol/L Creatinine 0.45 L (0.66-1.25) mg/dL Glucose 124 H (74-99) mg/dL POC Glucose (mg/dL) 137 H (70-110) mg/dL Calcium 7.2 L (8.4-10.2) mg/dL AST 106 H (17-59) U/L ALT 68 H (4-49) U/L Total Protein 4.0 L (6.3-8.2) g/dL Albumin 2.2 L (3.5-5.0) g/dL 01/08/22 Range/Units 11:48 RBC (4.30-5.90) m/uL Hgb (13.0-17.5) gm/dL Hct (39.0-53.0) % Lymphocytes # (1.0-4.8) k/uL Sodium (137-145) mmol/L Creatinine (0.66-1.25) mg/dL Glucose (74-99) mg/dL POC Glucose (mg/dL) 163 H (70-110) mg/dL Calcium (8.4-10.2) mg/dL AST (17-59) U/L ALT (4-49) U/L Total Protein (6.3-8.2) g/dL Albumin (3.5-5.0) g/dL
[2022-01-08] MEDS: FAT EMULSION 20% 500 ML IV SCH (12:42)
[2022-01-08 18:15] LABS: Glucose,Whole Blood 143 mg/dL (70-110)
[2022-01-08] MEDS ORDERED: 1: MVI, ADULT NO.4 WITH VIT K 10 ML, TRACE (CONC-1ML/DOSE) 1 ML, SODIUM CHLORIDE 4MEQ/ML IV SCH ×7 (19:00)
[2022-01-08 23:42] LABS: Glucose,Whole Blood 142 mg/dL (70-110)
[2022-01-09] MEDS: INSULIN ASPART (NovoLOG) 100 UNIT/ML VIAL SQ SCH ×4 (00:34→18:01)
[2022-01-09 05:47] LABS: Glucose,Whole Blood 122 mg/dL (70-110)
[2022-01-09] MEDS: THIAMINE 100 MG TAB PO SCH ×2 (06:18→16:35)
[2022-01-09] MEDS: metroNIDAZOLE-NS PMX 500 MG in SALINE 1 100ML.BAG IVPB SCH ×3 (06:18→21:26)
[2022-01-09] MEDS: SYMBICORT 160-4.5 MCG INHALER INHALATION SCH ×2 (08:29→21:40)
[2022-01-09] MEDS: IPRATROPIUM 0.5 MG/2.5 ML NEBU INHALATION SCH ×4 (08:29→21:39)
[2022-01-09] MEDS: METOPROLOL TARTRATE 5 MG/5 ML VIAL IVP SCH ×2 (08:48→21:26)
[2022-01-09] MEDS: GABAPENTIN 400 MG CAP PO SCH ×3 (08:48→21:26)
[2022-01-09] MEDS: ENOXAPARIN 40 MG/0.4 ML SYRINGE SQ SCH (08:48)
[2022-01-09] MEDS: PANTOPRAZOLE 40 MG/10 ML VIAL IVP SCH ×2 (08:48→21:26)
[2022-01-09] MEDS: MULTIVITAMINS, THERA 1 EACH TAB PO SCH (08:48)
[2022-01-09] MEDS: FLUoxetine HCL 20 MG CAP PO SCH (08:49)
[2022-01-09] MEDS: FUROSEMIDE 20 MG TAB PO SCH (08:50)
[2022-01-09] MEDS: lisinopriL 5 MG TAB PO SCH ×2 (08:50→21:26)
[2022-01-09] MEDS: CHOLECALCIFEROL 25 MCG (1000 IU) TABLET PO SCH (08:50)
[2022-01-09] MEDS: NICOTINE 21MG/24HR PATCH TRANSDERM SCH (08:51)
[2022-01-09] MEDS: FLUTICASONE 50MCG/SPRAY NASAL 16GM EA NOSTRIL SCH (08:51)
[2022-01-09 10:38] LABS: HCT 25.8 % (39.0-53.0); HGB 8.1 gm/dL (13.0-17.5); Hypochromasia Slight; MCH 30.2 pg (25.0-35.0); MCHC 31.6 g/dL (31.0-37.0); MCV 95.7 fL (80.0-100.0); Mean Platelet Volume 8.9; Platelet Count 434 k/uL (150-450); RBC 2.69 m/uL (4.30-5.90); RDW 15.8 % (11.5-15.5); WBC 10.7 k/uL (3.8-10.6)
[2022-01-09 10:51] LABS: African American GFR (CKD) >90 (>60 ml/min/1.73 sqM); Anion Gap 6 mmol/L; Blood Urea Nitrogen 16 mg/dL (9-20); Calcium 7.4 mg/dL (8.4-10.2); Carbon Dioxide 25 mmol/L (22-30); Chloride 99 mmol/L (98-107); Glucose 94 mg/dL (74-99); Non-African American GFR(CKD) >90 (>60 ml/min/1.73 sqM); Potassium 4.7 mmol/L (3.5-5.1); Sodium 130 mmol/L (137-145)
--- NOTE | 2022-01-09 11:12 | P.PN ---
Subjective Progress Note Date: 01/09/22 CHIEF COMPLAINT: Bleeding duodenal ulcer HISTORY OF PRESENT ILLNESS: Patient is status post exploratory laparotomy with oversewing of bleeding duodenal ulcer with pyloroplasty on 12/28/21. Patient currently on a dysphagia ground diet. He is eating a small amount with food. He is drinking the Ensure. He denies any abdominal pain. Denies any nausea or vomiting. He is having bowel movements. No blood in his stools. He did work with physical therapy. He is off the TPN. Afebrile. Mild tachycardia heart rate 105. WBC is 10.7 Hgb 8.1 platelets 434 sodium is 1:30 potassium is 4.7 creatinine 0.49. JEB drain with 15 mL serous output PHYSICAL EXAM: VITAL SIGNS: Reviewed. GENERAL: Well-developed in no acute distress. HEENT: No sclera icterus. Extraocular movements grossly intact. Moist buccal mucosa. Head is atraumatic, normocephalic. ABDOMEN: Soft. Nondistended. Nontender. Incision site clean dry and intact with some mild bruising. JEB drain with serous output. NEUROLOGIC: Alert and oriented. Cranial nerves II through XII grossly intact. ASSESSMENT: 1. Bleeding duodenal ulcer 2. Massive upper GI bleed 3. Acute blood loss anemia due to GI bleed 4. Severe hyponatremia followed by nephrology 5. Hypokalemia resolved 6. Severe protein calorie malnutrition PLAN: -Continue dysphagia ground diet -Wean off antibiotics -Continue Protonix -Encouraged patient to increase activity level and work with physical therapy -DVT prophylaxis [facility] Physician Yard Spotter note has been reviewed by physician. Signing provider agrees with the documented findings, assessment, and plan of care. I have personally seen and examined the patient, reviewed the SOCIAL MEDIA SENIOR ASSOCIATE /PAs history, exam and MDM and agree with the assessment and plan as written. Based on total visit time, I have performed more than 50% of the visit. As above: Patient doing well today. Tolerating diet. Continue antiacid therapy. Patient may discharge per primary service. May have drain removed prior to discharge. Objective - Vital Signs Vital signs: Vital Signs Temp 98.3 F 01/09/22 08:00 Pulse 105 H 01/09/22 08:00 Resp 15 01/09/22 08:00 BP 147/71 01/09/22 08:00 Pulse Ox 97 01/09/22 08:29 FiO2 50 12/31/21 18:00 Intake & Output 01/08/22 01/09/22 01/09/22 18:59 06:59 18:59 Intake Total 1630 1360 180 Output Total 15 1400 Balance 1615 -40 180 Weight 70.1 kg Intake: IV 100 100 Fluconazole in NaCl,Iso- 50 Osm 100 mg In Saline 1 50ml.bag @ 50 mls/hr IVPB Q24H [facility] Rx#:[id number] ceFAZolin 2 gm In Sodium 50 Chloride 0.9% 50 ml @ 100 mls/hr IVPB Q8HR [facility] Rx# :[id number] metroNIDAZOLE-NS PMX 500 100 mg In Saline 1 100ml.bag @ 100 mls/hr IVPB Q8H [facility] Rx#:[id number] Intake, IV Titration 570 1260 Amount Fat Emulsion 20% 500 ml @ 500 41.667 mls/hr IV Mo@1200 [facility] Rx#:[id number] Mvi, Adult No.4 with Vit 760 K 10 ml Trace (Conc-1Ml/ Dose) 1 ml Sodium Chloride 4Meq/ml Vial 56 meq Potassium Chloride 20 meq Potassium Phosphate 6 mmol Magnesium Sulfate gm 1 gm In Amino Acid 5%- D15w+Lytes*E* 1,000 ml @ 95 mls/hr IV .BY DURATION [facility] Rx#:[id number] Sodium Chloride 4Meq/ml 570 Vial 56 meq Potassium Chloride 20 meq Potassium Phosphate 6 mmol Magnesium Sulfate gm 1 gm In Amino Acid 5%-D15w+ Lytes*E* 1,000 ml @ 95 mls/hr IV .BY DURATION [facility] Rx#:[id number] Oral 960 180 Output: Drainage 15 0 Abdomen 15 0 Urine 1400 Other: Voiding Method External Catheter External Catheter ABP, PAP, CO, CI - Last Documented Arterial Blood Pressure 119/115 - Labs CBC & Chem 7: 01/09/22 09:30 01/09/22 09:30 Labs: Abnormal Lab Results - Last 24 Hours (Table) 01/08/22 01/08/22 01/08/22 Range/Units 11:48 18:04 23:40 WBC (3.8-10.6) k/uL RBC (4.30-5.90) m/uL Hgb (13.0-17.5) gm/dL Hct (39.0-53.0) % RDW (11.5-15.5) % Sodium (137-145) mmol/L Creatinine (0.66-1.25) mg/dL POC Glucose (mg/dL) 163 H 143 H 142 H (70-110) mg/dL Calcium (8.4-10.2) mg/dL 01/09/22 01/09/22 01/09/22 Range/Units 05:45 09:30 09:30 WBC 10.7 H (3.8-10.6) k/uL RBC 2.69 L (4.30-5.90) m/uL Hgb 8.1 L (13.0-17.5) gm/dL Hct 25.8 L (39.0-53.0) % RDW 15.8 H (11.5-15.5) % Sodium 130 L (137-145) mmol/L Creatinine 0.49 L (0.66-1.25) mg/dL POC Glucose (mg/dL) 122 H (70-110) mg/dL Calcium 7.4 L (8.4-10.2) mg/dL
[2022-01-09 11:46] LABS: Glucose,Whole Blood 215 mg/dL (70-110)
[2022-01-09] MEDS ORDERED: TOLVAPTAN 15 MG 1/2 TABLET PO ONE (13:21)
--- NOTE | 2022-01-09 13:21 | P.PN ---
Subjective Patient is seen for follow-up for hyponatremia. He has a history of EtOH abuse with history of intake off 5-6 cans of beer on a daily basis. Initial sodium was 102 mg/L and patient was maintained on 3% saline. His serum sodium had increased to about 108 mEq per liter yesterday however he he developed the significant shock from bleeding duodenal ulcer. Patient was taken to OR on 12/28/2021 and had explorative laparotomy with oversewing of leading duodenal ulcer with pyloroplasty. Patient is currently out of the ICU. He has been doing well over the last week. Sodium is at 130 today. Status post Samsca 7.5 mg a few days ago. No complaints today Objective - Vital Signs Vital signs: Vital Signs Temp 98.4 F 01/09/22 13:00 Pulse 106 H 01/09/22 13:00 Resp 16 01/09/22 13:00 BP 125/59 01/09/22 13:00 Pulse Ox 96 01/09/22 13:00 FiO2 50 12/31/21 18:00 Intake & Output 01/08/22 01/09/22 01/09/22 18:59 06:59 18:59 Intake Total 1630 1360 180 Output Total 15 1400 Balance 1615 -40 180 Weight 70.1 kg Intake: IV 100 100 Fluconazole in NaCl,Iso- 50 Osm 100 mg In Saline 1 50ml.bag @ 50 mls/hr IVPB Q24H [facility] Rx#:[id number] ceFAZolin 2 gm In Sodium 50 Chloride 0.9% 50 ml @ 100 mls/hr IVPB Q8HR [facility] Rx# :[id number] metroNIDAZOLE-NS PMX 500 100 mg In Saline 1 100ml.bag @ 100 mls/hr IVPB Q8H [facility] Rx#:[id number] Intake, IV Titration 570 1260 Amount Fat Emulsion 20% 500 ml @ 500 41.667 mls/hr IV Mo@1200 [facility] Rx#:[id number] Mvi, Adult No.4 with Vit 760 K 10 ml Trace (Conc-1Ml/ Dose) 1 ml Sodium Chloride 4Meq/ml Vial 56 meq Potassium Chloride 20 meq Potassium Phosphate 6 mmol Magnesium Sulfate gm 1 gm In Amino Acid 5%- D15w+Lytes*E* 1,000 ml @ 95 mls/hr IV .BY DURATION [facility] Rx#:[id number] Sodium Chloride 4Meq/ml 570 Vial 56 meq Potassium Chloride 20 meq Potassium Phosphate 6 mmol Magnesium Sulfate gm 1 gm In Amino Acid 5%-D15w+ Lytes*E* 1,000 ml @ 95 mls/hr IV .BY DURATION [facility] Rx#:[id number] Oral 960 180 Output: Drainage 15 0 Abdomen 15 0 Urine 1400 Other: Voiding Method External Catheter External Catheter External Catheter ABP, PAP, CO, CI - Last Documented Arterial Blood Pressure 119/115 - Exam Patient is awake, comfortable No acute distress Examination of the heart S1 and S2 Examination lungs bilateral breath sounds are heard Abdomen is soft, incision is dressed some drainage noted. Examination of lower extremity shows no edema TOWER ERECTOR HELPER exam grossly intact - Labs CBC & Chem 7: 01/09/22 09:30 01/09/22 09:30 Labs: Abnormal Lab Results - Last 24 Hours (Table) 01/08/22 01/08/22 01/09/22 Range/Units 18:04 23:40 05:45 WBC (3.8-10.6) k/uL RBC (4.30-5.90) m/uL Hgb (13.0-17.5) gm/dL Hct (39.0-53.0) % RDW (11.5-15.5) % Sodium (137-145) mmol/L Creatinine (0.66-1.25) mg/dL POC Glucose (mg/dL) 143 H 142 H 122 H (70-110) mg/dL Calcium (8.4-10.2) mg/dL 01/09/22 01/09/22 01/09/22 Range/Units 09:30 09:30 11:45 WBC 10.7 H (3.8-10.6) k/uL RBC 2.69 L (4.30-5.90) m/uL Hgb 8.1 L (13.0-17.5) gm/dL Hct 25.8 L (39.0-53.0) % RDW 15.8 H (11.5-15.5) % Sodium 130 L (137-145) mmol/L Creatinine 0.49 L (0.66-1.25) mg/dL POC Glucose (mg/dL) 215 H (70-110) mg/dL Calcium 7.4 L (8.4-10.2) mg/dL Assessment and Plan Assessment: 1. Hyponatremia most likely associated with excessive beer intake, poor solute intake and some degree of hypovolemia. Status post 3% saline initially. Status post post-Samsca. Sodium improved to 131 - 132 today. 2. Weakness and numbness most likely related to hyponatremia 3. EtOH abuse with history of 5-6 beers daily 4. History of COPD 5. Hypertension maintained on ANNALISA inhibitor's and atenolol. Blood pressure is currently on the lower side 6. Metabolic acidosis associated with lactic acidosis 7. GI bleed with profusely bleeding duodenal ulcer status post explorative laparotomy and oversewing of bleeding duodenal ulcer with pyloroplasty on 12/28/2021 Plan: Repeat Samsca Continue with increased oral intake particularly protein
--- NOTE | 2022-01-09 15:52 | P.PN ---
Subjective Progress Note Date: 01/09/22 Patient seen and examined at bedside. Patient is resting comfortably in bed. Patient is tolerating his diet as it is being advanced. Patient denies chest pain shortness of breath. Patient appears to be doing better. Objective - Vital Signs Vital signs: Vital Signs Temp 98.4 F 01/09/22 13:00 Pulse 106 H 01/09/22 13:00 Resp 16 01/09/22 13:00 BP 125/59 01/09/22 13:00 Pulse Ox 96 01/09/22 13:00 FiO2 50 12/31/21 18:00 Intake & Output 01/08/22 01/09/22 01/09/22 18:59 06:59 18:59 Intake Total 1630 1360 360 Output Total 15 1400 Balance 1615 -40 360 Weight 70.1 kg Intake: IV 100 100 Fluconazole in NaCl,Iso- 50 Osm 100 mg In Saline 1 50ml.bag @ 50 mls/hr IVPB Q24H [facility] Rx#:[id number] ceFAZolin 2 gm In Sodium 50 Chloride 0.9% 50 ml @ 100 mls/hr IVPB Q8HR [facility] Rx# :[id number] metroNIDAZOLE-NS PMX 500 100 mg In Saline 1 100ml.bag @ 100 mls/hr IVPB Q8H [facility] Rx#:[id number] Intake, IV Titration 570 1260 Amount Fat Emulsion 20% 500 ml @ 500 41.667 mls/hr IV Mo@1200 [facility] Rx#:[id number] Mvi, Adult No.4 with Vit 760 K 10 ml Trace (Conc-1Ml/ Dose) 1 ml Sodium Chloride 4Meq/ml Vial 56 meq Potassium Chloride 20 meq Potassium Phosphate 6 mmol Magnesium Sulfate gm 1 gm In Amino Acid 5%- D15w+Lytes*E* 1,000 ml @ 95 mls/hr IV .BY DURATION [facility] Rx#:[id number] Sodium Chloride 4Meq/ml 570 Vial 56 meq Potassium Chloride 20 meq Potassium Phosphate 6 mmol Magnesium Sulfate gm 1 gm In Amino Acid 5%-D15w+ Lytes*E* 1,000 ml @ 95 mls/hr IV .BY DURATION [facility] Rx#:[id number] Oral 960 360 Output: Drainage 15 0 Abdomen 15 0 Urine 1400 Other: Voiding Method External Catheter External Catheter External Catheter # Bowel Movements 1 ABP, PAP, CO, CI - Last Documented Arterial Blood Pressure 119/115 - Exam General: [non toxic], [no distress], [appears at stated age] Derm: [warm], [dry] Head: [atraumatic], [normocephalic], [symmetric] Eyes: [EOMI], [no lid lag], [anicteric sclera] Mouth: [no lip lesion], [mucus membranes moist] Cardiovascular: [S1S2 reg], [no murmur], [positive posterior tibial pulse bilateral], Lungs: [CTA bilateral], [no rhonchi, no rales] , [no accessory muscle use] Abdominal: [soft], [ nontender to palpation], [no guarding], [no appreciable organomegaly] Ext: [no gross muscle atrophy], [no edema], [no contractures] Neuro: [ CN II-XI grossly intact], [no focal neuro deficits] Psych: [Alert], [oriented], [appropriate affect] , - Labs CBC & Chem 7: 01/09/22 09:30 01/09/22 09:30 Labs: Abnormal Lab Results - Last 24 Hours (Table) 01/08/22 01/08/22 01/09/22 Range/Units 18:04 23:40 05:45 WBC (3.8-10.6) k/uL RBC (4.30-5.90) m/uL Hgb (13.0-17.5) gm/dL Hct (39.0-53.0) % RDW (11.5-15.5) % Sodium (137-145) mmol/L Creatinine (0.66-1.25) mg/dL POC Glucose (mg/dL) 143 H 142 H 122 H (70-110) mg/dL Calcium (8.4-10.2) mg/dL 01/09/22 01/09/22 01/09/22 Range/Units 09:30 09:30 11:45 WBC 10.7 H (3.8-10.6) k/uL RBC 2.69 L (4.30-5.90) m/uL Hgb 8.1 L (13.0-17.5) gm/dL Hct 25.8 L (39.0-53.0) % RDW 15.8 H (11.5-15.5) % Sodium 130 L (137-145) mmol/L Creatinine 0.49 L (0.66-1.25) mg/dL POC Glucose (mg/dL) 215 H (70-110) mg/dL Calcium 7.4 L (8.4-10.2) mg/dL Assessment and Plan Assessment: Acute GI bleed status post emergent surgery for duodenal ulcer repair on 12/28 -On cefazolin and Flagyl -Hemoglobin stable -Pain control -Currently on TPN -Slowly advancing diet, on full liquids Severe hyponatremia, likely hypovolemic - resolving -Nephrology following -Now on oral Lasix -Seizure precautions -Neurochecks -All precautions Elevated troponin History of CAD -No active chest pain Hypertension -Lisinopril -Hydralazine when necessary Depression -Started on home medications History of alcohol dependence History of COPD no home oxygen -Home inhalers Tobacco dependence -Nicotine patch DVT ppx: SCD Code status: Full code Anticipated discharge place: Home versus rehab Anticipated discharge time: 2+ days
[2022-01-09 16:13] LABS: Glucose,Whole Blood 121 mg/dL (70-110)
[2022-01-09 18:29] LABS: Glucose,Whole Blood 133 mg/dL (70-110)
[2022-01-10 00:09] LABS: Glucose,Whole Blood 107 mg/dL (70-110)
[2022-01-10 04:08] LABS: Glucose,Whole Blood 102 mg/dL (70-110)
[2022-01-10] MEDS: THIAMINE 100 MG TAB PO SCH (05:54)
[2022-01-10] MEDS: metroNIDAZOLE-NS PMX 500 MG in SALINE 1 100ML.BAG IVPB SCH (05:54)
[2022-01-10] MEDS: IPRATROPIUM 0.5 MG/2.5 ML NEBU INHALATION SCH ×2 (07:12→11:00)
[2022-01-10] MEDS: SYMBICORT 160-4.5 MCG INHALER INHALATION SCH (07:12)
[2022-01-10] MEDS: PANTOPRAZOLE 40 MG/10 ML VIAL IVP SCH (09:03)
[2022-01-10] MEDS: ENOXAPARIN 40 MG/0.4 ML SYRINGE SQ SCH (09:03)
[2022-01-10] MEDS: NICOTINE 21MG/24HR PATCH TRANSDERM SCH (09:03)
[2022-01-10] MEDS: FLUTICASONE 50MCG/SPRAY NASAL 16GM EA NOSTRIL SCH (09:03)
[2022-01-10] MEDS: METOPROLOL TARTRATE 5 MG/5 ML VIAL IVP SCH (09:04)
[2022-01-10] MEDS: FLUoxetine HCL 20 MG CAP PO SCH (09:04)
[2022-01-10] MEDS: MULTIVITAMINS, THERA 1 EACH TAB PO SCH (09:04)
[2022-01-10] MEDS: GABAPENTIN 400 MG CAP PO SCH (09:04)
[2022-01-10] MEDS: CHOLECALCIFEROL 25 MCG (1000 IU) TABLET PO SCH (09:05)
[2022-01-10] MEDS: FUROSEMIDE 20 MG TAB PO SCH (09:05)
[2022-01-10] MEDS: lisinopriL 5 MG TAB PO SCH (09:06)
--- NOTE | 2022-01-10 10:15 | P.DS ---
Providers Date of admission: 12/28/21 05:05 Attending physician: Denis Laura MD Consults: 12/28/21 05:05 Consult Physician Stat Consulting Provider: Porsha Faust Consult Reason/Comments: Hyponatremia Do you want consulting provider notified?: Yes 12/28/21 07:42 Consult Physician Urgent Consulting Provider: Lars Hassan Consult Reason/Comments: hyponatremia Do you want consulting provider notified?: Yes 12/28/21 12:11 Consult Physician Urgent Consulting Provider: Eagle Hilliard Consult Reason/Comments: GI Bleed Do you want consulting provider notified?: Yes Primary care physician: Physician Nonstaff Hospital Course: Admitting diagnoses: Severe hyponatremia Discharge diagnoses: Hypovolemic hyponatremia improved Acute GI bleed resolved Duodenal ulcer repair status post exploratory laparotomy 12/28/2021 Hypertension controlled Depression stable Alcohol dependence COPD stable Tobacco dependent 66-year-old male with coronary artery disease status post stents, COPD not on home oxygen, recent surgery for cervical spine fusion Patient is poor historian however he does report that since he had his surgery few weeks ago he's been having some difficulties with swallowing which has limited his by mouth intake he lives alone and claims that he has axis to food however he has poor appetite in addition to dysphagia when he swallows since surgery. Which has limited his by mouth intake. Sometimes he would go full day without eating or drinking anything. Then he also admits to occasional alcohol intake however he did not quantify Patient has been experiencing progressive generalized weakness with fatigue he also reports feeling very nauseous with poor appetite and occasional vomiting he denies any chest pain or trouble breathing denies any coughing fevers or chills denies any GI bleeding. He denies any falls He does report severe COPD however he is not on home oxygen he's been using his inhalers at home however he also continues to smoke cigarettes. Patient overall is disengaged with the interview and has poor insight about his over all health Blood work in the ED was significant for severe hyponatremia Acute anemia And lactic acidosis Slightly elevated troponin Nephrology followed hyponatremia and treated it accordingly. Discharge sodium level was 1:30 During treatment in the ICU, patient developed acute blood loss anemia due to a bleeding duodenal ulcer identified with exploratory laparotomy on 12/28/2021. Surgery followed. Patient was closely monitored in the ICU after surgery. Patient was nothing by mouth and had to receive TPN. TPN was weaned off and patient's diet was slowly advanced. Acute GI bleed status post emergent surgery for duodenal ulcer repair on 12/28 -oral flagyl -Hemoglobin stable at 8.1 -Pain control -off of TPN -tolerating diet Severe hyponatremia, likely hypovolemic - resolving -Nephrology followed -Now on oral Lasix -Seizure precautions -Neurochecks -All precautions Elevated troponin History of CAD -No active chest pain Hypertension -Lisinopril -metoprolol BID Depression -Started on home medications History of alcohol dependence History of COPD no home oxygen -Home inhalers Tobacco dependence -Nicotine patch Patient was appropriate for rehabilitation on discharge. Physical: General: [non toxic], [no distress], [appears at stated age] Derm: [warm], [dry] Head: [atraumatic], [normocephalic], [symmetric] Eyes: [EOMI], [no lid lag], [anicteric sclera] Mouth: [no lip lesion], [mucus membranes moist] Cardiovascular: [S1S2 reg], [no murmur], [positive posterior tibial pulse bilateral], Lungs: [CTA bilateral], [no rhonchi, no rales] , [no accessory muscle use] Abdominal: [soft], [ nontender to palpation], [no guarding], [no appreciable organomegaly] Ext: [no gross muscle atrophy], [no edema], [no contractures] Neuro: [ CN II-XI grossly intact], [no focal neuro deficits] Psych: [Alert], [oriented], [appropriate affect] Disposition: SNF Condition: Fair Activity: As tolerated Diet: Cardiac Follow-up with PCP within one week Follow-up with surgery in 1-2 weeks Follow-up with nephrology in 1-2 weeks Patient Condition at Discharge: Fair Plan - Discharge Summary Discharge Rx Participant: Yes New Discharge Prescriptions: New metroNIDAZOLE [Flagyl] 500 mg PO TID #21 tab Furosemide [Lasix] 20 mg PO DAILY #30 tab Nicotine 21Mg/24Hr Patch [Habitrol] 1 patch TRANSDERM DAILY #30 patch Metoprolol Succinate [Metoprolol Succinate ER] 25 mg PO BID #60 tab Pantoprazole [Protonix] 40 mg PO BID #60 tab Thiamine [Vitamin B-1] 100 mg PO BID-W/MEALS #60 tab Continue FLUoxetine HCL [PROzac] 60 mg PO DAILY Multivitamin [Men's Multi-Vitamin] 1 tab PO DAILY Cholecalciferol [Vitamin D3 (25 Mcg = 1000 Iu)] 25 mcg PO DAILY Acetaminophen [Tylenol Extra Strength] 500 mg PO TID Ferrous Sulfate [Feosol] 325 mg PO BID Albuterol Inhaler [Ventolin Hfa Inhaler] 1 puff INHALATION RT-Q6H PRN PRN Reason: Shortness Of Breath Rosuvastatin Calcium 40 mg PO HS Fluticasone Nasal Quinby [Flonase Nasal Quinby] 1 spr EA NOSTRIL DAILY Gabapentin [Neurontin] 400 mg PO TID lisinopriL [Zestril] 5 mg PO BID Cyclobenzaprine [Flexeril] 10 mg PO BID methocarbamoL [Robaxin-750] 750 mg PO BID Tiotropium 2.5 Mcg/Puff [Spiriva Respimat 2.5 Mcg] 2 puff INHALATION RT-DAILY Discontinued atenoloL [Tenormin] 25 mg PO BID Aspirin EC [Ecotrin Low Dose] 81 mg PO DAILY Fluticasone Propion/Salmeterol [Advair 250-50 Diskus] 1 puff INHALATION RT- BID Discharge Medication List FLUoxetine HCL [PROzac] 60 mg PO DAILY 06/29/15 [History] Multivitamin [Men's Multi-Vitamin] 1 tab PO DAILY 06/29/15 [History] Acetaminophen [Tylenol Extra Strength] 500 mg PO TID 11/06/17 [History] Cholecalciferol [Vitamin D3 (25 Mcg = 1000 Iu)] 25 mcg PO DAILY 11/06/17 [History] Ferrous Sulfate [Feosol] 325 mg PO BID 11/06/17 [History] Albuterol Inhaler [Ventolin Hfa Inhaler] 1 puff INHALATION RT-Q6H PRN 04/01/19 [History] Rosuvastatin Calcium 40 mg PO HS 04/01/19 [History] Cyclobenzaprine [Flexeril] 10 mg PO BID 12/28/21 [History] Fluticasone Nasal Quinby [Flonase Nasal Quinby] 1 spr EA NOSTRIL DAILY 12/28/21 [History] Gabapentin [Neurontin] 400 mg PO TID 12/28/21 [History] Tiotropium 2.5 Mcg/Puff [Spiriva Respimat 2.5 Mcg] 2 puff INHALATION RT-DAILY 12/28/21 [History] lisinopriL [Zestril] 5 mg PO BID 12/28/21 [History] methocarbamoL [Robaxin-750] 750 mg PO BID 12/28/21 [History] Furosemide [Lasix] 20 mg PO DAILY #30 tab 01/10/22 [Rx] Metoprolol Succinate [Metoprolol Succinate ER] 25 mg PO BID #60 tab 01/10/22 [Rx] Nicotine 21Mg/24Hr Patch [Habitrol] 1 patch TRANSDERM DAILY #30 patch 01/10/22 [Rx] Pantoprazole [Protonix] 40 mg PO BID #60 tab 01/10/22 [Rx] Thiamine [Vitamin B-1] 100 mg PO BID-W/MEALS #60 tab 01/10/22 [Rx] metroNIDAZOLE [Flagyl] 500 mg PO TID #21 tab 01/10/22 [Rx] Follow up Appointment(s)/Referral(s): Eagle Hilliard MD [Medical Doctor] - 1 Week Nonstaff,Physician [Primary Care Provider] - 1 Week Lars Hassan DO [STAFF PHYSICIAN] - 2 Weeks
[2022-01-10 10:26] LABS: Anisocytosis Slight; Basophils # (A) 0.1 k/uL (0-0.2); Basophils % (A) 1 %; Eosinophils # (A) 0.2 k/uL (0-0.7); Eosinophils % (A) 2 %; HCT 26.3 % (39.0-53.0); HGB 8.1 gm/dL (13.0-17.5); Hypochromasia Marked; Lymphocytes # (A) 0.6 k/uL (1.0-4.8); Lymphocytes % (A) 8 %; MCH 30.6 pg (25.0-35.0); MCHC 30.6 g/dL (31.0-37.0); MCV 100.1 fL (80.0-100.0); Macrocytosis Slight; Mean Platelet Volume 8.5; Monocytes # (A) 0.5 k/uL (0-1.0); Monocytes % (A) 6 %; Neutrophils # (A) 6.9 k/uL (1.3-7.7); Neutrophils % (A) 82 %; Platelet Count 439 k/uL (150-450); RBC 2.63 m/uL (4.30-5.90); RDW 16.3 % (11.5-15.5); WBC 8.4 k/uL (3.8-10.6)
[2022-01-10 10:37] LABS: ALT 50 U/L (4-49); AST 54 U/L (17-59); African American GFR (CKD) >90 (>60 ml/min/1.73 sqM); Albumin 2.3 g/dL (3.5-5.0); Alkaline Phosphatase 130 U/L (38-126); Anion Gap 9 mmol/L; Blood Urea Nitrogen 16 mg/dL (9-20); Calcium 7.8 mg/dL (8.4-10.2); Carbon Dioxide 24 mmol/L (22-30); Chloride 103 mmol/L (98-107); Glucose 142 mg/dL (74-99); Non-African American GFR(CKD) >90 (>60 ml/min/1.73 sqM); Potassium 3.9 mmol/L (3.5-5.1); Sodium 136 mmol/L (137-145); Total Bilirubin <0.1 mg/dL (0.2-1.3); Total Protein 4.2 g/dL (6.3-8.2)
--- NOTE | 2022-01-10 11:24 | P.PN ---
Subjective Progress Note Date: 01/10/22 CHIEF COMPLAINT: Bleeding duodenal ulcer HISTORY OF PRESENT ILLNESS: Patient is status post exploratory laparotomy with oversewing of bleeding duodenal ulcer with pyloroplasty on 12/28/21. Patient currently on a dysphagia ground diet. Patient reports that he is able to eat all of his breakfast this morning. He denies any abdominal pain. Denies any nausea or vomiting. Afebrile. Mild tachycardia. WBC is 8.4 hemoglobin stable at 8.1 platelets 439. JEB drain was 30 mL serous output throughout the day yesterday. Patient being discharged to [facility] today PHYSICAL EXAM: VITAL SIGNS: Reviewed. GENERAL: Well-developed in no acute distress. HEENT: No sclera icterus. Extraocular movements grossly intact. Moist buccal mucosa. Head is atraumatic, normocephalic. ABDOMEN: Soft. Nondistended. Nontender. Incision site clean dry and intact with some mild bruising. JEB drain with serous output. NEUROLOGIC: Alert and oriented. Cranial nerves II through XII grossly intact. ASSESSMENT: 1. Bleeding duodenal ulcer 2. Massive upper GI bleed 3. Acute blood loss anemia due to GI bleed 4. Severe hyponatremia followed by nephrology 5. Hypokalemia resolved 6. Severe protein calorie malnutrition PLAN: -Patient is stable for discharge from surgical standpoint -Discontinue JEB drain prior to discharge -Continue dysphagia ground diet -Wean off antibiotics -Continue Protonix -DVT prophylaxis Lovenox Physician Field Organizer note has been reviewed by physician. Signing provider agrees with the documented findings, assessment, and plan of care. I have personally seen and examined the patient, reviewed the BUSINESS INTELLIGENCE ARCHITECT /PAs history, exam and MDM and agree with the assessment and plan as written. Based on total visit time, I have performed more than 50% of the visit. As above: Patient doing well today. No nausea or vomiting. Tolerating diet. Labs noted. We'll remove JEB drain. Continue diet post discharge. Continue antiacid therapy indefinitely. Follow-up in the office 1-2 weeks. Objective - Vital Signs Vital signs: Vital Signs Temp 97.5 F L 01/10/22 07:59 Pulse 108 H 01/10/22 07:59 Resp 15 01/10/22 07:59 BP 144/80 01/10/22 07:59 Pulse Ox 96 01/10/22 07:59 FiO2 50 12/31/21 18:00 Intake & Output 01/09/22 01/10/22 01/10/22 18:59 06:59 18:59 Intake Total 540 360 Output Total 30 2700 400 Balance 510 -2700 -40 Intake: Oral 540 360 Output: Drainage 30 Abdomen 30 Urine 2700 400 Other: Voiding Method External Catheter External Catheter External Catheter # Bowel Movements 1 1 ABP, PAP, CO, CI - Last Documented Arterial Blood Pressure 119/115 - Labs CBC & Chem 7: 01/10/22 09:43 01/10/22 09:43 Labs: Abnormal Lab Results - Last 24 Hours (Table) 01/09/22 01/09/22 01/09/22 Range/Units 11:45 16:12 18:29 RBC (4.30-5.90) m/uL Hgb (13.0-17.5) gm/dL Hct (39.0-53.0) % MCV (80.0-100.0) fL MCHC (31.0-37.0) g/dL RDW (11.5-15.5) % Lymphocytes # (1.0-4.8) k/uL Sodium (137-145) mmol/L Creatinine (0.66-1.25) mg/dL Glucose (74-99) mg/dL POC Glucose (mg/dL) 215 H 121 H 133 H (70-110) mg/dL Calcium (8.4-10.2) mg/dL Total Bilirubin (0.2-1.3) mg/dL ALT (4-49) U/L Alkaline Phosphatase (38-126) U/L Total Protein (6.3-8.2) g/dL Albumin (3.5-5.0) g/dL 01/10/22 01/10/22 Range/Units 09:43 09:43 RBC 2.63 L (4.30-5.90) m/uL Hgb 8.1 L (13.0-17.5) gm/dL Hct 26.3 L (39.0-53.0) % MCV 100.1 H (80.0-100.0) fL MCHC 30.6 L (31.0-37.0) g/dL RDW 16.3 H (11.5-15.5) % Lymphocytes # 0.6 L (1.0-4.8) k/uL Sodium 136 L (137-145) mmol/L Creatinine 0.50 L (0.66-1.25) mg/dL Glucose 142 H (74-99) mg/dL POC Glucose (mg/dL) (70-110) mg/dL Calcium 7.8 L (8.4-10.2) mg/dL Total Bilirubin <0.1 L (0.2-1.3) mg/dL ALT 50 H (4-49) U/L Alkaline Phosphatase 130 H (38-126) U/L Total Protein 4.2 L (6.3-8.2) g/dL Albumin 2.3 L (3.5-5.0) g/dL
[2022-01-10 13:04] VITALS: BP 118/60; PULSE 107; RESP 17; TEMP 98.2
== END 2022-01-10 13:15 | DRG 326 ==
LOC: EC 02:29 → 2SICU 05:05 → 3SCARD 01-04 14:14
PROVIDERS: ADMIT Internal Medicine; ATTEND Internal Medicine
PROC: 5A1945Z Respiratory Ventilation, 24-96 Consecutive Hours (ICD-10-PCS; 2021-12-28)
PROC: 3E1G88Z Irrigation of Upper GI using Irrigating Substance, Via Natural or Artificial Opening Endoscopic (ICD-10-PCS; 2021-12-28)
PROC: 0DJ08ZZ Inspection of Upper Intestinal Tract, Via Natural or Artificial Opening Endoscopic (ICD-10-PCS; 2021-12-28)
PROC: 30233N1 Transfusion of Nonautologous Red Blood Cells into Peripheral Vein, Percutaneous Approach (ICD-10-PCS; 2021-12-28)
PROC: 30243R1 Transfusion of Nonautologous Platelets into Central Vein, Percutaneous Approach (ICD-10-PCS; 2021-12-28)
PROC: 0D9670Z Drainage of Stomach with Drainage Device, Via Natural or Artificial Opening (ICD-10-PCS; 2021-12-28)
PROC: 3E043XZ Introduction of Vasopressor into Central Vein, Percutaneous Approach (ICD-10-PCS; 2021-12-28)
PROC: 02HV33Z Insertion of Infusion Device into Superior Vena Cava, Percutaneous Approach (ICD-10-PCS; 2021-12-28)
PROC: 04HY32Z Insertion of Monitoring Device into Lower Artery, Percutaneous Approach (ICD-10-PCS; 2021-12-28)
PROC: 4A133B1 Monitoring of Arterial Pressure, Peripheral, Percutaneous Approach (ICD-10-PCS; 2021-12-28)
PROC: 06HM33Z Insertion of Infusion Device into Right Femoral Vein, Percutaneous Approach (ICD-10-PCS; 2021-12-28)
PROC: 4A133J1 Monitoring of Arterial Pulse, Peripheral, Percutaneous Approach (ICD-10-PCS; 2021-12-28)
PROC: 0DQ90ZZ Repair Duodenum, Open Approach (ICD-10-PCS; principal; 2021-12-28 09:25)
PROC: 0DQ70ZZ Repair Stomach, Pylorus, Open Approach (ICD-10-PCS; principal; 2021-12-28 09:25)
PROC: 3E0436Z Introduction of Nutritional Substance into Central Vein, Percutaneous Approach (ICD-10-PCS; 2021-12-31)
DX: K26.6 Chronic or unspecified duodenal ulcer with both hemorrhage and perforation (principal); G93.41 Metabolic encephalopathy; I21.A1 Myocardial infarction type 2; J96.01 Acute respiratory failure with hypoxia; R57.1 Hypovolemic shock; R57.8 Other shock; N17.9 Acute kidney failure, unspecified; E87.20 Acidosis, unspecified; E87.1 Hypo-osmolality and hyponatremia; D62 Acute posthemorrhagic anemia; E44.0 Moderate protein-calorie malnutrition; F05 Delirium due to known physiological condition; D69.6 Thrombocytopenia, unspecified; E83.39 Other disorders of phosphorus metabolism; J44.9 Chronic obstructive pulmonary disease, unspecified; F10.20 Alcohol dependence, uncomplicated; Z20.822 Contact with and (suspected) exposure to COVID-19; E87.8 Other disorders of electrolyte and fluid balance, not elsewhere classified; E86.1 Hypovolemia; E86.0 Dehydration; K44.9 Diaphragmatic hernia without obstruction or gangrene; K29.70 Gastritis, unspecified, without bleeding; R13.10 Dysphagia, unspecified; E83.51 Hypocalcemia; E87.6 Hypokalemia; E78.5 Hyperlipidemia, unspecified; I10 Essential (primary) hypertension; I25.10 Atherosclerotic heart disease of native coronary artery without angina pectoris; E87.70 Fluid overload, unspecified; Z68.22 Body mass index [BMI] 22.0-22.9, adult; M41.9 Scoliosis, unspecified; R31.0 Gross hematuria; G89.29 Other chronic pain; M19.90 Unspecified osteoarthritis, unspecified site; K64.9 Unspecified hemorrhoids; G62.9 Polyneuropathy, unspecified; R26.9 Unspecified abnormalities of gait and mobility; Y90.0 Blood alcohol level of less than 20 mg/100 ml; F32.A Depression, unspecified; F41.9 Anxiety disorder, unspecified; F17.210 Nicotine dependence, cigarettes, uncomplicated; Z71.6 Tobacco abuse counseling; Z79.82 Long term (current) use of aspirin; Z79.51 Long term (current) use of inhaled steroids; Z79.899 Other long term (current) drug therapy; Z60.2 Problems related to living alone; Z95.5 Presence of coronary angioplasty implant and graft; Z98.1 Arthrodesis status; Z71.3 Dietary counseling and surveillance; Z88.5 Allergy status to narcotic agent; Z88.8 Allergy status to other drugs, medicaments and biological substances
CPT/HCPCS: 36415; 36573; 43235; 71045; 80048; 80053; 80320; 81001; 82310; 82330; 82533; 82607; 82728; 82747; 82805; 83540; 83550; 83605; 83735; 83935; 84100; 84132; 84295; 84443; 84478; 84484; 85025; 85027; 85610; 85730; 86850; 86900; 86901; 86920; 87040; 87635; 93005; 93306; 94002; 94003; 94640; 94760; 96361; 96365; 99291

== ENCOUNTER 2022-05-01 04:28 | Emergency (ER) | payer OTHER, MEDICARE ==
[2022-05-01 05:19] LABS: Partial Thromboplastin Time 22.6 sec (22.0-30.0); Prothrombin Time 10.7 sec (9.0-12.0)
[2022-05-01 05:23] LABS: ALT 30 U/L (4-49); AST 35 U/L (17-59); African American GFR (CKD) >90 (>60 ml/min/1.73 sqM); Albumin 4.1 g/dL (3.5-5.0); Alkaline Phosphatase 105 U/L (38-126); Anion Gap 8 mmol/L; Blood Urea Nitrogen 5 mg/dL (9-20); Calcium 8.3 mg/dL (8.4-10.2); Carbon Dioxide 22 mmol/L (22-30); Chloride 98 mmol/L (98-107); Glucose 84 mg/dL (74-99); Magnesium 1.5 mg/dL (1.6-2.3); Non-African American GFR(CKD) >90 (>60 ml/min/1.73 sqM); Potassium 3.8 mmol/L (3.5-5.1); Sodium 128 mmol/L (137-145); Total Bilirubin 0.8 mg/dL (0.2-1.3); Total Protein 6.4 g/dL (6.3-8.2)
[2022-05-01 05:33] LABS: Basophils % (A) 1 %; Eosinophils # (A) 0.1 k/uL (0-0.7); Eosinophils % (A) 2 %; HCT 40.6 % (39.0-53.0); HGB 13.7 gm/dL (13.0-17.5); Lymphocytes # (A) 0.8 k/uL (1.0-4.8); Lymphocytes % (A) 13 %; MCH 32.8 pg (25.0-35.0); MCHC 33.8 g/dL (31.0-37.0); MCV 96.9 fL (80.0-100.0); Mean Platelet Volume 8.3; Monocytes # (A) 0.5 k/uL (0-1.0); Monocytes % (A) 8 %; Neutrophils # (A) 4.4 k/uL (1.3-7.7); Neutrophils % (A) 75 %; Platelet Count 247 k/uL (150-450); RBC 4.19 m/uL (4.30-5.90); RDW 13.9 % (11.5-15.5); WBC 5.9 k/uL (3.8-10.6)
--- NOTE | 2022-05-01 05:42 | XR ---
EXAMINATION TYPE: XR chest 2V DATE OF EXAM: 05/01/2022 COMPARISON: 01/02/2022 HISTORY: Chest pain TECHNIQUE: FINDINGS: There is no heart failure nor confluent pneumonic infiltrate. Costophrenic angles are clear . There are no hilar masses. IMPRESSION: No active cardiopulmonary disease. There is clearing of the pleural fluid and pulmonary c ongestion compared to old exam.
[2022-05-01] MEDS ORDERED: HYDROmorphone 0.5 MG/0.5 ML SYRINGE IVP STA (05:51)
[2022-05-01] MEDS ORDERED: LABETALOL 5 MG/ML VIAL MDV IVP STA (06:02)
[2022-05-01 06:48] LABS: Appearance,Urine Clear (Clear); Bilirubin,Urine Negative (Negative); Blood,Urine Negative (Negative); Color,Urine Yellow; Glucose,Urine (UA) Negative (Negative); Ketones,Urine Negative (Negative); Leukocyte Esterase,Urine Negative (Negative); Nitrite,Urine Negative (Negative); Protein,Urine Negative (Negative); Specific Gravity,Urine 1.007 (1.001-1.035)
--- NOTE | 2022-05-01 07:42 | ED ---
General Adult HPI - General Source: patient, EMS Mode of arrival: EMS Limitations: no limitations - History of Present Illness Onset/Timin -: hour(s) Location: abdomen Radiation: non-radiation Quality: aching, other (Cramping) Consistency: constant Improves with: other (Rubbing his abdomen) Worsens with: none Associated Symptoms: nausea/vomiting <Tommie Rajput - Last Filed: 05/01/22 07:38> <Jose Juan Ponce - Last Filed: 05/01/22 08:37> - General Chief complaint: Chest Pain Stated complaint: Chest pain Time Seen by Provider: 05/01/22 05:40 - History of Present Illness Initial comments: This patient is a 66-year-old man who presents with complaint of right-sided abdomen and right flank pain. Symptoms started approximately 12 hours before his arrival here. He states the pain is moderately severe but seems to be getting worse. He has not noted worsening factors. He states the pain is slightly better if he holds that area or rubs the side of his abdomen. He has not noted any associated symptoms. No fever or chills. No pain up into the chest. No cough or dyspnea. No change in urination or bowel movements. (Tommie Rajput) - Related Data Home Medications Medication Instructions Recorded Confirmed FLUoxetine HCL [PROzac] 60 mg PO DAILY 06/29/15 12/28/21 Multivitamin [Men's Multi-Vitamin] 1 tab PO DAILY 06/29/15 12/28/21 Acetaminophen [Tylenol Extra 500 mg PO TID 11/06/17 12/28/21 Strength] Cholecalciferol [Vitamin D3 (25 25 mcg PO DAILY 11/06/17 12/28/21 Mcg = 1000 Iu)] Ferrous Sulfate [Feosol] 325 mg PO BID 11/06/17 12/28/21 Albuterol Inhaler [Ventolin Hfa 1 puff INHALATION RT-Q6H PRN 04/01/19 12/28/21 Inhaler] Rosuvastatin Calcium 40 mg PO HS 04/01/19 12/28/21 Cyclobenzaprine [Flexeril] 10 mg PO BID 12/28/21 12/28/21 Fluticasone Nasal [place] [Flonase 1 spr EA NOSTRIL DAILY 12/28/21 12/28/21 Nasal [place]] Gabapentin [Neurontin] 400 mg PO TID 12/28/21 12/28/21 Tiotropium 2.5 Mcg/Puff [Spiriva 2 puff INHALATION RT-DAILY 12/28/21 12/28/21 Respimat 2.5 Mcg] lisinopriL [Zestril] 5 mg PO BID 12/28/21 12/28/21 methocarbamoL [Robaxin-750] 750 mg PO BID 12/28/21 12/28/21 Previous Rx's Medication Instructions Recorded Furosemide [Lasix] 20 mg PO DAILY #30 tab 01/10/22 Metoprolol Succinate [Metoprolol 25 mg PO BID #60 tab 01/10/22 Succinate ER] Nicotine 21Mg/24Hr Patch [Habitrol] 1 patch TRANSDERM DAILY #30 patch 01/10/22 Pantoprazole [Protonix] 40 mg PO BID #60 tab 01/10/22 Thiamine [Vitamin B-1] 100 mg PO BID-W/MEALS #60 tab 01/10/22 metroNIDAZOLE [Flagyl] 500 mg PO TID #21 tab 01/10/22 Allergies Allergy/AdvReac Type Severity Reaction Status Date / Time amlodipine AdvReac Unknown Verified 05/01/22 04:30 duloxetine [From Cymbalta] AdvReac Unknown Verified 05/01/22 04:30 oxycodone [From Endocet] AdvReac Unknown Verified 05/01/22 04:30 phenytoin [From Dilantin] AdvReac Unknown Verified 05/01/22 04:30 potassium chloride AdvReac Unknown Verified 05/01/22 04:30 ranitidine AdvReac Unknown Verified 05/01/22 04:30 Review of Systems ROS Other: All systems not noted in ROS Statement are negative. Constitutional: Denies: fever, chills, weakness Respiratory: Denies: cough, dyspnea Cardiovascular: Denies: chest pain, palpitations, edema, syncope Gastrointestinal: Reports: abdominal pain. Denies: nausea, vomiting, diarrhea, constipation Genitourinary: Denies: dysuria, hematuria, testicular pain, testicular mass Musculoskeletal: Denies: back pain Skin: Denies: rash Neurological: Denies: headache, weakness <Tommie Rajput - Last Filed: 05/01/22 07:38> ROS Other: All systems not noted in ROS Statement are negative. <Jose Juan Ponce - Last Filed: 05/01/22 08:37> ROS Statement: Those systems with pertinent positive or pertinent negative responses have been documented in the HPI. Past Medical History Past Medical History: Asthma, Chest Pain / Angina, COPD, Hyperlipidemia, Hypertension, Osteoarthritis (OA) Additional Past Medical History / Comment(s): Diverticulitis, stomach ulcer, neuropathy, chronic back pain, DDD, alcoholism - had seizure when withdrawing from alcohol, scoliosis, hemorrhoids, blocked arteries. History of Any Multi-Drug Resistant Organisms: None Reported Past Surgical History: Heart Catheterization With Stent, Orthopedic Surgery, Tonsillectomy Additional Past Surgical History / Comment(s): Left shoulder rotator cuff surgery, EGD/colonoscopy, cardiac stent (placed 09-15-15 to LAD at [facility]) Past Anesthesia/Blood Transfusion Reactions: No Reported Reaction Date of Last Stent Placement:: 09/15/15 Past Psychological History: Anxiety, Depression Smoking Status: Current every day smoker Past Alcohol Use History: Abuse, Daily Past Drug Use History: None Reported - Past Family History Mother Family Medical History: Coronary Artery Disease (CAD) Additional Family Medical History / Comment(s): Cardiac stent Father Family Medical History: Cancer Additional Family Medical History / Comment(s): Unsure what kind of cancer. <RonnieTommie beard - Last Filed: 05/01/22 07:38> General Exam Limitations: no limitations General appearance: alert, in no apparent distress Head exam: Present: atraumatic, normocephalic Eye exam: Present: normal appearance. Absent: scleral icterus, conjunctival injection ENT exam: Present: normal oropharynx Neck exam: Present: normal inspection Respiratory exam: Present: normal lung sounds bilaterally. Absent: respiratory distress, wheezes, rales, rhonchi, stridor, chest wall tenderness Cardiovascular Exam: Present: regular rate, normal rhythm, normal heart sounds. Absent: systolic murmur, diastolic murmur, rubs, gallop GI/Abdominal exam: Present: soft, tenderness (There is moderate right-sided abdominal pain). Absent: distended, guarding, rebound, rigid, mass, bruit, pulsatile mass, hernia exam: Present: normal inspection Extremities exam: Present: normal inspection, normal capillary refill. Absent: pedal edema, calf tenderness Back exam: Present: normal inspection. Absent: CVA tenderness (R), CVA tenderness (L) Neurological exam: Present: alert Skin exam: Present: warm, dry, intact, normal color. Absent: rash <Tommie Rajput - Last Filed: 05/01/22 07:38> Course Vital Signs 05/01/22 05/01/22 05/01/22 04:30 05:48 06:30 Temperature 98.2 F Pulse Rate 104 H 108 H 104 H Respiratory 18 16 18 Rate Blood Pressure 192/91 189/99 153/80 O2 Sat by Pulse 98 97 97 Oximetry 05/01/22 05/01/22 07:32 07:53 Temperature Pulse Rate 80 Respiratory 16 Rate Blood Pressure 190/83 180/90 O2 Sat by Pulse 98 Oximetry Medical Decision Making - Lab Data Result diagrams: 05/01/22 04:45 05/01/22 04:45 <Tommie Rajput - Last Filed: 05/01/22 07:38> - Lab Data Result diagrams: 05/01/22 04:45 05/01/22 04:45 <Jose Juan Ponce - Last Filed: 05/01/22 08:37> - Medical Decision Making Patient was signed out to me pending results of CT imaging. Patient is complaining primarily of abdominal pain, despite the triage note stating chest pain. Is not noted on the right flank right lower quadrant primarily. No real other acute complaints at this time. Laboratory studies were within acceptable limits. Slight hyponatremia. Patient's hypomagnesemia 1.5 which was replenished. Troponin undetectable. EKG within acceptable limits. Chest x-ray was ordered obtain revealed no acute cardiopulmonary process. CT abdomen and pelvis returned and revealed no obvious intra-abdominal process to explain his pain. On reevaluation, patient is resting comfortably and pain has resolved. I did discuss with him his workup. Believe it is safer to be discharged from this time and he was in agreement with the plan. CT did show a urinary bladder distention, however patient states he had. Just before, and has had no issues with urinating. Was pt. sent in by a medical professional or institution (, PA, STERILIZATION SPECIALIST, urgent care, hospital, or long-term...) When possible be specific @ -No Did you speak to anyone other than the patient for history (EMS, parent, family, police, friend...)? What history was obtained from this source @ -No Did you review nursing and triage notes (agree or disagree)? Why? @ -I reviewed and agree with nursing and triage notes, and agree except for the fact that the patient denies chest pain but is having more right mid and lower quadrant abdominal pain. Were old charts reviewed (outside hosp., previous admission, EMS record, old EKG, old radiological studies, urgent care reports/EKG's, long-term records)? Report findings @ -No old charts were reviewed Differential Diagnosis (chest pain, altered mental status, abdominal pain women, abdominal pain men, vaginal bleeding, weakness, fever, dyspnea, syncope, headache, dizziness, GI bleed, back pain, seizure, CVA, palpatations, mental health)? @ -Differential Abdominal Pain Men: Appendicitis, cholecystitis, diverticulosis, ischemic bowel, pancreatitis, hepatitis, UTI, gastroenteritis, AAA, incarcerated hernia, bowel obstruction, constipation, inflammatory bowel, hepatitis, peptic ulcer disease, splenic infarction, perforated viscus, testicular torsion, this is not meant to be an all-inclusive list EKG interpreted by me (3pts min.). @ -As above X-rays interpreted by me (1pt min.). @ -Chest x-ray revealed no acute cardio pulmonary process. CT interpreted by me (1pt min.). @ -CT abdomen and pelvis revealed no acute intra-abdominal process. Mild bladder distention. U/S interpreted by me (1pt. min.). @ -None done What testing was considered but not performed or refused? (CT, X-rays, U/S, labs)? Why? @ -None What meds were considered but not given or refused? Why? @ -None Did you discuss the management of the patient with other professionals (professionals i.e. , PA, STERILIZATION SPECIALIST, lab, RT, psych nurse, family welfare social work professor, brazer electronic, teacher, credit compliance officer, case operator)? Give summary @ -No Was smoking cessation discussed for >3mins.? @ -No Was critical care preformed (if so, how long)? @ -No Were there social determinants of health that impacted care today? How? (Homelessness, low income, unemployed, alcoholism, drug addiction, transportation, low edu. Level, literacy, decrease access to med. care, snf, rehab)? @ -No Was there de-escalation of care discussed even if they declined (Discuss DNR or withdrawal of care, Hospice)? DNR status @ -No What co-morbidities impacted this encounter? (DM, HTN, Smoking, COPD, CAD, Cancer, CVA, ARF, Chemo, Hep., AIDS, mental health diagnosis, sleep apnea, morbid obesity)? @ -Prior abdominal surgery for an ulcer. Was patient admitted / discharged? Hospital course, mention meds given and route, prescriptions, significant lab abnormalities, going to OR and other pertinent info. @ -Discharged home. See above for ED course. Undiagnosed new problem with uncertain prognosis? @ -No Drug Therapy requiring intensive monitoring for toxicity (Heparin, Nitro, Insulin, Cardizem)? @ -No Were any procedures done? @ -No Diagnosis/symptom? @ -Abdominal pain of unknown etiology Acute, or Chronic, or Acute on Chronic? @ -Acute Uncomplicated (without systemic symptoms) or Complicated (systemic symptoms)? @ -Uncomplicated Side effects of treatment? @ -none Exacerbation, Progression, or Severe Exacerbation] @ -no Poses a threat to life or bodily function? @ -no Diagnosis/symptom? @ -Hypomagnesemia Acute, or Chronic, or Acute on Chronic? @ -Acute Uncomplicated (without systemic symptoms) or Complicated (systemic symptoms)? @ -Uncomplicated Side effects of treatment? @ -none Exacerbation, Progression, or Severe Exacerbation] @ -no Poses a threat to life or bodily function? @ -no (Jose Juan Ponce) - Lab Data Lab Results 05/01/22 05/01/22 05/01/22 Range/Units 04:45 04:45 04:45 WBC 5.9 (3.8-10.6) k/uL RBC 4.19 L (4.30-5.90) m/uL Hgb 13.7 (13.0-17.5) gm/dL Hct 40.6 (39.0-53.0) % MCV 96.9 (80.0-100.0) fL MCH 32.8 (25.0-35.0) pg MCHC 33.8 (31.0-37.0) g/dL RDW 13.9 (11.5-15.5) % Plt Count 247 (150-450) k/uL MPV 8.3 Neutrophils % 75 % Lymphocytes % 13 % Monocytes % 8 % Eosinophils % 2 % Basophils % 1 % Neutrophils # 4.4 (1.3-7.7) k/uL Lymphocytes # 0.8 L (1.0-4.8) k/uL Monocytes # 0.5 (0-1.0) k/uL Eosinophils # 0.1 (0-0.7) k/uL Basophils # 0.0 (0-0.2) k/uL PT 10.7 (9.0-12.0) sec INR 1.0 (<1.2) APTT 22.6 (22.0-30.0) sec Sodium 128 L (137-145) mmol/L Potassium 3.8 (3.5-5.1) mmol/L Chloride 98 (98-107) mmol/L Carbon Dioxide 22 (22-30) mmol/L Anion Gap 8 mmol/L BUN 5 L (9-20) mg/dL Creatinine 0.46 L (0.66-1.25) mg/dL Est GFR (CKD-EPI)AfAm >90 (>60 ml/min/1.73 sqM) Est GFR (CKD-EPI)NonAf >90 (>60 ml/min/1.73 sqM) Glucose 84 (74-99) mg/dL Calcium 8.3 L (8.4-10.2) mg/dL Magnesium 1.5 L (1.6-2.3) mg/dL Total Bilirubin 0.8 (0.2-1.3) mg/dL AST 35 (17-59) U/L ALT 30 (4-49) U/L Alkaline Phosphatase 105 (38-126) U/L Troponin I (0.000-0.034) ng/mL Total Protein 6.4 (6.3-8.2) g/dL Albumin 4.1 (3.5-5.0) g/dL Urine Color Urine Appearance (Clear) Urine pH (5.0-8.0) Ur Specific [place] (1.001-1.035) Urine Protein (Negative) Urine Glucose (UA) (Negative) Urine Ketones (Negative) Urine Blood (Negative) Urine Nitrite (Negative) Urine Bilirubin (Negative) Urine Urobilinogen (<2.0) mg/dL Ur Leukocyte Esterase (Negative) 05/01/22 05/01/22 Range/Units 04:45 06:31 WBC (3.8-10.6) k/uL RBC (4.30-5.90) m/uL Hgb (13.0-17.5) gm/dL Hct (39.0-53.0) % MCV (80.0-100.0) fL MCH (25.0-35.0) pg MCHC (31.0-37.0) g/dL RDW (11.5-15.5) % Plt Count (150-450) k/uL MPV Neutrophils % % Lymphocytes % % Monocytes % % Eosinophils % % Basophils % % Neutrophils # (1.3-7.7) k/uL Lymphocytes # (1.0-4.8) k/uL Monocytes # (0-1.0) k/uL Eosinophils # (0-0.7) k/uL Basophils # (0-0.2) k/uL PT (9.0-12.0) sec INR (<1.2) APTT (22.0-30.0) sec Sodium (137-145) mmol/L Potassium (3.5-5.1) mmol/L Chloride (98-107) mmol/L Carbon Dioxide (22-30) mmol/L Anion Gap mmol/L BUN (9-20) mg/dL Creatinine (0.66-1.25) mg/dL Est GFR (CKD-EPI)AfAm (>60 ml/min/1.73 sqM) Est GFR (CKD-EPI)NonAf (>60 ml/min/1.73 sqM) Glucose (74-99) mg/dL Calcium (8.4-10.2) mg/dL Magnesium (1.6-2.3) mg/dL Total Bilirubin (0.2-1.3) mg/dL AST (17-59) U/L ALT (4-49) U/L Alkaline Phosphatase (38-126) U/L Troponin I <0.012 (0.000-0.034) ng/mL Total Protein (6.3-8.2) g/dL Albumin (3.5-5.0) g/dL Urine Color Yellow Urine Appearance Clear (Clear) Urine pH 6.0 (5.0-8.0) Ur Specific [place] 1.007 (1.001-1.035) Urine Protein Negative (Negative) Urine Glucose (UA) Negative (Negative) Urine Ketones Negative (Negative) Urine Blood Negative (Negative) Urine Nitrite Negative (Negative) Urine Bilirubin Negative (Negative) Urine Urobilinogen 2.0 (<2.0) mg/dL Ur Leukocyte Esterase Negative (Negative) Disposition <Tommie Rajput - Last Filed: 05/01/22 07:38> Is patient prescribed a controlled substance at d/c from ED?: No Time of Disposition: 08:25 <Jose Juan Ponce - Last Filed: 05/01/22 08:37> Clinical Impression: Abdominal pain of unknown etiology Disposition: HOME SELF-CARE Condition: Good Instructions (If sedation given, give patient instructions): Abdominal Pain (ED) Referrals: [facility],Clinic [Primary Care Provider] - 1-2 days
--- NOTE | 2022-05-01 08:03 | CT ---
EXAMINATION TYPE: CT abdomen pelvis wo con DATE OF EXAM: 05/01/2022 COMPARISON: 08/03/2015 HISTORY: Stomach and buttocks pain CT DLP: 377.4 mGycm Examination of the solid and hollow viscera is limited given the lack of contrast. FINDINGS: LUNG BASES: No evidence for nodule. No evidence for infiltrate. LIVER/GB: The gallbladder is unremarkable. No space-occupying hepatic lesion. PANCREAS: No pancreatic mass identified. No inflammatory process seen. SPLEEN: No evidence for splenomegaly. No intrasplenic lesions seen. ADRENALS: No adrenal nodules identified. No evidence for thickening. KIDNEYS: No evidence for renal mass. No nephrolithiasis. No hydronephrosis. The urinary bladder is di stended at 11.8 x 8.4 x 6.0 cm. BOWEL: There is nonvisualization of the appendix. No evidence of bowel obstruction. No inflammatory p rocess. Lymph nodes: No evidence for adenopathy greater than 1 cm. Abdominal aorta: Atheromatous changes seen. No evidence for aneurysm. Genital organs: No significant abnormality. Other: Remote left-sided rib fractures. Severe degenerative change lumbar spine. IMPRESSION: 1. No acute intra-abdominal process appreciated. 2. Urinary bladder distention.
[2022-05-01] MEDS ORDERED: MAGNESIUM OXIDE 400 MG TAB PO STA (08:30)
[2022-05-01 08:53] VITALS: BP 145/74; PULSE 90; RESP 18; TEMP 98.1
== END 2022-05-01 08:52 | disposition home or self-care (01) ==
LOC: EC 04:28
DX: R10.32 Left lower quadrant pain (principal); J44.9 Chronic obstructive pulmonary disease, unspecified; I10 Essential (primary) hypertension; E78.5 Hyperlipidemia, unspecified; F32.A Depression, unspecified; F41.9 Anxiety disorder, unspecified; M19.90 Unspecified osteoarthritis, unspecified site; F17.200 Nicotine dependence, unspecified, uncomplicated; Z88.5 Allergy status to narcotic agent; Z88.8 Allergy status to other drugs, medicaments and biological substances; Z79.899 Other long term (current) drug therapy
CPT/HCPCS: 36415; 93005; 80053; 83735; 84484; 85025; 85610; 85730; 81003; 71046; 74176; 99285; 96374; 96375; J1170

== ENCOUNTER 2023-06-26 22:13 | Observation (INO) | payer OTHER, MEDICARE ==
--- NOTE | 2023-06-26 22:32 | ED ---
General Adult HPI - General Chief complaint: Abdominal Pain Stated complaint: ABD PAIN Time Seen by Provider: 06/26/23 22:17 Source: patient, EMS Mode of arrival: EMS - History of Present Illness Initial comments: Boogie is a 68-year-old man brought to the ER today for evaluation of difficulty breathing, abdominal pain and headache. Patient reports he just feels awful he states that he has severe abdominal pain he said trouble breathing. EMS reports that they arrived on scene patient was tachypneic and hypoxic he was treated with a breathing treatment and placed on supplemental oxygen and brought to the ER for evaluation. Patient states he has been having progressively worsening abdominal pain for couple of days not eating or drinking well feeling very nauseated having nonbloody nonbilious emesis. - Related Data Home Medications Medication Instructions Recorded Confirmed FLUoxetine HCL [PROzac] 60 mg PO DAILY 06/29/15 12/28/21 Multivitamin [Men's Multi-Vitamin] 1 tab PO DAILY 06/29/15 12/28/21 Acetaminophen [Tylenol Extra 500 mg PO TID 11/06/17 12/28/21 Strength] Cholecalciferol [Vitamin D3 (25 25 mcg PO DAILY 11/06/17 12/28/21 Mcg = 1000 Iu)] Ferrous Sulfate [Feosol] 325 mg PO BID 11/06/17 12/28/21 Albuterol Inhaler [Ventolin Hfa 1 puff INHALATION RT-Q6H PRN 04/01/19 12/28/21 Inhaler] Rosuvastatin Calcium 40 mg PO HS 04/01/19 12/28/21 Cyclobenzaprine [Flexeril] 10 mg PO BID 12/28/21 12/28/21 Fluticasone Nasal [place] [Flonase 1 spr EA NOSTRIL DAILY 12/28/21 12/28/21 Nasal [place]] Gabapentin [Neurontin] 400 mg PO TID 12/28/21 12/28/21 Tiotropium 2.5 Mcg/Puff [Spiriva 2 puff INHALATION RT-DAILY 12/28/21 12/28/21 Respimat 2.5 Mcg] lisinopriL [Zestril] 5 mg PO BID 12/28/21 12/28/21 methocarbamoL [Robaxin-750] 750 mg PO BID 12/28/21 12/28/21 Previous Rx's Medication Instructions Recorded Furosemide [Lasix] 20 mg PO DAILY #30 tab 01/10/22 Metoprolol Succinate [Metoprolol 25 mg PO BID #60 tab 01/10/22 Succinate ER] Nicotine 21Mg/24Hr Patch [Habitrol] 1 patch TRANSDERM DAILY #30 patch 01/10/22 Pantoprazole [Protonix] 40 mg PO BID #60 tab 01/10/22 Thiamine [Vitamin B-1] 100 mg PO BID-W/MEALS #60 tab 01/10/22 metroNIDAZOLE [Flagyl] 500 mg PO TID #21 tab 01/10/22 Allergies Allergy/AdvReac Type Severity Reaction Status Date / Time amlodipine AdvReac Unknown Verified 06/26/23 22:23 duloxetine [From Cymbalta] AdvReac Unknown Verified 06/26/23 22:23 oxycodone [From Endocet] AdvReac Unknown Verified 06/26/23 22:23 phenytoin [From Dilantin] AdvReac Unknown Verified 06/26/23 22:23 potassium chloride AdvReac Unknown Verified 06/26/23 22:23 ranitidine AdvReac Unknown Verified 06/26/23 22:23 Review of Systems ROS Statement: Those systems with pertinent positive or pertinent negative responses have been documented in the HPI. ROS Other: All systems not noted in ROS Statement are negative. Past Medical History Past Medical History: Asthma, Chest Pain / Angina, COPD, Hyperlipidemia, Hypertension, Osteoarthritis (OA) Additional Past Medical History / Comment(s): Diverticulitis, stomach ulcer, neuropathy, chronic back pain, DDD, alcoholism - had seizure when withdrawing from alcohol, scoliosis, hemorrhoids, blocked arteries. History of Any Multi-Drug Resistant Organisms: None Reported Past Surgical History: Heart Catheterization With Stent, Orthopedic Surgery, Tonsillectomy Additional Past Surgical History / Comment(s): Left shoulder rotator cuff surgery, EGD/colonoscopy, cardiac stent (placed 09-15-15 to LAD at [facility]) Past Anesthesia/Blood Transfusion Reactions: No Reported Reaction Date of Last Stent Placement:: 09/15/15 Past Psychological History: Anxiety, Depression Smoking Status: Current every day smoker Past Alcohol Use History: Abuse, Daily Past Drug Use History: None Reported - Past Family History Mother Family Medical History: Coronary Artery Disease (CAD) Additional Family Medical History / Comment(s): Cardiac stent Father Family Medical History: Cancer Additional Family Medical History / Comment(s): Unsure what kind of cancer. General Exam - General Exam Comments Initial Comments: Physical Exam GENERAL: Chronically ill-appearing cachectic HENT: Normocephalic, Atraumatic. EYES: PERRL, EOMI PULMONARY: Tachypneic with diffuse expiratory wheezes CARDIOVASCULAR: There is a regular rate and rhythm without any murmurs gallops or rubs. ABDOMEN: Scaphoid, soft SKIN: Discoloration is noted on the hands consistent with tobacco abuse : Deferred NEUROLOGIC: Patient is alert and oriented x3. Moving all extremities spontaneously MUSCULOSKELETAL: Generalized atrophy PSYCHIATRIC: Normal psychiatric evaluation. Course Vital Signs 06/26/23 06/26/23 06/27/23 22:14 23:00 00:00 Temperature 98.4 F Pulse Rate 85 98 89 Respiratory 18 18 18 Rate Blood Pressure 150/115 168/100 174/98 O2 Sat by Pulse 98 97 97 Oximetry Medical Decision Making - Medical Decision Making Was pt. sent in by a medical professional or institution (, PA, FITNESS COORDINATOR, urgent care, hospital, or shelter...) When possible be specific @ -No Did you speak to anyone other than the patient for history (EMS, parent, family, police, friend...)? What history was obtained from this source @ -EMS Did you review nursing and triage notes (agree or disagree)? Why? @ -I reviewed and agree with nursing and triage notes Were old charts reviewed (outside hosp., previous admission, EMS record, old EKG, old radiological studies, urgent care reports/EKG's, shelter records)? Report findings @ -Previous hospitalizations were reviewed Differential Diagnosis (chest pain, altered mental status, abdominal pain women, abdominal pain men, vaginal bleeding, weakness, fever, dyspnea, syncope, headache, dizziness, GI bleed, back pain, seizure, CVA, palpatations, mental health)? @ -Differential Abdominal Pain Men: Appendicitis, cholecystitis, diverticulosis, ischemic bowel, pancreatitis, hepatitis, UTI, gastroenteritis, AAA, incarcerated hernia, bowel obstruction, constipation, inflammatory bowel, hepatitis, peptic ulcer disease, splenic infarction, perforated viscus, testicular torsion, this is not meant to be an all-inclusive list EKG interpreted by me (3pts min.). @ -As above X-rays interpreted by me (1pt min.). @ -No free air CT interpreted by me (1pt min.). @ -No free air no signs of obstruction U/S interpreted by me (1pt. min.). @ -None done What testing was considered but not performed or refused? (CT, X-rays, U/S, labs)? Why? @ -None What meds were considered but not given or refused? Why? @ -None Did you discuss the management of the patient with other professionals (professionals i.e. , PA, FITNESS COORDINATOR, lab, RT, psych nurse, bilingual social worker, heavy duty diesel mechanic, teacher, project control officer, employment evaluator/case manager)? Give summary @ -Admitting physician Was smoking cessation discussed for >3mins.? @ -No Was critical care preformed (if so, how long)? @ -No Were there social determinants of health that impacted care today? How? (Homelessness, low income, unemployed, alcoholism, drug addiction, transportation, low edu. Level, literacy, decrease access to med. care, nursing home, rehab)? @ -No Was there de-escalation of care discussed even if they declined (Discuss DNR or withdrawal of care, Hospice)? DNR status @ -No What co-morbidities impacted this encounter? (DM, HTN, Smoking, COPD, CAD, Cancer, CVA, ARF, Chemo, Hep., AIDS, mental health diagnosis, sleep apnea, morbid obesity)? @ -COPD, CAD, CKD Was patient admitted / discharged? Hospital course, mention meds given and route, prescriptions, significant lab abnormalities, going to OR and other pertinent info. @ -Admit Patient was seen and evaluated this is a chronically ill 68-year-old gentleman with some COPD exacerbation as well as diffuse abdominal pain CT scan shows gastritis and free fluid in the abdomen concerning for ascites. Labs with chronic hyponatremia. Patient will be admitted for pain management, IV fluids and observation. Undiagnosed new problem with uncertain prognosis? @ -No Drug Therapy requiring intensive monitoring for toxicity (Heparin, Nitro, Insulin, Cardizem)? @ -No Were any procedures done? @ -No Diagnosis/symptom? @ -Gastritis, ascites, hyponatremia Acute, or Chronic, or Acute on Chronic? @ -Acute Uncomplicated (without systemic symptoms) or Complicated (systemic symptoms)? @ -Complicated Side effects of treatment? @ -No Exacerbation, Progression, or Severe Exacerbation? @ -No Poses a threat to life or bodily function? How? (Chest pain, [place], [place], pneumonia, PE, COPD, DKA, ARF, appy, cholecystitis, CVA, Diverticulitis, Homicidal, Suicidal, threat to staff... and all critical care pts) @ -No - Lab Data Result diagrams: 06/26/23 22:49 06/26/23 22:49 Lab Results 06/26/23 06/26/23 06/26/23 Range/Units 22:49 22:49 22:49 WBC 7.4 (3.8-10.6) k/uL RBC 3.20 L (4.30-5.90) m/uL Hgb 11.5 L (13.0-17.5) gm/dL Hct 34.4 L (39.0-53.0) % MCV 107.4 H (80.0-100.0) fL MCH 35.9 H (25.0-35.0) pg MCHC 33.4 (31.0-37.0) g/dL RDW 13.0 (11.5-15.5) % Plt Count 272 (150-450) k/uL MPV 7.9 Neutrophils % 88 % Lymphocytes % 5 % Monocytes % 5 % Eosinophils % 0 % Basophils % 0 % Neutrophils # 6.5 (1.3-7.7) k/uL Lymphocytes # 0.4 L (1.0-4.8) k/uL Monocytes # 0.4 (0-1.0) k/uL Eosinophils # 0.0 (0-0.7) k/uL Basophils # 0.0 (0-0.2) k/uL Macrocytosis Moderate Sodium 127 L (137-145) mmol/L Potassium 3.5 (3.5-5.1) mmol/L Chloride 97 L (98-107) mmol/L Carbon Dioxide 29 (22-30) mmol/L Anion Gap 1 mmol/L BUN 11 (9-20) mg/dL Creatinine 0.65 L (0.66-1.25) mg/dL Est GFR (CKD-EPI)AfAm >90 (>60 ml/min/1.73 sqM) Est GFR (CKD-EPI)NonAf >90 (>60 ml/min/1.73 sqM) Glucose 111 H (74-99) mg/dL Plasma Lactic Acid [place] 1.3 (0.7-2.0) mmol/L Calcium 8.5 (8.4-10.2) mg/dL Total Bilirubin 1.0 (0.2-1.3) mg/dL AST 46 (17-59) U/L ALT 35 (4-49) U/L Alkaline Phosphatase 127 H (38-126) U/L C-Reactive Protein 0.7 (<1.0) mg/dL Total Protein 5.7 L (6.3-8.2) g/dL Albumin 3.4 L (3.5-5.0) g/dL Lipase 70 (23-300) U/L Urine Color Urine Appearance (Clear) Urine pH (5.0-8.0) Ur Specific [place] (1.001-1.035) Urine Protein (Negative) Urine Glucose (UA) (Negative) Urine Ketones (Negative) Urine Blood (Negative) Urine Nitrite (Negative) Urine Bilirubin (Negative) Urine Urobilinogen (<2.0) mg/dL Ur Leukocyte Esterase (Negative) Influenza Type A (PCR) (Not Detectd) Influenza Type B (PCR) (Not Detectd) RSV (PCR) (Not Detectd) SARS-CoV-2 (PCR) (Not Detectd) 06/26/23 06/27/23 Range/Units 23:15 01:50 WBC (3.8-10.6) k/uL RBC (4.30-5.90) m/uL Hgb (13.0-17.5) gm/dL Hct (39.0-53.0) % MCV (80.0-100.0) fL MCH (25.0-35.0) pg MCHC (31.0-37.0) g/dL RDW (11.5-15.5) % Plt Count (150-450) k/uL MPV Neutrophils % % Lymphocytes % % Monocytes % % Eosinophils % % Basophils % % Neutrophils # (1.3-7.7) k/uL Lymphocytes # (1.0-4.8) k/uL Monocytes # (0-1.0) k/uL Eosinophils # (0-0.7) k/uL Basophils # (0-0.2) k/uL Macrocytosis Sodium (137-145) mmol/L Potassium (3.5-5.1) mmol/L Chloride (98-107) mmol/L Carbon Dioxide (22-30) mmol/L Anion Gap mmol/L BUN (9-20) mg/dL Creatinine (0.66-1.25) mg/dL Est GFR (CKD-EPI)AfAm (>60 ml/min/1.73 sqM) Est GFR (CKD-EPI)NonAf (>60 ml/min/1.73 sqM) Glucose (74-99) mg/dL Plasma Lactic Acid [place] (0.7-2.0) mmol/L Calcium (8.4-10.2) mg/dL Total Bilirubin (0.2-1.3) mg/dL AST (17-59) U/L ALT (4-49) U/L Alkaline Phosphatase (38-126) U/L C-Reactive Protein (<1.0) mg/dL Total Protein (6.3-8.2) g/dL Albumin (3.5-5.0) g/dL Lipase (23-300) U/L Urine Color Yellow Urine Appearance Clear (Clear) Urine pH 6.5 (5.0-8.0) Ur Specific [place] 1.029 (1.001-1.035) Urine Protein Negative (Negative) Urine Glucose (UA) Negative (Negative) Urine Ketones Negative (Negative) Urine Blood Negative (Negative) Urine Nitrite Negative (Negative) Urine Bilirubin Negative (Negative) Urine Urobilinogen 2.0 (<2.0) mg/dL Ur Leukocyte Esterase Negative (Negative) Influenza Type A (PCR) Not Detected (Not Detectd) Influenza Type B (PCR) Not Detected (Not Detectd) RSV (PCR) Not Detected (Not Detectd) SARS-CoV-2 (PCR) Not Detected (Not Detectd) Disposition Clinical Impression: Hyponatremia, Gastritis, Ascites, Anemia, Tobacco abuse, COPD exacerbation Disposition: ADMITTED IP TO THIS HOSP Is patient prescribed a controlled substance at d/c from ED?: No Referrals: [facility],Clinic [Primary Care Provider] - 1-2 days
[2023-06-26 22:56] LABS: Basophils % (A) 0 %; Eosinophils % (A) 0 %; HCT 34.4 % (39.0-53.0); HGB 11.5 gm/dL (13.0-17.5); Lymphocytes # (A) 0.4 k/uL (1.0-4.8); Lymphocytes % (A) 5 %; MCH 35.9 pg (25.0-35.0); MCHC 33.4 g/dL (31.0-37.0); MCV 107.4 fL (80.0-100.0); Macrocytosis Moderate; Mean Platelet Volume 7.9; Monocytes # (A) 0.4 k/uL (0-1.0); Monocytes % (A) 5 %; Neutrophils # (A) 6.5 k/uL (1.3-7.7); Neutrophils % (A) 88 %; Platelet Count 272 k/uL (150-450); WBC 7.4 k/uL (3.8-10.6)
[2023-06-26] MEDS: SODIUM CHLORIDE 0.9% 1,000 ML IV ONE (23:19)
[2023-06-26 23:28] LABS: ALT 35 U/L (4-49); AST 46 U/L (17-59); African American GFR (CKD) >90 (>60 ml/min/1.73 sqM); Albumin 3.4 g/dL (3.5-5.0); Alkaline Phosphatase 127 U/L (38-126); Anion Gap 1 mmol/L; Blood Urea Nitrogen 11 mg/dL (9-20); C Reactive Protein 0.7 mg/dL (<1.0); Calcium 8.5 mg/dL (8.4-10.2); Carbon Dioxide 29 mmol/L (22-30); Chloride 97 mmol/L (98-107); Glucose 111 mg/dL (74-99); Lipase 70 U/L (23-300); Non-African American GFR(CKD) >90 (>60 ml/min/1.73 sqM); Potassium 3.5 mmol/L (3.5-5.1); Sodium 127 mmol/L (137-145); Total Protein 5.7 g/dL (6.3-8.2)
[2023-06-27] MEDS: SODIUM CHLORIDE 0.9% 1,000 ML IV SCH (00:30)
[2023-06-27] MEDS: MORPHINE SULFATE 4 MG/ML SYRINGE IVP STA (00:30)
--- NOTE | 2023-06-27 01:07 | CT ---
EXAM: CT Abdomen and Pelvis With Intravenous Contrast CLINICAL HISTORY: ITS.REASON CT Reason: abdominal pain TECHNIQUE: Axial computed tomography images of the abdomen and pelvis with intravenous contrast. CTDI is 10 mGy and DLP is 432 mGy-cm. This CT exam was performed using one or more of the following dose reduction techniques: automated exposure control, adjustment of the mA and/or kV according to patient size, and/or use of iterative reconstruction technique. COMPARISON: No relevant prior studies available. FINDINGS: Lung bases: Unremarkable. No mass. No consolidation. ABDOMEN: Liver: Unremarkable. No focal hepatic lesion. Gallbladder and bile ducts: Unremarkable. No calcified stones. No ductal dilation. Pancreas: Unremarkable. No mass. No ductal dilation. Spleen: Unremarkable. No splenomegaly. Adrenals: Unremarkable. No mass. Kidneys and ureters: Renal cysts. No hydronephrosis or delayed nephrogram. Stomach and bowel: Mild wall thickening of the stomach, correlate for gastritis. No obstruction. PELVIS: Appendix: No findings to suggest acute appendicitis. Bladder: Unremarkable. No mass. Reproductive: Unremarkable as visualized. ABDOMEN and PELVIS: Intraperitoneal space: Mild free fluid in the pelvis, correlate for ascites. No free air. Bones/joints: No acute fracture. No dislocation. Soft tissues: Unremarkable. Vasculature: Unremarkable. No abdominal aortic aneurysm. Lymph nodes: Unremarkable. No enlarged lymph nodes. Other findings: Disc spacer at L3-L4. IMPRESSION: 1. Mild wall thickening of the stomach, correlate for gastritis. 2. Mild free fluid in the pelvis, correlate for ascites.
--- NOTE | 2023-06-27 01:17 | XR ---
EXAM: XR Abdomen, 1 View CLINICAL HISTORY: ITS.REASON XR Reason: abdominal pain TECHNIQUE: Frontal supine view of the abdomen/pelvis. COMPARISON: No relevant prior studies available. FINDINGS: Lower thorax: Small bilateral pleural effusions. Gastrointestinal tract: Dilated small bowel in the left upper quadrant measures 3.6 cm, consistent with bowel obstruction. Bones/joints: Unremarkable. No acute fracture. IMPRESSION: Dilated small bowel in the left upper quadrant measures 3.6 cm, consistent with bowel obstruction.
[2023-06-27] MEDS: ONDANSETRON 4 MG/2 ML VIAL IVP STA (02:03)
[2023-06-27 02:16] LABS: Appearance,Urine Clear (Clear); Bilirubin,Urine Negative (Negative); Blood,Urine Negative (Negative); Color,Urine Yellow; Glucose,Urine (UA) Negative (Negative); Ketones,Urine Negative (Negative); Leukocyte Esterase,Urine Negative (Negative); Nitrite,Urine Negative (Negative); PH, Urine 6.5 (5.0-8.0); Protein,Urine Negative (Negative); Specific Gravity,Urine 1.029 (1.001-1.035)
[2023-06-27] MEDS ORDERED: NALOXONE 0.4 MG/ML 1 ML VIAL IV PRN (02:37)
[2023-06-27] MEDS: MAG HYDROX/AL HYDROX/SIMETH 30 ML, HYOSCYAMINE ELIXIR 10 ML, LIDOCAINE VISCOUS 2% 10 ML PO STA (03:36)
[2023-06-27] MEDS: PANTOPRAZOLE 40 MG/10 ML VIAL IVP STA (03:36)
--- NOTE | 2023-06-27 04:20 | P.HPIM ---
History of Present Illness H&P Date: 06/27/23 Chief Complaint: Abdominal pain 5-year-old male with asthma/COPD hypertension, history of peptic ulcer disease Patient coming in reporting diffuse abdominal pain. Patient is very poor historian he admits to heavy alcohol consumption with history of peptic ulcer disease requiring surgical repair. He reports few day history of worsening diffuse abdominal pain denies any a ssociated nausea vomiting denies any associated GI bleeding however pain was getting worse and worse he decided to come in for evaluation he is not specific about what he tried over the past few days to help with the pain however he does mention that he has been drinking a lot of pop trying to avoid alcohol and was taking some pain medications that he was finding around the house. He did not specify which pain medications he is not sure of his list of medications. He does not seem to be taking any blood thinners at home but is not clear if he is taking any NSAIDs Patient admits to tobacco smoking and heavy alcohol consumption review of systems Pertinent positives as noted in HPI. All other systems were reviewed and are negative on exam Constitutional: No acute distress, conversant Eyes: Anicteric sclerae, moist conjunctiva, Pupils equal round reactive to light ENMT: NC/AT Oropharynx clear, no erythema, or exudates Neck: Supple, no masses, or JVD No carotid bruits No thyromegaly Lungs: Clear to auscultation Clear to percussion Normal respiratory effort, no accessory muscle use Cardiovascular: Heart regular in rate and rhythm, No murmurs, gallops, or rubs No peripheral edema Abdominal: Soft Diffuse tenderness to palpation with voluntary guarding no rebound or rigidity Abdomen is not moving with respiration Negative bowel sounds Extremities: No digital cyanosis No clubbing Pedal pulses intact and symmetrical Radial pulses intact and symmetrical No calf tenderness Psychiatric: Alert and oriented to person, place and time Neuro Muscles Strength 5/5 in all 4 extremities Sensation to light touch grossly present throughout Cranial nerves II-XII grossly intact Past Medical History Past Medical History: Asthma, Chest Pain / Angina, COPD, Hyperlipidemia, Hypertension, Osteoarthritis (OA) Additional Past Medical History / Comment(s): Diverticulitis, stomach ulcer, neuropathy, chronic back pain, DDD, alcoholism - had seizure when withdrawing from alcohol, scoliosis, hemorrhoids, blocked arteries. History of Any Multi-Drug Resistant Organisms: None Reported Past Surgical History: Heart Catheterization With Stent, Orthopedic Surgery, Tonsillectomy Additional Past Surgical History / Comment(s): Left shoulder rotator cuff surgery, EGD/colonoscopy, cardiac stent (placed 16 to LAD at [facility]) Past Anesthesia/Blood Transfusion Reactions: No Reported Reaction Date of Last Stent Placement:: 09/15/15 Past Psychological History: Anxiety, Depression Smoking Status: Current every day smoker Past Alcohol Use History: Abuse, Daily Past Drug Use History: None Reported - Past Family History Mother Family Medical History: Coronary Artery Disease (CAD) Additional Family Medical History / Comment(s): Cardiac stent Father Family Medical History: Cancer Additional Family Medical History / Comment(s): Unsure what kind of cancer. Medications and Allergies Home Medications Medication Instructions Recorded Confirmed Type FLUoxetine HCL [PROzac] 60 mg PO DAILY 06/29/15 12/28/21 History Multivitamin [Men's Multi-Vitamin] 1 tab PO DAILY 06/29/15 12/28/21 History Acetaminophen [Tylenol Extra 500 mg PO TID 11/06/17 12/28/21 History Strength] Cholecalciferol [Vitamin D3 (25 25 mcg PO DAILY 11/06/17 12/28/21 History Mcg = 1000 Iu)] Ferrous Sulfate [Feosol] 325 mg PO BID 11/06/17 12/28/21 History Albuterol Inhaler [Ventolin Hfa 1 puff INHALATION RT-Q6H PRN 04/01/19 12/28/21 History Inhaler] Rosuvastatin Calcium 40 mg PO HS 04/01/19 12/28/21 History Cyclobenzaprine [Flexeril] 10 mg PO BID 12/28/21 12/28/21 History Fluticasone Nasal [place] [Flonase 1 spr EA NOSTRIL DAILY 12/28/21 12/28/21 History Nasal [place]] Gabapentin [Neurontin] 400 mg PO TID 12/28/21 12/28/21 History Tiotropium 2.5 Mcg/Puff [Spiriva 2 puff INHALATION RT-DAILY 12/28/21 12/28/21 History Respimat 2.5 Mcg] lisinopriL [Zestril] 5 mg PO BID 12/28/21 12/28/21 History methocarbamoL [Robaxin-750] 750 mg PO BID 12/28/21 12/28/21 History Furosemide [Lasix] 20 mg PO DAILY #30 tab 01/10/22 Rx Metoprolol Succinate [Metoprolol 25 mg PO BID #60 tab 01/10/22 Rx Succinate ER] Nicotine 21Mg/24Hr Patch [Habitrol] 1 patch TRANSDERM DAILY #30 patch 01/10/22 Rx Pantoprazole [Protonix] 40 mg PO BID #60 tab 01/10/22 Rx Thiamine [Vitamin B-1] 100 mg PO BID-W/MEALS #60 tab 01/10/22 Rx metroNIDAZOLE [Flagyl] 500 mg PO TID #21 tab 01/10/22 Rx Allergies Allergy/AdvReac Type Severity Reaction Status Date / Time amlodipine AdvReac Unknown Verified 06/26/23 22:23 duloxetine [From Cymbalta] AdvReac Unknown Verified 06/26/23 22:23 oxycodone [From Endocet] AdvReac Unknown Verified 06/26/23 22:23 phenytoin [From Dilantin] AdvReac Unknown Verified 06/26/23 22:23 potassium chloride AdvReac Unknown Verified 06/26/23 22:23 ranitidine AdvReac Unknown Verified 06/26/23 22:23 Physical Exam Vitals: Vital Signs Temp Pulse Resp BP Pulse Ox 06/27/23 03:00 87 18 158/78 98 06/27/23 02:00 91 18 142/85 93 L 06/27/23 00:00 89 18 174/98 97 06/26/23 23:00 98 18 168/100 97 06/26/23 22:14 98.4 F 85 18 150/115 98 Intake and Output 06/26/23 06/26/23 06/27/23 14:59 22:59 06:59 Other: Weight 45.359 kg Results CBC & Chem 7: 06/26/23 22:49 06/26/23 22:49 Labs: Abnormal Lab Results - Last 24 Hours (Table) 06/26/23 06/26/23 Range/Units 22:49 22:49 RBC 3.20 L (4.30-5.90) m/uL Hgb 11.5 L (13.0-17.5) gm/dL Hct 34.4 L (39.0-53.0) % MCV 107.4 H (80.0-100.0) fL MCH 35.9 H (25.0-35.0) pg Lymphocytes # 0.4 L (1.0-4.8) k/uL Sodium 127 L (137-145) mmol/L Chloride 97 L (98-107) mmol/L Creatinine 0.65 L (0.66-1.25) mg/dL Glucose 111 H (74-99) mg/dL Alkaline Phosphatase 127 H (38-126) U/L Total Protein 5.7 L (6.3-8.2) g/dL Albumin 3.4 L (3.5-5.0) g/dL Assessment and Plan Assessment: 68-year-old male with heavy alcohol consumption history of peptic ulcer disease coming in with diffuse abdominal pain denies any GI bleeding I discussed case with ED doctor and accepted the admission for diffuse abdominal pain, chronic hyponatremia with anticipated length of stay less than 2 midnights Acute abdominal pain with history of peptic ulcer disease rule out small bowel obstruction GI consultation N.p.o. diet Pain control with morphine as needed IV push 4 mg every 3 hours Protonix 40 mg IV push then continue with 40 mg twice daily p.o. IV fluid hydration status post 1 L bolus continue with 130 cc/h Urine analysis unremarkable CT scan of the abdomen showed mild wall thickening of the stomach suspicious for gastritis and mild free fluid in the pelvis suspicious for ascites Liver enzymes unremarkable total bili 1 AST 46 ALT 35 Chronic hyponatremia Sodium 127 potassium 3.5 BUN 11 creatinine 0.65 This has been chronic and suspected secondary to beer potomania Alcohol dependence and abuse Monitor for alcohol withdrawal syndrome Benzos per CIWA scale Thiamine daily Seizure and fall precautions Hypertension Continue with metoprolol 25 mg p.o. twice daily COPD compensated Continue with DuoNebs 4 times a day Acute respiratory viral panel negative for COVID influenza and RSV Chronic anemia Hemoglobin 11.5 this is higher than his baseline this could be reflect some degree of dehydration Continue to monitor hemoglobin level Monitor for GI bleeding Microcytic anemia suspected secondary to alcohol abuse Full code DVT prophylaxis mechanical due to concerns regarding acute abdominal process
[2023-06-27] MEDS ORDERED: LORazepam 1 MG TAB PO PRN ×2 (04:21)
[2023-06-27] MEDS ORDERED: LORazepam 2 MG/ML INJ IV PRN ×2 (04:21)
[2023-06-27] MEDS ORDERED: LORazepam 0.5 MG TAB PO PRN (04:21)
[2023-06-27] MEDS: THIAMINE 100 MG/ML 2 ML VIAL IM STA (05:45)
[2023-06-27] MEDS: METOPROLOL SUCCINATE (ER) 25 MG TAB.ER.24H PO SCH (07:59)
[2023-06-27] MEDS: PANTOPRAZOLE 40 MG TABLET PO SCH (07:59)
[2023-06-27] MEDS: IPRATROPIUM 0.5 MG/2.5 ML NEBU INHALATION SCH (08:15)
--- NOTE | 2023-06-27 11:45 | P.GSCN ---
History of Present Illness Consult date: 06/27/23 History of present illness: CHIEF COMPLAINT: Cough and shortness of breath HISTORY OF PRESENT ILLNESS: This is a 68-year-old male who presented to hospital with cough and shortness of breath. Patient does also report some abdominal pain mostly epigastric for about 2 days. He denies any nausea or vomiting. He is having flatus. No bowel movement for about 2 days. Patient is a poor historian. He does have a history of alcohol abuse. Patient had CT scan abdomen pelvis revealing mild wall thickening of the stomach correlate for gastritis. Free fluid in the pelvis correlate for ascites. KUB x-ray reports a dilated small bowel in the left upper quadrant measuring 3.6 cm consistent with bowel obstruction. Surgical service consulted for possible small bowel obstruction. PAST MEDICAL HISTORY: See below PAST SURGICAL HISTORY: see below. History of bleeding duodenal ulcer status post exploratory laparotomy with oversewing of bleeding duodenal ulcer with pyloroplasty on 12/28/2021 MEDICATIONS: See below ALLERGIES: See below SOCIAL HISTORY: No illicit drug use. REVIEW OF SYSTEMS: CONSTITUTIONAL: Denies fever or chills. HEENT: Denies blurred vision, vision changes, or eye pain. Denies hemoptysis CARDIOVASCULAR: Denies chest pain or pressure. RESPIRATORY: No shortness of breath. GASTROINTESTINAL: See HPI for pertinent findings HEMATOLOGIC: Denies bleeding disorders. GENITOURINARY: Denies any blood in urine or increased urinary frequency. SKIN: Denies pruitis. Denies rash. PHYSICAL EXAM: VITAL SIGNS: Reviewed GENERAL: Well-developed in no acute distress. HEENT: No sclera icterus. Extraocular movements grossly intact. Moist buccal mucosa. Head is atraumatic, normocephalic. No nasal drainage. ABDOMEN: Soft. Nondistended. Epigastric tenderness NEUROLOGIC: Alert and oriented. Cranial nerves II through XII grossly intact. LABORATORY DATA: WBC 7.4 Hgb 11.5 platelets 272 Sodium is 127 potassium 3.5 creatinine 0.65 Lactic acid 1.3 Lipase 70 Total bilirubin 1 AST 46 ALT 35 alk phos 127 IMAGING: Imaging as stated above ASSESSMENT: 1. Epigastric abdominal pain 2. Possible alcoholic gastritis. CT scan of abdomen with mild wall thickening of the stomach 3. Dilated small bowel noted on KUB x-ray. No evidence of bowel dilation on CT scan of abdomen report 4. Hyponatremia PLAN: -Further recommendations forthcoming per surgeon -Cliff to start diet from surgical standpoint pending on GI recommendations -Continue PPI -Continue IV fluids -Medicine service to correct hyponatremia Physician Spinning Bath Patroller note has been reviewed by physician. Signing provider agrees with the documented findings, assessment, and plan of care. I have personally seen and examined the patient, reviewed the PRINTING TABLE HAND /PAs history, exam and MDM and agree with the assessment and plan as written. Based on total visit time, I have performed more than 50% of the visit. As above: Patient with vague abdominal discomforts. Seems to be more tender in the upper abdomen. Patient with history of ulcer disease. CAT scan reviewed and shows some gastric wall thickening. Will repeat EGD tomorrow as I am not convinced he ever had a follow-up after his oversewing of bleeding duodenal ulcer surgery in . Past Medical History Past Medical History: Asthma, Chest Pain / Angina, COPD, Hyperlipidemia, Hyperte nsion, Osteoarthritis (OA) Additional Past Medical History / Comment(s): Diverticulitis, stomach ulcer, neuropathy, chronic back pain, DDD, alcoholism - had seizure when withdrawing from alcohol, scoliosis, hemorrhoids, blocked arteries. History of Any Multi-Drug Resistant Organisms: None Reported Past Surgical History: Heart Catheterization With Stent, Orthopedic Surgery, Tonsillectomy Additional Past Surgical History / Comment(s): Left shoulder rotator cuff surgery, EGD/colonoscopy, cardiac stent (placed 09-15-15 to LAD at [facility]) Past Anesthesia/Blood Transfusion Reactions: No Reported Reaction Date of Last Stent Placement:: 09/15/15 Past Psychological History: Anxiety, Depression Smoking Status: Current every day smoker Past Alcohol Use History: Abuse, Daily Past Drug Use History: None Reported - Past Family History Mother Family Medical History: Coronary Artery Disease (CAD) Additional Family Medical History / Comment(s): Cardiac stent Father Family Medical History: Cancer Additional Family Medical History / Comment(s): Unsure what kind of cancer. Medications and Allergies Home Medications Medication Instructions Recorded Confirmed Type FLUoxetine HCL [PROzac] 60 mg PO DAILY 06/29/15 06/27/23 History Multivitamin [Men's Multi-Vitamin] 1 tab PO DAILY 06/29/15 06/27/23 History Acetaminophen [Tylenol Extra 500 mg PO TID 11/06/17 06/27/23 History Strength] Ferrous Sulfate [Feosol] 325 mg PO Q48H 11/06/17 06/27/23 History Albuterol Inhaler [Ventolin Hfa 1 puff INHALATION RT-Q6H PRN 04/01/19 06/27/23 History Inhaler] Gabapentin [Neurontin] 800 mg PO TID 12/28/21 06/27/23 History Tiotropium 2.5 Mcg/Puff [Spiriva 2 puff INHALATION RT-DAILY 12/28/21 06/27/23 History Respimat 2.5 Mcg] lisinopriL [Zestril] 5 mg PO BID 12/28/21 06/27/23 History methocarbamoL [Robaxin-750] 750 mg PO BID 12/28/21 06/27/23 History Metoprolol Succinate [Metoprolol 25 mg PO BID #60 tab 01/10/22 06/27/23 Rx Succinate ER] Aspirin EC [Ecotrin Low Dose] 81 mg PO DAILY 06/27/23 06/27/23 History Atorvastatin [Lipitor] 80 mg PO HS 06/27/23 06/27/23 History Cholecalciferol [Vitamin D3 (25 25 mcg PO DAILY 06/27/23 06/27/23 History Mcg = 1000 Iu)] Omeprazole 20 mg PO DAILY 06/27/23 06/27/23 History Allergies Allergy/AdvReac Type Severity Reaction Status Date / Time amlodipine AdvReac Unknown Verified 06/27/23 11:03 duloxetine [From Cymbalta] AdvReac Unknown Verified 06/27/23 11:03 oxycodone [From Endocet] AdvReac Unknown Verified 06/27/23 11:03 phenytoin [From Dilantin] AdvReac Unknown Verified 06/27/23 11:03 potassium chloride AdvReac Unknown Verified 06/27/23 11:03 ranitidine AdvReac Unknown Verified 06/27/23 11:03 Surgical - Exam Vital Signs Temp Pulse Resp BP Pulse Ox 98.4 F 85 18 150/115 98 06/26/23 22:14 06/26/23 22:14 06/26/23 22:14 06/26/23 22:14 06/26/23 22:14 Results - Labs 06/26/23 22:49 06/26/23 22:49 Abnormal Lab Results - Last 24 Hours (Table) 06/26/23 06/26/23 Range/Units 22:49 22:49 RBC 3.20 L (4.30-5.90) m/uL Hgb 11.5 L (13.0-17.5) gm/dL Hct 34.4 L (39.0-53.0) % MCV 107.4 H (80.0-100.0) fL MCH 35.9 H (25.0-35.0) pg Lymphocytes # 0.4 L (1.0-4.8) k/uL Sodium 127 L (137-145) mmol/L Chloride 97 L (98-107) mmol/L Creatinine 0.65 L (0.66-1.25) mg/dL Glucose 111 H (74-99) mg/dL Alkaline Phosphatase 127 H (38-126) U/L Total Protein 5.7 L (6.3-8.2) g/dL Albumin 3.4 L (3.5-5.0) g/dL Diabetes panel 06/26/23 Range/Units 22:49 Sodium 127 L (137-145) mmol/L Potassium 3.5 (3.5-5.1) mmol/L Chloride 97 L (98-107) mmol/L Carbon Dioxide 29 (22-30) mmol/L BUN 11 (9-20) mg/dL Creatinine 0.65 L (0.66-1.25) mg/dL Glucose 111 H (74-99) mg/dL Calcium 8.5 (8.4-10.2) mg/dL AST 46 (17-59) U/L ALT 35 (4-49) U/L Alkaline Phosphatase 127 H (38-126) U/L Total Protein 5.7 L (6.3-8.2) g/dL Albumin 3.4 L (3.5-5.0) g/dL Calcium panel 06/26/23 Range/Units 22:49 Calcium 8.5 (8.4-10.2) mg/dL Albumin 3.4 L (3.5-5.0) g/dL Pituitary panel 06/26/23 Range/Units 22:49 Sodium 127 L (137-145) mmol/L Potassium 3.5 (3.5-5.1) mmol/L Chloride 97 L (98-107) mmol/L Carbon Dioxide 29 (22-30) mmol/L BUN 11 (9-20) mg/dL Creatinine 0.65 L (0.66-1.25) mg/dL Glucose 111 H (74-99) mg/dL Calcium 8.5 (8.4-10.2) mg/dL Adrenal panel 06/26/23 Range/Units 22:49 Sodium 127 L (137-145) mmol/L Potassium 3.5 (3.5-5.1) mmol/L Chloride 97 L (98-107) mmol/L Carbon Dioxide 29 (22-30) mmol/L BUN 11 (9-20) mg/dL Creatinine 0.65 L (0.66-1.25) mg/dL Glucose 111 H (74-99) mg/dL Calcium 8.5 (8.4-10.2) mg/dL Total Bilirubin 1.0 (0.2-1.3) mg/dL AST 46 (17-59) U/L ALT 35 (4-49) U/L Alkaline Phosphatase 127 H (38-126) U/L Total Protein 5.7 L (6.3-8.2) g/dL Albumin 3.4 L (3.5-5.0) g/dL
[2023-06-27 12:43] VITALS: BMI 15.6
--- NOTE | 2023-06-27 12:44 | P.CONS ---
History of Present Illness - Reason for Consult Consult date: 06/27/23 Abdominal pain Requesting physician: Denis Laura - Chief Complaint Shortness of breath and cough - History of Present Illness This is a pleasant 68-year-old male who presented to the emergency department with complaints of shortness of breath and coughing, and abdominal pain. He states pain is mostly in the epigastric region. He does have a history of bleeding duodenal ulcer status post exploratory laparotomy with oversewing done in December [address] Hunt. Patient has long history of alcohol abuse and drinks 6 at least 6 beers a day and smokes a pack of cigarettes a day since the age of 13. Last colonoscopy was in 2016 with findings of sigmoid polyp status post polypectomy. Patient denies any vomiting, has some mild nausea. Decreased appetite and states has not been eating much. States he has been losing weight but unsure how much. States he has just been confused and he is somewhat of a poor historian. Patient is afebrile. WBC 7.4 hemoglobin 11.5 platelet count 272,000 sodium 127 potassium 3.5 BUN 11 creatinine 0.65 total bilirubin 1.0 AST 46 ALT 35 alkaline phosphatase 127 Review of Systems REVIEW OF SYSTEMS: CARDIOPULMONARY: No chest pain Gastrointestinal: Burning sensation in epigastric region, no associated abdominal pain. No nausea or vomiting. No hematemesis, coffee-ground emesis. No rectal bleeding, or melena. GENITOURINARY: No dysuria or hematuria. MUSCULOSKELETAL: Reports normal range of motion., Joint pain. SKIN: No rashes. No jaundice. ENDOCRINE: No chills, fevers. No excessive weight gain or loss. No polydipsia or polyuria. PSYCHIATRIC: Unremarkable. NEUROLOGY: No change in mental status. Denies dizziness, headache. ENT: Vision unremarkable. CONSTITUTIONAL: No recent weight loss. No fever, chills, night sweats. Past Medical History Past Medical History: Asthma, Chest Pain / Angina, COPD, Hyperlipidemia, Hypertension, Osteoarthritis (OA) Additional Past Medical History / Comment(s): Diverticulitis, stomach ulcer, neuropathy, chronic back pain, DDD, alcoholism - had seizure when withdrawing from alcohol, scoliosis, hemorrhoids, blocked arteries. History of Any Multi-Drug Resistant Organisms: None Reported Past Surgical History: Heart Catheterization With Stent, Orthopedic Surgery, Tonsillectomy Additional Past Surgical History / Comment(s): Left shoulder rotator cuff surgery, EGD/colonoscopy, cardiac stent (placed 09-15-15 to L[facility] at [facility]) Past Anesthesia/Blood Transfusion Reactions: No Reported Reaction Date of Last Stent Placement:: 09/15/15 Past Psychological History: Anxiety, Depression Smoking Status: Current every day smoker Past Alcohol Use History: Abuse, Daily Past Drug Use History: None Reported - Past Family History Mother Family Medical History: Coronary Artery Disease (CAD) Additional Family Medical History / Comment(s): Cardiac stent Father Family Medical History: Cancer Additional Family Medical History / Comment(s): Unsure what kind of cancer. Medications and Allergies Home Medications Medication Instructions Recorded Confirmed Type FLUoxetine HCL [PROzac] 60 mg PO DAILY 06/29/15 06/27/23 History Multivitamin [Men's Multi-Vitamin] 1 tab PO DAILY 06/29/15 06/27/23 History Acetaminophen [Tylenol Extra 500 mg PO TID 11/06/17 06/27/23 History Strength] Ferrous Sulfate [Feosol] 325 mg PO Q48H 11/06/17 06/27/23 History Albuterol Inhaler [Ventolin Hfa 1 puff INHALATION RT-Q6H PRN 04/01/19 06/27/23 History Inhaler] Gabapentin [Neurontin] 800 mg PO TID 12/28/21 06/27/23 History Tiotropium 2.5 Mcg/Puff [Spiriva 2 puff INHALATION RT-DAILY 12/28/21 06/27/23 History Respimat 2.5 Mcg] lisinopriL [Zestril] 5 mg PO BID 12/28/21 06/27/23 History methocarbamoL [Robaxin-750] 750 mg PO BID 12/28/21 06/27/23 History Metoprolol Succinate [Metoprolol 25 mg PO BID #60 tab 01/10/22 06/27/23 Rx Succinate ER] Aspirin EC [Ecotrin Low Dose] 81 mg PO DAILY 06/27/23 06/27/23 History Atorvastatin [Lipitor] 80 mg PO HS 06/27/23 06/27/23 History Cholecalciferol [Vitamin D3 (25 25 mcg PO DAILY 06/27/23 06/27/23 History Mcg = 1000 Iu)] Omeprazole 20 mg PO DAILY 06/27/23 06/27/23 History Allergies Allergy/AdvReac Type Severity Reaction Status Date / Time amlodipine AdvReac Unknown Verified 06/27/23 11:03 duloxetine [From Cymbalta] AdvReac Unknown Verified 06/27/23 11:03 oxycodone [From Endocet] AdvReac Unknown Verified 06/27/23 11:03 phenytoin [From Dilantin] AdvReac Unknown Verified 06/27/23 11:03 potassium chloride AdvReac Unknown Verified 06/27/23 11:03 ranitidine AdvReac Unknown Verified 06/27/23 11:03 Physical Exam Vitals: Vital Signs Temp Pulse Pulse Resp BP BP Pulse Ox 06/27/23 08:31 86 06/27/23 08:17 95 06/27/23 08:16 85 06/27/23 08:00 97.9 F 70 16 169/76 99 06/27/23 04:00 80 18 152/85 96 06/27/23 03:00 87 18 158/78 98 06/27/23 02:00 91 18 142/85 93 L 06/27/23 00:00 89 18 174/98 97 06/26/23 23:00 98 18 168/100 97 06/26/23 22:14 98.4 F 85 18 150/115 98 Intake and Output 06/26/23 06/27/23 06/27/23 22:59 06:59 14:59 Other: Weight 45.359 kg General appearance: The patient is alert, oriented, appears in no acute distress. Well-nourished appearing. HET: Head is normocephalic and atraumatic. Conjunctiva pink. Sclera anicteric. Neck: Supple without lymphadenopathy. Trachea midline. Heart: Regular. Lungs: Equal expansion, normal respiratory effort. Abdomen: Soft, thin, epigastric tenderness, nondistended. No guarding or rigidity. Skin: No rashes. No jaundice. Extremities: Normal skin color and turgor. No pedal edema. Neurological: No focal deficits. Alert and oriented x3. Results CBC & Chem 7: 06/26/23 22:49 06/26/23 22:49 Labs: Abnormal Lab Results - Last 24 Hours (Table) 06/26/23 06/26/23 Range/Units 22:49 22:49 RBC 3.20 L (4.30-5.90) m/uL Hgb 11.5 L (13.0-17.5) gm/dL Hct 34.4 L (39.0-53.0) % MCV 107.4 H (80.0-100.0) fL MCH 35.9 H (25.0-35.0) pg Lymphocytes # 0.4 L (1.0-4.8) k/uL Sodium 127 L (137-145) mmol/L Chloride 97 L (98-107) mmol/L Creatinine 0.65 L (0.66-1.25) mg/dL Glucose 111 H (74-99) mg/dL Alkaline Phosphatase 127 H (38-126) U/L Total Protein 5.7 L (6.3-8.2) g/dL Albumin 3.4 L (3.5-5.0) g/dL Comments: CT abdomen pelvis reports mild wall thickening of the stomach, correlate for gastritis. Mild free fluid in pelvis, correlate for ascites. KUB x-ray: Dilated small bowel in the left upper quadrant measures 3.6 cm, consistent with small bowel obstruction. Assessment and Plan (1) Abdominal pain Narrative/Plan: 68-year-old male coming in with multiple complaints including shortness of breath, coughing, abdominal pain and confusion. He had a CT of the abdomen and pelvis showing mild wall thickening of the stomach correlate for gastritis and KUB x-ray reporting dilated loops correlate for small bowel obstruction. Patient also has a history of bleeding duodenal ulcer status post surgery in 2021. Long history of alcohol abuse, complains of decreased appetite and unintentional weight loss. Abdominal pain mostly in the epigastric region. Likely gastritis however need to rule out peptic ulcer disease. Abdominal pain improved, patient nondistended, unlikely small bowel obstruction. Will attempt full liquids and plan for n.p.o. after midnight and proceed with EGD. Current Visit: Yes Status: Acute Code(s): R10.9 - UNSPECIFIED ABDOMINAL PAIN SNOMED Code(s): 19803763 (2) Gastritis Current Visit: Yes Status: Acute Code(s): K29.70 - GASTRITIS, UNSPECIFIED, WITHOUT BLEEDING SNOMED Code(s): 9297968 (3) Shortness of breath Current Visit: Yes Status: Acute Code(s): R06.02 - SHORTNESS OF BREATH SNOMED Code(s): 644724829 (4) Alcohol abuse Current Visit: Yes Status: Acute Code(s): F10.10 - ALCOHOL ABUSE, UNCOMPLICATED SNOMED Code(s): 42527287 (5) Unintentional weight loss Current Visit: Yes Status: Acute Code(s): R63.4 - ABNORMAL WEIGHT LOSS SNOMED Code(s): 136626311 (6) Tobacco abuse Current Visit: Yes Status: Acute Code(s): Z72.0 - TOBACCO USE SNOMED Code(s): 164472068 Plan: 1. Continue symptomatic and supportive care 2. Protonix 40 mg daily 3. Antiemetics as needed 4. General surgery consulted for small bowel obstruction, prior bleeding duodenal ulcer 5. Patient may have full liquid diet, n.p.o. after midnight 6. Will plan for EGD tomorrow 7. Rest of medical care per primary medical team Thank you for this consultation, we will continue to follow. Dr. Paty Jackson I agree with the dictator's note, documented as a scribe by Carmen Cowan.
--- NOTE | 2023-06-27 18:20 | P.PN ---
Subjective Progress Note Date: 06/27/23 Hospital course: Patient is a very pleasant 68-year-old male with a past medical history of CAD with previous stent, hypertension, hyperlipidemia, COPD with continued nicotine dependence, history of peptic ulcer disease requiring surgical repair, and alcoholism. He presented to the emergency department secondary to a chief complaint of abdominal pain. Upon arrival to the hospital patient underwent full evaluation. Vital signs showing blood pressure 150/115, heart rate 85, respiratory rate 18, temp 98.4 F, and SpO2 of 98% on room air. KUB was completed showing dilated small bowel measuring 3.6 cm consistent with bowel obstruction. CT abdomen and pelvis then completed showing mild wall thickening of the stomach concerning for gastritis and mild free fluid in the pelvis c onsistent with ascites. Labs were completed and reviewed. CBC showing macrocytic hyperchromic anemia with hemoglobin of 11.5 MCV of 107.4, and MCH of 35.9. BMP revealing hyponatremia with sodium of 127, hypochloremia with chloride of 97 and blood glucose of 111. Lactic acid was normal at 1.3. Liver profile showing a mild elevated alkaline phosphatase of 127 otherwise normal findings. CRP 0.7. Lipase normal findings at 70. Urinalysis negative for infection. Influenza A, influenza B, RSV, and COVID PCR were negative. Patient was admitted under services with consultation to gastroenterology and general surgery. Physical exam: Vital signs reviewed and stable. General: Nontoxic, no distress and appears stated age. Derm: Skin warm and dry, normal coloration for ethnicity. Head: Atraumatic, normocephalic and symmetric. Eyes: EOMs intact, no lid lag, and anicteric sclera Mouth: no lip lesions, mucus membranes moist Cardiovascular: regular rate and rhythm with normal S1S2, no murmur, positive posterior tibial pulses bilaterally, and cap refill < 2 seconds. Lungs: Respirations even, regular, and unlabored on room air. Lungs CTA bilaterally, no rhonchi, no rales, no wheezing, and no accessory muscle usage. Abdominal: soft, tenderness to palpation right upper quadrant, no guarding, no appreciable organomegaly Ext: ROM intact. No gross muscle atrophy, no edema, no contractures Neuro: Speech clear, face symmetrical and CN II-XII grossly intact with no noted focal neuro deficits Psych: Alert and oriented to person, place, time, and situation. Appropriate and pleasant affect. Assessment and Plan of Care: Acute abdominal pain with history of peptic ulcer disease rule out small bowel obstruction GI consultation N.p.o. diet Pain control with morphine as needed IV push 4 mg every 3 hours Protonix 40 mg IV push then continue with 40 mg twice daily p.o. IV fluid hydration status post 1 L bolus continue with 130 cc/h Urine analysis unremarkable CT scan of the abdomen showed mild wall thickening of the stomach suspicious for gastritis and mild free fluid in the pelvis suspicious for ascites Liver enzymes unremarkable total bili 1 AST 46 ALT 35 Chronic hyponatremia Sodium 127 potassium 3.5 BUN 11 creatinine 0.65 This has been chronic and suspected secondary to beer potomania Alcohol dependence and abuse Monitor for alcohol withdrawal syndrome Benzos per CIWA scale Thiamine daily Seizure and fall precautions Hypertension Continue with metoprolol 25 mg p.o. twice daily COPD compensated Continue with DuoNebs 4 times a day Acute respiratory viral panel negative for COVID influenza and RSV Chronic anemia Hemoglobin 11.5 this is higher than his baseline this could be reflect some degree of dehydration Continue to monitor hemoglobin level Monitor for GI bleeding Microcytic anemia suspected secondary to alcohol abuse Data and imaging reviewed: KUB was completed showing dilated small bowel measuring 3.6 cm consistent with bowel obstruction. CT abdomen and pelvis then completed showing mild wall thickening of the stomach concerning for gastritis and mild free fluid in the pelvis consistent with ascites. Labs were completed and reviewed. CBC showing macrocytic hyperchromic anemia with hemoglobin of 11.5 MCV of 107.4, and MCH of 35.9. BMP revealing hyponatremia with sodium of 127, hypochloremia with chloride of 97 and blood glucose of 111. Lactic acid was normal at 1.3. Liver profile showing a mild elevated alkaline phosphatase of 127 otherwise normal findings. CRP 0.7. Lipase normal findings at 70. Urinalysis negative for infection. Influenza A, influenza B, RSV, and COVID PCR were negative. CODE STATUS:[] DVT prophylaxis: [] Discussed with: [] Anticipated discharge date: [] Anticipated discharge place: [] Patient was seen independently by Nurse Pracitioner. This document was prepared using [employer] dictation software. Please allow for errors in installment account checker, while rare they do occur. I reviewed the documentation as provided by the OLENA above, who is the original author of this note. I agree with the documented assessment and plan, with the following changes: none Objective - Vital Signs Vital signs: Vital Signs Temp 97.9 F 03/21/24 08:00 Pulse 86 06/27/23 08:31 Resp 16 06/27/23 08:00 BP 169/76 06/27/23 08:00 Pulse Ox 95 06/27/23 08:17 FiO2 Intake & Output 06/26/23 06/27/23 06/27/23 18:59 06:59 18:59 Weight 45.359 kg - Labs CBC & Chem 7: 06/26/23 22:49 06/26/23 22:49 Labs: Abnormal Lab Results - Last 24 Hours (Table) 06/26/23 06/26/23 Range/Units 22:49 22:49 RBC 3.20 L (4.30-5.90) m/uL Hgb 11.5 L (13.0-17.5) gm/dL Hct 34.4 L (39.0-53.0) % MCV 107.4 H (80.0-100.0) fL MCH 35.9 H (25.0-35.0) pg Lymphocytes # 0.4 L (1.0-4.8) k/uL Sodium 127 L (137-145) mmol/L Chloride 97 L (98-107) mmol/L Creatinine 0.65 L (0.66-1.25) mg/dL Glucose 111 H (74-99) mg/dL Alkaline Phosphatase 127 H (38-126) U/L Total Protein 5.7 L (6.3-8.2) g/dL Albumin 3.4 L (3.5-5.0) g/dL
[2023-06-28 08:40] LABS: HCT 29.4 % (39.6-50.0); HGB 10.3 g/dL (13.0-17.0); MCV 102.8 FL (80.0-97.0); Mean Platelet Volume 9.8 FL (9.5-12.2); NRBC Per 100 WBC 0 X 10*3/uL (0.00-0.01); Platelet Count 211 X 10*3/uL (140-440); RBC 2.86 X 10*6/uL (4.40-5.60); RDW 13.3 % (11.5-14.5); WBC 5.85 X 10*3/uL (4.50-10.00)
[2023-06-28] MEDS: THIAMINE 100 MG TAB PO SCH (08:49)
[2023-06-28 09:12] LABS: ALT 23 U/L (10-49); AST 24 U/L (14-35); Albumin 3.2 g/dL (3.8-4.9); Albumin/Globulin Ratio 2.13 Ratio (1.60-3.17); Alkaline Phosphatase 104 U/L (41-126); Blood Urea Nitrogen 6.3 mg/dL (9.0-27.0); Calcium 7.8 mg/dL (8.7-10.3); Carbon Dioxide 26.7 mmol/L (21.6-31.8); Chloride 101 mmol/L (96-109); Globulin 1.5 g/dL (1.6-3.3); Glucose 97 mg/dL (70-110); Magnesium 1.5 mg/dL (1.5-2.4); Potassium 3.1 mmol/L (3.5-5.5); Sodium 136 mmol/L (135-145); Total Bilirubin 0.4 mg/dL (0.3-1.2); Total Protein 4.7 g/dL (6.2-8.2)
[2023-06-28] MEDS: POTASSIUM CHLORIDE ER 20 MEQ TAB.ER PO STA (11:08)
[2023-06-28] MEDS: lisinopriL 5 MG TAB PO SCH (11:08)
[2023-06-28] MEDS: GABAPENTIN 400 MG CAP PO SCH (11:08)
[2023-06-28] MEDS: MAGNESIUM SULFATE-D5W PMX 1 GM in DEXTROSE/WATER 1 100ML.BAG IVPB SCH (11:08)
--- NOTE | 2023-06-28 11:09 | P.PN ---
Subjective Progress Note Date: 06/28/23 Principal diagnosis: Abdominal pain Patient says he still having mild upper abdominal pain. Describes as butterflies in his stomach. Says he is hungry. He is scheduled for EGD by GI today. Labs noted. Objective - Vital Signs Vital signs: Vital Signs Temp 97.3 F L 06/28/23 07:00 Pulse 71 06/28/23 07:00 Resp 18 06/28/23 07:00 BP 182/90 06/28/23 07:00 Pulse Ox 94 L 06/28/23 09:21 FiO2 Intake & Output 06/27/23 06/28/23 06/28/23 18:59 06:59 18:59 Weight 45.359 kg Other: Voiding Method Toilet # Voids 1 2 - Exam Abdomen: Soft, nondistended, mild epigastric tenderness - Labs CBC & Chem 7: 06/28/23 05:12 06/28/23 05:16 Labs: Abnormal Lab Results - Last 24 Hours (Table) 06/28/23 06/28/23 Range/Units 05:12 05:16 RBC 2.86 L (4.40-5.60) X 10*6/uL Hgb 10.3 L (13.0-17.0) g/dL Hct 29.4 L (39.6-50.0) % MCV 102.8 H (80.0-97.0) FL MCH 36.0 H (27.0-32.0) pg Potassium 3.1 L (3.5-5.5) mmol/L BUN 6.3 L (9.0-27.0) mg/dL Creatinine 0.5 L (0.6-1.5) mg/dL Calcium 7.8 L (8.7-10.3) mg/dL Total Protein 4.7 L (6.2-8.2) g/dL Albumin 3.2 L (3.8-4.9) g/dL Globulin 1.5 L (1.6-3.3) g/dL Assessment and Plan (1) Abdominal pain Narrative/Plan: 68-year-old male with abdominal pain. CAT scan showing gastric wall thickening. Patient with history of previous bleeding duodenal ulcer and underwent oversewing of bleeding duodenal ulcer 1.5 years ago. Continue antiacids. Await findings of EGD. Will follow. Current Visit: Yes Status: Acute Code(s): R10.9 - UNSPECIFIED ABDOMINAL PAIN SNOMED Code(s): 89501625
[2023-06-28] MEDS ORDERED: PROPOFOL 10 MG/ML 20 ML VIAL IV ONE (12:04)
[2023-06-28] MEDS: IV FLUID CONTINUATION 1,000 ML IV ONE ×2 (12:13→12:16)
--- NOTE | 2023-06-28 12:19 | P.PCN ---
Date of Procedure: 06/28/23 Procedure(s) Performed: BRIEF HISTORY: Patient is a 68-year-old, pleasant, white male admitted hospital with epigastric pain for the last few days duration. He has a CT of abdomen and pelvis done yesterday that showed thickening of the antrum. Has prior history of bleeding duodenal ulcer. He can have expiratory laparotomy with oversewing of the ulcer by Dr. Hilliard in 2021.. PROCEDURE PERFORMED: Esophagogastroduodenoscopy with biopsy. PREOPERATIVE DIAGNOSIS: Epigastric pain a few days duration and abnormal CAT scan that showed thickening of the antrum. IV sedation per anesthesia. PROCEDURE: After informed consent was obtained, the patient was brought into the endoscopy unit. IV sedation was administered by Anesthesia under continuous monitoring. Initially the Olympus GIF-140 video endoscope was inserted into the mouth. Esophagus intubated without any difficulty. It was gradually advanced into the stomach and duodenum and carefully examined. The second part of the duodenum appeared normal. The bulb of the duodenum at the site of previous ulceration in the sutures identified but no ulceration noted. The scope at this time was withdrawn to the stomach, adequately insufflated with air, and upon careful examination, mucosa of the antrum, had mild diffuse gastritis and biopsies were done from this area. Mucosa of the body, cardia and the fundus appeared normal. The scope was then withdrawn into the esophagus. Small hiatal hernia noted. The GE junction was located at 39 cm from the incisors. There were 2 tongues of Ling's appearing mucosa extending about 1 cm in length which were biopsied. The rest of the esophagus appeared normal. There were no erosions or ulcerations seen and the patient tolerated the procedure well. IMPRESSION: 1. Mild antral gastritis. 2. Completely healed duodenal ulcer 3. Small hiatal hernia and short segment Ling's esophagus3.. RECOMMENDATIONS: The findings of this examination were discussed with the patient as well as his family. He was advised to follow with the biopsy results. Continue with Protonix 40 mg daily and follow antireflux measures. Advance diet as tolerated.[].
[2023-06-28] MEDS: LORazepam 2 MG/ML INJ IV STA (14:54)
[2023-06-28] MEDS ORDERED: MORPHINE SULFATE 4 MG/ML SYRINGE IV PRN (16:47)
[2023-06-28] MEDS ORDERED: ONDANSETRON 4 MG/2 ML VIAL IVP PRN (16:48)
--- NOTE | 2023-06-28 16:53 | P.PN ---
Subjective Progress Note Date: 06/28/23 Hospital course: Patient is a very pleasant 68-year-old male with a past medical history of CAD with previous stent, hypertension, hyperlipidemia, COPD with continued nicotine dependence, history of peptic ulcer disease requiring surgical repair, and alcoholism. He presented to the emergency department secondary to a chief complaint of abdominal pain. Upon arrival to the hospital patient underwent full evaluation. Vital signs showing blood pressure 150/115, heart rate 85, respiratory rate 18, temp 98.4 F, and SpO2 of 98% on room air. KUB was completed showing dilated small bowel measuring 3.6 cm consistent with bowel obstruction. CT abdomen and pelvis then completed showing mild wall thickening of the stomach concerning for gastritis and mild free fluid in the pelvis consistent with ascites. Labs were completed and reviewed. CBC showing macroc ytic hyperchromic anemia with hemoglobin of 11.5 MCV of 107.4, and MCH of 35.9. BMP revealing hyponatremia with sodium of 127, hypochloremia with chloride of 97 and blood glucose of 111. Lactic acid was normal at 1.3. Liver profile showing a mild elevated alkaline phosphatase of 127 otherwise normal findings. CRP 0.7. Lipase normal findings at 70. Urinalysis negative for infection. Influenza A, influenza B, RSV, and COVID PCR were negative. Patient was admitted under services with consultation to gastroenterology and general surgery. Patient scheduled to undergo EGD later today with stamp analyst. Physical exam: Patient seen and fully evaluated at bedside this morning. He was sitting up in the chair and awaiting to be taken down for EGD. He reports continued pain to right upper quadrant unchanged. He denies any nausea or vomiting and denies having any chest pain or shortness of breath. Vital signs reviewed and stable. General: Nontoxic, no distress and appears stated age. Derm: Skin warm and dry, normal coloration for ethnicity. Head: Atraumatic, normocephalic and symmetric. Eyes: EOMs intact, no lid lag, and anicteric sclera Mouth: no lip lesions, mucus membranes moist Cardiovascular: regular rate and rhythm with normal S1S2, no murmur, positive posterior tibial pulses bilaterally, and cap refill < 2 seconds. Lungs: Respirations even, regular, and unlabored on room air. Lungs CTA bilaterally, no rhonchi, no rales, no wheezing, and no accessory muscle usage. Abdominal: soft, tenderness to palpation right upper quadrant, no guarding, no appreciable organomegaly Ext: ROM intact. No gross muscle atrophy, no edema, no contractures Neuro: Speech clear, face symmetrical and CN II-XII grossly intact with no noted focal neuro deficits Psych: Alert and oriented to person, place, time, and situation. Appropriate and pleasant affect. Assessment and Plan of Care: Acute abdominal pain with history of peptic ulcer disease rule out small bowel obstruction -Gastroenterology following, taking patient for EGD later today. -General surgery following, reviewed documentation in chart -NPO, advance diet per recommendations of general surgery team after completion of EGD. -Continue symptomatic care and pain management with morphine 4 mg IVP as needed for severe pain and Zofran 4 mg IVP every 6 hours as needed for nausea or vomiting. -Continue GI prophylaxis with Protonix 40 mg twice daily. Alcohol dependence and abuse with withdrawal Macrocytic anemia, chronic secondary to above -Continue monitoring of CIWA scores and patient to be medicated with Ativan 0.5 mg every 4 hours as needed for CIWA score of 4-5, Ativan 1 mg every 4 hours for CIWA score of 6-7, Ativan 2 mg every 3 hours CIWA score of 8-9, and Ativan 2 mg every 2 hours forr CIWA score of 10 or greater. -Thiamine 100 mg daily, Multivitamin daily and Folate 1 mg daily -Continue seizure and fall precautions. -Continued close monitoring of electrolytes and replace as needed. Hypokalemia. Potassium 3.1 and orders placed for K-Dur 40 mEq p.o. x 1 dose. Hypomagnesemia. Magnesium 1.5 orders placed for magnesium sulfate 2 g IVPB x 1 dose. Hyponatremia, resolved after IV fluid hydration. Hypertension Continue with metoprolol 25 mg p.o. twice daily COPD compensated, not in acute exacerbation -Continue with DuoNebs 4 times a day -Acute respiratory viral panel negative for COVID influenza and RSV Data and imaging reviewed: No new imaging for review at this time. Morning labs completed and reviewed. CBC showing continued macrocytic anemia with hemoglobin of 10.3 and MCV of 102.8. BMP revealing hypokalemia with potassium of 3.1. Magnesium low at 1.5. Liver profile normal findings. CODE STATUS: Full code DVT prophylaxis: SCDs Anticipated discharge date: Clinical course to determine Anticipated discharge place: [facility] course to determine Patient was seen independently by Nurse Pracitioner. This document was prepared using [employer] dictation software. Please allow for errors in sprue cutting press operator, while rare they do occur. I reviewed the documentation as provided by the OLENA above, who is the original author of this note. I agree with the documented assessment and plan, with the following changes: none Objective - Vital Signs Vital signs: Vital Signs Temp 97.3 F L 06/28/23 07:00 Pulse 71 06/28/23 07:00 Resp 18 06/28/23 07:00 BP 182/90 06/28/23 07:00 Pulse Ox 96 06/28/23 07:00 FiO2 Intake & Output 06/27/23 06/28/23 06/28/23 18:59 06:59 18:59 Weight 45.359 kg Other: Voiding Method Toilet # Voids 1 2 - Labs CBC & Chem 7: 06/28/23 05:12 06/28/23 05:16
[2023-06-29 08:47] VITALS: BP 136/70; PULSE 69; RESP 16; TEMP 98.8
[2023-06-29] MEDS: FOLIC ACID 1 MG TAB PO SCH (08:59)
[2023-06-29] MEDS: MULTIVITAMINS, THERA 1 EACH TAB PO SCH (08:59)
--- NOTE | 2023-06-29 11:11 | P.DS ---
Providers Date of admission: 06/27/23 02:37 Expected date of discharge: 06/29/23 Attending physician: Denis Laura MD Consults: 06/27/23 04:11 Consult Physician Routine Consulting Provider: Jennyfer Jackson Consult Reason/Comments: abd pain Do you want consulting provider notified?: Yes, Notify in am 06/27/23 07:37 Consult Physician Routine Consulting Provider: Eagle Hilliard Consult Reason/Comments: SBO, abdominal pain Do you want consulting provider notified?: Yes Primary care physician: [facility] Hospital Course: Discharge Diagnosis: Acute abdominal pain with history of peptic ulcer disease rule out small bowel obstruction. Gastroenterology evaluated and took patient for EGD showing mild antral gastritis and small area of Ling's esophagus. Alcohol dependence and abuse with withdrawal. CIWA score 0. Patient strongly encouraged to refrain from any and all alcohol use. Macrocytic anemia, chronic secondary to above. Hypokalemia. Replaced. Hypomagnesemia. Replaced.. Hyponatremia, resolved after IV fluid hydration. Hypertension. Continue with metoprolol 25 mg p.o. twice daily COPD compensated, not in acute exacerbation. Continue Spiriva 2 puffs daily and Ventolin inhaler as needed for shortness of breath and/or wheezing. Hospital course: Patient is a very pleasant 68-year-old male with a past medical history of CAD with previous stent, hypertension, hyperlipidemia, COPD with continued nicotine dependence, history of peptic ulcer disease requiring surgical repair, and alcoholism. He presented to the emergency department secondary to a chief complaint of abdominal pain. Upon arrival to the hospital patient underwent full evaluation. Vital signs showing blood pressure 150/115, heart rate 85, respiratory rate 18, temp 98.4 F, and SpO2 of 98% on room air. KUB was completed showing dilated small bowel measuring 3.6 cm consistent with bowel obstruction. CT abdomen and pelvis then completed showing mild wall thickening of the stomach concerning for gastritis and mild free fluid in the pelvis consistent with ascites. Labs were completed and reviewed. CBC showing macrocytic hyperchromic anemia with hemoglobin of 11.5 MCV of 107.4, and MCH of 35.9. BMP revealing hyponatremia with sodium of 127, hypochloremia with chloride of 97 and blood glucose of 111. Lactic acid was normal at 1.3. Liver profile showing a mild elevated alkaline phosphatase of 127 otherwise normal findings. CRP 0.7. Lipase normal findings at 70. Urinalysis negative for infection. Influenza A, influenza B, RSV, and COVID PCR were negative. Patient was admitted under services with consultation to gastroenterology and general surgery. Patient scheduled to undergo EGD later today with rotor pilot. Gastroenterology evaluated and took patient for EGD showing mild antral gastritis and small area of Ling's esophagus. Gastroenterology is rec ommending Protonix 40 mg daily. General surgery evaluated recommended continuing antacid and outpatient follow-up. Medically, patient is stable at this time. He reports significant improvement of previous reported abdominal pain. He is tolerating oral intake without any episodes of nausea or vomiting and reports having bowel movement without difficulties. Patient discharged at this time and instructed to follow-up outpatient with PCP in 1 to 2 days, rotor pilot in 1 week, and general surgeon in 1 to 2 weeks. Physical exam: Vital signs reviewed and stable. General: Nontoxic, no distress and appears stated age. Derm: Skin warm and dry, normal coloration for ethnicity. Head: Atraumatic, normocephalic and symmetric. Eyes: EOMs intact, no lid lag, and anicteric sclera Mouth: no lip lesions, mucus membranes moist Cardiovascular: regular rate and rhythm with normal S1S2, no murmur, positive posterior tibial pulses bilaterally, and cap refill < 2 seconds. Lungs: Respirations even, regular, and unlabored on room air. Lungs CTA bilaterally, no rhonchi, no rales, no wheezing, and no accessory muscle usage. Abdominal: soft, nontender upon palpation, no guarding, no appreciable organomegaly Ext: ROM intact. No gross muscle atrophy, no edema, no contractures Neuro: Speech clear, face symmetrical and CN II-XII grossly intact with no noted focal neuro deficits Psych: Alert and oriented to person, place, time, and situation. Appropriate and pleasant affect. A total of minutes of time were spent preparing this complex discharge summary. Pt was discharged on 06/29/2023 at 11:02 AM. Patient was seen independently by Nurse Practitioner. This document was prepared using [employer] dictation software. Please allow for errors in insurance policy issue clerk while rare they do occur. I reviewed the documentation as provided by the OLENA above, who is the original author of this note. I agree with the documented assessment and plan, with the following changes: none Patient Condition at Discharge: Stable Plan - Discharge Summary New Discharge Prescriptions: New Pantoprazole [Protonix] 40 mg PO DAILY 30 Days #30 tab Sucralfate [Carafate] 1 gm PO ACHS 30 Days #120 g Continue FLUoxetine HCL [PROzac] 60 mg PO DAILY Multivitamin [Men's Multi-Vitamin] 1 tab PO DAILY Acetaminophen [Tylenol Extra Strength] 500 mg PO TID Ferrous Sulfate [Feosol] 325 mg PO Q48H Albuterol Inhaler [Ventolin Hfa Inhaler] 1 puff INHALATION RT-Q6H PRN PRN Reason: Shortness Of Breath Gabapentin [Neurontin] 800 mg PO TID lisinopriL [Zestril] 5 mg PO BID Cholecalciferol [Vitamin D3 (25 Mcg = 1000 Iu)] 25 mcg PO DAILY Atorvastatin [Lipitor] 80 mg PO HS methocarbamoL [Robaxin-750] 750 mg PO BID Tiotropium 2.5 Mcg/Puff [Spiriva Respimat 2.5 Mcg] 2 puff INHALATION RT-DAILY Metoprolol Succinate [Metoprolol Succinate ER] 25 mg PO BID #60 tab Aspirin EC [Ecotrin Low Dose] 81 mg PO DAILY Discontinued Omeprazole 20 mg PO DAILY Discharge Medication List FLUoxetine HCL [PROzac] 60 mg PO DAILY 06/29/15 [History] Multivitamin [Men's Multi-Vitamin] 1 tab PO DAILY 06/29/15 [History] Acetaminophen [Tylenol Extra Strength] 500 mg PO TID 11/06/17 [History] Ferrous Sulfate [Feosol] 325 mg PO Q48H 11/06/17 [History] Albuterol Inhaler [Ventolin Hfa Inhaler] 1 puff INHALATION RT-Q6H PRN 04/01/19 [History] Gabapentin [Neurontin] 800 mg PO TID 12/28/21 [History] Tiotropium 2.5 Mcg/Puff [Spiriva Respimat 2.5 Mcg] 2 puff INHALATION RT-DAILY 12/28/21 [History] lisinopriL [Zestril] 5 mg PO BID 12/28/21 [History] methocarbamoL [Robaxin-750] 750 mg PO BID 12/28/21 [History] Metoprolol Succinate [Metoprolol Succinate ER] 25 mg PO BID #60 tab 01/10/22 [Rx] Aspirin EC [Ecotrin Low Dose] 81 mg PO DAILY 06/27/23 [History] Atorvastatin [Lipitor] 80 mg PO HS 06/27/23 [History] Cholecalciferol [Vitamin D3 (25 Mcg = 1000 Iu)] 25 mcg PO DAILY 06/27/23 [History] Pantoprazole [Protonix] 40 mg PO DAILY 30 Days #30 tab 06/29/23 [Rx] Sucralfate [Carafate] 1 gm PO ACHS 30 Days #120 g 06/29/23 [Rx] Follow up Appointment(s)/Referral(s): Eagle Hilliard MD [Medical Doctor] - 1 Week Jennyfer Jackson MD [STAFF PHYSICIAN] - 1 Week [facility] [Primary Care Provider] - 1-2 days Patient Instructions/Handouts: Gastritis (DC), Ling Esophagus (DC) Activity/Diet/Wound Care/Special Instructions: Activity: As tolerated. Take breaks as needed. Diet: Heart healthy and carb consistent diet. Avoid salts, or foods with hidden salts such as canned or boxed foods and frozen dinners. Extra salt makes your heart work harder and traps the fluid in your body for longer. Special Instructions: Take all of your medications as directed and remember to keep all of your doctor's appointments and follow-up as needed. Your blood pressures were elevated throughout this admission, secondary to your abdominal pain and concerns for alcohol withdrawal no medication changes were made at this time. Recommending monitoring her blood pressure daily at home and documenting these findings and a daily log to bring with you to your next PCPs appointment. If your pressures remain on the higher side, it is likely you will need some adjustments to your dosing and/or additional medications added to your current antihypertensive medication regimen. Recommend cessation of alcohol use. Thank you for allowing us to participate in your care, it was truly a pleasure having you for our patient!!! Lastly, I would like to thank you for your service, it is always an honor having the opportunity to provide care for !!!! . Discharge Disposition: HOME SELF-CARE
== END 2023-06-29 14:24 | disposition home or self-care (01) ==
LOC: EC 22:13 → 6NMEDSUR 06-27 02:37
PROVIDERS: ADMIT Internal Medicine; ATTEND Internal Medicine
DX: K29.50 Unspecified chronic gastritis without bleeding (principal); K22.70 Barrett's esophagus without dysplasia; K44.9 Diaphragmatic hernia without obstruction or gangrene; J44.9 Chronic obstructive pulmonary disease, unspecified; E78.5 Hyperlipidemia, unspecified; I10 Essential (primary) hypertension; G62.9 Polyneuropathy, unspecified; G89.29 Other chronic pain; M54.9 Dorsalgia, unspecified; F32.A Depression, unspecified; F41.9 Anxiety disorder, unspecified; D50.9 Iron deficiency anemia, unspecified; R18.8 Other ascites; E87.1 Hypo-osmolality and hyponatremia; F10.239 Alcohol dependence with withdrawal, unspecified; R63.4 Abnormal weight loss; E87.6 Hypokalemia; E83.42 Hypomagnesemia; F17.200 Nicotine dependence, unspecified, uncomplicated; Z68.1 Body mass index [BMI] 19.9 or less, adult; Z87.11 Personal history of peptic ulcer disease; Z95.5 Presence of coronary angioplasty implant and graft; Z79.51 Long term (current) use of inhaled steroids; Z79.82 Long term (current) use of aspirin; Z79.899 Other long term (current) drug therapy; Z88.5 Allergy status to narcotic agent
CPT/HCPCS: 96361 ×3; 96365; 96366; 96375 ×2; 99285; 36415; 94640 ×2; 94760 ×2; 88305; 80053 ×2; 83605; 83690; 83735; 85025; 85027; 86140; 81003; 87636; 74018; 74177; 43239; G0378 ×3; J2060; J2270; J2405; J3475; J2704; C9113; Q9967

== ENCOUNTER → 2023-07-16 | Outpatient (CLI) | payer OTHER ==
--- NOTE | 2023-07-16 18:55 | US ---
EXAMINATION TYPE: US Aorta Screening DATE OF EXAM: 07/16/2023 COMPARISON: NONE CLINICAL INDICATION: Male, 68 years old with history of Z13.6 ENCOUNTER FOR SCREENING FOR CARDIOVASCU LAR D; TECHNIQUE: Multiple sonographic images of the abdominal aorta are obtained. FINDINGS: EXAM MEASUREMENTS: Abdominal Aorta: Proximal: 2.4 x 2.9 cm Mid: 1.8 x 1.9 cm Distal: 1.7 x 1.7 cm Bifurcation: Right Iliac: 1.0 x 1.2 cm Left Iliac: 1.4 x 1.4 cm AIR FORCE SENIOR OFFICER NOTES: Calcific overall, no evidence of AAA at this time IMPRESSION: No evidence for aortic aneurysm.
== END | disposition home or self-care (01) ==
LOC: RADUSWWP 09:08
PROVIDERS: ATTEND Family Medicine
DX: Z13.6 Encounter for screening for cardiovascular disorders (principal)
CPT/HCPCS: 76706

== ENCOUNTER 2023-09-19 21:23 | Emergency (ER) | payer OTHER ==
--- NOTE | 2023-09-19 21:32 | ED ---
General Adult HPI - General Stated complaint: hypotension Time Seen by Provider: 09/19/23 21:27 - History of Present Illness Initial comments: This patient is a 68-year-old man arriving by ambulance to have evaluation after his sister called EMS. The patient states that he does not have any complaints. He is feeling well. EMS reports that when his sister checked him he was unresponsive. EMS reports that when they arrived his blood pressure was in the 60s over 30s. That he reportedly had over 2 L of IV fluid administered while being brought in. The patient states he had been drinking earlier he states he has about 6 drinks a day. He states that he otherwise feels well. Denies any neurologic complaints. Onset/Timin -: hour(s) Severity scale (1-10): 0 Consistency: now resolved Improves with: none Worsens with: none Associated Symptoms: denies other symptoms Treatments Prior to Arrival: none - Related Data Home Medications Medication Instructions Recorded Confirmed FLUoxetine HCL [PROzac] 60 mg PO DAILY 06/29/15 06/27/23 Multivitamin [Men's Multi-Vitamin] 1 tab PO DAILY 06/29/15 06/27/23 Acetaminophen [Tylenol Extra 500 mg PO TID 11/06/17 06/27/23 Strength] Ferrous Sulfate [Feosol] 325 mg PO Q48H 11/06/17 06/27/23 Albuterol Inhaler [Ventolin Hfa 1 puff INHALATION RT-Q6H PRN 04/01/19 06/27/23 Inhaler] Gabapentin [Neurontin] 800 mg PO TID 12/28/21 06/27/23 Tiotropium 2.5 Mcg/Puff [Spiriva 2 puff INHALATION RT-DAILY 12/28/21 06/27/23 Respimat 2.5 Mcg] lisinopriL [Zestril] 5 mg PO BID 12/28/21 06/27/23 methocarbamoL [Robaxin-750] 750 mg PO BID 12/28/21 06/27/23 Aspirin EC [Ecotrin Low Dose] 81 mg PO DAILY 06/27/23 06/27/23 Atorvastatin [Lipitor] 80 mg PO HS 06/27/23 06/27/23 Cholecalciferol [Vitamin D3 (25 25 mcg PO DAILY 06/27/23 06/27/23 Mcg = 1000 Iu)] Previous Rx's Medication Instructions Recorded Metoprolol Succinate [Metoprolol 25 mg PO BID #60 tab 01/10/22 Succinate ER] Pantoprazole [Protonix] 40 mg PO DAILY 30 Days #30 tab 06/29/23 Sucralfate [Carafate] 1 gm PO ACHS 30 Days #120 g 06/29/23 Allergies Allergy/AdvReac Type Severity Reaction Status Date / Time amlodipine AdvReac Unknown Verified 09/19/23 21:35 duloxetine [From Cymbalta] AdvReac Unknown Verified 09/19/23 21:35 oxycodone [From Endocet] AdvReac Unknown Verified 09/19/23 21:35 phenytoin [From Dilantin] AdvReac Unknown Verified 09/19/23 21:35 potassium chloride AdvReac Unknown Verified 09/19/23 21:35 ranitidine AdvReac Unknown Verified 09/19/23 21:35 Review of Systems ROS Statement: Those systems with pertinent positive or pertinent negative responses have been documented in the HPI. ROS Other: All systems not noted in ROS Statement are negative. Constitutional: Denies: fever, chills Eyes: Denies: vision change Respiratory: Denies: cough, dyspnea Cardiovascular: Denies: chest pain, palpitations, orthopnea, edema Gastrointestinal: Denies: abdominal pain, vomiting, diarrhea, melena, hematochezia Genitourinary: Denies: dysuria, hematuria Musculoskeletal: Denies: back pain Skin: Denies: rash Neurological: Denies: headache, weakness Past Medical History Past Medical History: Asthma, Chest Pain / Angina, COPD, Hyperlipidemia, Hypert ension, Osteoarthritis (OA) Additional Past Medical History / Comment(s): Diverticulitis, stomach ulcer, neuropathy, chronic back pain, DDD, alcoholism - had seizure when withdrawing from alcohol, scoliosis, hemorrhoids, blocked arteries. History of Any Multi-Drug Resistant Organisms: None Reported Past Surgical History: Heart Catheterization With Stent, Orthopedic Surgery, Tonsillectomy Additional Past Surgical History / Comment(s): Left shoulder rotator cuff surgery, EGD/colonoscopy, cardiac stent (placed 09-15-15 to LAD at [facility]) Past Anesthesia/Blood Transfusion Reactions: No Reported Reaction Date of Last Stent Placement:: 09/15/15 Past Psychological History: Anxiety, Depression Smoking Status: Current every day smoker Past Alcohol Use History: Abuse, Daily Past Drug Use History: None Reported - Past Family History Mother Family Medical History: Coronary Artery Disease (CAD) Additional Family Medical History / Comment(s): Cardiac stent Father Family Medical History: Cancer Additional Family Medical History / Comment(s): Unsure what kind of cancer. General Exam General appearance: alert, in no apparent distress Head exam: Present: atraumatic, normocephalic Eye exam: Present: normal appearance. Absent: scleral icterus, conjunctival injection ENT exam: Present: mucous membranes dry Neck exam: Present: normal inspection, full ROM Respiratory exam: Present: normal lung sounds bilaterally. Absent: respiratory distress, wheezes, rales, rhonchi, stridor, accessory muscle use Cardiovascular Exam: Present: regular rate, normal rhythm, normal heart sounds. Absent: systolic murmur, diastolic murmur, rubs, gallop GI/Abdominal exam: Present: soft. Absent: distended, tenderness, guarding, rebound, rigid, mass Extremities exam: Present: normal inspection, normal capillary refill. Absent: pedal edema, calf tenderness Back exam: Present: normal inspection. Absent: CVA tenderness (R), CVA tenderness (L) Neurological exam: Present: alert, oriented X3. Absent: motor sensory deficit Skin exam: Present: warm, dry, intact, normal color. Absent: rash Course Vital Signs 09/19/23 09/20/23 21:26 01:15 Temperature 97.8 F 97.8 F Pulse Rate 72 87 Respiratory 17 17 Rate Blood Pressure 106/51 139/67 O2 Sat by Pulse 96 100 Oximetry EKG Findings - EKG Results: EKG: interpreted by SHANKAR, sinus rhythm (With occasional premature supraventri cular complexes, rate 72 bpm), normal axis, normal QRS Medical Decision Making - Medical Decision Making Patient is 68-year-old man here because he was initially unresponsive. The patient's sister has joined him at the bedside. He gave consent and I reviewed the study results. At this point the patient states he is feeling better and would like to go home. The patient's sister states she is going to keep an eye on him. He states he will cut back his drinking tomorrow. He will follow with his primary physician to have the sodium rechecked. Patient does agree to return here there is any change from his baseline. Patient had chest x-ray that I interpreted as negative for infiltrate, pneumothorax, congestive heart failure. Patient had CT of the brain that I interpreted as negative for acute bony injury, acute intracranial hemorrhage. Was pt. sent in by a medical professional or institution ([facility] Aquino, [facility], urgent care, hospital, or shelter...) When possible be specific @ -[No] Did you speak to anyone other than the patient for history (EMS, parent, family, police, friend...)? What history was obtained from this source @ -[No] Did you review nursing and triage notes (agree or disagree)? Why? @ -[I reviewed and agree with nursing and triage notes] Were old charts reviewed (outside hosp., previous admission, EMS record, old EKG, old radiological studies, urgent care reports/EKG's, shelter records)? Report findings @ -[No old charts were reviewed] Differential Diagnosis (chest pain, altered mental status, abdominal pain women, abdominal pain men, vaginal bleeding, weakness, fever, dyspnea, syncope, head ache, dizziness, GI bleed, back pain, seizure, CVA, palpatations, mental health, musculoskeletal)? @ -[Differential Altered Mental Status: Hypoglycemia, DKA, hypercapnia, ETOH, overdose, CO poisoning, trauma, myxedema coma, HTN encephalopathy, infection, encephalitis, psychosis, intercranial hemor rhage, hepatic encephalopathy, meningitis, CVA, this is not meant to be an all- inclusive list EKG interpreted by me (3pts min.). @ -[As above] X-rays interpreted by me (1pt min.). @ -[I interpreted as above CT interpreted by me (1pt min.). @ -[I interpreted as above U/S interpreted by me (1pt. min.). @ -[None done] What testing was considered but not performed or refused? (CT, X-rays, U/S, la bs)? Why? @ -[None] What meds were considered but not given or refused? Why? @ -[None] Did you discuss the management of the patient with other professionals (professionals i.e. ANTOLIN Aquino, [facility], lab, RT, psych nurse, social science instructor, crown blocker, teacher, operations officer, case management assistant)? Give summary @ -[No] Was smoking cessation discussed for >3mins.? @ -[No] Was critical care preformed (if so, how long)? @ -[No] Were there social determinants of health that impacted care today? How? (Homelessness, low income, unemployed, alcoholism, drug addiction, transportation, low edu. Level, literacy, decrease access to med. care, care home, rehab)? @ -[No] Was there de-escalation of care discussed even if they declined (Discuss DNR or withdrawal of care, Hospice)? DNR status @ -[No] What co-morbidities impacted this encounter? (DM, HTN, Smoking, COPD, CAD, Cancer, CVA, ARF, Chemo, Hep., AIDS, mental health diagnosis, sleep apnea, morbid obesity)? @ -[None] Was patient admitted / discharged? Hospital course, mention meds given and route, prescriptions, significant lab abnormalities, going to OR and other pertinent info. @ -[See above Undiagnosed new problem with uncertain prognosis? @ -[No] Drug Therapy requiring intensive monitoring for toxicity (Heparin, Nitro, Insulin, Cardizem)? @ -[No] Were any procedures done? @ -[No] Diagnosis/symptom? @ -[Altered mental status, resolved Acute alcohol intoxication Hyponatremia Acute, or Chronic, or Acute on Chronic? @ -[Acute Uncomplicated (without systemic symptoms) or Complicated (systemic symptoms)? @ -[Uncomplicated Side effects of treatment? @ -[No] Exacerbation, Progression, or Severe Exacerbation? @ -[No] Poses a threat to life or bodily function? How? (Chest pain, [place], [place], pneumonia, PE, COPD, DKA, ARF, appy, cholecystitis, CVA, Diverticulitis, Homicidal, Suicidal, threat to staff... and all critical care pts) @ -[No] - Lab Data Result diagrams: 09/19/23 22:12 09/19/23 22:15 Lab Results 09/19/23 09/19/23 09/19/23 Range/Units 22:12 22:15 22:15 WBC 2.9 L (3.8-10.6) k/uL RBC 3.89 L (4.30-5.90) m/uL Hgb 12.7 L (13.0-17.5) gm/dL Hct 42.1 (39.0-53.0) % MCV 108.2 H (80.0-100.0) fL MCH 32.6 (25.0-35.0) pg MCHC 30.2 L (31.0-37.0) g/dL RDW 13.7 (11.5-15.5) % Plt Count 280 (150-450) k/uL MPV 7.5 Neutrophils % 79 % Lymphocytes % 10 % Monocytes % 7 % Eosinophils % 2 % Basophils % 1 % Neutrophils # 2.3 (1.3-7.7) k/uL Lymphocytes # 0.3 L (1.0-4.8) k/uL Monocytes # 0.2 (0-1.0) k/uL Eosinophils # 0.1 (0-0.7) k/uL Basophils # 0.0 (0-0.2) k/uL Macrocytosis Moderate PT 11.7 (10.0-12.5) sec INR 1.1 (<1.2) APTT 26.3 (22.0-30.0) sec Sodium (137-145) mmol/L Potassium (3.5-5.1) mmol/L Chloride (98-107) mmol/L Carbon Dioxide (22-30) mmol/L Anion Gap mmol/L BUN (9-20) mg/dL Creatinine (0.66-1.25) mg/dL Est GFR (CKD-EPI)AfAm (>60 ml/min/1.73 sqM) Est GFR (CKD-EPI)NonAf (>60 ml/min/1.73 sqM) Glucose (74-99) mg/dL Plasma Lactic Acid [place] (0.7-2.0) mmol/L Calcium (8.4-10.2) mg/dL Magnesium (1.6-2.3) mg/dL Total Bilirubin (0.2-1.3) mg/dL AST (17-59) U/L ALT (4-49) U/L Alkaline Phosphatase (38-126) U/L Troponin I <0.012 (0.000-0.034) ng/mL Total Protein (6.3-8.2) g/dL Albumin (3.5-5.0) g/dL Urine Color Urine Appearance (Clear) Urine pH (5.0-8.0) Ur Specific [place] (1.001-1.035) Urine Protein (Negative) Urine Glucose (UA) (Negative) Urine Ketones (Negative) Urine Blood (Negative) Urine Nitrite (Negative) Urine Bilirubin (Negative) Urine Urobilinogen (<2.0) mg/dL Ur Leukocyte Esterase (Negative) Serum Alcohol mg/dL 09/19/23 09/19/23 09/20/23 Range/Units 22:15 22:15 00:01 WBC (3.8-10.6) k/uL RBC (4.30-5.90) m/uL Hgb (13.0-17.5) gm/dL Hct (39.0-53.0) % MCV (80.0-100.0) fL MCH (25.0-35.0) pg MCHC (31.0-37.0) g/dL RDW (11.5-15.5) % Plt Count (150-450) k/uL MPV Neutrophils % % Lymphocytes % % Monocytes % % Eosinophils % % Basophils % % Neutrophils # (1.3-7.7) k/uL Lymphocytes # (1.0-4.8) k/uL Monocytes # (0-1.0) k/uL Eosinophils # (0-0.7) k/uL Basophils # (0-0.2) k/uL Macrocytosis PT (10.0-12.5) sec INR (<1.2) APTT (22.0-30.0) sec Sodium 126 L (137-145) mmol/L Potassium 3.7 (3.5-5.1) mmol/L Chloride 102 (98-107) mmol/L Carbon Dioxide 20 L (22-30) mmol/L Anion Gap 4 mmol/L BUN 8 L (9-20) mg/dL Creatinine 0.64 L (0.66-1.25) mg/dL Est GFR (CKD-EPI)AfAm >90 (>60 ml/min/1.73 sqM) Est GFR (CKD-EPI)NonAf >90 (>60 ml/min/1.73 sqM) Glucose 67 L (74-99) mg/dL Plasma Lactic Acid [place] 2.0 (0.7-2.0) mmol/L Calcium 7.7 L (8.4-10.2) mg/dL Magnesium 1.7 (1.6-2.3) mg/dL Total Bilirubin 0.5 (0.2-1.3) mg/dL AST 27 (17-59) U/L ALT 16 (4-49) U/L Alkaline Phosphatase 92 (38-126) U/L Troponin I (0.000-0.034) ng/mL Total Protein 5.1 L (6.3-8.2) g/dL Albumin 3.0 L (3.5-5.0) g/dL Urine Color Colorless Urine Appearance Clear (Clear) Urine pH 6.5 (5.0-8.0) Ur Specific [place] 1.003 (1.001-1.035) Urine Protein Negative (Negative) Urine Glucose (UA) Negative (Negative) Urine Ketones Negative (Negative) Urine Blood Negative (Negative) Urine Nitrite Negative (Negative) Urine Bilirubin Negative (Negative) Urine Urobilinogen <2.0 (<2.0) mg/dL Ur Leukocyte Esterase Negative (Negative) Serum Alcohol 104 mg/dL Disposition Clinical Impression: Hyponatremia Disposition: HOME SELF-CARE Condition: Fair Instructions (If sedation given, give patient instructions): Hyponatremia (ED) Is patient prescribed a controlled substance at d/c from ED?: No Referrals: Jaylon Ledbetter DO [Primary Care Provider] - 1-2 days
[2023-09-19 21:35] VITALS: RESP 17; TEMP 97.8
--- NOTE | 2023-09-19 22:15 | CT ---
EXAMINATION TYPE: CT brain wo con DATE OF EXAM: 09/19/2023 HISTORY: ams, weakness CT DLP: 1130.4 mGycm. Automated Exposure Control for Dose Reduction was Utilized. TECHNIQUE: CT scan of the head is performed without contrast. COMPARISON: 11/06/2017 FINDINGS: There is no skull fracture or intracranial hemorrhage. No mass or mass effect. No definite new attenu ation defect. Extra-axial compartment is negative. Paranasal sinuses, mastoid sinus air cells, and middle ear cavit ies are clear. Orbits are unremarkable. IMPRESSION: No acute process.
[2023-09-19 22:44] LABS: Basophils % (A) 1 %; Eosinophils # (A) 0.1 k/uL (0-0.7); Eosinophils % (A) 2 %; HCT 42.1 % (39.0-53.0); HGB 12.7 gm/dL (13.0-17.5); Lymphocytes # (A) 0.3 k/uL (1.0-4.8); Lymphocytes % (A) 10 %; MCH 32.6 pg (25.0-35.0); MCHC 30.2 g/dL (31.0-37.0); MCV 108.2 fL (80.0-100.0); Macrocytosis Moderate; Mean Platelet Volume 7.5; Monocytes # (A) 0.2 k/uL (0-1.0); Monocytes % (A) 7 %; Neutrophils # (A) 2.3 k/uL (1.3-7.7); Neutrophils % (A) 79 %; Platelet Count 280 k/uL (150-450); RBC 3.89 m/uL (4.30-5.90); RDW 13.7 % (11.5-15.5); WBC 2.9 k/uL (3.8-10.6)
[2023-09-19 22:51] LABS: INR 1.1 (<1.2); Partial Thromboplastin Time 26.3 sec (22.0-30.0); Prothrombin Time 11.7 sec (10.0-12.5)
[2023-09-19 22:53] LABS: ALT 16 U/L (4-49); AST 27 U/L (17-59); African American GFR (CKD) >90 (>60 ml/min/1.73 sqM); Alkaline Phosphatase 92 U/L (38-126); Anion Gap 4 mmol/L; Blood Urea Nitrogen 8 mg/dL (9-20); Calcium 7.7 mg/dL (8.4-10.2); Carbon Dioxide 20 mmol/L (22-30); Chloride 102 mmol/L (98-107); Glucose 67 mg/dL (74-99); Magnesium 1.7 mg/dL (1.6-2.3); Non-African American GFR(CKD) >90 (>60 ml/min/1.73 sqM); Potassium 3.7 mmol/L (3.5-5.1); Sodium 126 mmol/L (137-145); Total Bilirubin 0.5 mg/dL (0.2-1.3); Total Protein 5.1 g/dL (6.3-8.2)
[2023-09-19 23:01] LABS: Alcohol 104 mg/dL
[2023-09-20 00:21] LABS: Appearance,Urine Clear (Clear); Bilirubin,Urine Negative (Negative); Blood,Urine Negative (Negative); Color,Urine Colorless; Glucose,Urine (UA) Negative (Negative); Ketones,Urine Negative (Negative); Leukocyte Esterase,Urine Negative (Negative); Nitrite,Urine Negative (Negative); PH, Urine 6.5 (5.0-8.0); Protein,Urine Negative (Negative); Specific Gravity,Urine 1.003 (1.001-1.035); Urobilinogen,Urine <2.0 mg/dL (<2.0)
[2023-09-20] MEDS: SODIUM CHLORIDE 0.9% 1,000 ML IV ONE (00:23)
[2023-09-20 01:18] VITALS: BP 139/67; PULSE 87
--- NOTE | 2023-09-20 02:03 | XR ---
EXAM: XR Chest, 2 Views CLINICAL HISTORY: Weakness TECHNIQUE: Frontal and lateral views of the chest. COMPARISON: 05/01/22 FINDINGS: Lungs: Small patchy airspace opacities over bilateral lower lung zones. Pleural space: Unremarkable. Mediastinum: Unremarkable. Normal mediastinal contour. Bones/joints: No acute findings. IMPRESSION: Small patchy airspace opacities over bilateral lower lung zones. Small amount of patchy bibasilar atelectasis and/or pneumonia.
== END 2023-09-20 01:18 | disposition home or self-care (01) ==
LOC: EC 21:23
DX: E87.1 Hypo-osmolality and hyponatremia (principal); F17.200 Nicotine dependence, unspecified, uncomplicated; Z88.5 Allergy status to narcotic agent; Z88.8 Allergy status to other drugs, medicaments and biological substances; Z95.5 Presence of coronary angioplasty implant and graft
CPT/HCPCS: 36415; 70450; 71046; 80053; 80320; 81003; 83605; 83735; 84484; 85025; 85610; 85730; 93005; 96360; 99284